=== PATIENT | female | born 1990 | race Caucasian/White ===

== ENCOUNTER 2016-08-04 10:51 | Emergency (ER) | payer OTHER ==
[~2016-08-04 10:51] MED LIST: /ALBU4TAB INH; ABIL10TA PO; ABIL15TA2 PO; ABIL1TAB5 PO; ACET50TA PO; ADV250INH INH; ALEV220T26 PO; ATOM40CA PO; BENGGEL3 EX; COLA50CA3 PO; EXCETAB80 PO; GLUC1INJ2 IM; GLUC1VL IM; GLUC4CHW PO; IBUP600T26 PO; INSUDET SC; INSUH10VL INJ; INSUH10VL SC; INSUH10VL SQ; INSUHUMDS SC; INSULADS SC; INSULANT SC; KEPP500T4 PO; LEVO500T PO; MACR100C3 PO; MINI1CAP PO; MOBI15TA PO; NOVOINJ SC; NOVOLOG SC; PARO20TA2 PO; PAXI10TA2 PO; PRENTAB74 PO; TRAZO50TA PO; TRIL150T PO; TYLE325T5 PO; VENTAER INH; VITA200016 PO; [UNRECOGNIZED DRUG - OTHER] SQ; lodine PO
[2016-08-04] MEDS ORDERED: methylPREDNISolone INJ 125 MG/2 ML VIAL (J2930) As Ordered ONE (11:30)
[2016-08-04] MEDS ORDERED: FAMOTIDINE/NS 20 MG/50 ML BAG (S0028) As Ordered ONE (11:30)
[2016-08-04] MEDS ORDERED: diphenhydrAMINE INJ 50MG/ML VIAL (J1200) As Ordered ONE (11:30)
--- NOTE | 2016-08-04 11:49 | REP ---
Chest x-ray: Two views. History: Shortness of breath. Comparison study: March 05, 2015. Findings: The lungs are well inflated and free of infiltrate. The pleural angles are sharp. The heart size is normal. Pulmonary vasculature is not increased. No significant bony abnormality is seen. EKG monitoring electrodes are seen. Impression: Negative chest x-ray. Signed by Peter Knight MD 08/04/2016 03:04 P
[2016-08-04 12:07] LABS: BASO % 0.5 % (0.0-1.0); EOS # 0.3 K/mm3 (0.0-0.50); EOS % 4.1 % (0.0-3.0); LARGE UNSTAINED CELL # 0.1 K/mm3 (0.0-0.4); LARGE UNSTAINED CELL % 1.6 % (0.0-4.0); LYMPH # 2.7 K/mm3 (1.5-6.5); LYMPH % 34.8 % (24.0-44.0); MEAN CORPUSCULAR HEMOGLOBIN 26.2 pg (27.0-33.0); MEAN CORPUSCULAR HGB CONC 31.6 g/dl (32.0-36.5); MEAN CORPUSCULAR VOLUME 83.2 fl (80.0-96.0); MONO # 0.3 K/mm3 (0.0-0.8); MONO % 3.5 % (0.0-5.0); NEUTROPHILS # 4.3 K/mm3 (1.8-7.7); NEUTROPHILS % 55.5 % (36.0-66.0); PLATELET COUNT, AUTOMATED 390 k/mm3 (150-450); RED CELL DISTRIBUTION WIDTH 13.1 % (11.5-14.5); WHITE BLOOD COUNT 7.7 K/mm3 (4.0-10.0)
[2016-08-04 12:14] LABS: ANION GAP 8 MEQ/L (8-16); BLOOD UREA NITROGEN 11 MG/DL (7-18); CARBON DIOXIDE LEVEL 26 MEQ/L (21-32); CHLORIDE LEVEL 106 MEQ/L (98-107); GLOMERULAR FILTRATION RATE > 60.0 (>60); GLUCOSE, FASTING 225 MG/DL (70-105); SODIUM LEVEL 140 MEQ/L (136-145)
--- NOTE | 2016-08-04 13:19 | EDDOCDS ---
Physician Documentation [facility] Name: Dami Salinas Age: 26 yrs Sex: Female : 1990 Arrival Date: 08/04/2016 Time: 10:51 Bed 1 Private MD: Disposition: 08/04/16 13:03 Discharged to Home/Self Care. Impression: Allergic urticaria. - Condition is Stable. - Discharge Instructions: Allergies, Hives. - Medication Reconciliation, Local Pharmacy Hours form. - Follow up: Private Physician; When: 1 - 2 days; Reason: Recheck today's complaints. - Problem is new. - Symptoms have improved. - Notes: You were seen in the ED for hives after eating a strawberry concerning for allergic reaction. Bloodwork and Chest Xray showed no other acute findings. You were treated and imrpoved with medications. You may continue Benadryl every 6 hours as needed for rash or itching. Call your primary doctor to arrange to be seen in the office for recheck. Return to the ED for any return of trouble breathing, swelling of the lips, tongue or throat, trouble swallowing or any other concerns. Historical: - Allergies: Adhesives; PENICILLINS; Positive latex allergy; - Home Meds: 1. Novolog 100 unit/mL Sub-Q soln via insulin pump 2. Lamictal 25 mg oral tab 2 times per day 3. Breo Ellipta 100-25 mcg/dose inhalation dsdv 1 puff once daily 4. Abilify 15 mg Oral tab 1 tab once daily 5. Prozac 30 mg Oral once daily 6. prazosin 1 mg Oral cap daily 7. trazodone 100 mg Oral tab nightly - PMHx: Asthma; Diabetes - IDDM: uncontrolled; Epilepsy; - PSHx: none; - Social history: Smoking status: Patient uses tobacco products, heavy tobacco smoker. No barriers to communication noted, The patient speaks fluent Portuguese, Speaks appropriately for age. - Family history: Not pertinent. - : The pt / caregiver states he / she is not on anticoagulants. Home medication list is obtained from the patient. - Exposure Risk Screening:: None identified. Vital Signs: 08/04 10:54 BP 162 / 86 RA Sitting (auto/reg); Pulse 91; Resp 30; Temp 97.4(O); Pulse Ox 96% on jrd R/A; Weight 117.93 kg / 259.99 lbs (R); Height 5 ft. 3 in. (160.02 cm); Pain 0/10; 11:50 Pulse 66 MON; Pulse Ox 100% ; cjh 11:51 BP 125 / 80 (auto/); cjh 11:59 Pulse 66 MON; Pulse Ox 100% ; cjh 12:00 BP 118 / 78 (auto/); cjh 12:08 Pulse 64 MON; Pulse Ox 100% ; cjh 12:08 BP 114 / 70 (auto/); cjh 12:22 Pulse 65 MON; Pulse Ox 98% ; cjh 12:23 BP 108 / 66 (auto/); cjh 12:37 Pulse 64 MON; Pulse Ox 100% ; cjh 12:38 BP 109 / 68 (auto/); cjh 12:52 Pulse 58 MON; Pulse Ox 98% ; cjh 12:53 BP 107 / 65 (auto/); cjh 13:08 Pulse 61 MON; Pulse Ox 98% ; cjh 13:08 BP 106 / 69 (auto/); cjh 13:15 BP 106 / 69; Pulse 62; Resp 16; Temp 97.9; Pulse Ox 99% ; Pain 0/10; cjh 10:54 Body Mass Index 46.06 (117.93 kg, 160.02 cm) jrd MDM: 11:15 IV Saline Lock ordered. br1 11:15 Insurance Specialist/Pulse Ox/q 30 min VS ordered. br1 11:16 Solu-MEDROL 125 mg IVP once ordered. br1 11:16 diphenhydrAMINE 50 mg IVP once ordered. br1 11:16 Famotidine 40 mg IVP once ordered. br1 11:17 Chest, 2 View (pa\E\lat) Ordered. EDMS 11:17 CBC with Diff Ordered. EDMS 11:17 BMP Ordered. EDMS 12:25 Financial registration complete. lg 12:59 CBC with Diff Reviewed. br1 12:59 BMP Reviewed. br1 12:59 Chest, 2 View (pa\E\lat) Reviewed. br1 Administered Medications: 11:52 Drug: Solu-MEDROL 125 mg [Solu-Medrol 500 mg intravenous solution (125 mg)] Route: IVP; [facility] Site: left antecubital; 11:52 Drug: diphenhydrAMINE 50 mg [diphenhydramine 50 mg/mL injection solution (1 mL)] Route: [facility] IVP; Site: left antecubital; 11:52 Drug: Famotidine 40 mg [famotidine 10 mg/mL intravenous solution (4 mL)] Route: IVP; [facility] Site: left antecubital; Signatures: Dispatcher [employer] Mal Knowles Reg Reg lg Barney, Michael B, RN RN mlb1 Ronak Sun MD MD br1 Rosario Bello RN RN [facility] MTDD
--- NOTE | 2016-08-04 13:19 | EDDOCDS ---
Nurse's Notes [facility] Name: Dami Salinas Age: 26 yrs Sex: Female : 1990 Arrival Date: 08/04/2016 Time: 10:51 Bed 1 Private MD: Diagnosis: Allergic urticaria Presentation: 08/04 10:56 Presenting complaint: Patient states: Sudden onset of SOB after eating strawberries. mlb1 Onset: The symptoms/episode began/occurred just prior to arrival. This patient has not experienced a previous allergic reaction. Anaphylaxis evaluation, the patient reports or I have noted the following symptoms which indicate a significant risk of anaphylaxis: lump in the throat which may suggest laryngeal edema shortness of breath. Anaphylaxis evaluation, the patient reports or I have noted the following symptoms which indicate a significant risk of anaphylaxis: urticaria. Adult Sepsis Screening: The patient does not have new or worsening altered mentation. Patient's respiratory rate is less than 22. Systolic blood pressure is greater than 100. Adult Sepsis Screening: Patient has a qSOFA score of 0- Negative Sepsis Screen. Suicide/Homicide risk assessment- the patient denies having any suicidal and/or homicidal ideations and does not present with any other emotional, behavioral or mental health complaints. Status: Patient is not a customer service associate or dependent. Transition of care: patient was not received from another setting of care. 10:56 Acuity: ISH Level 2 mlb1 10:56 Method Of Arrival: Walkin/Carried/Asstd mlb1 Triage Assessment: 11:02 General: Appears in no apparent distress, Behavior is anxious, cooperative. Pain: mlb1 Denies pain. HIV screening NA for this visit Offered previously. Respiratory: Airway is patent Respiratory effort is even, labored, Reports shortness of breath. Historical: - Allergies: Adhesives; PENICILLINS; Positive latex allergy; - Home Meds: 1. Novolog 100 unit/mL Sub-Q soln via insulin pump 2. Lamictal 25 mg oral tab 2 times per day 3. Breo Ellipta 100-25 mcg/dose inhalation dsdv 1 puff once daily 4. Abilify 15 mg Oral tab 1 tab once daily 5. Prozac 30 mg Oral once daily 6. prazosin 1 mg Oral cap daily 7. trazodone 100 mg Oral tab nightly - PMHx: Asthma; Diabetes - IDDM: uncontrolled; Epilepsy; - PSHx: none; - Social history: Smoking status: Patient uses tobacco products, heavy tobacco smoker. No barriers to communication noted, The patient speaks fluent Icelandic, Speaks appropriately for age. - Family history: Not pertinent. - : The pt / caregiver states he / she is not on anticoagulants. Home medication list is obtained from the patient. - Exposure Risk Screening:: None identified. Screenin:52 Screening information is obtained from the patient. Fall risk: No risks identified. cj Assistance ADL's: requires no assistance with activities of daily living. Abuse/DV Screen: The patient / caregiver reports he/she is: not in a situation that causes fear, pain or injury. Nutritional screening: No deficits noted. Advance Directives: There is no active DNR order. home support is adequate. Assessment: 11:52 General: Appears in no apparent distress, comfortable, Behavior is cooperative. Pain: cjh Denies pain. Neurological: Level of Consciousness is awake, alert, Oriented to person, place, time. Respiratory: Airway is patent Respiratory effort is even, unlabored, Respiratory pattern is regular, symmetrical, Breath sounds are clear bilaterally. Derm: Skin is pink, warm & dry. Rash noted that is red. Musculoskeletal: Range of motion intact in all extremities. 12:57 General: Appears in no apparent distress, comfortable, Behavior is appropriate for age, cjh cooperative, awaiting dispo, states feeling much better, watching tv on phone with male visitor at bedside, will continue to monitor. 13:15 General: Appears in no apparent distress, comfortable, Behavior is appropriate for age, cjh cooperative, reviewed discharge instructions, encouraged and answered questions, declines further needs. Vital Signs: 10:54 BP 162 / 86 RA Sitting (auto/reg); Pulse 91; Resp 30; Temp 97.4(O); Pulse Ox 96% on jrd R/A; Weight 117.93 kg (R); Height 5 ft. 3 in. (160.02 cm); Pain 0/10; 11:50 Pulse 66 MON; Pulse Ox 100% ; cjh 11:51 BP 125 / 80 (auto/); cjh 11:59 Pulse 66 MON; Pulse Ox 100% ; [facility] 12:00 BP 118 / 78 (auto/); [facility] 12:08 Pulse 64 MON; Pulse Ox 100% ; cjh 12:08 BP 114 / 70 (auto/); cjh 12:22 Pulse 65 MON; Pulse Ox 98% ; cjh 12:23 BP 108 / 66 (auto/); cjh 12:37 Pulse 64 MON; Pulse Ox 100% ; cjh 12:38 BP 109 / 68 (auto/); cjh 12:52 Pulse 58 MON; Pulse Ox 98% ; cjh 12:53 BP 107 / 65 (auto/); cjh 13:08 Pulse 61 MON; Pulse Ox 98% ; cjh 13:08 BP 106 / 69 (auto/); cjh 13:15 BP 106 / 69; Pulse 62; Resp 16; Temp 97.9; Pulse Ox 99% ; Pain 0/10; cjh 10:54 Body Mass Index 46.06 (117.93 kg, 160.02 cm) [facility] Vitals: 10:54 Log In Time: August 04, 2016 at 10:48. [facility] ED Course: 10:53 Patient visited by Cassius Colon PCA. jrd 10:53 Patient moved to Waiting jrd 10:56 Patient visited by Cassius Colon PCA. jrd 10:56 Patient visited by Ruperto Nuñez, RN. mlb1 10:56 Patient moved to 1 mlb1 10:57 Triage Initiated mlb1 11:03 Patient visited by Ruperto Nuñez, RN. mlb1 11:10 Ronak Sun MD is Attending Physician. br1 11:14 Patient visited by Ronak Sun MD. br1 11:52 The patient / caregiver is instructed regarding the plan of care and ED course. [facility] 11:52 No procedures done that require assistance. [facility] 11:54 Patient visited by Julita Mae PCA. rs6 11:54 Pt greeted and oriented to ED. Patient advised of names of staff involved in care, rs6 location of call melendez, wait times and NPO status. Accompanied by Significant Other, Patient has correct armband on for positive identification. Placed in gown. Bed in low position. Call light in reach. Side rails up X 1. service writer on. Pulse ox on. NIBP on. 11:55 Inserted saline lock: 20 gauge in left antecubital area The patient tolerated the [facility] procedure well. 12:09 Chest, 2 View (pa\E\lat) Returned. EDMS 12:48 Patient visited by Rosario Bello RN. [facility] 13:01 Patient visited by Ronak Sun MD. br1 13:15 Discontinued lock intact, bleeding controlled, pressure dressing applied, No [facility] redness/swelling at site. Administered Medications: 11:52 Drug: Solu-MEDROL 125 mg [Solu-Medrol 500 mg intravenous solution (125 mg)] Route: IVP; [facility] Site: left antecubital; 11:52 Drug: diphenhydrAMINE 50 mg [diphenhydramine 50 mg/mL injection solution (1 mL)] Route: [facility] IVP; Site: left antecubital; 11:52 Drug: Famotidine 40 mg [famotidine 10 mg/mL intravenous solution (4 mL)] Route: IVP; [facility] Site: left antecubital; Order Results: Lab Order: CBC with Diff; SPEC'M 08/04/16 11:42 Test: WHITE BLOOD COUNT; Value: 7.7; Range: 4.0-10.0; Units: K/mm3; Status: F Test: RED BLOOD COUNT; Value: 4.79; Range: 4.00-5.40; Units: M/mm3; Status: F Test: HEMOGLOBIN; Value: 12.6; Range: 12.0-16.0; Units: g/dl; Status: F Test: HEMATOCRIT; Value: 39.8; Range: 36.0-47.0; Units: %; Status: F Test: MEAN CORPUSCULAR VOLUME; Value: 83.2; Range: 80.0-96.0; Units: fl; Status: F Test: MEAN CORPUSCULAR HEMOGLOBIN; Value: 26.2; Range: 27.0-33.0; Abnormal: Below low normal; Units: pg; Status: F Test: MEAN CORPUSCULAR HGB CONC; Value: 31.6; Range: 32.0-36.5; Abnormal: Below low normal; Units: g/dl; Status: F Test: RED CELL DISTRIBUTION WIDTH; Value: 13.1; Range: 11.5-14.5; Units: %; Status: F Test: PLATELET COUNT, AUTOMATED; Value: 390; Range: 150-450; Units: k/mm3; Status: F Test: NEUTROPHILS %; Value: 55.5; Range: 36.0-66.0; Units: %; Status: F Test: LYMPH %; Value: 34.8; Range: 24.0-44.0; Units: %; Status: F Test: MONO %; Value: 3.5; Range: 0.0-5.0; Units: %; Status: F Test: EOS %; Value: 4.1; Range: 0.0-3.0; Abnormal: Above high normal; Units: %; Status: F Test: BASO %; Value: 0.5; Range: 0.0-1.0; Units: %; Status: F Test: LARGE UNSTAINED CELL %; Value: 1.6; Range: 0.0-4.0; Units: %; Status: F Test: NEUTROPHILS #; Value: 4.3; Range: 1.8-7.7; Units: K/mm3; Status: F Test: LYMPH #; Value: 2.7; Range: 1.5-6.5; Units: K/mm3; Status: F Test: MONO #; Value: 0.3; Range: 0.0-0.8; Units: K/mm3; Status: F Test: EOS #; Value: 0.3; Range: 0.0-0.50; Units: K/mm3; Status: F Test: BASO #; Value: 0.0; Range: 0.0-0.2; Units: K/mm3; Status: F Test: LARGE UNSTAINED CELL #; Value: 0.1; Range: 0.0-0.4; Units: K/mm3; Status: F Lab Order: [facility]; [facility] 08/04/16 11:42 Test: GLUCOSE, FASTING; Value: 225; Range: 70-105; Abnormal: Above high normal; Units: MG/DL; Status: F Test: BLOOD UREA NITROGEN; Value: 11; Range: 7-18; Units: MG/DL; Status: F Test: CREATININE FOR GFR; Value: 0.70; Range: 0.55-1.02; Units: MG/DL; Status: F Test: GLOMERULAR FILTRATION RATE; Value: > 60.0; Range: >60; Status: F Test: SODIUM LEVEL; Value: 140; Range: 136-145; Units: MEQ/L; Status: F Test: POTASSIUM SERUM; Value: 4.0; Range: 3.5-5.1; Units: MEQ/L; Status: F Test: CHLORIDE LEVEL; Value: 106; Range: 98-107; Units: MEQ/L; Status: F Test: CARBON DIOXIDE LEVEL; Value: 26; Range: 21-32; Units: MEQ/L; Status: F Test: ANION GAP; Value: 8; Range: 8-16; Units: MEQ/L; Status: F Test: CALCIUM LEVEL; Value: 9.0; Range: 8.5-10.1; Units: MG/DL; Status: F Test Note: ; Units are mL/min/1.73 m2 Chronic Kidney Disease Staging per NKF: Stage I & II GFR >=60 Normal to Mildly Decreased Stage III GFR 30-59 Moderately Decreased Stage IV GFR 15-29 Severely Decreased Stage V GFR <15 Very Little GFR Left ESRD GFR <15 on TREATMENT MANAGER Radiology Order: Chest, 2 View (pa\E\lat) Test: Chest, 2 View (pa\E\lat) REASON FOR EXAMINATION: Shortness of Breath; Chest x-ray: Two views.; ; History: Shortness of breath.; ; Comparison study: March 05, 2015.; ; Findings: The lungs are well inflated and free of infiltrate. The pleural; angles are sharp. The heart size is normal. Pulmonary vasculature is not; increased. No significant bony abnormality is seen. EKG monitoring electrodes; are seen.; ; Impression:; ; Negative chest x-ray.; ; ; ; ; Unreviewed; Outcome: 13:03 Discharge ordered by Provider. br1 13:15 Discharge Assessment: Patient awake, alert and oriented x 3. No cognitive and/or [facility] functional deficits noted. Patient verbalized understanding of disposition instructions. patient administered narcotics - no. The following High Risk Discharge criteria are identified: None. Discharged to home ambulatory, with significant other. Condition: good Condition: stable Condition: improved. Discharge instructions given to patient, Instructed on discharge instructions, follow up and referral plans. medication usage, Demonstrated understanding of instructions, medications, Pt was receptive of discharge instructions/ teaching. No special radiology studies were completed. Property :Personal belongings accompany Pt. 13:18 Patient left the ED. [facility] Signatures: Dispatcher [facility] HospitalRuperto Deshpande RN RN mlb1 Ronak Sun MD MD br1 Rosario Bello,RN RN cjh Cassius Colon, PERSONAL INJURY LITIGATION PARALEGAL PERSONAL INJURY LITIGATION PARALEGAL jrd Julita Mae, PERSONAL INJURY LITIGATION PARALEGAL PERSONAL INJURY LITIGATION PARALEGAL rs6 Corrections: (The following items were deleted from the chart) 11:55 11:52 No IV's were initiated during this patient's visit chiara guadarrama MTDD
--- NOTE | 2016-08-06 14:19 | EDDOCDS ---
Physician Documentation [facility] Name: Dami Salinas Age: 26 yrs Sex: Female : 1990 Arrival Date: 08/04/2016 Time: 10:51 Bed 1 Private MD: Disposition: 08/04/16 13:03 Discharged to Home/Self Care. Impression: Allergic urticaria. - Condition is Stable. - Discharge Instructions: Allergies, Hives. - Medication Reconciliation, Local Pharmacy Hours form. - Follow up: Private Physician; When: 1 - 2 days; Reason: Recheck today's complaints. - Problem is new. - Symptoms have improved. - Notes: You were seen in the ED for hives after eating a strawberry concerning for allergic reaction. Bloodwork and Chest Xray showed no other acute findings. You were treated and imrpoved with medications. You may continue Benadryl every 6 hours as needed for rash or itching. Call your primary doctor to arrange to be seen in the office for recheck. Return to the ED for any return of trouble breathing, swelling of the lips, tongue or throat, trouble swallowing or any other concerns. Historical: - Allergies: Adhesives; PENICILLINS; Positive latex allergy; - Home Meds: 1. Novolog 100 unit/mL Sub-Q soln via insulin pump 2. Lamictal 25 mg oral tab 2 times per day 3. Breo Ellipta 100-25 mcg/dose inhalation dsdv 1 puff once daily 4. Abilify 15 mg Oral tab 1 tab once daily 5. Prozac 30 mg Oral once daily 6. prazosin 1 mg Oral cap daily 7. trazodone 100 mg Oral tab nightly - PMHx: Asthma; Diabetes - IDDM: uncontrolled; Epilepsy; - PSHx: none; - Social history: Smoking status: Patient uses tobacco products, heavy tobacco smoker. No barriers to communication noted, The patient speaks fluent Italian, Speaks appropriately for age. - Family history: Not pertinent. - : The pt / caregiver states he / she is not on anticoagulants. Home medication list is obtained from the patient. - Exposure Risk Screening:: None identified. Vital Signs: 08/04 10:54 BP 162 / 86 RA Sitting (auto/reg); Pulse 91; Resp 30; Temp 97.4(O); Pulse Ox 96% on jrd R/A; Weight 117.93 kg / 259.99 lbs (R); Height 5 ft. 3 in. (160.02 cm); Pain 0/10; 11:50 Pulse 66 MON; Pulse Ox 100% ; cjh 11:51 BP 125 / 80 (auto/); cjh 11:59 Pulse 66 MON; Pulse Ox 100% ; cjh 12:00 BP 118 / 78 (auto/); cjh 12:08 Pulse 64 MON; Pulse Ox 100% ; cjh 12:08 BP 114 / 70 (auto/); cjh 12:22 Pulse 65 MON; Pulse Ox 98% ; cjh 12:23 BP 108 / 66 (auto/); cjh 12:37 Pulse 64 MON; Pulse Ox 100% ; cjh 12:38 BP 109 / 68 (auto/); cjh 12:52 Pulse 58 MON; Pulse Ox 98% ; cjh 12:53 BP 107 / 65 (auto/); cjh 13:08 Pulse 61 MON; Pulse Ox 98% ; cjh 13:08 BP 106 / 69 (auto/); cjh 13:15 BP 106 / 69; Pulse 62; Resp 16; Temp 97.9; Pulse Ox 99% ; Pain 0/10; cjh 10:54 Body Mass Index 46.06 (117.93 kg, 160.02 cm) jrd MDM: 11:15 IV Saline Lock ordered. br1 11:15 Project Accountant/Pulse Ox/q 30 min VS ordered. br1 11:16 Solu-MEDROL 125 mg IVP once ordered. br1 11:16 diphenhydrAMINE 50 mg IVP once ordered. br1 11:16 Famotidine 40 mg IVP once ordered. br1 11:17 Chest, 2 View (pa\E\lat) Ordered. EDMS 11:17 CBC with Diff Ordered. EDMS 11:17 BMP Ordered. EDMS 12:25 Financial registration complete. lg 12:59 CBC with Diff Reviewed. br1 12:59 BMP Reviewed. br1 12:59 Chest, 2 View (pa\E\lat) Reviewed. br1 13:29 COUNT INCLUDES THE [facility] Payment Agreement was scanned into Nitch and attached to record. lg 08/05 09:33 T-Sheet-- Draft Copy was scanned into N[employer] and attached to record. gb Administered Medications: 02/08 11:52 Drug: Solu-MEDROL 125 mg [Solu-Medrol 500 mg intravenous solution (125 mg)] Route: IVP; [facility] Site: left antecubital; 11:52 Drug: diphenhydrAMINE 50 mg [diphenhydramine 50 mg/mL injection solution (1 mL)] Route: [facility] IVP; Site: left antecubital; 11:52 Drug: Famotidine 40 mg [famotidine 10 mg/mL intravenous solution (4 mL)] Route: IVP; [facility] Site: left antecubital; Signatures: Dispatcher [employer] EDMS Valeria Cisneros, Reg Reg gb Mal Ledbetter, Reg Reg lg Ruperto Nuñez RN RN mlb1 Ronak Sun MD MD br1 Rosario Bello RN RN [facility] The chart was reviewed and I authenticate all verbal orders and agree with the evaluation and treatment provided.Attachments: 13:29 COUNT INCLUDES THE [facility] Payment Agreement lg 08/05 09:33 T-Sheet-- Draft Copy Chart Complete MTDD
--- NOTE | 2016-08-06 14:19 | EDDOCDS ---
Physician Documentation [facility] Name: Dami Salinas Age: 26 yrs Sex: Female : 1990 Arrival Date: 08/04/2016 Time: 10:51 Bed 1 Private MD: Disposition: 08/04/16 13:03 Discharged to Home/Self Care. Impression: Allergic urticaria. - Condition is Stable. - Discharge Instructions: Allergies, Hives. - Medication Reconciliation, Local Pharmacy Hours form. - Follow up: Private Physician; When: 1 - 2 days; Reason: Recheck today's complaints. - Problem is new. - Symptoms have improved. - Notes: You were seen in the ED for hives after eating a strawberry concerning for allergic reaction. Bloodwork and Chest Xray showed no other acute findings. You were treated and imrpoved with medications. You may continue Benadryl every 6 hours as needed for rash or itching. Call your primary doctor to arrange to be seen in the office for recheck. Return to the ED for any return of trouble breathing, swelling of the lips, tongue or throat, trouble swallowing or any other concerns. Historical: - Allergies: Adhesives; PENICILLINS; Positive latex allergy; - Home Meds: 1. Novolog 100 unit/mL Sub-Q soln via insulin pump 2. Lamictal 25 mg oral tab 2 times per day 3. Breo Ellipta 100-25 mcg/dose inhalation dsdv 1 puff once daily 4. Abilify 15 mg Oral tab 1 tab once daily 5. Prozac 30 mg Oral once daily 6. prazosin 1 mg Oral cap daily 7. trazodone 100 mg Oral tab nightly - PMHx: Asthma; Diabetes - IDDM: uncontrolled; Epilepsy; - PSHx: none; - Social history: Smoking status: Patient uses tobacco products, heavy tobacco smoker. No barriers to communication noted, The patient speaks fluent Slovak, Speaks appropriately for age. - Family history: Not pertinent. - : The pt / caregiver states he / she is not on anticoagulants. Home medication list is obtained from the patient. - Exposure Risk Screening:: None identified. Vital Signs: 08/04 10:54 BP 162 / 86 RA Sitting (auto/reg); Pulse 91; Resp 30; Temp 97.4(O); Pulse Ox 96% on jrd R/A; Weight 117.93 kg / 259.99 lbs (R); Height 5 ft. 3 in. (160.02 cm); Pain 0/10; 11:50 Pulse 66 MON; Pulse Ox 100% ; cjh 11:51 BP 125 / 80 (auto/); cjh 11:59 Pulse 66 MON; Pulse Ox 100% ; cjh 12:00 BP 118 / 78 (auto/); cjh 12:08 Pulse 64 MON; Pulse Ox 100% ; cjh 12:08 BP 114 / 70 (auto/); cjh 12:22 Pulse 65 MON; Pulse Ox 98% ; cjh 12:23 BP 108 / 66 (auto/); cjh 12:37 Pulse 64 MON; Pulse Ox 100% ; cjh 12:38 BP 109 / 68 (auto/); cjh 12:52 Pulse 58 MON; Pulse Ox 98% ; cjh 12:53 BP 107 / 65 (auto/); cjh 13:08 Pulse 61 MON; Pulse Ox 98% ; cjh 13:08 BP 106 / 69 (auto/); cjh 13:15 BP 106 / 69; Pulse 62; Resp 16; Temp 97.9; Pulse Ox 99% ; Pain 0/10; cjh 10:54 Body Mass Index 46.06 (117.93 kg, 160.02 cm) jrd MDM: 11:15 IV Saline Lock ordered. br1 11:15 Machining Technician/Pulse Ox/q 30 min VS ordered. br1 11:16 Solu-MEDROL 125 mg IVP once ordered. br1 11:16 diphenhydrAMINE 50 mg IVP once ordered. br1 11:16 Famotidine 40 mg IVP once ordered. br1 11:17 Chest, 2 View (pa\E\lat) Ordered. EDMS 11:17 CBC with Diff Ordered. EDMS 11:17 BMP Ordered. EDMS 12:25 Financial registration complete. lg 12:59 CBC with Diff Reviewed. br1 12:59 BMP Reviewed. br1 12:59 Chest, 2 View (pa\E\lat) Reviewed. br1 13:29 [facility] Payment Agreement was scanned into Lagiar and attached to record. lg 08/05 09:33 T-Sheet-- Draft Copy was scanned into Lagiar and attached to record. gb Administered Medications: 02/08 11:52 Drug: Solu-MEDROL 125 mg [Solu-Medrol 500 mg intravenous solution (125 mg)] Route: IVP; [facility] Site: left antecubital; 11:52 Drug: diphenhydrAMINE 50 mg [diphenhydramine 50 mg/mL injection solution (1 mL)] Route: [facility] IVP; Site: left antecubital; 11:52 Drug: Famotidine 40 mg [famotidine 10 mg/mL intravenous solution (4 mL)] Route: IVP; [facility] Site: left antecubital; Signatures: Dispatcher MedHost EDMS Valeria Cisneros, Reg Reg gb Mal Ledbetter, Reg Reg lg Ruperto Nuñez RN RN mlb1 Ronak Sun MD MD br1 Rosario Bello RN RN [facility] The chart was reviewed and I authenticate all verbal orders and agree with the evaluation and treatment provided.Attachments: 13:29 [facility] Payment Agreement lg 08/05 09:33 T-Sheet-- Draft Copy Chart Complete MTDD
--- NOTE | 2016-08-06 14:19 | EDDOCDS ---
Nurse's Notes [facility] Name: Dami Salinas Age: 26 yrs Sex: Female : 1990 Arrival Date: 08/04/2016 Time: 10:51 Bed 1 Private MD: Diagnosis: Allergic urticaria Presentation: 08/04 10:56 Presenting complaint: Patient states: Sudden onset of SOB after eating strawberries. mlb1 Onset: The symptoms/episode began/occurred just prior to arrival. This patient has not experienced a previous allergic reaction. Anaphylaxis evaluation, the patient reports or I have noted the following symptoms which indicate a significant risk of anaphylaxis: lump in the throat which may suggest laryngeal edema shortness of breath. Anaphylaxis evaluation, the patient reports or I have noted the following symptoms which indicate a significant risk of anaphylaxis: urticaria. Adult Sepsis Screening: The patient does not have new or worsening altered mentation. Patient's respiratory rate is less than 22. Systolic blood pressure is greater than 100. Adult Sepsis Screening: Patient has a qSOFA score of 0- Negative Sepsis Screen. Suicide/Homicide risk assessment- the patient denies having any suicidal and/or homicidal ideations and does not present with any other emotional, behavioral or mental health complaints. Status: Patient is not a maintenance services dispatcher or dependent. Transition of care: patient was not received from another setting of care. 10:56 Acuity: ISH Level 2 mlb1 10:56 Method Of Arrival: Walkin/Carried/Asstd mlb1 Triage Assessment: 11:02 General: Appears in no apparent distress, Behavior is anxious, cooperative. Pain: mlb1 Denies pain. HIV screening NA for this visit Offered previously. Respiratory: Airway is patent Respiratory effort is even, labored, Reports shortness of breath. Historical: - Allergies: Adhesives; PENICILLINS; Positive latex allergy; - Home Meds: 1. Novolog 100 unit/mL Sub-Q soln via insulin pump 2. Lamictal 25 mg oral tab 2 times per day 3. Breo Ellipta 100-25 mcg/dose inhalation dsdv 1 puff once daily 4. Abilify 15 mg Oral tab 1 tab once daily 5. Prozac 30 mg Oral once daily 6. prazosin 1 mg Oral cap daily 7. trazodone 100 mg Oral tab nightly - PMHx: Asthma; Diabetes - IDDM: uncontrolled; Epilepsy; - PSHx: none; - Social history: Smoking status: Patient uses tobacco products, heavy tobacco smoker. No barriers to communication noted, The patient speaks fluent Romansh, Speaks appropriately for age. - Family history: Not pertinent. - : The pt / caregiver states he / she is not on anticoagulants. Home medication list is obtained from the patient. - Exposure Risk Screening:: None identified. Screenin:52 Screening information is obtained from the patient. Fall risk: No risks identified. cj Assistance ADL's: requires no assistance with activities of daily living. Abuse/DV Screen: The patient / caregiver reports he/she is: not in a situation that causes fear, pain or injury. Nutritional screening: No deficits noted. Advance Directives: There is no active DNR order. home support is adequate. Assessment: 11:52 General: Appears in no apparent distress, comfortable, Behavior is cooperative. Pain: cjh Denies pain. Neurological: Level of Consciousness is awake, alert, Oriented to person, place, time. Respiratory: Airway is patent Respiratory effort is even, unlabored, Respiratory pattern is regular, symmetrical, Breath sounds are clear bilaterally. Derm: Skin is pink, warm & dry. Rash noted that is red. Musculoskeletal: Range of motion intact in all extremities. 12:57 General: Appears in no apparent distress, comfortable, Behavior is appropriate for age, cjh cooperative, awaiting dispo, states feeling much better, watching tv on phone with male visitor at bedside, will continue to monitor. 13:15 General: Appears in no apparent distress, comfortable, Behavior is appropriate for age, cjh cooperative, reviewed discharge instructions, encouraged and answered questions, declines further needs. Vital Signs: 10:54 BP 162 / 86 RA Sitting (auto/reg); Pulse 91; Resp 30; Temp 97.4(O); Pulse Ox 96% on jrd R/A; Weight 117.93 kg (R); Height 5 ft. 3 in. (160.02 cm); Pain 0/10; 11:50 Pulse 66 MON; Pulse Ox 100% ; cjh 11:51 BP 125 / 80 (auto/); cjh 11:59 Pulse 66 MON; Pulse Ox 100% ; [facility] 12:00 BP 118 / 78 (auto/); [facility] 12:08 Pulse 64 MON; Pulse Ox 100% ; cjh 12:08 BP 114 / 70 (auto/); cjh 12:22 Pulse 65 MON; Pulse Ox 98% ; cjh 12:23 BP 108 / 66 (auto/); cjh 12:37 Pulse 64 MON; Pulse Ox 100% ; cjh 12:38 BP 109 / 68 (auto/); cjh 12:52 Pulse 58 MON; Pulse Ox 98% ; cjh 12:53 BP 107 / 65 (auto/); cjh 13:08 Pulse 61 MON; Pulse Ox 98% ; cjh 13:08 BP 106 / 69 (auto/); cjh 13:15 BP 106 / 69; Pulse 62; Resp 16; Temp 97.9; Pulse Ox 99% ; Pain 0/10; cjh 10:54 Body Mass Index 46.06 (117.93 kg, 160.02 cm) [facility] Vitals: 10:54 Log In Time: August 04, 2016 at 10:48. [facility] ED Course: 10:53 Patient visited by Cassius Colon PCA. jrd 10:53 Patient moved to Waiting jrd 10:56 Patient visited by Cassius Colon PCA. jrd 10:56 Patient visited by Ruperto Nuñez, RN. mlb1 10:56 Patient moved to 1 mlb1 10:57 Triage Initiated mlb1 11:03 Patient visited by Ruperto Nuñez, RN. mlb1 11:10 Ronak Sun MD is Attending Physician. br1 11:14 Patient visited by Ronak Sun MD. br1 11:52 The patient / caregiver is instructed regarding the plan of care and ED course. [facility] 11:52 No procedures done that require assistance. [facility] 11:54 Patient visited by Julita Mae PCA. rs6 11:54 Pt greeted and oriented to ED. Patient advised of names of staff involved in care, rs6 location of call melendez, wait times and NPO status. Accompanied by Significant Other, Patient has correct armband on for positive identification. Placed in gown. Bed in low position. Call light in reach. Side rails up X 1. traffic monitor specialist on. Pulse ox on. NIBP on. 11:55 Inserted saline lock: 20 gauge in left antecubital area The patient tolerated the [facility] procedure well. 12:09 Chest, 2 View (pa\E\lat) Returned. EDMS 12:48 Patient visited by Rosario Bello RN. [facility] 13:01 Patient visited by Ronak Sun MD. br1 13:15 Discontinued lock intact, bleeding controlled, pressure dressing applied, No [facility] redness/swelling at site. 13:29 [facility] [place] Agreement was scanned into Zoe Majeste and attached to record. lg 15:32 Chest, 2 View (pa\E\lat) Returned. EDMS 08/05 09:33 T-Sheet-- Draft Copy was scanned into Zoe [employer]este and attached to record. gb Administered Medications: 08/04 11:52 Drug: Solu-MEDROL 125 mg [Solu-Medrol 500 mg intravenous solution (125 mg)] Route: IVP; [facility] Site: left antecubital; 11:52 Drug: diphenhydrAMINE 50 mg [diphenhydramine 50 mg/mL injection solution (1 mL)] Route: [facility] IVP; Site: left antecubital; 11:52 Drug: Famotidine 40 mg [famotidine 10 mg/mL intravenous solution (4 mL)] Route: IVP; [facility] Site: left antecubital; Order Results: Lab Order: CBC with Diff; SPEC'M 08/04/16 11:42 Test: WHITE BLOOD COUNT; Value: 7.7; Range: 4.0-10.0; Units: K/mm3; Status: F Test: RED BLOOD COUNT; Value: 4.79; Range: 4.00-5.40; Units: M/mm3; Status: F Test: HEMOGLOBIN; Value: 12.6; Range: 12.0-16.0; Units: g/dl; Status: F Test: HEMATOCRIT; Value: 39.8; Range: 36.0-47.0; Units: %; Status: F Test: MEAN CORPUSCULAR VOLUME; Value: 83.2; Range: 80.0-96.0; Units: fl; Status: F Test: MEAN CORPUSCULAR HEMOGLOBIN; Value: 26.2; Range: 27.0-33.0; Abnormal: Below low normal; Units: pg; Status: F Test: MEAN CORPUSCULAR HGB CONC; Value: 31.6; Range: 32.0-36.5; Abnormal: Below low normal; Units: g/dl; Status: F Test: RED CELL DISTRIBUTION WIDTH; Value: 13.1; Range: 11.5-14.5; Units: %; Status: F Test: PLATELET COUNT, AUTOMATED; Value: 390; Range: 150-450; Units: k/mm3; Status: F Test: NEUTROPHILS %; Value: 55.5; Range: 36.0-66.0; Units: %; Status: F Test: LYMPH %; Value: 34.8; Range: 24.0-44.0; Units: %; Status: F Test: MONO %; Value: 3.5; Range: 0.0-5.0; Units: %; Status: F Test: EOS %; Value: 4.1; Range: 0.0-3.0; Abnormal: Above high normal; Units: %; Status: F Test: BASO %; Value: 0.5; Range: 0.0-1.0; Units: %; Status: F Test: LARGE UNSTAINED CELL %; Value: 1.6; Range: 0.0-4.0; Units: %; Status: F Test: NEUTROPHILS #; Value: 4.3; Range: 1.8-7.7; Units: K/mm3; Status: F Test: LYMPH #; Value: 2.7; Range: 1.5-6.5; Units: K/mm3; Status: F Test: MONO #; Value: 0.3; Range: 0.0-0.8; Units: K/mm3; Status: F Test: EOS #; Value: 0.3; Range: 0.0-0.50; Units: K/mm3; Status: F Test: BASO #; Value: 0.0; Range: 0.0-0.2; Units: K/mm3; Status: F Test: LARGE UNSTAINED CELL #; Value: 0.1; Range: 0.0-0.4; Units: K/mm3; Status: F Lab Order: [facility]; SPEC'M 08/04/16 11:42 Test: GLUCOSE, FASTING; Value: 225; Range: 70-105; Abnormal: Above high normal; Units: MG/DL; Status: F Test: BLOOD UREA NITROGEN; Value: 11; Range: 7-18; Units: MG/DL; Status: F Test: CREATININE FOR GFR; Value: 0.70; Range: 0.55-1.02; Units: MG/DL; Status: F Test: GLOMERULAR FILTRATION RATE; Value: > 60.0; Range: >60; Status: F Test: SODIUM LEVEL; Value: 140; Range: 136-145; Units: MEQ/L; Status: F Test: POTASSIUM SERUM; Value: 4.0; Range: 3.5-5.1; Units: MEQ/L; Status: F Test: CHLORIDE LEVEL; Value: 106; Range: 98-107; Units: MEQ/L; Status: F Test: CARBON DIOXIDE LEVEL; Value: 26; Range: 21-32; Units: MEQ/L; Status: F Test: ANION GAP; Value: 8; Range: 8-16; Units: MEQ/L; Status: F Test: CALCIUM LEVEL; Value: 9.0; Range: 8.5-10.1; Units: MG/DL; Status: F Test Note: ; Units are mL/min/1.73 m2 Chronic Kidney Disease Staging per NKF: Stage I & II GFR >=60 Normal to Mildly Decreased Stage III GFR 30-59 Moderately Decreased Stage IV GFR 15-29 Severely Decreased Stage V GFR <15 Very Little GFR Left ESRD GFR <15 on SUBSTATION OPERATOR APPRENTICE Radiology Order: Chest, 2 View (pa\E\lat) Test: Chest, 2 View (pa\E\lat) REASON FOR EXAMINATION: Shortness of Breath; Chest x-ray: Two views.; ; History: Shortness of breath.; ; Comparison study: March 05, 2015.; ; Findings: The lungs are well inflated and free of infiltrate. The pleural; angles are sharp. The heart size is normal. Pulmonary vasculature is not; increased. No significant bony abnormality is seen. EKG monitoring electrodes; are seen.; ; Impression:; ; Negative chest x-ray.; ; ; Signed by; Peter Knight MD 08/04/2016 03:04 P; Outcome: 13:03 Discharge ordered by Provider. br1 13:15 Discharge Assessment: Patient awake, alert and oriented x 3. No cognitive and/or cjh functional deficits noted. Patient verbalized understanding of disposition instructions. patient administered narcotics - no. The following High Risk Discharge criteria are identified: None. Discharged to home ambulatory, with significant other. Condition: good Condition: stable Condition: improved. Discharge instructions given to patient, Instructed on discharge instructions, follow up and referral plans. medication usage, Demonstrated understanding of instructions, medications, Pt was receptive of discharge instructions/ teaching. No special radiology studies were completed. Property :Personal belongings accompany Pt. 13:18 Patient left the ED. [facility] Signatures: Dispatcher MedHost EDMS OrlandoValeria jolly, Reg Reg gb TwilaMal jackson, Reg Reg lg Ruperto Nuñez RN RN mlb1 Ronak Sun MD MD br1 Rosario Bello RN RN [facility] Cassius Colon, OPERATIONS SUPERVISOR 2ND SHIFT OPERATIONS SUPERVISOR 2ND SHIFT jrd Julita Mae, OPERATIONS SUPERVISOR 2ND SHIFT OPERATIONS SUPERVISOR 2ND SHIFT rs6 Corrections: (The following items were deleted from the chart) 11:55 11:52 No IV's were initiated during this patient's visit [facility] Chart Complete MTDD
== END 2016-08-04 13:18 | disposition home or self-care (01) ==
LOC: M ED 10:51
DX: L50.0 Allergic urticaria (principal); J45.909 Unspecified asthma, uncomplicated; E11.9 Type 2 diabetes mellitus without complications; G40.909 Epilepsy, unspecified, not intractable, without status epilepticus; F17.210 Nicotine dependence, cigarettes, uncomplicated; Z88.0 Allergy status to penicillin; Z91.040 Latex allergy status; Z91.048 Other nonmedicinal substance allergy status; Z79.899 Other long term (current) drug therapy; Z79.4 Long term (current) use of insulin; Z79.51 Long term (current) use of inhaled steroids
CPT/HCPCS: 36415; 71020; 80048; 85025; 93041; 96374; 96375; 99284; J1200; J2930

== ENCOUNTER 2016-08-17 13:33 | Emergency (ER) | payer OTHER ==
[2016-08-17 14:12] LABS: RENAL EPITHELIAL CELLS 1 /HPF
[2016-08-17 15:17] LABS: CONTROL LINE UCG INT CTR LINE PRESENT
[2016-08-17] MEDS ORDERED: ONDANSETRON 4 MG ORAL DISINTEGRATING TAB (S0181) As Ordered ONE (15:24)
--- NOTE | 2016-08-17 15:41 | EDDOCDS ---
Nurse's Notes [facility] Name: Dami Salinas Age: 26 yrs Sex: Female : 1990 Arrival Date: 08/17/2016 Time: 13:33 Bed TR8 Private MD: NO PRIMARY PHYSICIAN, . Diagnosis: Nausea with vomiting, unspecified;Urinary tract infection, site not specified Presentation: 08/17 13:45 Presenting complaint: Patient states: she has been nauseated for a couple of weeks - kcs also has had painful urination for a couple of days. Vomited las night. Adult Sepsis Screening: The patient does not have new or worsening altered mentation. Patient's respiratory rate is less than 22. Systolic blood pressure is greater than 100. Patient has a qSOFA score of 0- Negative Sepsis Screen. Suicide/Homicide risk assessment- the patient denies having any suicidal and/or homicidal ideations and does not present with any other emotional, behavioral or mental health complaints. Status: Patient is not a home restoration service supervisor or dependent. Transition of care: patient was not received from another setting of care. 13:45 Acuity: ISH Level 4 kcs 13:45 Method Of Arrival: Walkin/Carried/Asstd kcs Triage Assessment: 13:50 General: Appears comfortable, obese, well developed, well nourished, well groomed, kcs Behavior is cooperative, pleasant. Pain: Denies pain. HIV screening NA for this visit Offered previously. Neurological: Level of Consciousness is awake, alert. Respiratory: Airway is patent Respiratory effort is even, unlabored, Respiratory pattern is regular, symmetrical. : Reports burning with urination urgency urinary frequency. Derm: Skin is intact, is healthy with good turgor, Skin is dry, Skin is normal. 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 Abilify 15 mg Oral tab 1 tab once daily 2. Breo Ellipta 100-25 mcg/dose inhalation dsdv 1 puff once daily 3. Lamictal 25 mg Oral tab 2 times per day 4. Novolog 100 unit/mL Sub-Q soln via insulin pump 5. prazosin 1 mg Oral cap nightly 6. Prozac 30 mg Oral once daily 7. trazodone 100 mg Oral tab nightly - PMHx: Asthma; Diabetes - IDDM: uncontrolled; Epilepsy; Anxiety; Depression; - PSHx: Adenoidectomy; Tonsillectomy; culposcopy; ectopic ; Exploratory lap; - Social history: Smoking status: Patient uses tobacco products, light tobacco smoker. No barriers to communication noted, The patient speaks fluent German. - Family history: Not pertinent. - : The pt / caregiver states he / she is not on anticoagulants. Home medication list is obtained from the patient, SparCode import data. - Exposure Risk Screening:: None identified. Screenin:33 Screening information is obtained from the patient. Fall risk: No risks identified. ms18 Assistance ADL's: requires no assistance with activities of daily living. Abuse/DV Screen: The patient / caregiver reports he/she is: not in a situation that causes fear, pain or injury. Nutritional screening: No deficits noted. Advance Directives: There is no living will. home support is adequate. Assessment: 15:33 General: Appears in no apparent distress, comfortable, obese, Behavior is appropriate ms18 for age, cooperative. Pain: Denies pain. Neurological: Level of Consciousness is awake, alert, obeys commands, Oriented to person, place, time. Respiratory: No deficits noted. : Reports burning with urination. Derm: Skin is pink, warm & dry. normal. Vital Signs: 13:36 BP 120 / 77; Pulse 116; Resp 18 S; Temp 97.2(O); Pulse Ox 98% on R/A; Weight 99.79 kg gr2 (M); Height 5 ft. 3 in. (160.02 cm) (M); Pain 3/10; 15:33 BP 133 / 81; Pulse 98; Resp 18; Temp 98; Pulse Ox 99% ; Pain 0/10; ms18 13:36 Body Mass Index 38.97 (99.79 kg, 160.02 cm) gr2 Vitals: 13:36 Log In Time: August 17, 2016 at 13:36. gr2 ED Course: 13:35 Patient visited by Santos Bautista. gr2 13:35 NO PRIMARY PHYSICIAN, . is Private Physician. gr2 13:35 Patient moved to Waiting gr2 13:36 Patient visited by Santos Bautista. gr2 13:36 Patient moved to Pre RCE gr2 13:47 Triage Initiated kcs 14:48 Patient moved to Triage 1 ms18 14:54 [facility]- In Lab Sent. ms18 14:57 Patient visited by Maureen Tyler RN. ms18 14:59 Nicky Gill PA-C is PHCP. dt4 14:59 hCar Russo MD is Attending Physician. dt4 14:59 Patient visited by Nicky Gill PA-C. dt4 15:20 [facility] is Referral Physician. dt4 15:31 Patient moved to TR8 ms18 15:33 The patient / caregiver is instructed regarding the plan of care and ED course. ms18 Accompanied by Significant Other, Patient has correct armband on for positive identification. Property sent home with patient. :Personal belongings accompany Pt. 15:33 No IV's were initiated during this patient's visit. No procedures done that require ms18 assistance. 15:38 [facility] Payment Agreement was scanned into S[employer] and attached to record. jp5 Administered Medications: 15:31 Drug: Ondansetron ODT 4 mg [ondansetron 4 mg disintegrating tablet (1 tabs)] Route: PO; ms18 Order Results: Lab Order: UA; SPEC'M 08/17/16 13:56 Test: APPEARANCE, URINE; Value: HAZY; Range: CLEAR; Status: F Test: COLOR, URINE; Value: YELLOW; Range: YELLOW; Status: F Test: PH,URINE; Value: 5.0; Range: 5.0-9.0; Units: UNITS; Status: F Test: SPECIFIC GRAVITY URINE AUTO; Value: 1.025; Range: 1.002-1.035; Status: F Test: PROTEIN, URINE AUTO; Value: NEGATIVE; Range: NEGATIVE; Units: mg/dL; Status: F Test: GLUCOSE, URINE (UA) AUTO; Value: NEGATIVE; Range: NEGATIVE; Units: mg/dL; Status: F Test: KETONE, URINE AUTO; Value: NEGATIVE; Range: NEGATIVE; Units: mg/dL; Status: F Test: UROBILINOGEN, URINE AUTO; Value: 0.2; Range: 0.0-2.0; Units: mg/dL; Status: F Test: BILIRUBIN, URINE AUTO; Value: NEGATIVE; Range: NEGATIVE; Status: F Test: NITRITE, URINE AUTO; Value: NEGATIVE; Range: NEGATIVE; Status: F Test: LEUKOCYTE ESTERASE, URINE AUTO; Value: NEGATIVE; Range: NEGATIVE; Status: F Test: BLOOD, URINE BLOOD; Value: NEGATIVE; Range: NEGATIVE; Status: F Test: WBC, URINE AUTO; Value: 5; Range: 0-3; Abnormal: Above high normal; Units: /HPF; Status: F Test: RBC, URINE AUTO; Value: 2; Range: 0-3; Units: /HPF; Status: F Test: BACTERIA, URINE AUTO; Value: NEGATIVE; Range: NEGATIVE; Status: F Test: SQUAMOUS EPITHELIAL CELL UR AU; Value: 5; Range: 0-6; Units: /HPF; Status: F Test: TRANSITIONAL EPITHELIAL AUTO; Value: 1; Range: NONE; Units: /HPF; Status: F Test: RENAL EPITHELIAL CELLS; Value: 1; Range: NONE; Units: /HPF; Status: F Test: MUCUS, URINE; Value: SMALL; Range: NEGATIVE; Status: F Test: HYALINE CAST, URINE AUTO; Value: 1; Range: 0-1; Units: /LPF; Status: F Lab Order: [facility]- In Lab; SPEC'M 08/17/16 13:55 Test: URINE PREG TEST; Value: NEGATIVE; Range: NEGATIVE; Status: F Outcome: 15:21 Discharge ordered by Provider. dt4 15:33 Discharge Assessment: Patient awake, alert and oriented x 3. No cognitive and/or ms18 functional deficits noted. Patient verbalized understanding of disposition instructions. patient administered narcotics - no. The following High Risk Discharge criteria are identified: None. Discharged to home ambulatory, with significant other. Condition: good Condition: stable Condition: improved. Discharge instructions given to patient, Instructed on discharge instructions, follow up and referral plans. medication usage, Demonstrated understanding of instructions, medications, Pt was receptive of discharge instructions/ teaching. Prescriptions given X 2. No special radiology studies were completed. 15:40 Patient left the ED. ms18 Signatures: Nilda Gonzáles RN RN [facility] Santos Bautista gr2 Nicky Gill, PA-C PA-C dt4 Maureen Tyler RN RN ms18 Ashlee Hi jp5 Corrections: (The following items were deleted from the chart) 13:50 13:50 Home medication list is obtained from the patient, kcs kcs MTDD
--- NOTE | 2016-08-17 15:41 | EDDOCDS ---
Physician Documentation [facility] Name: Dami Salinas Age: 26 yrs Sex: Female : 1990 Arrival Date: 08/17/2016 Time: 13:33 Bed TR8 Private MD: NO PRIMARY PHYSICIAN, . Disposition: 08/17/16 15:21 Discharged to Home/Self Care. Impression: Nausea with vomiting, unspecified, Urinary tract infection, site not specified. - Condition is Stable. - Discharge Instructions: Nausea and Vomiting, Urinary Tract Infection. - Prescriptions for Macrobid 100 mg Oral Capsule - take 100 milligrams by ORAL route every 12 hours for 7 days; 14 capsule. ZOFRAN ODT 4 mg - dissolve 1 tablet by ORAL route 4 times per day As needed do not chew, do not swallow whole; 10 tablet. - Medication Reconciliation, Local Pharmacy Hours form. - Follow up: Emergency Department; When: As needed; Reason: Worsening of conditions. Follow [facility]: [facility]; When: Call to arrange an appointment; Reason: Wound/Symptom Recheck, Recheck today's complaints, Continuance of care, To establish care. - Problem is new. - Symptoms are unchanged. Historical: - Allergies: Adhesivesburns her skin; PENICILLINS (Unknown); Positive latex allergyburns skin; strawberriesburns skin and a lump in her throat; - Home Meds: 1. Abilify 15 mg Oral tab 1 tab once daily 2. Breo Ellipta 100-25 mcg/dose inhalation dsdv 1 puff once daily 3. Lamictal 25 mg Oral tab 2 times per day 4. Novolog 100 unit/mL Sub-Q soln via insulin pump 5. prazosin 1 mg Oral cap nightly 6. Prozac 30 mg Oral once daily 7. trazodone 100 mg Oral tab nightly - PMHx: Asthma; Diabetes - IDDM: uncontrolled; Epilepsy; Anxiety; Depression; - PSHx: Adenoidectomy; Tonsillectomy; culposcopy; ectopic ; Exploratory lap; - Social history: Smoking status: Patient uses tobacco products, light tobacco smoker. No barriers to communication noted, The patient speaks fluent Lao. - Family history: Not pertinent. - : The pt / caregiver states he / she is not on anticoagulants. Home medication list is obtained from the patient, [employer] import data. - Exposure Risk Screening:: None identified. 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 3 in. (160.02 cm) (M); Pain 3/10; 15:33 BP 133 / 81; Pulse 98; Resp 18; Temp 98; Pulse Ox 99% ; Pain 0/10; ms18 13:36 Body Mass Index 38.97 (99.79 kg, 160.02 cm) gr2 MDM: 13:45 UA Ordered. EDMS 13:45 Urine Culture Ordered. EDMS 14:30 UCG- In Lab Ordered. EDMS 15:20 Ondansetron ODT Oral Disintegrating Tablet 4 mg PO once ordered. dt4 15:38 [facility] [place] was scanned into [employer] and attached to record. jp5 15:38 Financial registration complete. jp5 Administered Medications: 15:31 Drug: Ondansetron ODT 4 mg [ondansetron 4 mg disintegrating tablet (1 tabs)] Route: PO; ms18 Signatures: Dispatcher [employer] EDNilda Martinez RN RN kcs Tschudi, Diane, PA-C PA-C dt4 Maureen Tyler RN RN ms18 Ashlee Hi jp5 The chart was reviewed and I authenticate all verbal orders and agree with the evaluation and treatment provided.Corrections: (The following items were deleted from the chart) 13:50 13:50 Home medication list is obtained from the patient, adriana wright 14:29 13:43 UCG by Nursing ordered. dt4 dt4 Attachments: 15:38 [facility] [place] jp5 MTDD
--- NOTE | 2016-08-19 16:41 | EDDOCDS ---
Physician Documentation [facility] Name: Dami Salinas Age: 26 yrs Sex: Female : 1990 Arrival Date: 08/17/2016 Time: 13:33 Bed TR8 Private MD: NO PRIMARY PHYSICIAN, . Disposition: 08/17/16 15:21 Discharged to Home/Self Care. Impression: Nausea with vomiting, unspecified, Urinary tract infection, site not specified. - Condition is Stable. - Discharge Instructions: Nausea and Vomiting, Urinary Tract Infection. - Prescriptions for Macrobid 100 mg Oral Capsule - take 100 milligrams by ORAL route every 12 hours for 7 days; 14 capsule. ZOFRAN ODT 4 mg - dissolve 1 tablet by ORAL route 4 times per day As needed do not chew, do not swallow whole; 10 tablet. - Medication Reconciliation, Local Pharmacy Hours form. - Follow up: Emergency Department; When: As needed; Reason: Worsening of conditions. Follow up: [facility]; When: Call to arrange an appointment; Reason: Wound/Symptom Recheck, Recheck today's complaints, Continuance of care, To establish care. - Problem is new. - Symptoms are unchanged. Historical: - Allergies: Adhesivesburns her skin; PENICILLINS (Unknown); Positive latex allergyburns skin; strawberriesburns skin and a lump in her throat; - Home Meds: 1. Abilify 15 mg Oral tab 1 tab once daily 2. Breo Ellipta 100-25 mcg/dose inhalation dsdv 1 puff once daily 3. Lamictal 25 mg Oral tab 2 times per day 4. Novolog 100 unit/mL Sub-Q soln via insulin pump 5. prazosin 1 mg Oral cap nightly 6. Prozac 30 mg Oral once daily 7. trazodone 100 mg Oral tab nightly - PMHx: Asthma; Diabetes - IDDM: uncontrolled; Epilepsy; Anxiety; Depression; - PSHx: Adenoidectomy; Tonsillectomy; culposcopy; ectopic ; Exploratory lap; - Social history: Smoking status: Patient uses tobacco products, light tobacco smoker. No barriers to communication noted, The patient speaks fluent Greenlandic. - Family history: Not pertinent. - : The pt / caregiver states he / she is not on anticoagulants. Home medication list is obtained from the patient, [employer] import data. - Exposure Risk Screening:: None identified. 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 3 in. (160.02 cm) (M); Pain 3/10; 15:33 BP 133 / 81; Pulse 98; Resp 18; Temp 98; Pulse Ox 99% ; Pain 0/10; ms18 13:36 Body Mass Index 38.97 (99.79 kg, 160.02 cm) gr2 MDM: 13:45 UA Ordered. EDMS 13:45 Urine Culture Ordered. EDMS 14:30 UCG- In Lab Ordered. EDMS 15:20 Ondansetron ODT Oral Disintegrating Tablet 4 mg PO once ordered. dt4 15:38 [place] [place] was scanned into [employer] and attached to record. jp5 15:38 Financial registration complete. jp5 08/18 10:39 T-Sheet-- Draft Copy was scanned into [employer] and attached to record. gb 08/19 14:06 Lab / Xray Callback was scanned into [employer] and attached to record. deg Administered Medications: 08/17 15:31 Drug: Ondansetron ODT 4 mg [ondansetron 4 mg disintegrating tablet (1 tabs)] Route: PO; ms18 Signatures: Dispatcher [employer] EDNilda Martinez RN Viviana Almaguer, Vice President Diversity Unit deg Valeria Cisneros, Reg Reg gb Nicky Gill PA-C PA-C dt4 Maureen Tyler RN RN ms18 Ashlee Hi jp5 The chart was reviewed and I authenticate all verbal orders and agree with the evaluation and treatment provided.Corrections: (The following items were deleted from the chart) 13:50 13:50 Home medication list is obtained from the patient, adriana wright 14:29 13:43 UCG by Nursing ordered. dt4 dt4 Attachments: 15:38 [facility] [place] Agreement jp5 08/18 10:39 T-Sheet-- Draft Copy gb Chart Complete MTDD
--- NOTE | 2016-08-19 16:41 | EDDOCDS ---
Nurse's Notes [facility] Name: Dami Salinas Age: 26 yrs Sex: Female : 1990 Arrival Date: 08/17/2016 Time: 13:33 Bed TR8 Private MD: NO PRIMARY PHYSICIAN, . Diagnosis: Nausea with vomiting, unspecified;Urinary tract infection, site not specified Presentation: 08/17 13:45 Presenting complaint: Patient states: she has been nauseated for a couple of weeks - kcs also has had painful urination for a couple of days. Vomited las night. Adult Sepsis Screening: The patient does not have new or worsening altered mentation. Patient's respiratory rate is less than 22. Systolic blood pressure is greater than 100. Patient has a qSOFA score of 0- Negative Sepsis Screen. Suicide/Homicide risk assessment- the patient denies having any suicidal and/or homicidal ideations and does not present with any other emotional, behavioral or mental health complaints. 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 Transition of care: patient was not received from another setting of care. 13:45 Acuity: ISH Level 4 kcs 13:45 Method Of Arrival: Walkin/Carried/Asstd kcs Triage Assessment: 13:50 General: Appears comfortable, obese, well developed, well nourished, well groomed, kcs Behavior is cooperative, pleasant. Pain: Denies pain. HIV screening NA for this visit Offered previously. Neurological: Level of Consciousness is awake, alert. Respiratory: Airway is patent Respiratory effort is even, unlabored, Respiratory pattern is regular, symmetrical. : Reports burning with urination urgency urinary frequency. Derm: Skin is intact, is healthy with good turgor, Skin is dry, Skin is normal. 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 Abilify 15 mg Oral tab 1 tab once daily 2. Breo Ellipta 100-25 mcg/dose inhalation dsdv 1 puff once daily 3. Lamictal 25 mg Oral tab 2 times per day 4. Novolog 100 unit/mL Sub-Q soln via insulin pump 5. prazosin 1 mg Oral cap nightly 6. Prozac 30 mg Oral once daily 7. trazodone 100 mg Oral tab nightly - PMHx: Asthma; Diabetes - IDDM: uncontrolled; Epilepsy; Anxiety; Depression; - PSHx: Adenoidectomy; Tonsillectomy; culposcopy; ectopic ; Exploratory lap; - Social history: Smoking status: Patient uses tobacco products, light tobacco smoker. No barriers to communication noted, The patient speaks fluent Spanish. - Family history: Not pertinent. - : The pt / caregiver states he / she is not on anticoagulants. Home medication list is obtained from the patient, [employer] import data. - Exposure Risk Screening:: None identified. Screenin:33 Screening information is obtained from the patient. Fall risk: No risks identified. ms18 Assistance ADL's: requires no assistance with activities of daily living. Abuse/DV Screen: The patient / caregiver reports he/she is: not in a situation that causes fear, pain or injury. Nutritional screening: No deficits noted. Advance Directives: There is no living will. home support is adequate. Assessment: 15:33 General: Appears in no apparent distress, comfortable, obese, Behavior is appropriate ms18 for age, cooperative. Pain: Denies pain. Neurological: Level of Consciousness is awake, alert, obeys commands, Oriented to person, place, time. Respiratory: No deficits noted. : Reports burning with urination. Derm: Skin is pink, warm & dry. normal. Vital Signs: 13:36 BP 120 / 77; Pulse 116; Resp 18 S; Temp 97.2(O); Pulse Ox 98% on R/A; Weight 99.79 kg gr2 (M); Height 5 ft. 3 in. (160.02 cm) (M); Pain 3/10; 15:33 BP 133 / 81; Pulse 98; Resp 18; Temp 98; Pulse Ox 99% ; Pain 0/10; ms18 13:36 Body Mass Index 38.97 (99.79 kg, 160.02 cm) gr2 Vitals: 13:36 Log In Time: August 17, 2016 at 13:36. gr2 ED Course: 13:35 Patient visited by Santos Bautista. gr2 13:35 NO PRIMARY PHYSICIAN, . is Private Physician. gr2 13:35 Patient moved to Waiting gr2 13:36 Patient visited by Santos Bautista. gr2 13:36 Patient moved to Pre RCE gr2 13:47 Triage Initiated kcs 14:48 Patient moved to Triage 1 ms18 14:54 UCG- In Lab Sent. ms18 14:57 Patient visited by Maureen Tyler RN. ms18 14:59 Nicky Gill PA-C is PHCP. dt4 14:59 Char Russo MD is Attending Physician. dt4 14:59 Patient visited by Nicky Gill PA-C. dt4 15:20 [facility] is Referral Physician. dt4 15:31 Patient moved to TR8 ms18 15:33 The patient / caregiver is instructed regarding the plan of care and ED course. ms18 Accompanied by Significant Other, Patient has correct armband on for positive identification. Property sent home with patient. :Personal belongings accompany Pt. 15:33 No IV's were initiated during this patient's visit. No procedures done that require ms18 assistance. 15:38 [facility] [place] Agreement was scanned into [employer] and attached to record. jp5 08/18 10:39 T-Sheet-- Draft Copy was scanned into [employer] and attached to record. gb 08/19 14:06 Lab / Xray Callback was scanned into [employer] and attached to record. deg Administered Medications: 08/17 15:31 Drug: Ondansetron ODT 4 mg [ondansetron 4 mg disintegrating tablet (1 tabs)] Route: PO; ms18 Order Results: Lab Order: UA; SPEC'M 08/17/16 13:56 Test: APPEARANCE, URINE; Value: HAZY; Range: CLEAR; Status: F Test: COLOR, URINE; Value: YELLOW; Range: YELLOW; Status: F Test: PH,URINE; Value: 5.0; Range: 5.0-9.0; Units: UNITS; Status: F Test: SPECIFIC GRAVITY URINE AUTO; Value: 1.025; Range: 1.002-1.035; Status: F Test: PROTEIN, URINE AUTO; Value: NEGATIVE; Range: NEGATIVE; Units: mg/dL; Status: F Test: GLUCOSE, URINE (UA) AUTO; Value: NEGATIVE; Range: NEGATIVE; Units: mg/dL; Status: F Test: KETONE, URINE AUTO; Value: NEGATIVE; Range: NEGATIVE; Units: mg/dL; Status: F Test: UROBILINOGEN, URINE AUTO; Value: 0.2; Range: 0.0-2.0; Units: mg/dL; Status: F Test: BILIRUBIN, URINE AUTO; Value: NEGATIVE; Range: NEGATIVE; Status: F Test: NITRITE, URINE AUTO; Value: NEGATIVE; Range: NEGATIVE; Status: F Test: LEUKOCYTE ESTERASE, URINE AUTO; Value: NEGATIVE; Range: NEGATIVE; Status: F Test: BLOOD, URINE BLOOD; Value: NEGATIVE; Range: NEGATIVE; Status: F Test: WBC, URINE AUTO; Value: 5; Range: 0-3; Abnormal: Above high normal; Units: /HPF; Status: F Test: RBC, URINE AUTO; Value: 2; Range: 0-3; Units: /HPF; Status: F Test: BACTERIA, URINE AUTO; Value: NEGATIVE; Range: NEGATIVE; Status: F Test: SQUAMOUS EPITHELIAL CELL UR AU; Value: 5; Range: 0-6; Units: /HPF; Status: F Test: TRANSITIONAL EPITHELIAL AUTO; Value: 1; Range: NONE; Units: /HPF; Status: F Test: RENAL EPITHELIAL CELLS; Value: 1; Range: NONE; Units: /HPF; Status: F Test: MUCUS, URINE; Value: SMALL; Range: NEGATIVE; Status: F Test: HYALINE CAST, URINE AUTO; Value: 1; Range: 0-1; Units: /LPF; Status: F Lab Order: Urine Culture; SPEC'M 08/17/16 13:56 Test: URINE CULTURE; Value: <EXTERNAL COMMENT eCWMed> FULL REPORT IN LAB NOTES (eCW and Medent).; Status: F Test: URINE CULTURE; Value: ORGANISM 1: ENTEROBACTER CLOACAE COMPLEX; Status: F Test: URINE CULTURE; Value: ENTEROBACTER CLOACAE COMPLEX; Status: F Test: URINE CULTURE; Value: COLONY COUNT CFU/ml >100,000; Status: F Test: URINE CULTURE; Value: GRAM NEG SENSI - VITEK 80; Status: F Test: URINE CULTURE; Value: Method: VIT2; Status: F Test: URINE CULTURE; Value: TRIMETHOPRIM/SULFAMETHOXAZOLE <=20 S; Status: F Test: URINE CULTURE; Value: GENTAMICIN <=1 S; Status: F Test: URINE CULTURE; Value: NITROFURANTOIN 64 I; Status: F Test: URINE CULTURE; Value: CEFAZOLIN >=64 R; Status: F Test: URINE CULTURE; Value: LEVOFLOXACIN <=0.12 S; Status: F Test: URINE CULTURE; Value: TOBRAMYCIN <=1 S; Status: F Test: URINE CULTURE; Value: CEFTRIAXONE <=1 S; Status: F Test: URINE CULTURE; Value: CEFTAZIDIME <=1 S; Status: F Test: URINE CULTURE; Value: PIPERACILLIN/TAZOBACTAM <=4 S; Status: F Test: URINE CULTURE; Value: AZTREONAM <=1 S; Status: F Test: URINE CULTURE; Value: ERTAPENEM <=0.5 S; Status: F Test: URINE CULTURE; Value: MEROPENEM <=0.25 S; Status: F Test: URINE CULTURE; Value: TIGECYCLINE 1 S; Status: F Test: URINE CULTURE; Value: CEFEPIME <=1 S; Status: F Lab Order: UCG- In Lab; SPEC'M 08/17/16 13:55 Test: URINE PREG TEST; Value: NEGATIVE; Range: NEGATIVE; Status: F Outcome: 15:21 Discharge ordered by Provider. dt4 15:33 Discharge Assessment: Patient awake, alert and oriented x 3. No cognitive and/or ms18 functional deficits noted. Patient verbalized understanding of disposition instructions. patient administered narcotics - no. The following High Risk Discharge criteria are identified: None. Discharged to home ambulatory, with significant other. Condition: good Condition: stable Condition: improved. Discharge instructions given to patient, Instructed on discharge instructions, follow up and referral plans. medication usage, Demonstrated understanding of instructions, medications, Pt was receptive of discharge instructions/ teaching. Prescriptions given X 2. No special radiology studies were completed. 15:40 Patient left the ED. ms18 08/19 14:03 Lab/X-ray follow up: Urine culture results reviewed with Niurka Dykes NP and Rx to be kcs changed to Bactrim DS 1 po BID X 7 days #14 - no refills. Patient contacted and requests Rx be called to [facility]. Signatures: Nilda Gonzáles RN RN kcs Viviana Wasserman, Director Of Recruiting Unit deg Valeria Cisneros, Reg Reg Santos Patel gr2 TscNicky salcedo PA-C PABessy dt4 Maureen Tyler,RN RN ms18 Ashlee Hi jp5 Corrections: (The following items were deleted from the chart) 08/17 13:50 13:50 Home medication list is obtained from the patient, adriana kcs Chart Complete MTDD
--- NOTE | 2016-08-19 16:41 | EDDOCDS ---
Physician Documentation [facility] Name: Dami Salinas Age: 26 yrs Sex: Female : 1990 Arrival Date: 08/17/2016 Time: 13:33 Bed TR8 Private MD: NO PRIMARY PHYSICIAN, . Disposition: 08/17/16 15:21 Discharged to Home/Self Care. Impression: Nausea with vomiting, unspecified, Urinary tract infection, site not specified. - Condition is Stable. - Discharge Instructions: Nausea and Vomiting, Urinary Tract Infection. - Prescriptions for Macrobid 100 mg Oral Capsule - take 100 milligrams by ORAL route every 12 hours for 7 days; 14 capsule. ZOFRAN ODT 4 mg - dissolve 1 tablet by ORAL route 4 times per day As needed do not chew, do not swallow whole; 10 tablet. - Medication Reconciliation, Local Pharmacy Hours form. - Follow up: Emergency Department; When: As needed; Reason: Worsening of conditions. Follow [facility]: [facility]; When: Call to arrange an appointment; Reason: Wound/Symptom Recheck, Recheck today's complaints, Continuance of care, To establish care. - Problem is new. - Symptoms are unchanged. Historical: - Allergies: Adhesivesburns her skin; PENICILLINS (Unknown); Positive latex allergyburns skin; strawberriesburns skin and a lump in her throat; - Home Meds: 1. Abilify 15 mg Oral tab 1 tab once daily 2. Breo Ellipta 100-25 mcg/dose inhalation dsdv 1 puff once daily 3. Lamictal 25 mg Oral tab 2 times per day 4. Novolog 100 unit/mL Sub-Q soln via insulin pump 5. prazosin 1 mg Oral cap nightly 6. Prozac 30 mg Oral once daily 7. trazodone 100 mg Oral tab nightly - PMHx: Asthma; Diabetes - IDDM: uncontrolled; Epilepsy; Anxiety; Depression; - PSHx: Adenoidectomy; Tonsillectomy; culposcopy; ectopic ; Exploratory lap; - Social history: Smoking status: Patient uses tobacco products, light tobacco smoker. No barriers to communication noted, The patient speaks fluent Frisian. - Family history: Not pertinent. - : The pt / caregiver states he / she is not on anticoagulants. Home medication list is obtained from the patient, [employer] import data. - Exposure Risk Screening:: None identified. 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 3 in. (160.02 cm) (M); Pain 3/10; 15:33 BP 133 / 81; Pulse 98; Resp 18; Temp 98; Pulse Ox 99% ; Pain 0/10; ms18 13:36 Body Mass Index 38.97 (99.79 kg, 160.02 cm) gr2 MDM: 13:45 UA Ordered. EDMS 13:45 Urine Culture Ordered. EDMS 14:30 UCG- In Lab Ordered. EDMS 15:20 Ondansetron ODT Oral Disintegrating Tablet 4 mg PO once ordered. dt4 15:38 [facility] [place] Agreement was scanned into [employer] and attached to record. jp5 15:38 Financial registration complete. jp5 08/18 10:39 T-Sheet-- Draft Copy was scanned into [employer] and attached to record. gb 08/19 14:06 Lab / Xray Callback was scanned into [employer] and attached to record. deg Administered Medications: 08/17 15:31 Drug: Ondansetron ODT 4 mg [ondansetron 4 mg disintegrating tablet (1 tabs)] Route: PO; ms18 Signatures: Dispatcher [employer] EDNilda Martinez RN Viviana Almaguer, Front Desk Specialist Unit deg Valeria Cisneros, Reg Reg gb Nicky Gill PA-C PA-C dt4 Maureen Tyler RN RN ms18 Ashlee Hi jp5 The chart was reviewed and I authenticate all verbal orders and agree with the evaluation and treatment provided.Corrections: (The following items were deleted from the chart) 13:50 13:50 Home medication list is obtained from the patient, adriana wright 14:29 13:43 UCG by Nursing ordered. dt4 dt4 Attachments: 15:38 [facility] [place] Agreement jp5 08/18 10:39 T-Sheet-- Draft Copy gb Chart Complete MTDD
== END 2016-08-17 15:40 | disposition home or self-care (01) ==
LOC: M ED 13:33
DX: N39.0 Urinary tract infection, site not specified (principal); R11.2 Nausea with vomiting, unspecified; J45.909 Unspecified asthma, uncomplicated; E10.9 Type 1 diabetes mellitus without complications; G40.909 Epilepsy, unspecified, not intractable, without status epilepticus; F41.9 Anxiety disorder, unspecified; F32.9 Major depressive disorder, single episode, unspecified; Z72.0 Tobacco use; Z79.4 Long term (current) use of insulin; Z79.899 Other long term (current) drug therapy; Z88.0 Allergy status to penicillin; Z91.040 Latex allergy status; Z91.018 Allergy to other foods; Z91.09 Other allergy status, other than to drugs and biological substances

== ENCOUNTER 2016-08-25 21:59 | Inpatient (IN) | payer OTHER ==
[~2016-08-25] VITALS: Ht 160 cm; Wt 99.6 kg
[2016-08-25] MEDS ORDERED: PRAZ1CAP (22:23)
[2016-08-25] MEDS ORDERED: ARIP1TAB3 OR (22:23)
[2016-08-25] MEDS ORDERED: TRAZ100T4 OR (22:23)
[2016-08-25] MEDS ORDERED: PARO15TA (22:23)
[2016-08-26] MEDS ORDERED: ONDANSETRON 4MG/2ML VIAL (J2405) IV ONE ×2 (01:45→04:00)
[2016-08-26] MEDS ORDERED: NS 1,000 ML IV ONE ×2 (01:45→04:45)
[2016-08-26 03:21] LABS: BASO # 0.1 K/mm3 (0.0-0.2); BASO % 0.4 % (0.0-1.0); EOS % 0.1 % (0.0-3.0); LARGE UNSTAINED CELL # 0.1 K/mm3 (0.0-0.4); LARGE UNSTAINED CELL % 0.8 % (0.0-4.0); LYMPH % 6.7 % (24.0-44.0); MEAN CORPUSCULAR HEMOGLOBIN 26.7 pg (27.0-33.0); MEAN CORPUSCULAR HGB CONC 30.6 g/dl (32.0-36.5); MEAN CORPUSCULAR VOLUME 87.5 fl (80.0-96.0); MONO # 0.4 K/mm3 (0.0-0.8); MONO % 2.4 % (0.0-5.0); NEUTROPHILS # 13.2 K/mm3 (1.8-7.7); NEUTROPHILS % 89.7 % (36.0-66.0); PLATELET COUNT, AUTOMATED 381 k/mm3 (150-450); RED CELL DISTRIBUTION WIDTH 13.1 % (11.5-14.5); WHITE BLOOD COUNT 14.7 K/mm3 (4.0-10.0)
[2016-08-26 03:25] LABS: CONTROL LINE HCG INT CTR LINE PRESENT
[2016-08-26 03:32] LABS: ALBUMIN 4.7 GM/DL (3.2-5.2); ALBUMIN/GLOBULIN RATIO 0.94 (1.00-1.93); ALKALINE PHOSPHATASE 180 U/L (45-117); ALT/SGPT 25 U/L (12-78); ANION GAP 24 MEQ/L (8-16); AST/SGOT 15 U/L (15-37); BILIRUBIN,DIRECT 0.2 MG/DL (0.0-0.2); BILIRUBIN,TOTAL 1.1 MG/DL (0.2-1.0); BLOOD UREA NITROGEN 29 MG/DL (7-18); CALCIUM LEVEL 10.2 MG/DL (8.5-10.1); CARBON DIOXIDE LEVEL 12 MEQ/L (21-32); CHLORIDE LEVEL 93 MEQ/L (98-107); CREATININE FOR GFR 1.27 MG/DL (0.55-1.02); GLOMERULAR FILTRATION RATE 54.6 (>60); SODIUM LEVEL 129 MEQ/L (136-145); TOTAL PROTEIN 9.7 GM/DL (6.4-8.2)
[2016-08-26 03:33] LABS: GLUCOSE, FASTING 578 MG/DL (70-105); POTASSIUM SERUM 5.6 MEQ/L (3.5-5.1)
[2016-08-26] MEDS ORDERED: HumuLIN R (REGULAR) INSULIN (NovoLIN R) **100U/ML** PER UNIT IV ONE (03:45)
[2016-08-26] MEDS ORDERED: INSULIN HUMAN REGULAR 100 UNITS in NS 99 ML IV SCH ×3 (04:00→05:17)
[2016-08-26 04:32] LABS: ABG BASE EXCESS -18.1 (-2.0-2.0); ABG PARTIAL PRESSURE CO2 21.1 mmHg (35.0-45.0); ABG PARTIAL PRESSURE O2 109.8 mmHg (75.0-100.0); ABG STANDARD HCO3 11.3 MEQ/L (22.0-26.0); ABG TOTAL CO2 8.6 MEQ/L (22.0-29.0)
[2016-08-26 04:32] LABS: OSMOLALITY SERUM 328 MOSM/KG (275-295)
[2016-08-26 04:35] LABS: ABG pH (ARTERIAL) 7.194 UNITS (7.350-7.450)
[2016-08-26] MEDS ORDERED: INSULIN IV RATE CHANGE DOCUMENTATION ML/HR XX SCH (04:45)
[2016-08-26] MEDS ORDERED: PRAZ1CAP PO (04:56)
[2016-08-26] MEDS ORDERED: TRAZ100T4 PO (04:56)
[2016-08-26] MEDS ORDERED: PARO30TA70 PO (04:56)
[2016-08-26] MEDS ORDERED: ARIP15TAB PO (04:56)
[2016-08-26] MEDS ORDERED: NS 1,000 ML IV SCH (05:17)
[2016-08-26] MEDS ORDERED: HumuLIN R (REGULAR) INSULIN (NovoLIN R) **100U/ML** PER UNIT As Ordered ONE (05:30)
--- NOTE | 2016-08-26 05:48 | HPE ---
DATE OF ADMISSION: 08/26/2016 PRIMARY CARE PROVIDER: None. REASON FOR ADMISSION: Diabetic ketoacidosis (DKA). HISTORY OF PRESENT ILLNESS: Patient is a 26-year-old female with frequent admissions for diabetic ketoacidosis presented to the emergency room today with 1 day of vomiting and nausea. She stated she may be . In the emergency room, test was done and it was found to be positive. She was also found to be in diabetic ketoacidosis with a blood sugar of 578 and anion gap of 24. Hospitalist was called for admission. Patient was admitted to intensive care unit (ICU) under hospitalist service. REVIEW OF SYSTEMS: Patient complains of nausea, vomiting. Denies any other symptoms. 12-point review of systems was obtained. All of which was negative except for those mentioned above. PAST MEDICAL HISTORY: Significant for diabetes, depression, insomnia. PAST SURGICAL HISTORY: Significant for tonsillectomy, adenoidectomy, ectopic . SOCIAL HISTORY: Patient denies alcohol use but admits to smoking about four cigarettes a day. Lives at home with a couple of friends. FAMILY HISTORY: Noncontributory. HOME MEDICATIONS: Include: - insulin sliding scale - paroxetine 30 mg daily - terazosin 1 mg by mouth at bedtime - trazodone 100 mg by mouth at bedtime - aripiprazole 50 mg by mouth daily ALLERGIES: Patient is allergic to PENICILLIN, STRAWBERRY, LATEX and TAPE. PHYSICAL FINDINGS: Temperature on admission 97.5, pulse 123, respiratory rate 20, blood pressure is 142/84, pulse oximetry 99% on room air. HEENT: Pupils equal, round, react to light and accommodation. Neck: Supple. No jugular venous distention (JVD). Lungs: Clear bilaterally. Cardiac: Regular rate and rhythm. No murmurs appreciated. Extremities: No clubbing, cyanosis or edema. LABORATORY FINDINGS: WBC is 14.7, hemoglobin 15.3, hematocrit 50, platelet count 381. Sodium 129, potassium 5.6, chloride 93, anion gap 20, BUN 29, creatinine 1.27, fasting glucose 578. Osmolality 328, hCG qualitative was positive. Lipase 59. ASSESSMENT AND PLAN: 1. Diabetic ketoacidosis. We will continue insulin drip. We will continue intravenous (IV) fluids. We will admit the patient to ICU. We will monitor basic metabolic panel (BMP) every 4 hours. We will may keep patient nothing by mouth for now until anion gap is closed. 2. Positives hCG. Patient stated her last period was 07/16/2016. She states it was an intended . 3. History of depression. We will hold patient's psychiatric medications at this time. 4. Deep venous thrombosis (DVT) prophylaxis. Thromboembolism deterrents (TEDs) and sequentials while in bed. Patient will be seen by Dr. Goins in the morning.
[2016-08-26] MEDS: INSULIN IV RATE CHANGE DOCUMENTATION ML/HR XX SCH ×2 (06:24→19:24)
[2016-08-26 06:40] VITALS: BP 130/82
[2016-08-26 07:56] LABS: ANION GAP 20 MEQ/L (8-16); BLOOD UREA NITROGEN 24 MG/DL (7-18); CALCIUM LEVEL 8.5 MG/DL (8.5-10.1); CARBON DIOXIDE LEVEL 10 MEQ/L (21-32); CHLORIDE LEVEL 112 MEQ/L (98-107); GLOMERULAR FILTRATION RATE > 60.0 (>60); GLUCOSE, FASTING 202 MG/DL (70-105); MAGNESIUM LEVEL 1.7 MG/DL (1.8-2.4); PHOSPHORUS LEVEL 3.2 MG/DL (2.5-4.9); POTASSIUM SERUM 4.5 MEQ/L (3.5-5.1); SODIUM LEVEL 142 MEQ/L (136-145)
[2016-08-26 08:00] VITALS: BP 108/59
[2016-08-26] MEDS ORDERED: THIAMINE HCL 200 MG/2 ML VIAL (J3411) IM ONE (08:00)
[2016-08-26] MEDS ORDERED: MAG SULF 1GM/100ML (MAG RUN) 1 GM in APPROPRIATE DILUENT 1 EA IV ONE (08:00)
[2016-08-26] MEDS: MULTIVITAMINS/MINERALS THERAP 1 TAB PO SCH (08:37)
[2016-08-26] MEDS ORDERED: KCL 10MEQ IN D5/0.45NS 1000ML 1,000 ML IV SCH (09:00)
[2016-08-26] MEDS ORDERED: FOLIC ACID 1 MG in NS 50 ML IV ONE (10:00)
[2016-08-26] MEDS ORDERED: FOLIC ACID 1 MG TAB PO ONE (11:00)
[2016-08-26 12:00] VITALS: BP 127/77
--- NOTE | 2016-08-26 12:17 | REP ---
FIRST TRIMESTER ULTRASOUND: Real-time sonographic evaluation of the pelvis performed utilizing transabdominal and endovaginal technique. The uterus measures 7.5 x 3.6 x 4.8 cm. Endometrial thickness 12 mm. There is no evidence of endometrial fluid collection or gestational sac. Right ovary measures 1.8 x 1.3 x 1.9 cm and left ovary 3.2 x 2.8 x 3.0 cm. Complex cystic structure of the left ovary measures 2.0 x 1.5 x 1.4 cm. There is no other evidence of adnexal mass. There is trace free fluid. There is no evidence of ovarian torsion, with blood flow seen in each ovary, RI of the right ovary 0.33 and left ovary 0.52. IMPRESSION: No evidence of intrauterine gestation. No suspicious adnexal mass. Trace free fluid. Findings could represent very early intrauterine , missed AB or ectopic . Suggest followup measurement of serial quantitative beta HCG values. Followup ultrasound may be obtained as clinically necessary. Signed by Fracisco Ghotra MD 08/26/2016 03:55 P
[2016-08-26 12:31] LABS: ANION GAP 15 MEQ/L (8-16); BLOOD UREA NITROGEN 20 MG/DL (7-18); CALCIUM LEVEL 8.7 MG/DL (8.5-10.1); CARBON DIOXIDE LEVEL 13 MEQ/L (21-32); CHLORIDE LEVEL 111 MEQ/L (98-107); CREATININE FOR GFR 0.89 MG/DL (0.55-1.02); GLOMERULAR FILTRATION RATE > 60.0 (>60); GLUCOSE, FASTING 262 MG/DL (70-105); MAGNESIUM LEVEL 2.3 MG/DL (1.8-2.4); PHOSPHORUS LEVEL 2.3 MG/DL (2.5-4.9); SODIUM LEVEL 139 MEQ/L (136-145)
[2016-08-26 12:34] LABS: POTASSIUM SERUM 5.4 MEQ/L (3.5-5.1)
[2016-08-26] MEDS ORDERED: D5W/0.45% SODIUM CHLORIDE 1,000 ML IV SCH (14:00)
[2016-08-26 14:01] LABS: HCG, SERUM QUANTITATIVE 19 MIU/ML
[2016-08-26 16:00] VITALS: BP 139/72
[2016-08-26 16:49] LABS: ANION GAP 12 MEQ/L (8-16); BLOOD UREA NITROGEN 14 MG/DL (7-18); CALCIUM LEVEL 8.6 MG/DL (8.5-10.1); CARBON DIOXIDE LEVEL 17 MEQ/L (21-32); CHLORIDE LEVEL 109 MEQ/L (98-107); CREATININE FOR GFR 0.71 MG/DL (0.55-1.02); GLOMERULAR FILTRATION RATE > 60.0 (>60); GLUCOSE, FASTING 224 MG/DL (70-105); MAGNESIUM LEVEL 2.1 MG/DL (1.8-2.4); PHOSPHORUS LEVEL 1.6 MG/DL (2.5-4.9); POTASSIUM SERUM 4.2 MEQ/L (3.5-5.1); SODIUM LEVEL 138 MEQ/L (136-145)
[2016-08-26] MEDS ORDERED: HumaLOG INSULIN (NovoLOG) PER UNIT SC SCH (19:45)
[2016-08-26 20:00] VITALS: BP 123/74
[2016-08-26 20:00] LABS: ANION GAP 8 MEQ/L (8-16); BLOOD UREA NITROGEN 13 MG/DL (7-18); CALCIUM LEVEL 8.4 MG/DL (8.5-10.1); CARBON DIOXIDE LEVEL 21 MEQ/L (21-32); CHLORIDE LEVEL 108 MEQ/L (98-107); GLOMERULAR FILTRATION RATE > 60.0 (>60); GLUCOSE, FASTING 189 MG/DL (70-105); MAGNESIUM LEVEL 1.9 MG/DL (1.8-2.4); PHOSPHORUS LEVEL 1.4 MG/DL (2.5-4.9); POTASSIUM SERUM 3.7 MEQ/L (3.5-5.1); SODIUM LEVEL 137 MEQ/L (136-145)
[2016-08-26] MEDS: NS 1,000 ML IV SCH (20:02)
--- NOTE | 2016-08-26 20:34 | IPNPDOC ---
Subjective Date Seen The patient was seen on 08/26/16. Subjective Chief Complaint/HPI The patient is a 26-year-old female admitted with a reason for visit of DKA. Events since last encounter no acute events overnight, reportede thirst, n/v/abd pain resolved. Denied f/c/ abd pain Objective Physical Examination General Exam: Positive: Alert, Cooperative, No Acute Distress Eye Exam: Positive: PERRLA ENT Exam: Positive: Atraumatic, Mucous membr. moist/pink Neck Exam: Positive: Supple Chest Exam: Positive: Clear to auscultation, Normal air movement, Negative: Rales, Rhonchi, Wheezing Heart Exam: Positive: Normal S1, Normal S2, Rate Normal, Regular Rhythm, Tachycardic Telemetry: Positive: Sinus, Tachycardia Abdomen Exam: Positive: Normal bowel sounds, Soft, Negative: Tenderness Extremity Exam: Negative: Clubbing, Cyanosis, Edema Assessment /Plan Problems (1) Diabetic ketoacidosis Status: Acute Problem Text: IVF as ordered f/u BMP, mag, phos, Beta hydroxybutyrate bridge to insulin pump FS Q1hr change to ACHS when stable diet advanced to consistent carb A1C ddx poor compliance, , gastroenteritis, infection f/u wbc, cultures ua, (2) Status: Acute Problem Text: HCG + US neg , possible earlier, vs missed , ectopic less likely given symptoms of pain resolved f/u OB recs, f/u Quantitative HCG h/o stillbirth and ectopic , h/o smoking, psych meds, poor compliance, DKA, questionable ETOH, patient changes story quiet often d/w with patient that this is a high risk , risk of miscarriage or congenital defect very high OB Dr Marks consulted vitamins, hold psych meds counseling provided (3) Smoking Status: Acute Problem Text: counseling providered, see above (4) Depression Status: Chronic Problem Text: given possible of , hold all med psych consulted, awaiting call back Plan/VTE VTE Prophylaxis Ordered?: Yes (heparin SQ) Disposition psych and OB recs, clinical improvement VS, I&O, 24H, Fishbone Vital Signs/I&O Vital Signs Date Time Temp Pulse Resp B/P Pulse Ox O2 Delivery O2 Flow Rate FiO2 08/26/16 16:00 98.8 85 20 139/72 98 08/26/16 12:00 Room Air Laboratory Data 24H LABS Laboratory Tests 2 08/26/16 01:51: Aspartate Amino Transf (AST/SGOT) 15, Alanine Aminotransferase (ALT/SGPT) 25, Alkaline Phosphatase 180H, Total Bilirubin 1.1H, Direct Bilirubin 0.2, Albumin 4.7, Albumin/Globulin Ratio 0.94L, Anion Gap 24H, White Blood Count 14.7H, Red Blood Count 5.72H, Hemoglobin 15.3, Hematocrit 50.0H, Mean Corpuscular Volume 87.5, Mean Corpuscular Hemoglobin 26.7L, Mean Corpuscular Hemoglobin Concent 30.6L, Red Cell Distribution Width 13.1, Platelet Count 381, Neutrophils (%) ( Auto) 89.7H, Lymphocytes (%) (Auto) 6.7L, Monocytes (%) (Auto) 2.4, Eosinophils (%) (Auto) 0.1, Basophils (%) (Auto) 0.4, Neutrophils # (Auto) 13.2H, Lymphocytes # (Auto) 1.0L, Monocytes # (Auto) 0.4, Eosinophils # (Auto) 0.0, Basophils # (Auto) 0.1, Calcium Level 10.2H, Glomerular Filtration Rate 54.6L, Human Chorionic Gonadotropin, Qual POSITIVEA, Large Unclassified Cells # 0.1, Large Unclassified Cells % 0.8, Lipase 59L, Osmolality 328H, Total Protein 9.7H 08/26/16 04:17: Arterial Blood pH 7.194*L, Arterial Blood Partial Pressure CO2 21.1L, Arterial Blood Partial Pressure O2 109.8H, Arterial Blood Total CO2 8.6L, Arterial Blood HCO3 8.0L, Arterial Blood Base Excess -18.1L, Arterial Blood Oxygen Saturation 97.7, Blood Gas Bicarbonate Standard 11.3L 08/26/16 05:20: Bedside Glucose (Misc Panel) 363H 08/26/16 06:22: Bedside Glucose (Misc Panel) 259H 08/26/16 07:03: Bedside Glucose (Misc Panel) 218H 08/26/16 07:07: Anion Gap 20H, B-Hydroxybutyrate > 46.00H, Blood Urea Nitrogen 24H, Creatinine 0.90, Sodium Level 142#, Potassium Level 4.5, Chloride Level 112H, Carbon Dioxide Level 10L, Calcium Level 8.5#, Glomerular Filtration Rate > 60.0, Human Chorionic Gonadotropin, Quant 19, Magnesium Level 1.7L, Phosphorus Level 3.2 08/26/16 07:09: Estimated Mean Plasma Glucose 237H, Hemoglobin A1c 9.9H 08/26/16 09:05: Bedside Glucose (Misc Panel) 171H 08/26/16 10:26: Bedside Glucose (Misc Panel) 216H 08/26/16 11:17: Urine Appearance HAZY, Urine Color YELLOW, Urine pH 5.0, Urine Specific [place] 1.018, Urine Protein NEGATIVE, Urine Glucose (UA) 3+H, Urine Ketones 2+H, Urine Urobilinogen 0.2, Urine Bilirubin NEGATIVE, Urine Leukocyte Esterase NEGATIVE, Urine Bacteria (Auto) NEGATIVE, Urine Blood NEGATIVE, Urine Hyaline Casts (Auto ) 0, Urine Mucus (Auto) SMALL, Urine Nitrite NEGATIVE, Urine RBC (Auto) 2, Urine Sperm (Auto) , Urine Squamous Epithelial Cells 6, Urine WBC (Auto) 2 08/26/16 11:27: Bedside Glucose (Misc Panel) 228H 08/26/16 11:45: Anion Gap 15, B-Hydroxybutyrate 34.14H, Blood Urea Nitrogen 20H, Creatinine 0.89 , Sodium Level 139, Potassium Level 5.4H, Chloride Level 111H, Carbon Dioxide Level 13L, Calcium Level 8.7, Glomerular Filtration Rate > 60.0, Magnesium Level 2.3, Phosphorus Level 2.3#L 08/26/16 13:18: Bedside Glucose (Misc Panel) 273H 08/26/16 14:10: Bedside Glucose (Misc Panel) 252H 08/26/16 15:13: Bedside Glucose (Misc Panel) 217H 08/26/16 15:55: Anion Gap 12, B-Hydroxybutyrate 5.22H, Blood Urea Nitrogen 14, Creatinine 0.71, Sodium Level 138, Potassium Level 4.2#, Chloride Level 109H, Carbon Dioxide Level 17L, Calcium Level 8.6, Glomerular Filtration Rate > 60.0, Magnesium Level 2.1, Phosphorus Level 1.6#L 08/26/16 16:05: Bedside Glucose (Misc Panel) 232H 08/26/16 17:11: Bedside Glucose (Misc Panel) 226H 08/26/16 19:16: Anion Gap 8, B-Hydroxybutyrate 7.16H, Blood Urea Nitrogen 13, Creatinine 0.70, Sodium Level 137, Potassium Level 3.7, Chloride Level 108H, Carbon Dioxide Level 21, Calcium Level 8.4L, Glomerular Filtration Rate > 60.0, Magnesium Level 1.9, Phosphorus Level 1.4L 08/26/16 19:22: Bedside Glucose (Misc Panel) 184H 08/26/16 20:04: Bedside Glucose (Misc Panel) 203H CBC/BMP Laboratory Tests 08/26/16 01:51 Red Blood Count 5.72 H, Mean Corpuscular Volume 87.5, Mean Corpuscular Hemoglobin 26.7 L, Mean Corpuscular Hemoglobin Concent 30.6 L, Red Cell Distribution Width 13.1, Neutrophils (%) (Auto) 89.7 H, Lymphocytes (%) (Auto) 6.7 L, Monocytes (%) (Auto) 2.4, Eosinophils (%) (Auto) 0.1, Basophils (%) (Auto ) 0.4, Neutrophils # (Auto) 13.2 H, Lymphocytes # (Auto) 1.0 L, Monocytes # ( Auto) 0.4, Eosinophils # (Auto) 0.0, Basophils # (Auto) 0.1 08/26/16 07:07 Calcium Level 8.5 # 08/26/16 11:45 Calcium Level 8.7 08/26/16 15:55 Calcium Level 8.6 08/26/16 19:16 Calcium Level 8.4 L Microbiology Microbiology 08/26/16 Blood Culture, Received Pending 08/26/16 Blood Culture, Received Pending 08/26/16 Urine Culture, Received Pending CROW OLMEDO MD Aug 26, 2016 20:34
[2016-08-26] MEDS: HEPARIN SOD (PORCINE) 5000 UNITS/ML VIAL SQ SCH (21:00)
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
[2016-08-26 23:16] LABS: BLOOD UREA NITROGEN 14 MG/DL (7-18); CREATININE FOR GFR 0.56 MG/DL (0.55-1.02); GLOMERULAR FILTRATION RATE > 60.0 (>60); GLUCOSE, FASTING 289 MG/DL (70-105)
[2016-08-26 23:17] LABS: ANION GAP 14 MEQ/L (8-16); CARBON DIOXIDE LEVEL 16 MEQ/L (21-32); CHLORIDE LEVEL 106 MEQ/L (98-107); MAGNESIUM LEVEL 1.8 MG/DL (1.8-2.4); PHOSPHORUS LEVEL 1.8 MG/DL (2.5-4.9); POTASSIUM SERUM 4.3 MEQ/L (3.5-5.1); SODIUM LEVEL 136 MEQ/L (136-145)
[2016-08-27] VITALS: BP 137/61
[2016-08-27 05:00] VITALS: BP 125/73
[2016-08-27 05:00] LABS: MEAN CORPUSCULAR HEMOGLOBIN 26.6 pg (27.0-33.0); MEAN CORPUSCULAR HGB CONC 31.3 g/dl (32.0-36.5); MEAN CORPUSCULAR VOLUME 84.8 fl (80.0-96.0); RED CELL DISTRIBUTION WIDTH 13.5 % (11.5-14.5); WHITE BLOOD COUNT 15.6 K/mm3 (4.0-10.0)
[2016-08-27 05:22] LABS: ANION GAP 17 MEQ/L (8-16); BLOOD UREA NITROGEN 12 MG/DL (7-18); CALCIUM LEVEL 8.1 MG/DL (8.5-10.1); CARBON DIOXIDE LEVEL 12 MEQ/L (21-32); CHLORIDE LEVEL 107 MEQ/L (98-107); CREATININE FOR GFR 0.65 MG/DL (0.55-1.02); GLOMERULAR FILTRATION RATE > 60.0 (>60); GLUCOSE, FASTING 381 MG/DL (70-105); HCG, SERUM QUANTITATIVE 30 MIU/ML; MAGNESIUM LEVEL 1.9 MG/DL (1.8-2.4); PHOSPHORUS LEVEL 1.8 MG/DL (2.5-4.9); POTASSIUM SERUM 4.5 MEQ/L (3.5-5.1); SODIUM LEVEL 136 MEQ/L (136-145)
[2016-08-27] MEDS ORDERED: INSULIN HUMAN REGULAR 100 UNITS in NS 99 ML IV SCH ×2 (06:22→06:26)
[2016-08-27] MEDS ORDERED: INSULIN IV RATE CHANGE DOCUMENTATION ML/HR XX SCH (06:30)
[2016-08-27] MEDS: NS 1,000 ML IV SCH ×4 (07:00→20:56)
[2016-08-27 07:54] LABS: ANION GAP 17 MEQ/L (8-16); BLOOD UREA NITROGEN 12 MG/DL (7-18); CALCIUM LEVEL 7.9 MG/DL (8.5-10.1); CARBON DIOXIDE LEVEL 10 MEQ/L (21-32); CHLORIDE LEVEL 108 MEQ/L (98-107); CREATININE FOR GFR 0.67 MG/DL (0.55-1.02); GLOMERULAR FILTRATION RATE > 60.0 (>60); GLUCOSE, FASTING 359 MG/DL (70-105); MAGNESIUM LEVEL 1.9 MG/DL (1.8-2.4); PHOSPHORUS LEVEL 1.3 MG/DL (2.5-4.9); POTASSIUM SERUM 4.2 MEQ/L (3.5-5.1); SODIUM LEVEL 135 MEQ/L (136-145)
[2016-08-27 08:00] VITALS: BP 145/70
[2016-08-27] MEDS: HEPARIN SOD (PORCINE) 5000 UNITS/ML VIAL SQ SCH ×2 (08:03→20:37)
[2016-08-27] MEDS: MULTIVITAMINS/MINERALS THERAP 1 TAB PO SCH (08:03)
[2016-08-27] MEDS: THIAMINE 100 MG TAB PO SCH (08:04)
[2016-08-27] MEDS: FOLIC ACID 1 MG TAB PO SCH (08:04)
[2016-08-27] MEDS ORDERED: GLUCAGON FOR INJ 1 MG VIAL (J1610) SC PRN (08:15)
[2016-08-27] MEDS ORDERED: DEXTROSE 50% 50 ML SYRINGE IV PRN (08:15)
[2016-08-27] MEDS ORDERED: GLUCOSE 4 GM CHEW TABLET PO PRN (08:15)
[2016-08-27] MEDS: INSULIN IV RATE CHANGE DOCUMENTATION ML/HR XX SCH ×4 (09:02→17:13)
[2016-08-27] MEDS ORDERED: HumaLOG INSULIN (NovoLOG) PER UNIT SC SCH ×3 (12:00→21:00)
[2016-08-27 12:21] LABS: ANION GAP 13 MEQ/L (8-16); BLOOD UREA NITROGEN 12 MG/DL (7-18); CALCIUM LEVEL 8.2 MG/DL (8.5-10.1); CARBON DIOXIDE LEVEL 15 MEQ/L (21-32); CHLORIDE LEVEL 112 MEQ/L (98-107); CREATININE FOR GFR 0.64 MG/DL (0.55-1.02); GLOMERULAR FILTRATION RATE > 60.0 (>60); GLUCOSE, FASTING 326 MG/DL (70-105); MAGNESIUM LEVEL 1.9 MG/DL (1.8-2.4); POTASSIUM SERUM 4.2 MEQ/L (3.5-5.1); SODIUM LEVEL 140 MEQ/L (136-145)
[2016-08-27 12:49] LABS: PHOSPHORUS LEVEL 0.9 MG/DL (2.5-4.9)
[2016-08-27 13:00] VITALS: BP 130/72
[2016-08-27 16:00] VITALS: BP 132/73
[2016-08-27] MEDS ORDERED: SODIUM CHLORIDE 0.9% INJ 10 ML SYR IV PRN (16:00)
[2016-08-27 16:15] LABS: ANION GAP 9 MEQ/L (8-16); BLOOD UREA NITROGEN 13 MG/DL (7-18); CALCIUM LEVEL 7.9 MG/DL (8.5-10.1); CARBON DIOXIDE LEVEL 19 MEQ/L (21-32); CHLORIDE LEVEL 114 MEQ/L (98-107); CREATININE FOR GFR 0.49 MG/DL (0.55-1.02); GLOMERULAR FILTRATION RATE > 60.0 (>60); GLUCOSE, FASTING 211 MG/DL (70-105); MAGNESIUM LEVEL 1.8 MG/DL (1.8-2.4); PHOSPHORUS LEVEL 1.1 MG/DL (2.5-4.9); SODIUM LEVEL 142 MEQ/L (136-145)
--- NOTE | 2016-08-27 17:08 | REP ---
Procedure: PICC line insertion with Sheri The procedure was performed under the direct supervision of Dr. Knight. The risks and benefits of the procedure were explained to the patient and informed consent was obtained. The right basilic vein was localized using ultrasound guidance. The skin was prepped and draped in a sterile fashion. 2% lidocaine was used as a local anesthetic. Using ultrasound guidance the basilic vein was cannulated and a 0.018 guidewire was inserted and advanced to the SVC using fluoroscopic guidance. The needle was removed and a 5.5 [place] dilator and peel-away sheath was inserted over the guide wire. A 5.5 [place] dual lumen catheter was cut to length of 41 cm. The dilator was removed and the catheter was inserted over the guide wire with the tip ending in the SVC. The peel-away sheath was removed and the catheter was flushed with heparinized saline as per Hospital protocol. The catheter was affixed to the skin and a sterile dressing was applied. The the patient tolerated the procedure well and there were no immediate complications. No recordable fluoroscopy time was used for this procedure. Reviewed by JOSELINE Bernard 08/27/2016 03:01 PSigned by Peter Knight MD 08/27/2016 05:00 P
--- NOTE | 2016-08-27 17:28 | IPNPDOC ---
Subjective Date Seen The patient was seen on 08/27/16. Subjective Chief Complaint/HPI The patient is a 26-year-old female admitted with a reason for visit of DKA. Events since last encounter Patient became ketotic overnight, in DKA. check insulin pump site, plastic needle bent, no insulin injected. Denied n/v / abd pain/f/c. reported hungry Objective Physical Examination General Exam: Positive: Alert, Cooperative, No Acute Distress Eye Exam: Positive: PERRLA ENT Exam: Positive: Atraumatic, Mucous membr. moist/pink Neck Exam: Positive: Supple Chest Exam: Positive: Clear to auscultation, Normal air movement, Negative: Rales, Rhonchi, Wheezing Heart Exam: Positive: Normal S1, Normal S2, Rate Normal, Regular Rhythm, Tachycardic Telemetry: Positive: Sinus, Tachycardia Abdomen Exam: Positive: Normal bowel sounds, Soft, Negative: Tenderness Extremity Exam: Negative: Clubbing, Cyanosis, Edema Assessment /Plan Problems (1) Diabetic ketoacidosis Status: Acute Problem Text: verified bend needle likley the cause IVF as ordered f/u BMP, mag, phos, Beta hydroxybutyrate bridge to insulin pump agin FS Q2hr overnight change to ACHS when stable diet advanced to consistent carb A1C ddx poor compliance, poor needle placement overnight, gastroenteritis, infection f/u wbc, cultures ,ua neg (2) Status: Acute Problem Text: HCG + US neg , possible earlier, vs missed , ectopic less likely given symptoms of pain resolved f/u OB recs, f/u Quantitative HCG h/o stillbirth and ectopic , h/o smoking, psych meds, poor compliance, DKA, questionable ETOH, patient changes story quiet often d/w with patient that this is a high risk , risk of miscarriage or congenital defect very high OB Dr Mraks consulted vitamins, hold psych meds counseling provided (3) Smoking Status: Acute Problem Text: counseling providered, see above (4) Depression Status: Chronic Problem Text: given possible of , hold all med psych consulted, awaiting call back Plan/VTE VTE Prophylaxis Ordered?: Yes (heparin SQ) Disposition pending clinical improvment VS, I&O, 24H, Fishbone Vital Signs/I&O Vital Signs Date Time Temp Pulse Resp B/P Pulse Ox O2 Delivery O2 Flow Rate FiO2 08/27/16 16:00 98.1 98 16 132/73 100 Room Air I&O- Last 24 Hours up to 6 AM 08/27/16 06:00 Intake Total 3754 ml Output Total 2650 ml Balance 1104 ml Laboratory Data 24H LABS Laboratory Tests 2 08/26/16 19:16: Anion Gap 8, B-Hydroxybutyrate 7.16H, Blood Urea Nitrogen 13, Creatinine 0.70, Sodium Level 137, Potassium Level 3.7, Chloride Level 108H, Carbon Dioxide Level 21, Calcium Level 8.4L, Glomerular Filtration Rate > 60.0, Magnesium Level 1.9, Phosphorus Level 1.4L 08/26/16 19:22: Bedside Glucose (Misc Panel) 184H 08/26/16 20:04: Bedside Glucose (Misc Panel) 203H 08/26/16 21:00: Bedside Glucose (Misc Panel) 234H 08/26/16 22:27: Bedside Glucose (Misc Panel) 268H 08/26/16 22:39: Anion Gap 14, B-Hydroxybutyrate 43.31H, Blood Urea Nitrogen 14, Creatinine 0.56 , Sodium Level 136, Potassium Level 4.3, Chloride Level 106, Carbon Dioxide Level 16L, Calcium Level 8.0L, Glomerular Filtration Rate > 60.0, Magnesium Level 1.8, Phosphorus Level 1.8#L 08/27/16 04:39: Anion Gap 17H, B-Hydroxybutyrate > 46.00H, Blood Urea Nitrogen 12, Creatinine 0.65, Sodium Level 136, Potassium Level 4.5, Chloride Level 107, Carbon Dioxide Level 12L, Calcium Level 8.1L, Glomerular Filtration Rate > 60.0, Magnesium Level 1.9, Phosphorus Level 1.8L, Human Chorionic Gonadotropin, Quant 30 08/27/16 06:52: Bedside Glucose (Misc Panel) 345H 08/27/16 07:27: Anion Gap 17H, B-Hydroxybutyrate > 46.00H, C-Reactive Protein, Quantitative 3.31H, Blood Urea Nitrogen 12, Creatinine 0.67, Sodium Level 135L, Potassium Level 4.2, Chloride Level 108H, Carbon Dioxide Level 10L, Calcium Level 7.9L, Glomerular Filtration Rate > 60.0, Magnesium Level 1.9, Phosphorus Level 1.3#L 08/27/16 08:09: Bedside Glucose (Misc Panel) 308H 08/27/16 08:58: Bedside Glucose (Misc Panel) 256H 08/27/16 10:06: Bedside Glucose (Misc Panel) 322H 08/27/16 11:00: Bedside Glucose (Misc Panel) 296H 08/27/16 11:29: Anion Gap 13, B-Hydroxybutyrate 24.22H, Blood Urea Nitrogen 12, Creatinine 0.64 , Sodium Level 140, Potassium Level 4.2, Chloride Level 112H, Carbon Dioxide Level 15L, Calcium Level 8.2L, Glomerular Filtration Rate > 60.0, Magnesium Level 1.9, Phosphorus Level 0.9#L 08/27/16 13:01: Bedside Glucose (Misc Panel) 241H 08/27/16 14:10: Bedside Glucose (Misc Panel) 278H 08/27/16 15:09: Bedside Glucose (Misc Panel) 216H 08/27/16 15:39: Anion Gap 9, B-Hydroxybutyrate 8.99H, Blood Urea Nitrogen 13, Creatinine 0.49L, Sodium Level 142, Potassium Level 4.0, Chloride Level 114H, Carbon Dioxide Level 19L, Calcium Level 7.9L, Glomerular Filtration Rate > 60.0, Magnesium Level 1.8, Phosphorus Level 1.1#L 08/27/16 16:08: Bedside Glucose (Misc Panel) 216H 08/27/16 16:56: Bedside Glucose (Misc Panel) 177H CBC/BMP Laboratory Tests 08/26/16 19:16 Calcium Level 8.4 L 08/26/16 22:39 Calcium Level 8.0 L 08/27/16 04:39 Calcium Level 8.1 L, Red Blood Count 4.30, Mean Corpuscular Volume 84.8, Mean Corpuscular Hemoglobin 26.6 L, Mean Corpuscular Hemoglobin Concent 31.3 L, Red Cell Distribution Width 13.5 08/27/16 07:27 Calcium Level 7.9 L 08/27/16 11:29 Calcium Level 8.2 L 08/27/16 15:39 Calcium Level 7.9 L Microbiology Microbiology 08/26/16 Blood Culture - Preliminary, Resulted No growth after 24 hours . All specim... 08/26/16 Blood Culture - Preliminary, Resulted No growth after 24 hours . All specim... 08/26/16 Urine Culture - Final, Complete CROW OLMEDO MD Aug 27, 2016 17:28
[2016-08-27] MEDS ORDERED: SODIUM CHLORIDE 0.9% INJ 10 ML SYR IV SCH (18:00)
[2016-08-27] MEDS ORDERED: SODIUM PHOSPHATE INJ 20 MMOL in D5W 250 ML IV ONE (19:30)
[2016-08-27 20:00] VITALS: BP 105/55
[2016-08-27 20:42] LABS: ANION GAP 11 MEQ/L (8-16); BLOOD UREA NITROGEN 12 MG/DL (7-18); CALCIUM LEVEL 7.8 MG/DL (8.5-10.1); CARBON DIOXIDE LEVEL 18 MEQ/L (21-32); CHLORIDE LEVEL 112 MEQ/L (98-107); CREATININE FOR GFR 0.42 MG/DL (0.55-1.02); GLOMERULAR FILTRATION RATE > 60.0 (>60); GLUCOSE, FASTING 260 MG/DL (70-105); MAGNESIUM LEVEL 1.8 MG/DL (1.8-2.4); PHOSPHORUS LEVEL 1.6 MG/DL (2.5-4.9); SODIUM LEVEL 141 MEQ/L (136-145)
[2016-08-28] VITALS: BP 132/71
[2016-08-28] MEDS: NS 1,000 ML IV SCH ×2 (00:06→06:14)
[2016-08-28 00:58] LABS: ANION GAP 9 MEQ/L (8-16); BLOOD UREA NITROGEN 10 MG/DL (7-18); CALCIUM LEVEL 7.7 MG/DL (8.5-10.1); CARBON DIOXIDE LEVEL 21 MEQ/L (21-32); CHLORIDE LEVEL 112 MEQ/L (98-107); CREATININE FOR GFR 0.35 MG/DL (0.55-1.02); GLOMERULAR FILTRATION RATE > 60.0 (>60); GLUCOSE, FASTING 62 MG/DL (70-105); MAGNESIUM LEVEL 1.5 MG/DL (1.8-2.4); POTASSIUM SERUM 3.2 MEQ/L (3.5-5.1); SODIUM LEVEL 142 MEQ/L (136-145)
[2016-08-28] MEDS ORDERED: POTASSIUM CHLORIDE 10 MEQ SR TABLET PO ONE ×2 (01:15→07:45)
[2016-08-28] MEDS ORDERED: MAG SULF 1GM/100ML (MAG RUN) 1 GM in APPROPRIATE DILUENT 1 EA IV ONE (01:15)
[2016-08-28 04:00] VITALS: BP 104/57
[2016-08-28 04:39] LABS: ANION GAP 8 MEQ/L (8-16); BLOOD UREA NITROGEN 7 MG/DL (7-18); CALCIUM LEVEL 7.5 MG/DL (8.5-10.1); CARBON DIOXIDE LEVEL 22 MEQ/L (21-32); CHLORIDE LEVEL 112 MEQ/L (98-107); CREATININE FOR GFR 0.28 MG/DL (0.55-1.02); GLOMERULAR FILTRATION RATE > 60.0 (>60); GLUCOSE, FASTING 118 MG/DL (70-105); POTASSIUM SERUM 3.6 MEQ/L (3.5-5.1); SODIUM LEVEL 142 MEQ/L (136-145)
[2016-08-28] MEDS ORDERED: SODIUM CHLORIDE 0.9% INJ 10 ML SYR IV PRN (05:00)
[2016-08-28] MEDS ORDERED: SODIUM CHLORIDE 0.9% INJ 10 ML SYR IV SCH (06:00)
[2016-08-28 06:26] LABS: MEAN CORPUSCULAR HEMOGLOBIN 27.4 pg (27.0-33.0); MEAN CORPUSCULAR HGB CONC 33.3 g/dl (32.0-36.5); MEAN CORPUSCULAR VOLUME 82.2 fl (80.0-96.0); WHITE BLOOD COUNT 10.7 K/mm3 (4.0-10.0)
[2016-08-28 08:00] VITALS: BP 129/67
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
[2016-08-28] MEDS: HEPARIN SOD (PORCINE) 5000 UNITS/ML VIAL SQ SCH (09:00)
[2016-08-28] MEDS ORDERED: TRAZ100T4 PO (09:11)
[2016-08-28] MEDS ORDERED: PRENTAB7 PO (09:11)
[2016-08-28] MEDS: THIAMINE 100 MG TAB PO SCH (09:13)
[2016-08-28] MEDS: FOLIC ACID 1 MG TAB PO SCH (09:13)
[2016-08-28] MEDS: MULTIVITAMINS/MINERALS THERAP 1 TAB PO SCH (09:13)
[2016-08-28 11:32] LABS: ANION GAP 7 MEQ/L (8-16); BLOOD UREA NITROGEN 7 MG/DL (7-18); CALCIUM LEVEL 7.8 MG/DL (8.5-10.1); CARBON DIOXIDE LEVEL 23 MEQ/L (21-32); CHLORIDE LEVEL 112 MEQ/L (98-107); CREATININE FOR GFR 0.39 MG/DL (0.55-1.02); GLOMERULAR FILTRATION RATE > 60.0 (>60); GLUCOSE, FASTING 194 MG/DL (70-105); MAGNESIUM LEVEL 1.9 MG/DL (1.8-2.4); POTASSIUM SERUM 4.1 MEQ/L (3.5-5.1); SODIUM LEVEL 142 MEQ/L (136-145)
[2016-08-28 11:45] VITALS: BP 139/84
[2016-08-28 11:47] LABS: PHOSPHORUS LEVEL 1.1 MG/DL (2.5-4.9)
--- NOTE | 2016-08-30 10:34 | DSES ---
DATE OF ADMISSION: 08/26/2016 DATE OF DISCHARGE: 08/28/2016 PRIMARY CARE PROVIDER: Amy Mcclellan NP CONSULTANTS: 1. Dr. Igor Matt for obstetrics/gynecology (ROTO ROOTER OPERATOR). 2. Dr. Gerardo Piña for psychiatry. FINAL DIAGNOSES: 1. Diabetic ketoacidosis (DKA). 2. New . 3. Smoking. 4. Depression. 5. History of stillbirth and ectopic . HISTORY OF PRESENT ILLNESS: This is a 26-year-old female patient with underlying medical history of type 1 diabetes on insulin pump, depression, insomnia, posttraumatic stress disorder, presented to the emergency room with 1 day of nausea and vomiting and stated that she may be . In the emergency room, test was done and was positive, patient also found to be in diabetic ketoacidosis. Subsequently, patient was admitted to intensive care unit (ICU). HOSPITAL COURSE: Patient was admitted to the ICU, placed on insulin drip, intravenous (IV) fluids, aggressive hydration. Given patient was , all patient's psychiatric medications were held. First trimester ultrasound was done, unable to detect fetus. ROTO ROOTER OPERATOR consultation was placed. hCG was done, in the range of first week of , subsequently hCG was trended with persistent increasing numbers. Patient's nausea and vomiting improved and resolved as well as abdominal pain resolved with treatment of DKA, and attempt was to bridge the patient back to insulin pump. First attempt failed and after detailed examination of patient's site, it was noticed that the needle was bent and was never inserted into the subcutaneous tissue. Subsequently, new supplier for insulin pump was obtained and new site was established and patient was re-bridged again to insulin pump and subsequently anion gap remaining to be closed, electrolytes remaining to be stable, IV fluids were stopped, patient tolerating oral, in no acute distress, ready for discharge. Case was discussed with Dr. Matt and Dr. Denson. Patient is to followup with ROTO ROOTER OPERATOR next week within 7 days and also groover and striper operator as well as patient's own psychiatrist. Given that patient is , case was discussed with psychiatrist, Dr. Piña, and it was determined that patient's Paxil 30 mg by mouth daily is probably safe and trazodone dose needs to be reduced to about 50 mg by mouth and only take as needed and vitamins were offered to the patient. Smoking cessation counseling was provided. Given patient's history, counseling was provided to the patient that patient needs tight glycemic control and the will be very high risk and high risk of potentially losing the baby given that patient was smoking up until hospital admission with questionable alcohol use and was on psychiatric medication with unknown effect to the fetus. Patient understands the risks that she has been involved in and is willing to continue medical care as outpatient to preserve her fetus. Subsequently, patient was discharged today for further followup and treatment as outpatient. VITAL SIGNS: Temperature 98, pulse 94, respirations 18, blood pressure 139/84, pulse oximetry 98% on room air. LABORATORY DATA: WBC 10.7, hemoglobin and hematocrit 10.2/30.7, platelets 295. Chemistry: Sodium 142, potassium 4.1, chloride 112, bicarbonate 23, BUN 7, creatinine 0.39. hCG 55 on the day of discharge. DISCHARGE MEDICATIONS: - vitamin one tablet by mouth daily - insulin via pump NovoLog - Paxil 30 mg by mouth daily - trazodone reduced to 50 mg by mouth nightly, take as needed DISCHARGE INSTRUCTIONS: Patient is instructed to followup with primary care provider in 7 days, road mechanic in 7 days, and to repeat ultrasound to evaluate if able to detect fetus, and also to followup with patient's groover and striper operator for improved glycemic control. Return to the hospital if symptoms worsen. Encourage oral hydration.
== END 2016-08-28 14:25 | disposition home or self-care (01) | DRG 566 ==
LOC: EDBD 21:59 → M ED 23:43 → M ED INP 08-26 04:48 → M ICU 08-26 06:15 → OBSVTOIN 08-26 10:59 → M MSPAV 08-28 11:36
PROVIDERS: ADMIT Internal Medicine; ATTEND Hospitalist
PROC: 02HV33Z Insertion of Infusion Device into Superior Vena Cava, Percutaneous Approach (ICD-10-PCS; principal; 2016-08-27)
DX: O24.011 Pre-existing type 1 diabetes mellitus, in pregnancy, first trimester (principal); E10.10 Type 1 diabetes mellitus with ketoacidosis without coma; F33.9 Major depressive disorder, recurrent, unspecified; O99.351 Diseases of the nervous system complicating pregnancy, first trimester; O99.341 Other mental disorders complicating pregnancy, first trimester; F43.10 Post-traumatic stress disorder, unspecified; F90.8 Attention-deficit hyperactivity disorder, other type; G47.00 Insomnia, unspecified; O99.331 Smoking (tobacco) complicating pregnancy, first trimester; F17.210 Nicotine dependence, cigarettes, uncomplicated; Z79.899 Other long term (current) drug therapy; Z79.4 Long term (current) use of insulin; Z87.59 Personal history of other complications of pregnancy, childbirth and the puerperium; Z88.0 Allergy status to penicillin; Z91.040 Latex allergy status; Z91.018 Allergy to other foods; Z91.048 Other nonmedicinal substance allergy status; Z3A.01 Less than 8 weeks gestation of pregnancy; Z91.19 Patient's noncompliance with other medical treatment and regimen; Z96.41 Presence of insulin pump (external) (internal)

== ENCOUNTER → 2016-09-02 | Outpatient (CLI) | payer OTHER ==
[~2016-09-02] MED LIST changes: +ARIP15TAB PO; +ARIP1TAB3 OR; +PARO15TA; +PARO30TA70 PO; +PRAZ1CAP; +PRAZ1CAP PO; +PRENTAB7 PO; +TRAZ100T4 OR; +TRAZ100T4 PO
== END ==
LOC: M LAB 14:09
PROVIDERS: ATTEND Specialist
DX: O24.911 Unspecified diabetes mellitus in pregnancy, first trimester (principal); Z36 Encounter for antenatal screening of mother; Z3A.00 Weeks of gestation of pregnancy not specified

== ENCOUNTER → 2016-09-11 | Emergency (ER) | payer OTHER ==
[~2016-09-11] VITALS: Ht 162.6 cm; Wt 97.5 kg
[2016-09-11 20:57] VITALS: BP 114/66
== END | disposition home or self-care (01) ==
LOC: EDUNIT# 19:28 → EDBD 19:36 → M ED 20:27
DX: M25.551 Pain in right hip (principal); M25.552 Pain in left hip

== ENCOUNTER → 2016-09-27 | Outpatient (CLI) | payer MEDICAID, OTHER ==
[~2016-09-27] MED LIST changes: -PARO20TA2 PO; +PARO20TA3 PO
[2016-09-27 12:53] LABS: BASO % 0.4 % (0.0-1.0); EOS # 0.2 K/mm3 (0.0-0.50); EOS % 2.1 % (0.0-3.0); LARGE UNSTAINED CELL # 0.1 K/mm3 (0.0-0.4); LARGE UNSTAINED CELL % 1.5 % (0.0-4.0); LYMPH # 2.8 K/mm3 (1.5-6.5); LYMPH % 31.1 % (24.0-44.0); MEAN CORPUSCULAR HEMOGLOBIN 27.5 pg (27.0-33.0); MEAN CORPUSCULAR HGB CONC 32.8 g/dl (32.0-36.5); MEAN CORPUSCULAR VOLUME 83.8 fl (80.0-96.0); MONO # 0.5 K/mm3 (0.0-0.8); MONO % 5.5 % (0.0-5.0); NEUTROPHILS # 5.1 K/mm3 (1.8-7.7); NEUTROPHILS % 59.4 % (36.0-66.0); PLATELET COUNT, AUTOMATED 361 k/mm3 (150-450); RED CELL DISTRIBUTION WIDTH 13.3 % (11.5-14.5); WHITE BLOOD COUNT 8.6 K/mm3 (4.0-10.0)
[2016-09-27 13:31] LABS: HBsAg Prenatal NEGATIVE (NEGATIVE)
== END ==
LOC: M LAB 11:32
PROVIDERS: ATTEND Specialist
DX: Z34.81 Encounter for supervision of other normal pregnancy, first trimester (principal); Z36 Encounter for antenatal screening of mother; Z3A.00 Weeks of gestation of pregnancy not specified

== ENCOUNTER 2016-10-03 19:04 | Emergency (ER) | payer MEDICAID, OTHER ==
[~2016-10-03] VITALS: Ht 160 cm; Wt 99.3 kg
[2016-10-03 21:04] VITALS: BP 126/81
[2016-10-03] MEDS ORDERED: ACETAMINOPHEN 325 MG TAB PO ONE (21:15)
== END 2016-10-03 22:10 | disposition home or self-care (01) ==
LOC: EDBD 19:04 → M ED 20:41
DX: O24.011 Pre-existing type 1 diabetes mellitus, in pregnancy, first trimester (principal); E10.649 Type 1 diabetes mellitus with hypoglycemia without coma; O99.351 Diseases of the nervous system complicating pregnancy, first trimester; R56.9 Unspecified convulsions; Z3A.08 8 weeks gestation of pregnancy

== ENCOUNTER 2016-10-07 16:52 | Emergency (ER) | payer OTHER ==
[~2016-10-07] VITALS: Ht 160 cm; Wt 99.3 kg
[2016-10-07 17:45] LABS: BASO % 0.3 % (0.0-1.0); EOS # 0.3 K/mm3 (0.0-0.50); EOS % 2.3 % (0.0-3.0); LARGE UNSTAINED CELL # 0.2 K/mm3 (0.0-0.4); LARGE UNSTAINED CELL % 1.7 % (0.0-4.0); LYMPH # 2.3 K/mm3 (1.5-6.5); LYMPH % 19.1 % (24.0-44.0); MEAN CORPUSCULAR HEMOGLOBIN 27.8 pg (27.0-33.0); MEAN CORPUSCULAR HGB CONC 33.5 g/dl (32.0-36.5); MEAN CORPUSCULAR VOLUME 82.8 fl (80.0-96.0); MONO # 0.4 K/mm3 (0.0-0.8); MONO % 3.8 % (0.0-5.0); NEUTROPHILS # 8.1 K/mm3 (1.8-7.7); NEUTROPHILS % 72.7 % (36.0-66.0); PLATELET COUNT, AUTOMATED 321 k/mm3 (150-450); RED CELL DISTRIBUTION WIDTH 13.3 % (11.5-14.5); WHITE BLOOD COUNT 11.2 K/mm3 (4.0-10.0)
[2016-10-07] MEDS ORDERED: METOCLOPRAMIDE INJ 10MG/2ML VIAL (J2765) IV ONE (18:00)
[2016-10-07] MEDS ORDERED: NS 1,000 ML IV ONE (18:00)
[2016-10-07] MEDS ORDERED: diphenhydrAMINE INJ 50MG/ML VIAL (J1200) IV ONE (18:00)
[2016-10-07 18:06] LABS: ANION GAP 7 MEQ/L (8-16); BLOOD UREA NITROGEN 9 MG/DL (7-18); CALCIUM LEVEL 8.9 MG/DL (8.5-10.1); CARBON DIOXIDE LEVEL 27 MEQ/L (21-32); CHLORIDE LEVEL 106 MEQ/L (98-107); CREATININE FOR GFR 0.46 MG/DL (0.55-1.02); GLOMERULAR FILTRATION RATE > 60.0 (>60); GLUCOSE, FASTING 54 MG/DL (70-105); POTASSIUM SERUM 3.8 MEQ/L (3.5-5.1); SODIUM LEVEL 140 MEQ/L (136-145)
[2016-10-07 21:37] VITALS: BP 130/76
== END 2016-10-07 21:38 | disposition home or self-care (01) ==
LOC: EDBD 16:52 → M ED 17:56
DX: O24.011 Pre-existing type 1 diabetes mellitus, in pregnancy, first trimester (principal); E10.649 Type 1 diabetes mellitus with hypoglycemia without coma; E10.40 Type 1 diabetes mellitus with diabetic neuropathy, unspecified; O99.341 Other mental disorders complicating pregnancy, first trimester; F90.9 Attention-deficit hyperactivity disorder, unspecified type; O99.331 Smoking (tobacco) complicating pregnancy, first trimester; F17.200 Nicotine dependence, unspecified, uncomplicated; Z3A.09 9 weeks gestation of pregnancy
CPT/HCPCS: 80048; 83036; 85025; 96374; 96375; 99282; J1200; J2765

== ENCOUNTER 2016-10-11 20:37 | Emergency (ER) | payer OTHER ==
[~2016-10-11] VITALS: Ht 160 cm; Wt 99.3 kg
[2016-10-11 21:53] LABS: ANION GAP 10 MEQ/L (8-16); BLOOD UREA NITROGEN 9 MG/DL (7-18); CALCIUM LEVEL 7.9 MG/DL (8.5-10.1); CARBON DIOXIDE LEVEL 24 MEQ/L (21-32); CHLORIDE LEVEL 107 MEQ/L (98-107); CREATININE FOR GFR 0.47 MG/DL (0.55-1.02); GLOMERULAR FILTRATION RATE > 60.0 (>60); GLUCOSE, FASTING 201 MG/DL (70-105); HCG, SERUM QUANTITATIVE 32059 MIU/ML; SODIUM LEVEL 141 MEQ/L (136-145)
[2016-10-11] MEDS ORDERED: ACETAMINOPHEN 325 MG TAB PO ONE (22:45)
[2016-10-11 23:52] VITALS: BP 120/82
[2016-10-12] MEDS ORDERED: PRENTAB13 PO (23:45)
== END 2016-10-11 23:54 | disposition home or self-care (01) ==
LOC: EDBD 20:37 → EDSEX 20:37 → M ED 20:56
DX: E16.2 Hypoglycemia, unspecified (principal); F17.200 Nicotine dependence, unspecified, uncomplicated; Z79.4 Long term (current) use of insulin; Z91.040 Latex allergy status; Z88.0 Allergy status to penicillin; Z91.018 Allergy to other foods; Z91.048 Other nonmedicinal substance allergy status

== ENCOUNTER 2016-10-12 22:55 | Inpatient (IN) | payer OTHER ==
[~2016-10-12] VITALS: Ht 160 cm; Wt 94.2 kg
[2016-10-12] MEDS ORDERED: PRENTAB13 PO (23:45)
[2016-10-13] MEDS ORDERED: GLUCAGON FOR INJ 1 MG VIAL (J1610) SC PRN (01:00)
[2016-10-13] MEDS ORDERED: GLUCOSE 4 GM CHEW TABLET PO PRN (01:00)
[2016-10-13] MEDS ORDERED: DEXTROSE 50% 50 ML SYRINGE IV PRN (01:00)
--- NOTE | 2016-10-13 01:23 | HPEPDOC ---
General Date of Admission 10/13/16 Other Providers PCP: Amy Mcclellan NP Attending Physician: VITA JOSHUA MD Chief Complaint The patient is a 26-year-old female admitted with a reason for visit of diabetic crisis. Source: Patient History of Present Illness 26-year-old female with past medical history of insulin-dependent diabetes mellitus on insulin pump, depression, insomnia, pseudoseizures, and is currently 8 weeks with a history of ectopic presents to the ER with a chief complaint of hypoglycemia. The patient has been seen here in the ER 4 times over the last 10 days with similar events. Of note, the patient does follow up with Dr. Garcia of endocrinology who manages the patient's insulin pump therapy. The patient states that she has been taking 0.5 units per hour of insulin at night, and one half units of insulin per hour during the day. In addition, the patient notes that she has an insulin to carb ratio of 1 unit per 10 g of carbohydrates. However, the patient states that she has been making adjustments with her hand driller with this as she has had multiple episodes of hypoglycemia. At this time, the patient states that her blood sugar was noted to be 26 at home and EMS was called for further evaluation. The patient denies any episodes of fevers, chills, cough, chest pain, shortness of breath, palpitations, or any abdominal pain, nausea, vomiting, or diarrhea. As for the patient's , she states that she follows with Dr. Matt of [facility] and was most recently seen 2 weeks ago, at which time she had an obstetric ultrasound, which she states was noted to be reassuring. She does state that she has a follow-up appointment scheduled for later today and . The patient will be admitted under the service of Dr. Joshua for episodes of hypoglycemia on insulin pump and for further evaluation and management of the same. Home Medications Scheduled Insulin Aspart (Novolog) 100 U/Ml Inj 1 DOSE SC ASDIRECTED (Reported) PER SLIDING SCALE VIA INSULIN PUMP Multivitamins/ ( 28-0.8 mg) 1 Tab Tab 1 TAB PO DAILY (Reported ) Allergies Coded Allergies: Penicillins (Verified Allergy, Intermediate, HIVES, 10/11/16) [place] (Verified Allergy, Intermediate, hives, 10/11/16) Latex (Verified Allergy, Mild, RASH, 10/11/16) TAPE (Unverified Allergy, Unknown, 10/11/16) Past Medical History Medical History As noted in HPI. Surgical History 1. Tonsillectomy and adenoidectomy. 2. 04/24/2015 laparoscopic right salpingostomy for an ectopic . Family History Significant Family History: No pertinent family hx Social History * Smoker: former Smoker (quit smoking since she was diagnosed as in the first week of August) Alcohol: Denies Drugs: denies Review of Symptoms Other systems 10 point review of systems negative unless otherwise specified in HPI. Physical Examination General Exam: Positive: Alert, Cooperative, No Acute Distress ENT Exam: Positive: Atraumatic, Mucous membr. moist/pink Neck Exam: Negative: JVD Chest Exam: Positive: Clear to auscultation, Normal air movement Heart Exam: Positive: Normal S1, Normal S2, Rate Normal Telemetry: Positive: Sinus Abdomen Exam: Positive: Other (consistent with 8 weeks of gestation.), Soft, Negative: Tenderness Extremity Exam: Negative: Swelling, Tenderness Psych Exam: Positive: Oriented x 3 Vital Signs Vital Signs Date Time Temp Pulse Resp B/P Pulse Ox O2 Delivery O2 Flow Rate FiO2 10/13/16 00:24 97.4 84 20 120/72 99 Room Air Laboratory Data Labs 24H Laboratory Tests 2 10/13/16 00:20: Bedside Glucose (Misc Panel) 235H Plan / VTE VTE Prophylaxis Ordered?: Yes Plan Plan Episodes of Hypoglycemia We will ask the patient to hold off on using her insulin pump at this time as she has had 4 episodes of hypoglycemia over the last 10 days This is managed by Dr. Garcia of endocrinology from the [place], [place] area-a call was placed to him in the ER, however this was not immediately returned Initial blood sugar noted to be 26, Status post intramuscular glucagon by EMS- repeat blood sugar here noted to be 235 We will continue the patient on subcutaneous insulin at this time via sliding scale The patient is unsure of how much subcutaneous insulin she was taking in the past prior to her pump one year ago-her pharmacy will need to be called in the morning during business hours for better understanding of her previous insulin regimen if she is to be transitioned to subcutaneous insulin Hypoglycemia protocol We will continue to monitor the patient of 8 weeks gestation Patient follows with Dr. Matt of [facility], and apparently had a scheduled appointment as an outpatient for later today According to the patient she did have an obstetric ultrasound 2 weeks ago which showed normal progression of I did discuss with the patient about the increased risk of her given her history of ectopic , and multiple episodes of hypoglycemia-and she verbalizes understanding of this Continue multivitamins Consider [facility] consultation in the a.m. History of depression Currently stable, with no suicidal or homicidal ideations Patient was taken off all medications since being told that she was History of Pseudoseizures Patient states that she has not had another event over the last year plus She states that she was followed by a neurologist in [facility], whose name that she cannot remember at this time, and she was taken off all of her antiepileptic drugs over a year ago History of tobacco use Patient states that she has stopped smoking since she found out she was in the first week of August. DVT prophylaxis-TEDs The patient will be admitted under the service of Dr. Joshua, who will begin to follow the patient on 10/13/2016 at 7 AM. KAITLYN CASTELLANO MD Oct 13, 2016 01:23
[2016-10-13] MEDS: HumaLOG INSULIN (NovoLOG) PER UNIT SC SCH ×5 (01:35→20:52)
[2016-10-13 01:40] LABS: BASO % 0.1 % (0.0-1.0); EOS # 0.1 K/mm3 (0.0-0.50); EOS % 0.4 % (0.0-3.0); LARGE UNSTAINED CELL # 0.1 K/mm3 (0.0-0.4); LARGE UNSTAINED CELL % 0.7 % (0.0-4.0); LYMPH # 1.6 K/mm3 (1.5-6.5); LYMPH % 9.2 % (24.0-44.0); MEAN CORPUSCULAR HEMOGLOBIN 26.8 pg (27.0-33.0); MEAN CORPUSCULAR HGB CONC 31.8 g/dl (32.0-36.5); MEAN CORPUSCULAR VOLUME 84.4 fl (80.0-96.0); MONO # 0.3 K/mm3 (0.0-0.8); MONO % 1.9 % (0.0-5.0); NEUTROPHILS # 14.7 K/mm3 (1.8-7.7); NEUTROPHILS % 87.6 % (36.0-66.0); PLATELET COUNT, AUTOMATED 368 k/mm3 (150-450); RED CELL DISTRIBUTION WIDTH 13.2 % (11.5-14.5); WHITE BLOOD COUNT 16.8 K/mm3 (4.0-10.0)
[2016-10-13] MEDS ORDERED: NS 1,000 ML IV SCH (02:00)
[2016-10-13 02:07] LABS: ANION GAP 10 MEQ/L (8-16); BLOOD UREA NITROGEN 14 MG/DL (7-18); CALCIUM LEVEL 9.1 MG/DL (8.5-10.1); CARBON DIOXIDE LEVEL 20 MEQ/L (21-32); CHLORIDE LEVEL 105 MEQ/L (98-107); CREATININE FOR GFR 0.58 MG/DL (0.55-1.02); GLOMERULAR FILTRATION RATE > 60.0 (>60); POTASSIUM SERUM 4.6 MEQ/L (3.5-5.1); SODIUM LEVEL 135 MEQ/L (136-145)
[2016-10-13 02:15] LABS: GLUCOSE, FASTING 411 MG/DL (70-105)
[2016-10-13 02:26] VITALS: BP 125/80
[2016-10-13] MEDS ORDERED: HumaLOG INSULIN (NovoLOG) PER UNIT SC ONE (02:45)
[2016-10-13 04:00] VITALS: BP 129/77
[2016-10-13 05:32] LABS: ANION GAP 11 MEQ/L (8-16); BLOOD UREA NITROGEN 13 MG/DL (7-18); CARBON DIOXIDE LEVEL 19 MEQ/L (21-32); CHLORIDE LEVEL 106 MEQ/L (98-107); CREATININE FOR GFR 0.51 MG/DL (0.55-1.02); GLOMERULAR FILTRATION RATE > 60.0 (>60); GLUCOSE, FASTING 259 MG/DL (70-105); POTASSIUM SERUM 3.9 MEQ/L (3.5-5.1); SODIUM LEVEL 136 MEQ/L (136-145)
[2016-10-13 08:00] VITALS: BP 133/74
[2016-10-13] MEDS: PRENATAL VITAMIN TAB PO SCH (08:29)
[2016-10-13] MEDS ORDERED: LEVEMIR (INSULIN DETEMIR) 1 UNITS/0.01ML SC SCH (09:00)
[2016-10-13 16:00] VITALS: BP 123/69
[2016-10-13 20:00] VITALS: BP 112/55
[2016-10-13] MEDS: LEVEMIR (INSULIN DETEMIR) 1 UNITS/0.01ML SC SCH (20:52)
[2016-10-14 04:15] VITALS: BP 140/67
[2016-10-14 07:06] LABS: MEAN CORPUSCULAR HEMOGLOBIN 27.4 pg (27.0-33.0); MEAN CORPUSCULAR HGB CONC 32.8 g/dl (32.0-36.5); MEAN CORPUSCULAR VOLUME 83.5 fl (80.0-96.0); RED CELL DISTRIBUTION WIDTH 13.3 % (11.5-14.5); WHITE BLOOD COUNT 12.4 K/mm3 (4.0-10.0)
[2016-10-14 07:17] LABS: ANION GAP 9 MEQ/L (8-16); BLOOD UREA NITROGEN 11 MG/DL (7-18); CALCIUM LEVEL 8.4 MG/DL (8.5-10.1); CARBON DIOXIDE LEVEL 21 MEQ/L (21-32); CHLORIDE LEVEL 104 MEQ/L (98-107); CREATININE FOR GFR 0.57 MG/DL (0.55-1.02); GLOMERULAR FILTRATION RATE > 60.0 (>60); GLUCOSE, FASTING 377 MG/DL (70-105); MAGNESIUM LEVEL 1.7 MG/DL (1.8-2.4); SODIUM LEVEL 134 MEQ/L (136-145)
[2016-10-14 08:00] VITALS: BP 114/69
[2016-10-14] MEDS: PRENATAL VITAMIN TAB PO SCH (08:18)
[2016-10-14] MEDS: LEVEMIR (INSULIN DETEMIR) 1 UNITS/0.01ML SC SCH (08:19)
[2016-10-14] MEDS: HumaLOG INSULIN (NovoLOG) PER UNIT SC SCH ×4 (08:19→21:24)
[2016-10-14] MEDS ORDERED: diphenhydrAMINE 25 MG CAP PO PRN (11:15)
--- NOTE | 2016-10-14 11:24 | IPNPDOC ---
Subjective Date Seen The patient was seen on 10/14/16. Subjective Chief Complaint/HPI The patient is a 26-year-old female admitted with a reason for visit of Diabetes Mellitus W/ Hypoglycemia. Events since last encounter No further hypoglycemia . Now sugars uncontrolled. spoke with [employer] job service specialist. Objective Physical Examination General Exam: Positive: Alert, Cooperative, No Acute Distress ENT Exam: Positive: Atraumatic, Mucous membr. moist/pink Neck Exam: Negative: JVD Chest Exam: Positive: Clear to auscultation, Normal air movement Heart Exam: Positive: Normal S1, Normal S2, Rate Normal Telemetry: Positive: Sinus Abdomen Exam: Positive: Other (consistent with 8 weeks of gestation.), Soft, Negative: Tenderness Extremity Exam: Negative: Swelling, Tenderness Psych Exam: Positive: Oriented x 3 Assessment /Plan Problems (1) Diabetes mellitus with hypoglycemia Status: Acute Problem Text: Type 1 DM on insulin pump using novolog insulin admitted for hypoglycemia of 26 when partner could not wake her up and checked her FS. has been on insulin pump for 1 1/2 year and sugar has been better controlled however since getting she has been having frequent hypoglycemic episodes. The week prior to admission patient had hypoglycemia every day . Spoke with her job service specialist at [facility] Dr DOMINGO at [phone]. As per him patient non compliant with appointments the FS monitoring. And he said it would be safer to dc her with s/c insulin for now instead of restarting her insulin pump. SHe needs to follow with him on discharge for her insulin pump dosage to be readjusted before restarting it will increase levemir insulin dosage. (2) Status: Acute Problem Text: [address] Matt. will See if they can follow her as inpatient. Plan/VTE VTE Prophylaxis Ordered?: Yes VS, I&O, 24H, Fishbone Vital Signs/I&O Vital Signs Date Time Temp Pulse Resp B/P Pulse Ox O2 Delivery O2 Flow Rate FiO2 10/14/16 08:00 99.2 91 18 114/69 96 Room Air I&O- Last 24 Hours up to 6 AM 10/14/16 06:00 Intake Total 2140 ml Output Total 700 ml Balance 1440 ml Laboratory Data 24H LABS Laboratory Tests 2 10/13/16 11:35: Bedside Glucose (Misc Panel) 288H 10/13/16 17:29: Bedside Glucose (Misc Panel) 286H 10/13/16 20:30: Bedside Glucose (Misc Panel) 335H 10/14/16 06:48: Anion Gap 9, Blood Urea Nitrogen 11, Creatinine 0.57, Sodium Level 134L, Potassium Level 4.0, Chloride Level 104, Carbon Dioxide Level 21, Calcium Level 8.4L, Glomerular Filtration Rate > 60.0, Magnesium Level 1.7L CBC/BMP Laboratory Tests 10/14/16 06:48 Calcium Level 8.4 L, Red Blood Count 4.04, Mean Corpuscular Volume 83.5, Mean Corpuscular Hemoglobin 27.4, Mean Corpuscular Hemoglobin Concent 32.8, Red Cell Distribution Width 13.3 VITA ZABALA MD Oct 14, 2016 11:24
[2016-10-14] MEDS ORDERED: diphenhydrAMINE 25 MG CAP PO ONE (13:45)
[2016-10-14 16:00] VITALS: BP 149/74
[2016-10-14 20:00] VITALS: BP 118/69
[2016-10-14] MEDS ORDERED: LEVEMIR (INSULIN DETEMIR) 1 UNITS/0.01ML SC SCH (21:00)
[2016-10-15 03:00] VITALS: BP 114/79
[2016-10-15 07:41] LABS: MEAN CORPUSCULAR HEMOGLOBIN 27.6 pg (27.0-33.0); MEAN CORPUSCULAR HGB CONC 33.3 g/dl (32.0-36.5); RED CELL DISTRIBUTION WIDTH 13.3 % (11.5-14.5); WHITE BLOOD COUNT 11.1 K/mm3 (4.0-10.0)
[2016-10-15 08:00] VITALS: BP 105/56
[2016-10-15 08:03] LABS: ANION GAP 8 MEQ/L (8-16); BLOOD UREA NITROGEN 12 MG/DL (7-18); CALCIUM LEVEL 8.8 MG/DL (8.5-10.1); CARBON DIOXIDE LEVEL 26 MEQ/L (21-32); CHLORIDE LEVEL 101 MEQ/L (98-107); CREATININE FOR GFR 0.59 MG/DL (0.55-1.02); GLOMERULAR FILTRATION RATE > 60.0 (>60); GLUCOSE, FASTING 387 MG/DL (70-105); POTASSIUM SERUM 3.8 MEQ/L (3.5-5.1); SODIUM LEVEL 135 MEQ/L (136-145)
[2016-10-15] MEDS: PRENATAL VITAMIN TAB PO SCH (08:17)
[2016-10-15] MEDS: HumaLOG INSULIN (NovoLOG) PER UNIT SC SCH ×4 (08:17→21:00)
[2016-10-15] MEDS ORDERED: LEVEMIR (INSULIN DETEMIR) 1 UNITS/0.01ML SC SCH ×4 (09:00→21:00)
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
--- NOTE | 2016-10-15 11:55 | IPNPDOC ---
Subjective Date Seen The patient was seen on 10/15/16. Subjective Chief Complaint/HPI The patient is a 26-year-old female admitted with a reason for visit of Diabetes Mellitus W/ Hypoglycemia. Events since last encounter no new complaints. sugars remain poorly controlled. Objective Physical Examination General Exam: Positive: Alert, Cooperative, No Acute Distress ENT Exam: Positive: Atraumatic, Mucous membr. moist/pink Neck Exam: Negative: JVD Chest Exam: Positive: Clear to auscultation, Normal air movement Heart Exam: Positive: Normal S1, Normal S2, Rate Normal Telemetry: Positive: Sinus Abdomen Exam: Positive: Other (consistent with 8 weeks of gestation.), Soft, Negative: Tenderness Extremity Exam: Negative: Swelling, Tenderness Psych Exam: Positive: Oriented x 3 Assessment /Plan Problems (1) Diabetes mellitus with hypoglycemia Status: Acute Problem Text: Type 1 DM on insulin pump using novolog insulin admitted for hypoglycemia of 26 when partner could not wake her up and checked her FS. has been on insulin pump for 1 1/2 year and sugar has been better controlled however since getting she has been having frequent hypoglycemic episodes. The week prior to admission patient had hypoglycemia every day . Spoke with her service tech at [facility] Dr DOMINGO at [phone]. As per him patient non compliant with appointments the FS monitoring. And he said it would be safer to dc her with s/c insulin for now instead of restarting her insulin pump. She needs to follow with him on discharge for her insulin pump dosage to be readjusted before restarting it will increase levemir insulin dosage. (2) Status: Acute Problem Text: [address] Matt. will be evaluated today. Plan/VTE VTE Prophylaxis Ordered?: Yes VS, I&O, 24H, Fishbone Vital Signs/I&O Vital Signs Date Time Temp Pulse Resp B/P Pulse Ox O2 Delivery O2 Flow Rate FiO2 10/15/16 08:00 98.1 60 14 105/56 97 Room Air I&O- Last 24 Hours up to 6 AM 10/15/16 06:00 Intake Total 2400 ml Output Total 2800 ml Balance -400 ml Laboratory Data 24H LABS Laboratory Tests 2 10/14/16 16:53: Bedside Glucose (Misc Panel) 246H 10/14/16 21:01: Bedside Glucose (Misc Panel) 369H 10/15/16 03:01: Bedside Glucose (Misc Panel) 208H 10/15/16 07:09: Anion Gap 8, Blood Urea Nitrogen 12, Creatinine 0.59, Sodium Level 135L, Potassium Level 3.8, Chloride Level 101, Carbon Dioxide Level 26, Calcium Level 8.8, Glomerular Filtration Rate > 60.0 CBC/BMP Laboratory Tests 10/15/16 07:09 Calcium Level 8.8, Red Blood Count 4.10, Mean Corpuscular Volume 83.0, Mean Corpuscular Hemoglobin 27.6, Mean Corpuscular Hemoglobin Concent 33.3, Red Cell Distribution Width 13.3 VITA ZABALA MD Oct 15, 2016 11:55
[2016-10-15 16:00] VITALS: BP 112/58
[2016-10-15 20:00] VITALS: BP 122/68
[2016-10-16] VITALS: BP 122/69
[2016-10-16 06:21] LABS: MEAN CORPUSCULAR HEMOGLOBIN 27.1 pg (27.0-33.0); RED CELL DISTRIBUTION WIDTH 13.7 % (11.5-14.5); WHITE BLOOD COUNT 12.1 K/mm3 (4.0-10.0)
[2016-10-16 06:45] LABS: ANION GAP 7 MEQ/L (8-16); BLOOD UREA NITROGEN 12 MG/DL (7-18); CALCIUM LEVEL 8.9 MG/DL (8.5-10.1); CARBON DIOXIDE LEVEL 26 MEQ/L (21-32); CHLORIDE LEVEL 107 MEQ/L (98-107); CREATININE FOR GFR 0.34 MG/DL (0.55-1.02); GLOMERULAR FILTRATION RATE > 60.0 (>60); GLUCOSE, FASTING 42 MG/DL (70-105); POTASSIUM SERUM 3.6 MEQ/L (3.5-5.1); SODIUM LEVEL 140 MEQ/L (136-145)
[2016-10-16 08:00] VITALS: BP 129/57
[2016-10-16] MEDS: HumaLOG INSULIN (NovoLOG) PER UNIT SC SCH ×2 (08:00→12:00)
[2016-10-16] MEDS ORDERED: LEVEMIR (INSULIN DETEMIR) 1 UNITS/0.01ML SC SCH ×2 (09:00→21:00)
--- NOTE | 2016-10-16 11:26 | IPNPDOC ---
Subjective Date Seen The patient was seen on 10/16/16. Subjective Chief Complaint/HPI The patient is a 26-year-old female admitted with a reason for visit of Diabetes Mellitus W/ Hypoglycemia. Events since last encounter patient had hypoglycemia at 7 am today, FS was 39. Did not have any symptoms ate crackers, peanut butter and apple juice. BS after 3 hours 213 did not have any breakfast, Slept all day and night yesterday though did have breakfast lunch and dinner yerterday , last meal yesterday was at 7 pm , does not have any routine in eating or sleeping. Gets irritated when woken up. Objective Physical Examination General Exam: Positive: Alert, Cooperative, No Acute Distress ENT Exam: Positive: Atraumatic, Mucous membr. moist/pink Neck Exam: Negative: JVD Chest Exam: Positive: Clear to auscultation, Normal air movement Heart Exam: Positive: Normal S1, Normal S2, Rate Normal Telemetry: Positive: Sinus Abdomen Exam: Positive: Other (consistent with 8 weeks of gestation.), Soft, Negative: Tenderness Extremity Exam: Negative: Swelling, Tenderness Psych Exam: Positive: Oriented x 3 Assessment /Plan Problems (1) Diabetes mellitus with hypoglycemia Status: Acute Problem Text: Type 1 DM on insulin pump using novolog insulin admitted for hypoglycemia of 26 when partner could not wake her up and checked her FS. has been on insulin pump for 1 1/2 year and sugar has been better controlled however since getting she has been having frequent hypoglycemic episodes. The week prior to admission patient had hypoglycemia every day . Spoke with her records management assistant at [facility] Dr DOMINGO at [phone]. As per him patient non compliant with appointments the FS monitoring. And he said it would be safer to dc her with s/c insulin for now instead of restarting her insulin pump. She needs to follow with him on discharge for her insulin pump dosage to be readjusted before restarting it Had hypoglycemia this am . Will reduce levemir dosage. Patient says will not be able to follow up with her records management assistant at [facility] as her insurance will not pay for her cab fare. will consult PFS. (2) Status: Acute Problem Text: [address] Matt. will be evaluated today. Plan/VTE VTE Prophylaxis Ordered?: Yes VS, I&O, 24H, Fishbone Vital Signs/I&O Vital Signs Date Time Temp Pulse Resp B/P Pulse Ox O2 Delivery O2 Flow Rate FiO2 10/16/16 08:00 97.6 89 16 129/57 96 Room Air I&O- Last 24 Hours up to 6 AM 10/16/16 05:59 Intake Total 2640 ml Output Total 2300 ml Balance 340 ml Laboratory Data 24H LABS Laboratory Tests 2 10/15/16 11:53: Bedside Glucose (Misc Panel) 237H 10/15/16 18:16: Bedside Glucose (Misc Panel) 276H 10/15/16 21:11: Bedside Glucose (Misc Panel) 194H 10/16/16 05:59: Anion Gap 7L, Blood Urea Nitrogen 12, Creatinine 0.34L, Sodium Level 140, Potassium Level 3.6, Chloride Level 107, Carbon Dioxide Level 26, Calcium Level 8.9, Glomerular Filtration Rate > 60.0 10/16/16 07:30: Bedside Glucose (Misc Panel) 39*L 10/16/16 08:01: Bedside Glucose (Misc Panel) 103 10/16/16 10:00: Bedside Glucose (Misc Panel) 216H CBC/BMP Laboratory Tests 10/16/16 05:59 Calcium Level 8.9, Red Blood Count 4.29, Mean Corpuscular Volume 82.0, Mean Corpuscular Hemoglobin 27.1, Mean Corpuscular Hemoglobin Concent 33.0, Red Cell Distribution Width 13.7 VITA ZABALA MD Oct 16, 2016 11:26
[2016-10-16 16:00] VITALS: BP 116/64
[2016-10-16] MEDS: PRENATAL VITAMIN TAB PO SCH (16:56)
[2016-10-16] MEDS: HumaLOG INSULIN (NovoLOG) PER UNIT SC PRN (18:14)
[2016-10-16] MEDS ORDERED: LEVEMIR (INSULIN DETEMIR) 1 UNITS/0.01ML SC ONE (18:30)
[2016-10-16 20:00] VITALS: BP 124/76
[2016-10-17] VITALS: BP 110/62
[2016-10-17] MEDS: HumaLOG INSULIN (NovoLOG) PER UNIT SC PRN ×2 (02:42→17:50)
[2016-10-17 06:30] LABS: MEAN CORPUSCULAR HEMOGLOBIN 28.5 pg (27.0-33.0); MEAN CORPUSCULAR HGB CONC 34.2 g/dl (32.0-36.5); MEAN CORPUSCULAR VOLUME 83.3 fl (80.0-96.0); RED CELL DISTRIBUTION WIDTH 13.5 % (11.5-14.5); WHITE BLOOD COUNT 11.5 K/mm3 (4.0-10.0)
[2016-10-17 06:50] LABS: ANION GAP 8 MEQ/L (8-16); BLOOD UREA NITROGEN 13 MG/DL (7-18); CALCIUM LEVEL 8.6 MG/DL (8.5-10.1); CARBON DIOXIDE LEVEL 24 MEQ/L (21-32); CHLORIDE LEVEL 107 MEQ/L (98-107); CREATININE FOR GFR 0.47 MG/DL (0.55-1.02); GLOMERULAR FILTRATION RATE > 60.0 (>60); GLUCOSE, FASTING 265 MG/DL (70-105); POTASSIUM SERUM 3.9 MEQ/L (3.5-5.1); SODIUM LEVEL 139 MEQ/L (136-145)
[2016-10-17 08:00] VITALS: BP 117/57
[2016-10-17] MEDS ORDERED: LEVEMIR (INSULIN DETEMIR) 1 UNITS/0.01ML SC ONE (08:45)
--- NOTE | 2016-10-17 09:34 | IPNPDOC ---
Subjective Date Seen The patient was seen on 10/17/16. Subjective Chief Complaint/HPI The patient is a 26-year-old female admitted with a reason for visit of Diabetes Mellitus W/ Hypoglycemia. Events since last encounter patient is not at all disciplined regarding her eating times and sleeping times. Yesterday she slept all day and took her first meal at 6 pm and then snacks through out night. She says that she is an insomniac and can never sleep at night and eats her meals at night . Before she used to be on trazodone that used to keep the sleep wake cycles more regularized. Today she went to sleep at 6 am and said will probably wake up for a lete lunch if she can , otherwise will have dinner. Did not have any hypoglycemia today. Objective Physical Examination General Exam: Positive: Alert, Cooperative, No Acute Distress ENT Exam: Positive: Atraumatic, Mucous membr. moist/pink Neck Exam: Negative: JVD Chest Exam: Positive: Clear to auscultation, Normal air movement Heart Exam: Positive: Normal S1, Normal S2, Rate Normal Telemetry: Positive: Sinus Abdomen Exam: Positive: Other (consistent with 8 weeks of gestation.), Soft, Negative: Tenderness Extremity Exam: Negative: Swelling, Tenderness Psych Exam: Positive: Oriented x 3 Assessment /Plan Problems (1) Diabetes mellitus with hypoglycemia Status: Acute Problem Text: Type 1 DM on insulin pump using novolog insulin admitted for hypoglycemia of 27 when partner could not wake her up and checked her FS. has been on insulin pump for 1 1/2 year and sugar has been better controlled however since getting she has been having frequent hypoglycemic episodes. The week prior to admission patient had hypoglycemia every day . Spoke with her senior sales administrator at [place] Dr DOMINGO at [phone]. As per him patient non compliant with appointments the FS monitoring. And he said it would be safer to dc her with s/c insulin for now instead of restarting her insulin pump. She needs to follow with him on discharge for her insulin pump dosage to be readjusted before restarting it Had hypoglycemia this am . Will give 8 units of levemir in am as she is not going to have breakfast and possibly no lunch and give 25 units with dinner which is going to be her major meal. Patient says will not be able to follow up with her senior sales administrator at [place] as her insurance will not pay for her cab fare. will consult PFS. (2) Status: Acute Problem Text: [address] Matt. (3) Insomnia Status: Chronic Plan/VTE VTE Prophylaxis Ordered?: Yes VS, I&O, 24H, Fishbone Vital Signs/I&O Vital Signs Date Time Temp Pulse Resp B/P Pulse Ox O2 Delivery O2 Flow Rate FiO2 10/17/16 08:00 100.2 95 18 117/57 100 Room Air I&O- Last 24 Hours up to 6 AM 10/17/16 06:00 Intake Total 2040 ml Output Total 1100 ml Balance 940 ml Laboratory Data 24H LABS Laboratory Tests 2 10/16/16 10:00: Bedside Glucose (Misc Panel) 216H 10/16/16 12:37: Bedside Glucose (Misc Panel) 186H 10/16/16 16:01: Bedside Glucose (Misc Panel) 227H 10/17/16 00:16: Bedside Glucose (Misc Panel) 235H 10/17/16 02:15: Bedside Glucose (Misc Panel) 138H 10/17/16 06:19: Anion Gap 8, Blood Urea Nitrogen 13, Creatinine 0.47L, Sodium Level 139, Potassium Level 3.9, Chloride Level 107, Carbon Dioxide Level 24, Calcium Level 8.6, Glomerular Filtration Rate > 60.0 CBC/BMP Laboratory Tests 10/17/16 06:19 Calcium Level 8.6, Red Blood Count 3.77 L, Mean Corpuscular Volume 83.3, Mean Corpuscular Hemoglobin 28.5, Mean Corpuscular Hemoglobin Concent 34.2, Red Cell Distribution Width 13.5 VITA ZABALA MD Oct 17, 2016 09:34
[2016-10-17 16:00] VITALS: BP 126/58
[2016-10-17] MEDS ORDERED: LEVEMIR (INSULIN DETEMIR) 1 UNITS/0.01ML SC SCH (17:00)
[2016-10-17] MEDS: PRENATAL VITAMIN TAB PO SCH (17:49)
[2016-10-17 20:00] VITALS: BP 109/56
[2016-10-17] MEDS: traZODone 50 MG TAB PO SCH (22:49)
[2016-10-18] VITALS: BP 98/58
[2016-10-18 07:37] LABS: MEAN CORPUSCULAR HEMOGLOBIN 27.8 pg (27.0-33.0); MEAN CORPUSCULAR VOLUME 84.2 fl (80.0-96.0); RED CELL DISTRIBUTION WIDTH 13.6 % (11.5-14.5); WHITE BLOOD COUNT 10.6 K/mm3 (4.0-10.0)
[2016-10-18 08:00] VITALS: BP 112/62
[2016-10-18 08:00] LABS: ANION GAP 9 MEQ/L (8-16); BLOOD UREA NITROGEN 12 MG/DL (7-18); CALCIUM LEVEL 8.3 MG/DL (8.5-10.1); CARBON DIOXIDE LEVEL 23 MEQ/L (21-32); CHLORIDE LEVEL 105 MEQ/L (98-107); CREATININE FOR GFR 0.42 MG/DL (0.55-1.02); GLOMERULAR FILTRATION RATE > 60.0 (>60); GLUCOSE, FASTING 216 MG/DL (70-105); SODIUM LEVEL 137 MEQ/L (136-145)
[2016-10-18] MEDS: PRENATAL VITAMIN TAB PO SCH (08:32)
[2016-10-18] MEDS: HumaLOG INSULIN (NovoLOG) PER UNIT SC PRN ×2 (08:33→12:41)
[2016-10-18] MEDS: LEVEMIR (INSULIN DETEMIR) 1 UNITS/0.01ML SC SCH (09:51)
--- NOTE | 2016-10-18 13:03 | IPNPDOC ---
Subjective Date Seen The patient was seen on 10/18/16. Subjective Chief Complaint/HPI The patient is a 26-year-old female admitted with a reason for visit of Diabetes Mellitus W/ Hypoglycemia. Events since last encounter no new events. Objective Physical Examination General Exam: Positive: Alert, Cooperative, No Acute Distress ENT Exam: Positive: Atraumatic, Mucous membr. moist/pink Neck Exam: Negative: JVD Chest Exam: Positive: Clear to auscultation, Normal air movement Heart Exam: Positive: Normal S1, Normal S2, Rate Normal Telemetry: Positive: Sinus Abdomen Exam: Positive: Other (consistent with 8 weeks of gestation.), Soft, Negative: Tenderness Extremity Exam: Negative: Swelling, Tenderness Psych Exam: Positive: Oriented x 3 Assessment /Plan Problems (1) Diabetes mellitus with hypoglycemia Status: Acute Problem Text: Type 1 DM on insulin pump using novolog insulin admitted for hypoglycemia of 26 when partner could not wake her up and checked her FS. has been on insulin pump for 1 1/2 year and sugar has been better controlled however since getting she has been having frequent hypoglycemic episodes. The week prior to admission patient had hypoglycemia every day . Spoke with her edge grinder at [place] Dr DOMINGO at [phone]. As per him patient non compliant with appointments the FS monitoring. And he said it would be safer to dc her with s/c insulin for now instead of restarting her insulin pump. She needs to follow with him on discharge for her insulin pump dosage to be readjusted before restarting it Had hypoglycemia this am . Will give 8 units of levemir in am as she is not going to have breakfast and possibly no lunch and give 25 units with dinner which is going to be her major meal. Patient says will not be able to follow up with her edge grinder at [place] as her insurance will not pay for her cab fare. will consult PFS. (2) Status: Acute Problem Text: [address] Matt. (3) Insomnia Status: Chronic Plan/VTE VTE Prophylaxis Ordered?: Yes VS, I&O, 24H, Fishbone Vital Signs/I&O Vital Signs Date Time Temp Pulse Resp B/P Pulse Ox O2 Delivery O2 Flow Rate FiO2 10/18/16 08:00 98.6 85 18 112/62 97 Room Air I&O- Last 24 Hours up to 6 AM 10/18/16 05:59 Intake Total 2280 ml Output Total 1775 ml Balance 505 ml Laboratory Data 24H LABS Laboratory Tests 2 10/17/16 13:32: Bedside Glucose (Misc Panel) 179H 10/17/16 17:42: Bedside Glucose (Misc Panel) 183H 10/17/16 22:31: Bedside Glucose (Misc Panel) 265H 10/18/16 02:47: Bedside Glucose (Misc Panel) 347H 10/18/16 07:02: Anion Gap 9, Blood Urea Nitrogen 12, Creatinine 0.42L, Sodium Level 137, Potassium Level 4.0, Chloride Level 105, Carbon Dioxide Level 23, Calcium Level 8.3L, Glomerular Filtration Rate > 60.0 10/18/16 12:31: Bedside Glucose (Misc Panel) 320H CBC/BMP Laboratory Tests 10/18/16 07:02 Calcium Level 8.3 L, Red Blood Count 3.91 L, Mean Corpuscular Volume 84.2, Mean Corpuscular Hemoglobin 27.8, Mean Corpuscular Hemoglobin Concent 33.0, Red Cell Distribution Width 13.6 VITA ZABALA MD Oct 18, 2016 13:03
[2016-10-18 16:00] VITALS: BP 124/64
[2016-10-18] MEDS ORDERED: LEVEMIR (INSULIN DETEMIR) 1 UNITS/0.01ML SC SCH (17:00)
[2016-10-18 20:00] VITALS: BP 105/54
[2016-10-18] MEDS: traZODone 50 MG TAB PO SCH (20:52)
[2016-10-18] MEDS ORDERED: LEVEMIR (INSULIN DETEMIR) 1 UNITS/0.01ML SC ONE (22:00)
[2016-10-19 01:00] VITALS: BP 98/57
[2016-10-19 06:59] LABS: MEAN CORPUSCULAR HEMOGLOBIN 28.1 pg (27.0-33.0); MEAN CORPUSCULAR HGB CONC 33.7 g/dl (32.0-36.5); MEAN CORPUSCULAR VOLUME 83.3 fl (80.0-96.0); RED CELL DISTRIBUTION WIDTH 13.5 % (11.5-14.5); WHITE BLOOD COUNT 10.1 K/mm3 (4.0-10.0)
[2016-10-19 07:06] LABS: ANION GAP 8 MEQ/L (8-16); BLOOD UREA NITROGEN 9 MG/DL (7-18); CALCIUM LEVEL 8.6 MG/DL (8.5-10.1); CARBON DIOXIDE LEVEL 24 MEQ/L (21-32); CHLORIDE LEVEL 103 MEQ/L (98-107); CREATININE FOR GFR 0.55 MG/DL (0.55-1.02); GLOMERULAR FILTRATION RATE > 60.0 (>60); GLUCOSE, FASTING 323 MG/DL (70-105); POTASSIUM SERUM 3.7 MEQ/L (3.5-5.1); SODIUM LEVEL 135 MEQ/L (136-145)
[2016-10-19 08:45] VITALS: BP 103/55
[2016-10-19] MEDS: LEVEMIR (INSULIN DETEMIR) 1 UNITS/0.01ML SC SCH (08:59)
[2016-10-19] MEDS: PRENATAL VITAMIN TAB PO SCH (09:00)
[2016-10-19] MEDS: HumaLOG INSULIN (NovoLOG) PER UNIT SC PRN (09:00)
[2016-10-19] MEDS ORDERED: ACETAMINOPHEN 325 MG TAB PO PRN (14:45)
--- NOTE | 2016-10-19 15:05 | IPNPDOC ---
Subjective Date Seen The patient was seen on 10/19/16. Subjective Chief Complaint/HPI The patient is a 26-year-old female admitted with a reason for visit of Diabetes Mellitus W/ Hypoglycemia. Events since last encounter pt seen and examined, appears to be upset and frustrated, she states she is angry that she is off of her psych meds and that she needs to f/u with endo but won't have a ride, overnight pt has a low grade temp 100.4 will confirm all elevated temps with core temps Constitutional: Reports: Fever, Night Sweats ENT: Reports: Head Aches Skin: Denies: Breakdown, Lesions, Rash Cardiovascular: Denies: Chest Pain, Lt Headedness, Orthopnea, Palpitations, Paroxysmal Noc. Dyspnea Genitourinary: Denies: Dysuria, Frequency, Incontinence, Retention Objective Physical Examination General Exam: Positive: Alert, Cooperative, No Acute Distress ENT Exam: Positive: Atraumatic, Mucous membr. moist/pink Neck Exam: Negative: JVD Chest Exam: Positive: Clear to auscultation, Normal air movement Heart Exam: Positive: Normal S1, Normal S2, Rate Normal Telemetry: Positive: Sinus Abdomen Exam: Positive: Other (consistent with 8 weeks of gestation.), Soft, Negative: Tenderness Extremity Exam: Negative: Swelling, Tenderness Psych Exam: Positive: Oriented x 3 Assessment /Plan Problems (1) Depression Status: Chronic Response to Treatment: Uncontrolled Problem Text: * pt is currently not on medication * Dr Mart has agreed to see pt in consultation (2) Diabetes mellitus with hypoglycemia Status: Acute Problem Text: * Type 1 DM on insulin pump using novolog insulin admitted for hypoglycemia of 26 when partner could not wake her up and checked her FS. has been on insulin pump for 1 1/2 year and sugar has been better controlled however since getting she has been having frequent hypoglycemic episodes. The week prior to admission patient had hypoglycemia every day . Spoke with her encapsulator at [place] Dr DOMINGO at [phone]. As per him patient non compliant with appointments the FS monitoring. And he said it would be safer to dc her with s/ c insulin for now instead of restarting her insulin pump. She needs to follow with him on discharge for her insulin pump dosage to be readjusted before restarting it * Patient says will not be able to follow up with her encapsulator at [place] as her insurance will not pay for her cab fare. will consult PFS. * pt is very noncompliant and will have a difficult time going to her appointment * at this time no safe discharge plan is in place yet (3) Status: Acute Problem Text: [address] Matt. spoke with Dr Denson today who saw pt he agrees that we don't yet have a safe discharge plan for pt, she has poor social situation when added to her noncompliance and mental health issues it becomes a difficult situation and a difficult discharge (4) Insomnia Status: Chronic Plan/VTE VTE Prophylaxis Ordered?: Yes VS, I&O, 24H, Fishbone Vital Signs/I&O Vital Signs Date Time Temp Pulse Resp B/P Pulse Ox O2 Delivery O2 Flow Rate FiO2 10/19/16 12:30 18 10/19/16 08:45 99.5 88 103/55 96 Room Air I&O- Last 24 Hours up to 6 AM 10/19/16 05:59 Intake Total 1800 ml Output Total 2400 ml Balance -600 ml Laboratory Data 24H LABS Laboratory Tests 2 10/18/16 16:32: Bedside Glucose (Misc Panel) 54L 10/18/16 17:09: Bedside Glucose (Misc Panel) 116H 10/18/16 20:51: Bedside Glucose (Misc Panel) 117H 10/19/16 03:01: Bedside Glucose (Misc Panel) 255H 10/19/16 06:39: Anion Gap 8, Blood Urea Nitrogen 9, Creatinine 0.55, Sodium Level 135L, Potassium Level 3.7, Chloride Level 103, Carbon Dioxide Level 24, Calcium Level 8.6, Glomerular Filtration Rate > 60.0 10/19/16 12:15: Bedside Glucose (Misc Panel) 126H CBC/BMP Laboratory Tests 10/19/16 06:39 Calcium Level 8.6, Red Blood Count 4.08, Mean Corpuscular Volume 83.3, Mean Corpuscular Hemoglobin 28.1, Mean Corpuscular Hemoglobin Concent 33.7, Red Cell Distribution Width 13.5 NICOLÁS MORRISON DO Oct 19, 2016 15:04
[2016-10-19] MEDS: HumaLOG INSULIN (NovoLOG) PER UNIT SC SCH ×2 (17:30→22:02)
[2016-10-19 18:00] VITALS: BP 118/60
[2016-10-19 20:00] VITALS: BP 132/90
[2016-10-19] MEDS: traZODone 50 MG TAB PO SCH (22:01)
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
[2016-10-20 03:45] VITALS: BP 107/61
[2016-10-20 07:13] LABS: MEAN CORPUSCULAR HEMOGLOBIN 27.7 pg (27.0-33.0); MEAN CORPUSCULAR HGB CONC 33.2 g/dl (32.0-36.5); MEAN CORPUSCULAR VOLUME 83.3 fl (80.0-96.0); RED CELL DISTRIBUTION WIDTH 13.4 % (11.5-14.5); WHITE BLOOD COUNT 10.9 K/mm3 (4.0-10.0)
[2016-10-20 07:35] LABS: ALKALINE PHOSPHATASE 58 U/L (45-117); ALT/SGPT 13 U/L (12-78); ANION GAP 7 MEQ/L (8-16); AST/SGOT 7 U/L (15-37); BILIRUBIN,TOTAL 0.2 MG/DL (0.2-1.0); BLOOD UREA NITROGEN 13 MG/DL (7-18); CALCIUM LEVEL 8.6 MG/DL (8.5-10.1); CARBON DIOXIDE LEVEL 27 MEQ/L (21-32); CHLORIDE LEVEL 107 MEQ/L (98-107); CREATININE FOR GFR 0.41 MG/DL (0.55-1.02); GLOMERULAR FILTRATION RATE > 60.0 (>60); GLUCOSE, FASTING 77 MG/DL (70-105); POTASSIUM SERUM 3.8 MEQ/L (3.5-5.1); SODIUM LEVEL 141 MEQ/L (136-145)
[2016-10-20 08:30] VITALS: BP 130/71
[2016-10-20] MEDS: LEVEMIR (INSULIN DETEMIR) 1 UNITS/0.01ML SC SCH (08:32)
[2016-10-20] MEDS: HumaLOG INSULIN (NovoLOG) PER UNIT SC SCH ×4 (08:32→21:31)
[2016-10-20] MEDS: PRENATAL VITAMIN TAB PO SCH (08:50)
[2016-10-20] MEDS: FLUoxetine 10 MG CAP PO SCH (08:50)
[2016-10-20 14:00] VITALS: BP 135/61
--- NOTE | 2016-10-20 16:02 | IPNPDOC ---
Subjective Date Seen The patient was seen on 10/20/16. Subjective Chief Complaint/HPI The patient is a 26-year-old female admitted with a reason for visit of Diabetes Mellitus W/ Hypoglycemia. Events since last encounter pt seen and examined,was covering her head under the cover, no overnight events Objective Physical Examination General Exam: Positive: Alert, Cooperative, No Acute Distress ENT Exam: Positive: Atraumatic, Mucous membr. moist/pink Neck Exam: Negative: JVD Chest Exam: Positive: Clear to auscultation, Normal air movement Heart Exam: Positive: Rate Normal, Normal S1, Normal S2 Telemetry: Positive: Sinus Abdomen Exam: Positive: Soft, Other (consistent with 8 weeks of gestation.), Negative: Tenderness Extremity Exam: Negative: Tenderness, Swelling Psych Exam: Positive: Oriented x 3 Assessment /Plan Problems (1) Depression Status: Chronic Response to Treatment: Uncontrolled Problem Text: * pt was seen by psych * she will be discharged to in psych once bed is available (2) Diabetes mellitus with hypoglycemia Status: Acute Problem Text: * Type 1 DM on insulin pump using novolog insulin admitted for hypoglycemia of when partner could not wake her up and checked her FS. has been on insulin pump for 1 1/2 year and sugar has been better controlled however since getting she has been having frequent hypoglycemic episodes. The week prior to admission patient had hypoglycemia every day . Spoke with her roguer at [place] Dr DOMINGO at [phone]. As per him patient non compliant with appointments the FS monitoring. And he said it would be safer to dc her with s/ c insulin for now instead of restarting her insulin pump. She needs to follow with him on discharge for her insulin pump dosage to be readjusted before restarting it * Patient says will not be able to follow up with her roguer at [place] as her insurance will not pay for her cab fare. will consult PFS. * pt is very noncompliant and will have a difficult time going to her appointment * will discharge to inpatient mental health unit (3) Status: Acute Problem Text: [address] Matt. (4) Insomnia Status: Chronic Plan/VTE VTE Prophylaxis Ordered?: Yes VS, I&O, 24H, Fishbone Vital Signs/I&O Vital Signs Date Time Temp Pulse Resp B/P (MAP) Pulse Ox O2 Delivery O2 Flow Rate FiO2 10/20/16 14:00 98.7 82 17 135/61 (85) 96 Room Air I&O- Last 24 Hours up to 6 AM 10/20/16 05:59 Intake Total 1680 ml Output Total 2650 ml Balance -970 ml Laboratory Data 24H LABS Laboratory Tests 2 10/19/16 17:58: Bedside Glucose (Misc Panel) 75 10/19/16 21:53: Bedside Glucose (Misc Panel) 407H 10/20/16 06:58: Anion Gap 7L, Glomerular Filtration Rate > 60.0, Blood Urea Nitrogen 13, Creatinine 0.41L, Sodium Level 141, Potassium Level 3.8, Chloride Level 107, Carbon Dioxide Level 27, Calcium Level 8.6, Aspartate Amino Transf (AST/SGOT) 7L , Alanine Aminotransferase (ALT/SGPT) 13, Alkaline Phosphatase 58, Total Bilirubin 0.2, Total Protein 6.0L, Albumin 3.0L, Albumin/Globulin Ratio 1.00 CBC/BMP Laboratory Tests 10/20/16 06:58 Red Blood Count 4.07, Mean Corpuscular Volume 83.3, Mean Corpuscular Hemoglobin 27.7, Mean Corpuscular Hemoglobin Concent 33.2, Red Cell Distribution Width 13.4 , Calcium Level 8.6, Aspartate Amino Transf (AST/SGOT) 7 L, Alanine Aminotransferase (ALT/SGPT) 13, Alkaline Phosphatase 58, Total Bilirubin 0.2, Total Protein 6.0 L, Albumin 3.0 L NICOLÁS MORRISON DO Oct 20, 2016 16:02
[2016-10-20] MEDS: traZODone 50 MG TAB PO SCH (21:31)
[2016-10-20 22:00] VITALS: BP 112/58
[2016-10-21 06:00] VITALS: BP 105/57
[2016-10-21] MEDS: LEVEMIR (INSULIN DETEMIR) 1 UNITS/0.01ML SC SCH (06:19)
[2016-10-21 06:37] LABS: MEAN CORPUSCULAR HEMOGLOBIN 27.5 pg (27.0-33.0); MEAN CORPUSCULAR HGB CONC 32.8 g/dl (32.0-36.5); RED CELL DISTRIBUTION WIDTH 13.2 % (11.5-14.5); WHITE BLOOD COUNT 11.5 K/mm3 (4.0-10.0)
[2016-10-21 06:54] LABS: ALBUMIN/GLOBULIN RATIO 0.77 (1.00-1.93); ALKALINE PHOSPHATASE 63 U/L (45-117); ALT/SGPT 15 U/L (12-78); ANION GAP 11 MEQ/L (8-16); AST/SGOT 9 U/L (15-37); BILIRUBIN,TOTAL 0.4 MG/DL (0.2-1.0); BLOOD UREA NITROGEN 14 MG/DL (7-18); CALCIUM LEVEL 9.1 MG/DL (8.5-10.1); CARBON DIOXIDE LEVEL 24 MEQ/L (21-32); CHLORIDE LEVEL 101 MEQ/L (98-107); CREATININE FOR GFR 0.64 MG/DL (0.55-1.02); GLUCOSE, FASTING 380 MG/DL (70-105); POTASSIUM SERUM 4.2 MEQ/L (3.5-5.1); SODIUM LEVEL 136 MEQ/L (136-145); TOTAL PROTEIN 6.9 GM/DL (6.4-8.2)
[2016-10-21 06:58] LABS: GLOMERULAR FILTRATION RATE > 60.0 (>60)
[2016-10-21] MEDS: PRENATAL VITAMIN TAB PO SCH (08:32)
[2016-10-21] MEDS: FLUoxetine 10 MG CAP PO SCH (08:33)
[2016-10-21] MEDS: HumaLOG INSULIN (NovoLOG) PER UNIT SC SCH ×4 (08:51→20:20)
[2016-10-21] MEDS ORDERED: FLUO20CA9 PO (11:49)
[2016-10-21] MEDS ORDERED: TRAZO50TA PO (11:49)
[2016-10-21] MEDS ORDERED: FLUO10CA9 PO (11:49)
[2016-10-21] MEDS ORDERED: INSUDET SC ×2 (11:49)
[2016-10-21 14:00] VITALS: BP 139/73
[2016-10-21] MEDS ORDERED: ONDANSETRON 4 MG ORAL DISINTEGRATING TAB (S0181) PO PRN (16:30)
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
[2016-10-21] MEDS: METOCLOPRAMIDE 10 MG TAB PO SCH (18:29)
[2016-10-21] MEDS: traZODone 50 MG TAB PO SCH (20:51)
[2016-10-21] MEDS ORDERED: LEVEMIR (INSULIN DETEMIR) 1 UNITS/0.01ML SC SCH (21:00)
[2016-10-21 22:00] VITALS: BP 136/81
[2016-10-22] MEDS: METOCLOPRAMIDE 10 MG TAB PO SCH ×3 (00:49→13:31)
[2016-10-22] MEDS: LEVEMIR (INSULIN DETEMIR) 1 UNITS/0.01ML SC SCH (06:29)
[2016-10-22 07:02] LABS: MEAN CORPUSCULAR HEMOGLOBIN 28.5 pg (27.0-33.0); MEAN CORPUSCULAR HGB CONC 34.1 g/dl (32.0-36.5); MEAN CORPUSCULAR VOLUME 83.5 fl (80.0-96.0); RED CELL DISTRIBUTION WIDTH 13.4 % (11.5-14.5); WHITE BLOOD COUNT 11.4 K/mm3 (4.0-10.0)
[2016-10-22 07:11] LABS: ALBUMIN 3.1 GM/DL (3.2-5.2); ALKALINE PHOSPHATASE 69 U/L (45-117); ALT/SGPT 12 U/L (12-78); ANION GAP 10 MEQ/L (8-16); AST/SGOT 7 U/L (15-37); BILIRUBIN,TOTAL 0.5 MG/DL (0.2-1.0); BLOOD UREA NITROGEN 10 MG/DL (7-18); CALCIUM LEVEL 8.7 MG/DL (8.5-10.1); CARBON DIOXIDE LEVEL 23 MEQ/L (21-32); CHLORIDE LEVEL 100 MEQ/L (98-107); CREATININE FOR GFR 0.53 MG/DL (0.55-1.02); GLOMERULAR FILTRATION RATE > 60.0 (>60); GLUCOSE, FASTING 320 MG/DL (70-105); POTASSIUM SERUM 4.5 MEQ/L (3.5-5.1); SODIUM LEVEL 133 MEQ/L (136-145); TOTAL PROTEIN 6.2 GM/DL (6.4-8.2)
[2016-10-22] MEDS: FLUoxetine 10 MG CAP PO SCH (08:05)
[2016-10-22] MEDS: PRENATAL VITAMIN TAB PO SCH (08:05)
[2016-10-22] MEDS: HumaLOG INSULIN (NovoLOG) PER UNIT SC SCH ×2 (08:06→13:00)
[2016-10-22] MEDS ORDERED: METO10TA2 PO (13:00)
[2016-10-22 14:00] VITALS: BP 116/64
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
[2016-10-23] MEDS ORDERED: FLUoxetine 20 MG CAP PO SCH (09:00)
== END 2016-10-22 16:41 | DRG 566 ==
LOC: EDBD 22:55 → M ED 23:38 → M ED INP 10-13 01:15 → M ICU 10-13 02:01 → M PED 10-14 04:04 → M MSPAV 10-20 11:42
PROVIDERS: ADMIT Internal Medicine Nephrology; ATTEND Internal Medicine
DX: O24.011 Pre-existing type 1 diabetes mellitus, in pregnancy, first trimester (principal); F33.2 Major depressive disorder, recurrent severe without psychotic features; E10.649 Type 1 diabetes mellitus with hypoglycemia without coma; Z3A.11 11 weeks gestation of pregnancy; G47.00 Insomnia, unspecified; O09.11 Supervision of pregnancy with history of ectopic pregnancy, first trimester; O09.71 Supervision of high risk pregnancy due to social problems, first trimester; O99.341 Other mental disorders complicating pregnancy, first trimester; O99.351 Diseases of the nervous system complicating pregnancy, first trimester; Z79.899 Other long term (current) drug therapy; Z88.0 Allergy status to penicillin; Z91.040 Latex allergy status; Z91.018 Allergy to other foods; Z91.09 Other allergy status, other than to drugs and biological substances; Z87.891 Personal history of nicotine dependence; Z79.4 Long term (current) use of insulin; Z96.41 Presence of insulin pump (external) (internal); Z91.11 Patient's noncompliance with dietary regimen; Z87.59 Personal history of other complications of pregnancy, childbirth and the puerperium

== ENCOUNTER 2016-10-22 16:46 | Inpatient (IN) | payer OTHER ==
[~2016-10-22] VITALS: Ht 160 cm; Wt 97.9 kg
[~2016-10-22 16:46] MED LIST changes: +FLUO10CA9 PO; +FLUO20CA9 PO; +METO10TA2 PO; +PRENTAB13 PO
[2016-10-22 17:05] VITALS: BP 134/70
[2016-10-22] MEDS ORDERED: METOCLOPRAMIDE 10 MG TAB PO PRN (18:00)
[2016-10-22] MEDS ORDERED: GLUCAGON FOR INJ 1 MG VIAL (J1610) SC PRN (18:30)
[2016-10-22] MEDS ORDERED: GLUCOSE 4 GM CHEW TABLET PO PRN (18:30)
[2016-10-22] MEDS ORDERED: MOM 30ML SUSPENSION UDC PO PRN (19:00)
[2016-10-22] MEDS ORDERED: MAALOX 30 ML SUSP *UDC PO PRN (19:00)
[2016-10-22] MEDS: LEVEMIR (INSULIN DETEMIR) 1 UNITS/0.01ML SC SCH (20:33)
[2016-10-22] MEDS: HumaLOG INSULIN (NovoLOG) PER UNIT SC SCH (20:34)
[2016-10-22] MEDS: traZODone 50 MG TAB PO PRN (20:54)
[2016-10-22] MEDS: diphenhydrAMINE 25 MG CAP PO PRN (20:54)
[2016-10-23] MEDS: ACETAMINOPHEN 325 MG TAB PO PRN (06:09)
[2016-10-23 06:55] VITALS: BP 126/58
[2016-10-23] MEDS: LEVEMIR (INSULIN DETEMIR) 1 UNITS/0.01ML SC SCH ×2 (07:00→21:42)
[2016-10-23] MEDS: LIDOCAINE 5% (LIDODERM) PATCH TD SCH (09:00)
[2016-10-23] MEDS ORDERED: FLUoxetine 10 MG CAP PO SCH (09:00)
[2016-10-23] MEDS: FLUoxetine 20 MG CAP PO SCH (09:52)
[2016-10-23] MEDS: PRENATAL VITAMIN TAB PO SCH (09:52)
[2016-10-23] MEDS: HumaLOG INSULIN (NovoLOG) PER UNIT SC SCH ×4 (10:11→21:42)
[2016-10-23 18:00] VITALS: BP 108/56
[2016-10-23] MEDS: **NOTE PATIENT COMMENT** MISC XX SCH (21:00)
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
[2016-10-23] MEDS: diphenhydrAMINE 25 MG CAP PO PRN (22:29)
[2016-10-23] MEDS: traZODone 50 MG TAB PO PRN (22:29)
[2016-10-24] MEDS: ACETAMINOPHEN 325 MG TAB PO PRN (06:52)
[2016-10-24] MEDS: LEVEMIR (INSULIN DETEMIR) 1 UNITS/0.01ML SC SCH ×2 (06:55→20:49)
[2016-10-24] MEDS: HumaLOG INSULIN (NovoLOG) PER UNIT SC SCH ×4 (06:56→20:48)
[2016-10-24 07:00] VITALS: BP 145/96
[2016-10-24] MEDS: PRENATAL VITAMIN TAB PO SCH (07:52)
[2016-10-24] MEDS: LIDOCAINE 5% (LIDODERM) PATCH TD SCH (07:52)
[2016-10-24] MEDS: FLUoxetine 20 MG CAP PO SCH (07:52)
[2016-10-24] MEDS ORDERED: ACETAMINOPHEN TAB 650MG DOSE (2X325MG) PO PRN (08:45)
[2016-10-24 18:00] VITALS: BP 119/67
--- NOTE | 2016-10-24 19:12 | IPN ---
DATE: 10/24/2016 Dami Salinas's main concern was her migraines and that we needed to increase her Tylenol. She continues to explain that she was cooperative with her nurse ortho, but she also fired some. She states that she has been compliant with her insulin and diabetic treatment despite previous notes. The patient's mood is good and affect is bright. MENTAL STATUS EXAMINATION: Speech is normal. No disturbance of thought process. No loose associations. No abnormal or psychotic thoughts. Judgment and insight are hard to determine at this time. Fully oriented in three spheres. Recent and remote memory intact. No difficulties with attention and concentration. No difficulties of language. Full fund of knowledge. Mood is good. Affect is bright. Dr. Mart states that she has had fluctuating moods, irritability, depressed mood, suicidal thoughts, poor judgment and no supports. IMPRESSION: 1. Mood disorder, not otherwise specified .
[2016-10-24] MEDS: **NOTE PATIENT COMMENT** MISC XX SCH (20:26)
[2016-10-24] MEDS: traZODone 50 MG TAB PO PRN (21:17)
[2016-10-24] MEDS: diphenhydrAMINE 25 MG CAP PO PRN (21:17)
[2016-10-25 06:04] VITALS: BP 128/58
[2016-10-25] MEDS: HumaLOG INSULIN (NovoLOG) PER UNIT SC SCH ×4 (06:29→21:00)
[2016-10-25] MEDS: LEVEMIR (INSULIN DETEMIR) 1 UNITS/0.01ML SC SCH ×2 (06:29→21:58)
--- NOTE | 2016-10-25 08:20 | HPE ---
DATE OF ADMISSION: 10/22/2016 HISTORY OF PRESENT ILLNESS: Please refer to psychiatric history and evaluation for further details on this admission. This examination and history is intended for medical issues, which may need treatment, followup or consultation on this 26-year-old female who was transferred from the intensive care unit (ICU) after having been treated for hypoglycemia. She had been seen in the emergency room four times over the last 10 days with hypoglycemia. She has insulin dependent diabetes. She has been on an insulin pump. She has been making changes with Dr. Garcia of endocrinology in [place], who manages the patient's insulin pump therapy and has been having multiple episodes of hypoglycemia. The patient is 11 weeks . She has been stabilized and has not been placed back on the pump. She is on Levemir and also short acting coverage. She has a history of past major depression, posttraumatic stress disorder (PTSD), attention deficit. Admission was for suicidal ideation and the recommendation after psychiatric consultation was the patient be assessed and treated for depression and suicidal ideation. SOCIAL HISTORY: She is currently . She was seeing a gentleman who is the father of her current . She is currently living alone, she states. She does not drink alcohol. She does not smoke cigarettes, she quit as soon as she was diagnosed in the first week of August, she states. PAST MEDICAL HISTORY: Insulin-dependent diabetes, on a pump. History of depression, history of insomnia, history of pseudoseizures, and currently 11 weeks . PAST SURGICAL HISTORY: Tonsillectomy, adenoidectomy, laparoscopic for a right salpingostomy for an ectopic on 04/24/2015. FAMILY HISTORY: Noncontributory. REVIEW OF SYSTEMS: 10-systems review was done. The patient had no specific complaints. PHYSICAL EXAMINATION: GENERAL: 26-year-old cooperative female in no acute distress. Height 63 inches, weight 97.9 kg, Body Mass Index (BMI) 38.2. VITAL SIGNS: Blood pressure 119/67, pulse 84, respirations 16, temperature 98.2. The patient is alert and oriented times three. HEENT: Pupils are equal and reactive to light. Extraocular muscles intact. Sclerae clear. Conjunctivae normal. No facial asymmetry. Pharynx, gums and tongue pink and moist. Tongue is midline. NECK: Supple without lymphadenopathy. No thyromegaly. No goiter. Carotids are 2+ without bruit. CHEST: Clear to auscultation without wheeze or retraction. HEART: Regular. ABDOMEN: Soft, nontender. No masses. No bruits. No organomegaly. Bowel sounds positive. GENITOURINARY/RECTAL: Not done. EXTREMITIES: Equal strength, full range of motion. No clubbing, cyanosis, and edema. Negative microfilament test to feet bilaterally. Peripheral pulses equal and palpable bilaterally. SKIN: Warm and dry. IMPRESSION/PLAN: 1. Psychiatric plan per psychiatry. 2. History of insulin-dependent diabetes. Continue Levemir 15 units subcutaneously daily and Humalog insulin sliding scale before food and nightly. Continue diabetic education. Consistent carbohydrate diet. Continue followup with Dr. Matt, her public health. Continue followup with endocrinology as an outpatient.
[2016-10-25] MEDS: PRENATAL VITAMIN TAB PO SCH (09:36)
[2016-10-25] MEDS: FLUoxetine 20 MG CAP PO SCH (09:36)
[2016-10-25] MEDS: LIDOCAINE 5% (LIDODERM) PATCH TD SCH (09:37)
--- NOTE | 2016-10-25 14:39 | IPNPDOC ---
[facility] Progress Note Progress Note DATE OF SERVICE: 10/25/16 HISTORY: Patient is 26-year-old ten-week female who was admitted over the weekend after transfer from ICU post hypoglycemic episode, prior to which patient had been seen in the emergency room 4 times over the preceding 10 days for similar events. 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 Patient was recently taken off insulin pump due to difficulty following recommendations made by high school assistant football coach. 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 Director Of Finance met with patient today to assess treatment progress on inpatient unit. At outset of appointment patient demands to be discharged to home stating, "you need to discharge me to home today ongoing to lose everything, I will lose my home and I'm so that means he will be making a woman homeless and this will be your fault." Patient is agitated, begins yelling and global technical writer, is unable to de-escalate during interaction. Patient endorses both suicidal and homicidal ideation noting, "I think about not being here but I have a plan and I think about hurting other people when they annoy me when they try to control my life." Patient rates current anxiety level as 8/10, depression 9/10, and informs global technical writer "the only reason I feel that way is because I'm not being discharged." Patient indicates she has restarted Prozac, also takes trazodone and Benadryl. Patient describes Prozac as "I've taken it in the past, it helps a little but it's not very effective but that's what my OB wants me to take." Patient is aware OB has approved trazodone use as low-dose, indicates she sleeps approximately 8 hours per night and experiences regular nightmares.. Patient denies medication side effects and denies physical pain or discomfort. Patient indicates she has a top cager, notes she has not met top cager due to failing to attend initial appointment but has had contact by phone, declines to permit contact with pillowcase sewer noting, "I don't like other people stick in their nose and my business." Per EMR, trazodone has been approved for sleep by patient's OB, Dr. Matt. VITAL SIGNS: See below. NEW TEST RESULTS: Insulin-dependent Diabetes mellitus, recently on insulin pump which was discontinued due to nonadherence. Patient reports history of tonsillectomy, adenoidectomy, laparoscopic surgery for an ectopic . Patient has history of pseudoseizures, is currently 11 weeks Labs on admission indicate low sodium low, carbon dioxide, AST, total protein, albumin, low Hgb/HCT and low creatinine, elevated hemoglobin A1c, WBCs and glucose. UDS negative HCG positive EKG pending CURRENT MEDICATIONS: See below. MENTAL STATUS EXAMINATION: Patient is a 26-year old female, who is angry and irritable, agitated and loud at times, exhibits psychomotor agitation, makes intermittent eye contact, appears disheveled and dressed in hospital clothing, and relates with steady gait, appears stated age Speech: Is pressured and rapid, loud volume at times, coherent and spontaneous. Language skills are intact Thought processes including: Rational, logical, goal-directed Thought content: Rational, logical, no paranoia noted Abstract reasoning, and computation: Requires further evaluation Description of associations: Appear intact Description of abnormal or psychotic thoughts: Patient is evasive regarding suicidal and homicidal ideation, denies auditory or visual hallucinations, does not appear to be responding to internal stimuli, does not appear to be endorsing bizarre paranoid ideation, and denies preoccupation with violence or obsessions Judgment: Poor Insight: Poor Orientation: A and O 3 Recent and remote memory: Appear intact Attention span and concentration: Appears limited Language: Fair Fund of knowledge: Adequate Mood: "I was fine, but normally annoyed that I will be discharged today." Patient appears anxious, depressed, mood appears labile Affect: Blunted, congruent with mood DIAGNOSES: Bipolar disorder, rule out's MDD, rule out schizophrenia, rule out ADHD, rule out PTSD. Patient reports history of pseudoseizures. Rule out psychiatric disorder due to other medical condition, rule out personality disorder. ASSESSMENT: Patient appears to be slowly adjusting to unit, isolates to room at times, is observed to be visible and social on the unit at other times, is attending most groups. Patient is irritable and agitated at time of interaction with global technical writer today, is demanding to be discharged, indicates she has "no idea" why she has been visited to the inpatient psychiatric unit. Patient states her CREDIT DIRECTOR has approved Prozac, trazodone and Benadryl for use during , denies medication side effects and indicates medication regimen is partially effective. Patient denies symptoms of mood lability and aggression. Patient denies current suicidal or homicidal ideation and verbalizes awareness of how to access supportive services on the unit if needed. Will monitor patient's response to medication restart and will monitor for medication side effects. Will also evaluate patient's safety, resolution of suicidal ideation, and discharge readiness. At time of discharge patient indicates she plans to discharge back to her home in [place] and participate in outpatient psychotherapy and medication. Patient indicates she has a pillowcase sewer with whom she has never met, states she is resistant to having pillowcase sewer involved in her treatment. MANAGEMENT PLAN: Continue Prozac 20 mg po q am, continue trazodone 50 mg hs PRN insomnia Maintain safety precautions Patient to attend groups and participate in unit programming to develop coping strategies Engage patient in discharge planning process and arrange meeting with command to evaluate safe discharge planning when appropriate Patient to follow up with CREDIT DIRECTOR and PCM upon discharge TIME SPENT: 35 minutes. Vital Signs Vital Signs Date Time Temp Pulse Resp B/P (MAP) Pulse Ox O2 Delivery O2 Flow Rate FiO2 10/25/16 06:04 98.1 81 18 128/58 (81) Room Air Laboratory Data 24H Labs Laboratory Tests 2 10/24/16 16:54: Bedside Glucose (Misc Panel) 206H 10/24/16 20:28: Bedside Glucose (Misc Panel) 292H 10/25/16 06:10: Bedside Glucose (Misc Panel) 164H 10/25/16 11:54: Bedside Glucose (Misc Panel) 225H Current Medications Current Medications Acetaminophen (Tylenol Tab) 325 mg Q6HP PRN PO HEADACHE or DISCOMFORT Last administered on 10/24/16 06:52; Start 10/22/16 at 18:00; Stop 10/24/16 at 08:40 ; Status DC Acetaminophen (Tylenol Tab) 650 mg Q6HP PRN PO HEADACHE or DISCOMFORT Last administered on 10/24/16 09:36; Start 10/24/16 at 08:45; Stop 11/23/16 at 08:44 Al Hydrox/Mg Hydrox/Simethicone (Mylanta) 30 ml Q6HP PRN PO INDIGESTION; Start 10/22/16 at 19:00; Stop 11/21/16 at 18:59 Diphenhydramine HCl (Benadryl) 25 mg Q6HP PRN PO INSOMNIA Last administered on 10/24/16 21:17; Start 10/22/16 at 18:00; Stop 11/21/16 at 17:59 Fluoxetine HCl (PROzac) 10 mg DAILY PO ; Start 10/23/16 at 09:00; Stop 11/22/16 at 08:59; Status UNV Fluoxetine HCl (PROzac) 20 mg DAILY PO Last administered on 10/25/16 09:36; Start 10/23/16 at 09:00; Stop 11/22/16 at 08:59 Glucagon (Glucagon) 1 mg ASDIRECTED PRN SC SEE LABEL COMMENTS; Start 10/22/16 at 18:30; Stop 11/21/16 at 18:29 Glucose (Glucose) 16 GM ASDIRECTED PRN PO SEE LABEL COMMENTS; Start 10/22/16 at 18:30; Stop 11/21/16 at 18:29 Insulin Detemir (Levemir Insulin) 15 units DAILY@0700 SC Last administered on 06:29; Start 10/23/16 at 07:00; Stop 11/22/16 at 06:59 Insulin Detemir (Levemir Insulin) 15 units QHS SC Last administered on 20:49; Start 10/22/16 at 21:00; Stop 11/21/16 at 20:59 Insulin Human Lispro (HumaLOG INSULIN) See Protocol Table AC SC Last administered on 10/25/16 11:57; Start 10/23/16 at 07:30; Stop 11/22/16 at 07:29 Insulin Human Lispro (HumaLOG INSULIN) See Protocol Table QHS SC Last administered on 10/24/16 20:48; Start 10/22/16 at 21:00; Stop 11/21/16 at 20:59 Lidocaine (Lidoderm Patch) 1 patch DAILY TD Last administered on 10/25/16 09:37 ; Start 10/23/16 at 09:00; Stop 11/22/16 at 08:59 Magnesium Hydroxide (Milk Of Magnesia) 30 ml DAILYPRN PRN PO CONSTIPATION; Start 10/22/16 at 19:00; Stop 11/21/16 at 18:59 Metoclopramide HCl (Reglan) 10 mg Q6HP PRN PO NAUSEA OR VOMITING Last administered on 10/22/16 20:31; Start 10/22/16 at 18:00; Stop 11/21/16 at 17:59 Non-Formulary Medication ( See Comment Field Below ) REMOVE LIDODERM PATCH DAILY@21 XX Last administered on 10/24/16 20:26; Start 10/23/16 at 21:00; Stop 11/22/16 at 20:59 Prenat Multivit/ [place]/Iron/Folic Ac ( Rx) 1 tab DAILY PO Last administered on 10/25/16 09:36; Start 10/23/16 at 09:00; Stop 11/22/16 at 08:59 Trazodone HCl (Desyrel) 50 mg QHSP PRN PO INSOMNIA Last administered on 21:17; Start 10/22/16 at 18:00; Stop 11/21/16 at 17:59 Allergies Coded Allergies: Penicillins (Verified Allergy, Intermediate, HIVES, 10/11/16) [place] (Verified Allergy, Intermediate, hives, 10/11/16) Latex (Verified Allergy, Mild, RASH, 10/11/16) TAPE (Unverified Allergy, Unknown, 10/11/16) Viviana Alvarez October 25, 2016 14:39
[2016-10-25 18:00] VITALS: BP 137/72
[2016-10-25] MEDS: **NOTE PATIENT COMMENT** MISC XX SCH (21:00)
[2016-10-25] MEDS: traZODone 50 MG TAB PO PRN (21:56)
[2016-10-25] MEDS: diphenhydrAMINE 25 MG CAP PO PRN (21:56)
--- NOTE | 2016-10-25 23:00 | ECGEPIP ---
Stationary ECG Study [facility] Test Date: 2016-10-25 Pat Name: BEBETO BANKS Department: Room: [place] [address] Gender: F Kiln Stacker: CASEY : 1990 Requested By: Viviana Alvarez Order Number: [id number] Reading MD: Jaime Dillard Measurements Intervals [place] Rate: 80 P: 33 MN: 126 QRS: 67 QRSD: 81 T: 31 QT: 370 QTc: 429 Interpretive Statements SINUS RHYTHM LAST TRACING ON 09/08/2015 AT 13:29:07, NO SIGNIFICANT CHANGES Electronically Signed On 10-25-2016 23:00:21 EDT by Jaime Dillard
[2016-10-26 06:05] VITALS: BP 111/57
[2016-10-26] MEDS: HumaLOG INSULIN (NovoLOG) PER UNIT SC SCH ×4 (06:31→21:00)
[2016-10-26] MEDS: LEVEMIR (INSULIN DETEMIR) 1 UNITS/0.01ML SC SCH ×2 (07:22→20:58)
[2016-10-26] MEDS: LIDOCAINE 5% (LIDODERM) PATCH TD SCH (09:00)
[2016-10-26] MEDS: FLUoxetine 20 MG CAP PO SCH (09:54)
[2016-10-26] MEDS: PRENATAL VITAMIN TAB PO SCH (09:54)
--- NOTE | 2016-10-26 15:40 | IPNPDOC ---
[facility] Progress Note Progress Note DATE OF SERVICE: 10/26/16 HISTORY: Patient is 26-year-old ten-week female who was admitted over the weekend after transfer from ICU post hypoglycemic episode, prior to which patient had been seen in the emergency room 4 times over the preceding 10 days for similar events. 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 Patient was recently taken off insulin pump due to difficulty following recommendations made by telephone clerk telegraph office. 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 Route Sales Associate met with patient today to assess treatment progress on inpatient unit. Patient is noticeably calmer today, generally pleasant and cooperative, reports reduction in symptoms of anxiety and depression, today rating anxiety as 5/10, depression 2/10, denies suicidal and homicidal ideation, denies auditory or visual hallucinations, denies urge to engage in self-injurious behavior. Patient makes no request for discharge, nor does she comments on concerns related to losing housing, has consistently declined assistance from staff and communicating with [facility] and [facility]. Patient states she feels Prozac is helping to improve her mood and reduce symptoms of anxiety, today denies irritability, agitation, and mood lability. Patient continues to take trazodone and Benadryl for sleep with good effect reported. Patient denies medication side effects. Patient's OB, per EMR, has approved use of aforementioned medications during . Patient continues to decline having supervisor filter assembly contacted and continues to state she does not feel she needs case management services, does not like providers involved in her personal affairs. Patient denies physical pain or discomfort related to and presents with no signs of acute distress at time of interaction. Message left for Dr. Matt ([phone]) on 10/26/16 requesting confirmation and approval of current medication regimen during patient's and continuation on outpatient basis; verification received from Dr. Matt's nurse that medication regimen is acceptable for continuation after discharge. VITAL SIGNS: See below. NEW TEST RESULTS: Insulin-dependent Diabetes mellitus, recently on insulin pump which was discontinued due to nonadherence. Patient reports history of tonsillectomy, adenoidectomy, laparoscopic surgery for an ectopic . Patient has history of pseudoseizures, is currently 11 weeks Labs on admission indicate low sodium low, carbon dioxide, AST, total protein, albumin, low Hgb/HCT and low creatinine, elevated hemoglobin A1c, WBCs and glucose. UDS negative HCG positive, patient is approximately 11 weeks 10/25/16 EKG SINUS RHYTHM CURRENT MEDICATIONS: See below. MENTAL STATUS EXAMINATION: Patient is a 26-year old female, who today pleasant and cooperative, exhibits considerably less psychomotor activity, makes improved eye contact, appears less disheveled and is dressed in hospital clothing, and relates with steady gait, appears stated age Speech: Is less pressured and less rapid, of normal volume, coherent and spontaneous. Language skills are intact Thought processes including: Rational, logical, goal-directed Thought content: Rational, logical, no paranoia noted Abstract reasoning, and computation: Requires further evaluation Description of associations: Appear intact Description of abnormal or psychotic thoughts: Patient denies suicidal and homicidal ideation, denies auditory or visual hallucinations, does not appear to be responding to internal stimuli, does not appear to be endorsing bizarre paranoid ideation, and denies preoccupation with violence or obsessions Judgment: Poor Insight: Poor Orientation: A and O 3 Recent and remote memory: Appear intact Attention span and concentration: Appears limited Language: Fair Fund of knowledge: Adequate Mood: "I feel better today, the medication is helping, I'm less irritable." Patient appears less anxious, less depressed, mood appears less labile Affect: Constricted, brightens at times, congruent with mood DIAGNOSES: Bipolar disorder, rule out's MDD, rule out schizophrenia, rule out ADHD, rule out PTSD. Patient reports history of pseudoseizures. Rule out psychiatric disorder due to other medical condition, rule out personality disorder. ASSESSMENT: Patient appears to be adjusting to unit, is less isolative, more visible on unit, and has been attending groups. Patient reiterates her HULL BUILDER has approved Prozac, trazodone and Benadryl for use during , states Paxil generally works better, but understands why HULL BUILDER wants her to take Prozac during . Patient denies medication side effects and indicates medication regimen is helpful. Patient denies suicidal or homicidal ideation and verbalizes awareness of how to access supportive services on the unit if needed. Will continue to monitor patient's response to medication restart and will monitor for medication side effects. Will also evaluate patient's safety, resolution of suicidal ideation, and discharge readiness. When ready for discharge patient indicates she plans to discharge back to her home in [place] and participate in outpatient psychotherapy and medication. Patient indicates she has a case management social worker with whom she has never met, remains resistant to having case management social worker involved in her treatment. MANAGEMENT PLAN: Continue Prozac 20 mg po q am, continue trazodone 50 mg hs PRN insomnia, Benadryl 25 mg po q 6 hrs PRN insomnia Maintain safety precautions Patient to attend groups and participate in unit programming to develop coping strategies Engage patient in discharge planning process and arrange meeting with command to evaluate safe discharge planning when appropriate Patient to follow up with HULL BUILDER and PCM upon discharge TIME SPENT: 35 minutes. Vital Signs Vital Signs Date Time Temp Pulse Resp B/P (MAP) Pulse Ox O2 Delivery O2 Flow Rate FiO2 10/26/16 06:05 97.4 78 16 111/57 (75) Room Air Laboratory Data 24H Labs Laboratory Tests 2 10/25/16 17:04: Bedside Glucose (Misc Panel) 104 10/25/16 21:49: Bedside Glucose (Misc Panel) 317H 10/26/16 06:21: Bedside Glucose (Misc Panel) 81 10/26/16 11:51: Bedside Glucose (Misc Panel) 232H Current Medications Current Medications Acetaminophen (Tylenol Tab) 325 mg Q6HP PRN PO HEADACHE or DISCOMFORT Last administered on 10/24/16 06:52; Start 10/22/16 at 18:00; Stop 10/24/16 at 08:40 ; Status DC Acetaminophen (Tylenol Tab) 650 mg Q6HP PRN PO HEADACHE or DISCOMFORT Last administered on 10/24/16 09:36; Start 10/24/16 at 08:45; Stop 11/23/16 at 08:44 Al Hydrox/Mg Hydrox/Simethicone (Mylanta) 30 ml Q6HP PRN PO INDIGESTION; Start 10/22/16 at 19:00; Stop 11/21/16 at 18:59 Diphenhydramine HCl (Benadryl) 25 mg Q6HP PRN PO INSOMNIA Last administered on 10/25/16 21:56; Start 10/22/16 at 18:00; Stop 11/21/16 at 17:59 Fluoxetine HCl (PROzac) 10 mg DAILY PO ; Start 10/23/16 at 09:00; Stop 11/22/16 at 08:59; Status UNV Fluoxetine HCl (PROzac) 20 mg DAILY PO Last administered on 10/26/16 09:54; Start 10/23/16 at 09:00; Stop 11/22/16 at 08:59 Glucagon (Glucagon) 1 mg ASDIRECTED PRN SC SEE LABEL COMMENTS; Start 10/22/16 at 18:30; Stop 11/21/16 at 18:29 Glucose (Glucose) 16 GM ASDIRECTED PRN PO SEE LABEL COMMENTS; Start 10/22/16 at 18:30; Stop 11/21/16 at 18:29 Insulin Detemir (Levemir Insulin) 15 units DAILY@0700 SC Last administered on 07:22; Start 10/23/16 at 07:00; Stop 11/22/16 at 06:59 Insulin Detemir (Levemir Insulin) 15 units QHS SC Last administered on 21:58; Start 10/22/16 at 21:00; Stop 11/21/16 at 20:59 Insulin Human Lispro (HumaLOG INSULIN) See Protocol Table AC SC Last administered on 10/26/16 11:52; Start 10/23/16 at 07:30; Stop 11/22/16 at 07:29 Insulin Human Lispro (HumaLOG INSULIN) See Protocol Table QHS SC Last administered on 10/25/16 21:00; Start 10/22/16 at 21:00; Stop 11/21/16 at 20:59 Lidocaine (Lidoderm Patch) 1 patch DAILY TD Last administered on 10/25/16 09:37 ; Start 10/23/16 at 09:00; Stop 11/22/16 at 08:59 Magnesium Hydroxide (Milk Of Magnesia) 30 ml DAILYPRN PRN PO CONSTIPATION; Start 10/22/16 at 19:00; Stop 11/21/16 at 18:59 Metoclopramide HCl (Reglan) 10 mg Q6HP PRN PO NAUSEA OR VOMITING Last administered on 10/22/16 20:31; Start 10/22/16 at 18:00; Stop 11/21/16 at 17:59 Non-Formulary Medication ( See Comment Field Below ) REMOVE LIDODERM PATCH DAILY@21 XX Last administered on 10/25/16 21:00; Start 10/23/16 at 21:00; Stop 11/22/16 at 20:59 Prenat Multivit/ Service Rig Operator/Iron/Folic Ac ( Rx) 1 tab DAILY PO Last administered on 10/26/16 09:54; Start 10/23/16 at 09:00; Stop 11/22/16 at 08:59 Trazodone HCl (Desyrel) 50 mg QHSP PRN PO INSOMNIA Last administered on 21:56; Start 10/22/16 at 18:00; Stop 11/21/16 at 17:59 Allergies Coded Allergies: Penicillins (Verified Allergy, Intermediate, HIVES, 10/11/16) [place] (Verified Allergy, Intermediate, hives, 10/11/16) Latex (Verified Allergy, Mild, RASH, 10/11/16) TAPE (Unverified Allergy, Unknown, 10/11/16) Viviana Alvarez October 26, 2016 15:40
[2016-10-26 18:00] VITALS: BP 113/80
[2016-10-26] MEDS: **NOTE PATIENT COMMENT** MISC XX SCH (21:00)
[2016-10-26] MEDS: diphenhydrAMINE 25 MG CAP PO PRN (21:56)
[2016-10-26] MEDS: traZODone 50 MG TAB PO PRN (21:56)
[2016-10-27 06:13] VITALS: BP 110/59
[2016-10-27] MEDS: HumaLOG INSULIN (NovoLOG) PER UNIT SC SCH ×4 (07:28→21:29)
[2016-10-27] MEDS: LIDOCAINE 5% (LIDODERM) PATCH TD SCH (08:19)
[2016-10-27] MEDS: PRENATAL VITAMIN TAB PO SCH (08:22)
[2016-10-27] MEDS: FLUoxetine 20 MG CAP PO SCH (08:22)
[2016-10-27] MEDS: LEVEMIR (INSULIN DETEMIR) 1 UNITS/0.01ML SC SCH ×2 (08:22→21:31)
--- NOTE | 2016-10-27 11:05 | IPNPDOC ---
[facility] Progress Note Progress Note DATE OF SERVICE: 10/27/16 HISTORY: Patient is 26-year-old ten-week female who was admitted over the weekend after transfer from ICU post hypoglycemic episode, prior to which patient had been seen in the emergency room 4 times over the preceding 10 days for similar events. 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 Per EMR, patient has a notable history of prior psychiatric admissions and is currently approximately 10 weeks . Patient was recently taken off insulin pump due to difficulty following recommendations made by clerk stenographer. 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 Aquatic Instructor met with patient today to assess treatment progress on inpatient unit. Patient informs telegraphic typewriter mechanic that her brother brought her eviction notice found at her apartment today, is requesting to be discharged, continues to refuse to allow communication with case management or family other than brother. Patient also continues to decline assistance from social science teacher in communicating to [facility] [place] and [facility] that she is in hospital and needs housing assistance. Patient reports improvement to symptoms of anxiety and depression though appears more depressed and anxious, denies suicidal and homicidal ideation, denies audiovisual hallucinations, and denies urge to engage in self-injurious behavior. Patient is notably irritable and demanding today, informs telegraphic typewriter mechanic she does not want case management involved due to, "it's nobody's business what I do with my life," denies needing assistance with managing diabetes, treatment, or . Patient is superficial in her interactions with telegraphic typewriter mechanic and minimizes symptoms which led to her admission into the ICU and then transferred to psychiatric unit. Patient states she feels Prozac is helping to improve her mood and reduce symptoms of anxiety, continues to take trazodone and Benadryl for sleep with good effect reported. Patient denies medication side effects. Patient denies physical pain or discomfort related to and presents with no signs of acute distress at time of interaction. 10/26/16 telegraphic typewriter mechanic spoke with nurse, Karine, from Dr. Matt's office ([phone]) to confirm Dr. Matt's approval of current medication regimen during patient' s and continuation on outpatient basis; verification received from Dr. Matt's nurse that medication regimen is acceptable for continuation after discharge. VITAL SIGNS: See below. NEW TEST RESULTS: glucose 288 MEDICAL/SURGICAL HISTORY: Insulin-dependent Diabetes mellitus, recently on insulin pump which was discontinued due to nonadherence. Patient reports history of tonsillectomy, adenoidectomy, laparoscopic surgery for an ectopic 04/24/15. Patient has history of pseudoseizures, is currently 11 weeks Labs on admission indicate low sodium low, carbon dioxide, AST, total protein, albumin, low Hgb/HCT and low creatinine, elevated hemoglobin A1c, WBCs and glucose. UDS negative HCG positive, patient is approximately 11 weeks 10/25/16 EKG SINUS RHYTHM CURRENT MEDICATIONS: See below. MENTAL STATUS EXAMINATION: Patient is a 26-year old female, who is irritable today due to wanting to discharge, makes limited eye contact, appears disheveled, dressed in hospital clothing, ambulates with steady gait, appears stated age Speech: Is less pressured and less rapid, of normal volume, coherent and spontaneous. Language skills are intact Thought processes including: Rational, logical, goal-directed Thought content: Rational, logical, no paranoia noted Abstract reasoning, and computation: Adequate Description of associations: Appear intact Description of abnormal or psychotic thoughts: Patient denies suicidal and homicidal ideation, denies auditory or visual hallucinations, does not appear to be responding to internal stimuli, does not appear to be endorsing bizarre paranoid ideation, and denies preoccupation with violence or obsessions Judgment: Poor Insight: Poor Orientation: A and O 3 Recent and remote memory: Appear intact Attention span and concentration: Appears limited Language: Fair Fund of knowledge: Adequate Mood: "I feel better and I want to be discharged now." Patient is irritable regarding desire to discharge, appears more anxious and depressed today, mood appears generally stable Affect: Constricted, congruent with mood DIAGNOSES: Bipolar disorder, rule out's MDD, rule out schizophrenia, rule out ADHD, rule out PTSD. Patient reports history of pseudoseizures. Rule out psychiatric disorder due to other medical condition, rule out personality disorder. ASSESSMENT: Patient appears to be adjusting to unit, per EMR is less isolative, remains more visible on unit, and has been attending groups. Patient reiterates her HTML DEVELOPER has approved Prozac, trazodone and Benadryl for use during , notes medications are helpful and she denies medication side effects. Patient denies suicidal or homicidal ideation and verbalizes awareness of how to access supportive services on the unit if needed. Will continue to monitor patient's response to medication restart and will monitor for medication side effects. Will also evaluate patient's safety, resolution of suicidal ideation, and discharge readiness. When ready for discharge patient indicates she plans to discharge back to her home in [place] and participate in outpatient psychotherapy and medication. Patient reiterates she has a advocate/child support case officer whom she has never met, continues to refuse to sign an BACILIO for communication with child support case officer, also refuses to allow communication with family members other than brother. MANAGEMENT PLAN: Continue Prozac 20 mg po q am, continue trazodone 50 mg hs PRN insomnia, Benadryl 25 mg po q 6 hrs PRN insomnia Maintain safety precautions Patient to attend groups and participate in unit programming to develop coping strategies Engage patient in discharge planning process and arrange meeting with command to evaluate safe discharge planning when appropriate Patient to follow up with HTML DEVELOPER and PCM upon discharge TIME SPENT: 35 minutes. Vital Signs Vital Signs Date Time Temp Pulse Resp B/P (MAP) Pulse Ox O2 Delivery O2 Flow Rate FiO2 10/27/16 06:13 98.3 82 18 110/59 (76) Room Air Laboratory Data 24H Labs Laboratory Tests 2 10/26/16 11:51: Bedside Glucose (Misc Panel) 232H 10/26/16 16:57: Bedside Glucose (Misc Panel) 172H 10/26/16 20:53: Bedside Glucose (Misc Panel) 200H 10/27/16 07:05: Bedside Glucose (Misc Panel) 50L 10/27/16 08:02: Bedside Glucose (Misc Panel) 208H Current Medications Current Medications Acetaminophen (Tylenol Tab) 325 mg Q6HP PRN PO HEADACHE or DISCOMFORT Last administered on 10/24/16 06:52; Start 10/22/16 at 18:00; Stop 10/24/16 at 08:40 ; Status DC Acetaminophen (Tylenol Tab) 650 mg Q6HP PRN PO HEADACHE or DISCOMFORT Last administered on 10/24/16 09:36; Start 10/24/16 at 08:45; Stop 11/23/16 at 08:44 Al Hydrox/Mg Hydrox/Simethicone (Mylanta) 30 ml Q6HP PRN PO INDIGESTION; Start 10/22/16 at 19:00; Stop 11/21/16 at 18:59 Diphenhydramine HCl (Benadryl) 25 mg Q6HP PRN PO INSOMNIA Last administered on 10/25/16 21:56; Start 10/22/16 at 18:00; Stop 10/26/16 at 15:44; Status DC Diphenhydramine HCl (Benadryl) 25 mg QHSP PRN PO INSOMNIA Last administered on 10/26/16 21:56; Start 10/26/16 at 21:00; Stop 11/21/16 at 17:59 Fluoxetine HCl (PROzac) 10 mg DAILY PO ; Start 10/23/16 at 09:00; Stop 11/22/16 at 08:59; Status UNV Fluoxetine HCl (PROzac) 20 mg DAILY PO Last administered on 10/27/16 08:22; Start 10/23/16 at 09:00; Stop 11/22/16 at 08:59 Glucagon (Glucagon) 1 mg ASDIRECTED PRN SC SEE LABEL COMMENTS; Start 10/22/16 at 18:30; Stop 11/21/16 at 18:29 Glucose (Glucose) 16 GM ASDIRECTED PRN PO SEE LABEL COMMENTS; Start 10/22/16 at 18:30; Stop 11/21/16 at 18:29 Insulin Detemir (Levemir Insulin) 15 units DAILY@0700 SC Last administered on 08:22; Start 10/23/16 at 07:00; Stop 11/22/16 at 06:59 Insulin Detemir (Levemir Insulin) 15 units QHS SC Last administered on 20:58; Start 10/22/16 at 21:00; Stop 11/21/16 at 20:59 Insulin Human Lispro (HumaLOG INSULIN) See Protocol Table AC SC Last administered on 10/26/16 16:59; Start 10/23/16 at 07:30; Stop 11/22/16 at 07:29 Insulin Human Lispro (HumaLOG INSULIN) See Protocol Table QHS SC Last administered on 10/25/16 21:00; Start 10/22/16 at 21:00; Stop 11/21/16 at 20:59 Lidocaine (Lidoderm Patch) 1 patch DAILY TD Last administered on 10/25/16 09:37 ; Start 10/23/16 at 09:00; Stop 11/22/16 at 08:59 Magnesium Hydroxide (Milk Of Magnesia) 30 ml DAILYPRN PRN PO CONSTIPATION; Start 10/22/16 at 19:00; Stop 11/21/16 at 18:59 Metoclopramide HCl (Reglan) 10 mg Q6HP PRN PO NAUSEA OR VOMITING Last administered on 10/22/16 20:31; Start 10/22/16 at 18:00; Stop 11/21/16 at 17:59 Non-Formulary Medication ( See Comment Field Below ) REMOVE LIDODERM PATCH DAILY@21 XX Last administered on 10/25/16 21:00; Start 10/23/16 at 21:00; Stop 11/22/16 at 20:59 Prenat Multivit/ [place]/Iron/Folic Ac ( Rx) 1 tab DAILY PO Last administered on 10/27/16 08:22; Start 10/23/16 at 09:00; Stop 11/22/16 at 08:59 Trazodone HCl (Desyrel) 50 mg QHSP PRN PO INSOMNIA Last administered on 21:56; Start 10/22/16 at 18:00; Stop 11/21/16 at 17:59 Allergies Coded Allergies: Penicillins (Verified Allergy, Intermediate, HIVES, 10/11/16) [place] (Verified Allergy, Intermediate, hives, 10/11/16) Latex (Verified Allergy, Mild, RASH, 10/11/16) TAPE (Unverified Allergy, Unknown, 10/11/16) Viviana Alvarez October 27, 2016 11:05
[2016-10-27 18:00] VITALS: BP 131/76
[2016-10-27] MEDS: **NOTE PATIENT COMMENT** MISC XX SCH (21:00)
[2016-10-27] MEDS: traZODone 50 MG TAB PO PRN (21:30)
[2016-10-27] MEDS: diphenhydrAMINE 25 MG CAP PO PRN (21:30)
[2016-10-28 06:31] VITALS: BP 118/57
[2016-10-28] MEDS: HumaLOG INSULIN (NovoLOG) PER UNIT SC SCH ×4 (06:58→21:01)
[2016-10-28] MEDS: LEVEMIR (INSULIN DETEMIR) 1 UNITS/0.01ML SC SCH ×2 (07:03→21:00)
[2016-10-28] MEDS: LIDOCAINE 5% (LIDODERM) PATCH TD SCH (09:00)
--- NOTE | 2016-10-28 09:06 | IPNPDOC ---
[facility] Progress Note Progress Note DATE OF SERVICE: 10/28/16 HISTORY: Patient is 26-year-old ten-week female who was admitted over the weekend after transfer from ICU post hypoglycemic episode, prior to which patient had been seen in the emergency room 4 times over the preceding 10 days for similar events. 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 Per EMR, patient has a notable history of prior psychiatric admissions and is currently approximately 10 weeks . Patient was recently taken off insulin pump due to difficulty following recommendations made by component engineer. 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 Piece Work Inspector met with patient today to assess treatment progress on inpatient unit. Patient remains somewhat irritable today, is requesting to be discharged, indicates she is willing to allow communication with brother and neighbors, continues to decline to sign an BACILIO for case management. Patient also continues to decline assistance from social service liaison in communicating to [facility] and [facility] that she is in hospital and needs housing assistance. Patient reports improvement to symptoms of anxiety and depression though appears more depressed and anxious, denies suicidal and homicidal ideation, denies audiovisual hallucinations, and denies urge to engage in self-injurious behavior. Patient reiterates today that she does not want case management involved due to "nobody' s business and I'm afraid that and try to take my baby away from me." Patient informs junior copywriter she intends to follow-up with endocrinology, RELIGIOUS EDUCATION TEACHER, PCM, psychiatry, and is enrolling in parenting classes. Patient is less superficial today in her interactions with junior copywriter and engages in less minimizing of symptoms which led to her admission into the ICU and then transferred to psychiatric unit. Patient states she feels Prozac is helping to improve her mood and reduce symptoms of anxiety, continues to take trazodone and Benadryl for sleep with good effect reported, denies medication side effects. Patient denies physical pain or discomfort related to and presents with no signs of acute distress at time of interaction. 10/26/16 junior copywriter spoke with nurse, Karine, from Dr. Matt's office ([phone]) to confirm Dr. Matt's approval of current medication regimen during patient' s and continuation on outpatient basis; verification received from Dr. Matt's nurse that medication regimen is acceptable for continuation after discharge. VITAL SIGNS: See below. NEW TEST RESULTS: glucose 288 MEDICAL/SURGICAL HISTORY: Insulin-dependent Diabetes mellitus, recently on insulin pump which was discontinued due to nonadherence. Patient reports history of tonsillectomy, adenoidectomy, laparoscopic surgery for an ectopic 04/24/15. Patient has history of pseudoseizures, is currently 11 weeks Labs on admission indicate low sodium low, carbon dioxide, AST, total protein, albumin, low Hgb/HCT and low creatinine, elevated hemoglobin A1c, WBCs and glucose. UDS negative HCG positive, patient is approximately 11 weeks 10/25/16 EKG SINUS RHYTHM CURRENT MEDICATIONS: See below. MENTAL STATUS EXAMINATION: Patient is a 26-year old female, who is less irritable today, is irritable only as related to desire to be discharged, makes improved eye contact, appears less disheveled, is dressed in hospital clothing, ambulates with steady gait, appears stated age Speech: Is less pressured and less rapid, of normal volume, coherent and spontaneous. Language skills are intact Thought processes including: Rational, logical, goal-directed Thought content: Rational, logical, no paranoia noted Abstract reasoning, and computation: Adequate Description of associations: Appear intact Description of abnormal or psychotic thoughts: Patient denies suicidal and homicidal ideation, denies auditory or visual hallucinations, does not appear to be responding to internal stimuli, does not appear to be endorsing bizarre paranoid ideation, and denies preoccupation with violence or obsessions Judgment: Limited, some improvement noted Insight: Limited, some improvement noted Orientation: A and O 3 Recent and remote memory: Appear intact Attention span and concentration: Appears limited Language: Adequate Fund of knowledge: Adequate Mood: "I feel better and I feel like I can take care of my baby and all the stuff I have going on for could be discharged to home to take care of things." Patient denies anxiety and depression, mood appears generally stable Affect: Constricted, brightens at times, congruent with mood DIAGNOSES: Bipolar disorder, rule out's MDD, rule out schizophrenia, rule out ADHD, rule out PTSD. Patient reports history of pseudoseizures. Rule out psychiatric disorder due to other medical condition, rule out personality disorder. ASSESSMENT: Patient appears to be adjusting to unit, is visible at times, sleeps in room at other times, has been attending groups, is cooperative his staff, has not presented with behavioral management challenges. Patient is aware her RELIGIOUS EDUCATION TEACHER has approved Prozac, trazodone and Benadryl for use during , notes medications are helpful and she denies medication side effects. Patient denies suicidal or homicidal ideation and verbalizes awareness of how to access supportive services on the unit if needed. Will continue to monitor patient's response to medication restart and will monitor for medication side effects. Will also evaluate patient's safety and discharge readiness. Due to patient's refusal to sign an BACILIO to communicate with case management, clinical consultation was sought sought with recommendation made for CPS referral, medication with [facility], and family meeting with patient's brother to ensure coordination of care and the patient has support system in place after discharge. He has indicated she will follow-up with component engineer, PCM, RELIGIOUS EDUCATION TEACHER, has enrolled in parenting classes, and will reinitiate contact with [facility] advocate on her own. When ready for discharge patient indicates she plans to return to her home in [place] and participate in outpatient psychotherapy and medication. Patient reiterates she has a advocate/shoe parts caser whom she has never met, continues to refuse to sign an BACILIO for communication with shoe parts caser, also refuses to allow communication with family members other than brother. MANAGEMENT PLAN: Continue Prozac 20 mg po q am, continue trazodone 50 mg hs PRN insomnia, Benadryl 25 mg po hs PRN insomnia Maintain safety precautions Patient to attend groups and participate in unit programming to develop coping strategies Engage patient in discharge planning process and arrange meeting with command to evaluate safe discharge planning when appropriate Patient to follow up with RELIGIOUS EDUCATION TEACHER and PCM upon discharge TIME SPENT: 35 minutes. Vital Signs Vital Signs Date Time Temp Pulse Resp B/P (MAP) Pulse Ox O2 Delivery O2 Flow Rate FiO2 10/28/16 06:31 99.6 81 18 118/57 (77) 10/27/16 06:13 Room Air Laboratory Data 24H Labs Laboratory Tests 2 10/27/16 11:45: Bedside Glucose (Misc Panel) 288H 10/27/16 17:07: Bedside Glucose (Misc Panel) 66L 10/27/16 21:26: Bedside Glucose (Misc Panel) 413H 10/28/16 06:12: Bedside Glucose (Misc Panel) 58L 10/28/16 06:55: Bedside Glucose (Misc Panel) 80 Current Medications Current Medications Acetaminophen (Tylenol Tab) 325 mg Q6HP PRN PO HEADACHE or DISCOMFORT Last administered on 10/24/16 06:52; Start 10/22/16 at 18:00; Stop 10/24/16 at 08:40 ; Status DC Acetaminophen (Tylenol Tab) 650 mg Q6HP PRN PO HEADACHE or DISCOMFORT Last administered on 10/24/16 09:36; Start 10/24/16 at 08:45; Stop 11/23/16 at 08:44 Al Hydrox/Mg Hydrox/Simethicone (Mylanta) 30 ml Q6HP PRN PO INDIGESTION; Start 10/22/16 at 19:00; Stop 11/21/16 at 18:59 Diphenhydramine HCl (Benadryl) 25 mg Q6HP PRN PO INSOMNIA Last administered on 10/25/16 21:56; Start 10/22/16 at 18:00; Stop 10/26/16 at 15:44; Status DC Diphenhydramine HCl (Benadryl) 25 mg QHSP PRN PO INSOMNIA Last administered on 10/27/16 21:30; Start 10/26/16 at 21:00; Stop 11/21/16 at 17:59 Fluoxetine HCl (PROzac) 10 mg DAILY PO ; Start 10/23/16 at 09:00; Stop 11/22/16 at 08:59; Status UNV Fluoxetine HCl (PROzac) 20 mg DAILY PO Last administered on 10/27/16 08:22; Start 10/23/16 at 09:00; Stop 11/22/16 at 08:59 Glucagon (Glucagon) 1 mg ASDIRECTED PRN SC SEE LABEL COMMENTS; Start 10/22/16 at 18:30; Stop 11/21/16 at 18:29 Glucose (Glucose) 16 GM ASDIRECTED PRN PO SEE LABEL COMMENTS; Start 10/22/16 at 18:30; Stop 11/21/16 at 18:29 Insulin Detemir (Levemir Insulin) 15 units DAILY@0700 SC Last administered on 07:03; Start 10/23/16 at 07:00; Stop 11/22/16 at 06:59 Insulin Detemir (Levemir Insulin) 15 units QHS SC Last administered on 21:31; Start 10/22/16 at 21:00; Stop 11/21/16 at 20:59 Insulin Human Lispro (HumaLOG INSULIN) See Protocol Table AC SC Last administered on 10/27/16 11:46; Start 10/23/16 at 07:30; Stop 11/22/16 at 07:29 Insulin Human Lispro (HumaLOG INSULIN) See Protocol Table QHS SC Last administered on 10/27/16 21:29; Start 10/22/16 at 21:00; Stop 11/21/16 at 20:59 Lidocaine (Lidoderm Patch) 1 patch DAILY TD Last administered on 10/25/16 09:37 ; Start 10/23/16 at 09:00; Stop 11/22/16 at 08:59 Magnesium Hydroxide (Milk Of Magnesia) 30 ml DAILYPRN PRN PO CONSTIPATION; Start 10/22/16 at 19:00; Stop 11/21/16 at 18:59 Metoclopramide HCl (Reglan) 10 mg Q6HP PRN PO NAUSEA OR VOMITING Last administered on 10/22/16 20:31; Start 10/22/16 at 18:00; Stop 11/21/16 at 17:59 Non-Formulary Medication ( See Comment Field Below ) REMOVE LIDODERM PATCH DAILY@21 XX Last administered on 10/25/16 21:00; Start 10/23/16 at 21:00; Stop 11/22/16 at 20:59 Prenat Multivit/ [place]/Iron/Folic Ac ( Rx) 1 tab DAILY PO Last administered on 10/27/16 08:22; Start 10/23/16 at 09:00; Stop 11/22/16 at 08:59 Trazodone HCl (Desyrel) 50 mg QHSP PRN PO INSOMNIA Last administered on 21:30; Start 10/22/16 at 18:00; Stop 11/21/16 at 17:59 Allergies Coded Allergies: Penicillins (Verified Allergy, Intermediate, HIVES, 10/11/16) [place] (Verified Allergy, Intermediate, hives, 10/11/16) Latex (Verified Allergy, Mild, RASH, 10/11/16) TAPE (Unverified Allergy, Unknown, 10/11/16) Viviana Alvarez October 28, 2016 09:06
[2016-10-28] MEDS: FLUoxetine 20 MG CAP PO SCH (09:49)
[2016-10-28] MEDS: PRENATAL VITAMIN TAB PO SCH (09:50)
[2016-10-28 18:00] VITALS: BP 135/89
[2016-10-28] MEDS: **NOTE PATIENT COMMENT** MISC XX SCH (21:00)
[2016-10-28] MEDS: diphenhydrAMINE 25 MG CAP PO PRN (21:51)
[2016-10-28] MEDS: traZODone 50 MG TAB PO PRN (21:51)
[2016-10-29 06:39] VITALS: BP 104/55
[2016-10-29] MEDS: LEVEMIR (INSULIN DETEMIR) 1 UNITS/0.01ML SC SCH (06:48)
[2016-10-29] MEDS: LIDOCAINE 5% (LIDODERM) PATCH TD SCH (09:00)
[2016-10-29] MEDS: FLUoxetine 20 MG CAP PO SCH (09:36)
[2016-10-29] MEDS: PRENATAL VITAMIN TAB PO SCH (09:36)
[2016-10-29] MEDS: HumaLOG INSULIN (NovoLOG) PER UNIT SC SCH ×2 (09:39→12:03)
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
[2016-10-29] MEDS ORDERED: TRAZO50TA PO (13:21)
[2016-10-29] MEDS ORDERED: DIPH25CA PO (13:21)
[2016-10-29] MEDS ORDERED: FLUO20CA9 PO (13:21)
== END 2016-10-29 13:40 | disposition home or self-care (01) | DRG 566 ==
LOC: M PSY 16:46
PROVIDERS: ADMIT Psychiatry & Neurology Child & Adolescent Psychiatry; ATTEND Psychiatry & Neurology Psychiatry
DX: O99.341 Other mental disorders complicating pregnancy, first trimester (principal); O24.311 Unspecified pre-existing diabetes mellitus in pregnancy, first trimester; E11.65 Type 2 diabetes mellitus with hyperglycemia; F32.9 Major depressive disorder, single episode, unspecified; F43.10 Post-traumatic stress disorder, unspecified; F60.9 Personality disorder, unspecified; F90.9 Attention-deficit hyperactivity disorder, unspecified type; Z3A.11 11 weeks gestation of pregnancy; Z79.4 Long term (current) use of insulin; Z79.899 Other long term (current) drug therapy; Z88.0 Allergy status to penicillin; Z91.048 Other nonmedicinal substance allergy status; Z91.018 Allergy to other foods; Z91.040 Latex allergy status; Z91.14 Patient's other noncompliance with medication regimen

== ENCOUNTER → 2016-11-30 | Outpatient (CLI) | payer OTHER ==
[~2016-11-30] MED LIST changes: +DIPH25CA PO; +PYRI200T5 PO
== END ==
LOC: M SMT 13:56
PROVIDERS: ATTEND Obstetrics & Gynecology
DX: Z36 Encounter for antenatal screening of mother (principal); Z3A.00 Weeks of gestation of pregnancy not specified

== ENCOUNTER 2016-12-07 13:26 | Emergency (ER) | payer OTHER ==
[~2016-12-07] VITALS: Ht 160 cm; Wt 94.4 kg
[~2016-12-07 13:26] MED LIST changes: -PYRI200T5 PO
[2016-12-07] MEDS ORDERED: NS 1,000 ML IV ONE (14:45)
[2016-12-07] MEDS ORDERED: ACETAMINOPHEN 325 MG TAB PO ONE (14:45)
[2016-12-07 15:43] LABS: BASO % 0.2 % (0.0-1.0); EOS # 0.1 K/mm3 (0.0-0.50); EOS % 0.8 % (0.0-3.0); LARGE UNSTAINED CELL # 0.2 K/mm3 (0.0-0.4); LYMPH # 2.1 K/mm3 (1.5-6.5); MEAN CORPUSCULAR HEMOGLOBIN 28.6 pg (27.0-33.0); MEAN CORPUSCULAR HGB CONC 33.8 g/dl (32.0-36.5); MEAN CORPUSCULAR VOLUME 84.5 fl (80.0-96.0); MONO # 0.5 K/mm3 (0.0-0.8); MONO % 3.1 % (0.0-5.0); NEUTROPHILS # 12.3 K/mm3 (1.8-7.7); NEUTROPHILS % 80.9 % (36.0-66.0); PLATELET COUNT, AUTOMATED 320 k/mm3 (150-450); RED CELL DISTRIBUTION WIDTH 13.3 % (11.5-14.5); WHITE BLOOD COUNT 15.2 K/mm3 (4.0-10.0)
[2016-12-07 15:51] LABS: ANION GAP 9 MEQ/L (8-16); BLOOD UREA NITROGEN 9 MG/DL (7-18); CALCIUM LEVEL 9.1 MG/DL (8.5-10.1); CARBON DIOXIDE LEVEL 24 MEQ/L (21-32); CHLORIDE LEVEL 106 MEQ/L (98-107); CREATININE FOR GFR 0.43 MG/DL (0.55-1.02); GLOMERULAR FILTRATION RATE > 60.0 (>60); GLUCOSE, FASTING 98 MG/DL (70-105); POTASSIUM SERUM 3.4 MEQ/L (3.5-5.1); SODIUM LEVEL 139 MEQ/L (136-145)
--- NOTE | 2016-12-07 17:08 | REP ---
RENAL ULTRASOUND: Real-time sonographic evaluation of the kidneys performed. The kidneys are normal in size and echotexture, the right kidney measuring 11.3 x 6.0 x 5.0 cm and the left kidney 12.0 x 5.3 x 5.0 cm. There is no hydronephrosis bilaterally. There is no nephrolithiasis identified. The patient reportedly is 18 weeks . Fetus is identified and the heart rate is 150 beats per minute. Urinary bladder is empty. IMPRESSION: No hydronephrosis or nephrolithiasis identified. Signed by Fracisco Ghotra MD 12/08/2016 07:41 P
[2016-12-07 18:01] VITALS: BP 143/76
[2016-12-07] MEDS ORDERED: MACR100C3 PO (18:12)
[2016-12-07] MEDS ORDERED: PYRI200T5 PO (18:12)
== END 2016-12-07 18:38 | disposition home or self-care (01) ==
LOC: M ED 14:49
DX: O23.42 Unspecified infection of urinary tract in pregnancy, second trimester (principal); R10.9 Unspecified abdominal pain; O24.312 Unspecified pre-existing diabetes mellitus in pregnancy, second trimester; O99.212 Obesity complicating pregnancy, second trimester; O99.342 Other mental disorders complicating pregnancy, second trimester; F41.9 Anxiety disorder, unspecified; F32.9 Major depressive disorder, single episode, unspecified; F90.9 Attention-deficit hyperactivity disorder, unspecified type; O99.352 Diseases of the nervous system complicating pregnancy, second trimester; G40.909 Epilepsy, unspecified, not intractable, without status epilepticus; O09.12 Supervision of pregnancy with history of ectopic pregnancy, second trimester; Z79.4 Long term (current) use of insulin; Z79.899 Other long term (current) drug therapy; Z88.0 Allergy status to penicillin; Z91.040 Latex allergy status; Z91.018 Allergy to other foods; Z91.09 Other allergy status, other than to drugs and biological substances; Z3A.17 17 weeks gestation of pregnancy

== ENCOUNTER 2017-01-07 13:35 | Emergency (ER) | payer OTHER ==
[~2017-01-07] VITALS: Ht 160 cm; Wt 99.4 kg
[~2017-01-07 13:35] MED LIST changes: +ABIL10TA9 PO; -ABIL15TA2 PO; +ABIL1TAB12 PO; -ABIL1TAB5 PO; +FLUO20CA19 PO; -FLUO20CA9 PO; +MACR100C43 PO; +PARO30TA3 PO; -PARO30TA70 PO; -PRENTAB13 PO; +PRENTAB20 PO; +PYRI1TAB5 PO; +TRAZ-136 OR; +TRAZ-136 PO; -TRAZ100T4 OR; -TRAZ100T4 PO
[2017-01-07] MEDS ORDERED: FAMOTIDINE 20 MG TAB PO ONE (13:45)
[2017-01-07] MEDS ORDERED: diphenhydrAMINE 25 MG CAP PO ONE (13:45)
[2017-01-07] MEDS ORDERED: EPIP0.3I2 IJ (15:06)
[2017-01-07 17:35] VITALS: BP 131/72
== END 2017-01-07 18:15 | disposition home or self-care (01) ==
LOC: EDBD 13:35 → M ED 13:55
DX: O9A.212 Injury, poisoning and certain other consequences of external causes complicating pregnancy, second trimester (principal); R06.02 Shortness of breath; R22.0 Localized swelling, mass and lump, head; O99.712 Diseases of the skin and subcutaneous tissue complicating pregnancy, second trimester; L50.9 Urticaria, unspecified; T63.441A Toxic effect of venom of bees, accidental (unintentional), initial encounter; X58.XXXA Exposure to other specified factors, initial encounter; Y92.838 Other recreation area as the place of occurrence of the external cause; Y93.89 Activity, other specified; Y99.8 Other external cause status; O24.112 Pre-existing type 2 diabetes mellitus, in pregnancy, second trimester; O99.512 Diseases of the respiratory system complicating pregnancy, second trimester; J45.909 Unspecified asthma, uncomplicated; O99.352 Diseases of the nervous system complicating pregnancy, second trimester; G40.909 Epilepsy, unspecified, not intractable, without status epilepticus; Z3A.22 22 weeks gestation of pregnancy

== ENCOUNTER 2017-01-08 18:37 | Emergency (ER) | payer OTHER ==
[~2017-01-08] VITALS: Ht 160 cm; Wt 94.5 kg
[~2017-01-08 18:37] MED LIST changes: +EPIP0.3I2 IJ
[2017-01-08 19:29] LABS: BASO % 0.2 % (0.0-1.0); EOS # 0.2 K/mm3 (0.0-0.50); EOS % 1.7 % (0.0-3.0); LARGE UNSTAINED CELL # 0.2 K/mm3 (0.0-0.4); LARGE UNSTAINED CELL % 1.6 % (0.0-4.0); LYMPH # 1.9 K/mm3 (1.5-6.5); MEAN CORPUSCULAR HEMOGLOBIN 29.1 pg (27.0-33.0); MEAN CORPUSCULAR HGB CONC 34.1 g/dl (32.0-36.5); MEAN CORPUSCULAR VOLUME 85.4 fl (80.0-96.0); MONO # 0.4 K/mm3 (0.0-0.8); MONO % 4.1 % (0.0-5.0); NEUTROPHILS # 7.4 K/mm3 (1.8-7.7); NEUTROPHILS % 73.5 % (36.0-66.0); PLATELET COUNT, AUTOMATED 328 k/mm3 (150-450); RED CELL DISTRIBUTION WIDTH 13.2 % (11.5-14.5)
[2017-01-08] MEDS: diphenhydrAMINE INJ 50MG/ML VIAL (J1200) IV STA (19:35)
[2017-01-08] MEDS: METOCLOPRAMIDE INJ 10MG/2ML VIAL (J2765) IV ONE (19:36)
[2017-01-08 19:42] LABS: ANION GAP 7 MEQ/L (8-16); BLOOD UREA NITROGEN 7 MG/DL (7-18); CALCIUM LEVEL 9.1 MG/DL (8.5-10.1); CARBON DIOXIDE LEVEL 22 MEQ/L (21-32); CHLORIDE LEVEL 105 MEQ/L (98-107); CREATININE FOR GFR 0.44 MG/DL (0.55-1.02); GLOMERULAR FILTRATION RATE > 60.0 (>60); GLUCOSE, FASTING 204 MG/DL (70-105); POTASSIUM SERUM 3.3 MEQ/L (3.5-5.1); SODIUM LEVEL 134 MEQ/L (136-145)
[2017-01-08] MEDS: NS 1,000 ML IV ONE (20:25)
[2017-01-08 22:27] VITALS: BP 109/55
== END 2017-01-08 22:35 | disposition home or self-care (01) ==
LOC: M ED 18:37
DX: G43.909 Migraine, unspecified, not intractable, without status migrainosus (principal); E11.9 Type 2 diabetes mellitus without complications; J45.909 Unspecified asthma, uncomplicated; F90.9 Attention-deficit hyperactivity disorder, unspecified type; F41.9 Anxiety disorder, unspecified; F32.9 Major depressive disorder, single episode, unspecified; G40.909 Epilepsy, unspecified, not intractable, without status epilepticus; Z87.891 Personal history of nicotine dependence; Z96.41 Presence of insulin pump (external) (internal); Z79.899 Other long term (current) drug therapy; Z88.0 Allergy status to penicillin; Z91.040 Latex allergy status; Z91.030 Bee allergy status; Z91.018 Allergy to other foods; Z91.09 Other allergy status, other than to drugs and biological substances

== ENCOUNTER 2017-01-24 15:47 | Emergency (ER) | payer OTHER ==
[~2017-01-24] VITALS: Ht 160 cm; Wt 92.5 kg
[2017-01-24] MEDS ORDERED: ACETAMINOPHEN 325 MG TAB PO ONE (17:30)
[2017-01-24 18:21] VITALS: BP 144/72
--- NOTE | 2017-01-24 18:35 | REP ---
Right elbow series complete: 01/24/2017: No comparison study. Clinical history: Trauma. Findings: Three views are obtained. There is no soft tissue swelling over the olecranon nor elbow joint effusion. The radial head and capitellum align normally on all three views, there is no distal humeral fracture. Epicondyles showed no avulsion or abnormal soft-tissue calcification. Olecranon without fracture or focal lesion. Impression: 1. No visible fracture, joint effusion or other acute finding about the elbow. Signed by Esvin Cole MD 01/24/2017 09:27 P
== END 2017-01-24 18:37 | disposition home or self-care (01) ==
LOC: M ED 15:47
DX: S53.401A Unspecified sprain of right elbow, initial encounter (principal); W10.9XXA Fall (on) (from) unspecified stairs and steps, initial encounter; Y92.019 Unspecified place in single-family (private) house as the place of occurrence of the external cause; Y93.89 Activity, other specified; Y99.8 Other external cause status; G43.909 Migraine, unspecified, not intractable, without status migrainosus; J45.909 Unspecified asthma, uncomplicated; E11.9 Type 2 diabetes mellitus without complications; F32.9 Major depressive disorder, single episode, unspecified; Z79.4 Long term (current) use of insulin; Z79.899 Other long term (current) drug therapy; Z88.0 Allergy status to penicillin; Z91.040 Latex allergy status; Z91.030 Bee allergy status; Z91.018 Allergy to other foods; Z91.09 Other allergy status, other than to drugs and biological substances

== ENCOUNTER 2017-01-29 21:07 | Outpatient (CLI) | payer OTHER ==
[~2017-01-29] VITALS: Ht 160 cm; Wt 92.0 kg
[2017-01-29 21:19] VITALS: BP 128/77
[2017-01-29] MEDS ORDERED: HumuLIN R (REGULAR) INSULIN (NovoLIN R) **100U/ML** PER UNIT SC STA ×2 (21:38→23:12)
[2017-01-29] MEDS ORDERED: SODIUM CHLORIDE 0.9% 1000 ML IV ONE (21:45)
[2017-01-29] MEDS ORDERED: NS 1,000 ML IV SCH (22:00)
[2017-01-29 22:18] LABS: MEAN CORPUSCULAR HEMOGLOBIN 29.2 pg (27.0-33.0); MEAN CORPUSCULAR HGB CONC 31.9 g/dl (32.0-36.5); MEAN CORPUSCULAR VOLUME 91.4 fl (80.0-96.0); RED CELL DISTRIBUTION WIDTH 12.7 % (11.5-14.5); WHITE BLOOD COUNT 13.5 K/mm3 (4.0-10.0)
[2017-01-29 22:40] LABS: ALBUMIN/GLOBULIN RATIO 0.77 (1.00-1.93); ALKALINE PHOSPHATASE 113 U/L (45-117); ALT/SGPT 15 U/L (12-78); ANION GAP 21 MEQ/L (8-16); AST/SGOT 12 U/L (15-37); BILIRUBIN,TOTAL 0.6 MG/DL (0.2-1.0); BLOOD UREA NITROGEN 8 MG/DL (7-18); CALCIUM LEVEL 8.9 MG/DL (8.5-10.1); CARBON DIOXIDE LEVEL 9 MEQ/L (21-32); CHLORIDE LEVEL 106 MEQ/L (98-107); CREATININE FOR GFR 0.56 MG/DL (0.55-1.02); GLOMERULAR FILTRATION RATE > 60.0 (>60); GLUCOSE, FASTING 323 MG/DL (70-105); POTASSIUM SERUM 4.3 MEQ/L (3.5-5.1); SODIUM LEVEL 136 MEQ/L (136-145); TOTAL PROTEIN 6.9 GM/DL (6.4-8.2)
[2017-01-29] MEDS ORDERED: D5W/0.9% SODIUM CHLORIDE 1,000 ML IV SCH (23:14)
[2017-01-30 02:16] VITALS: BP 111/64
[2017-01-30] MEDS ORDERED: HumuLIN R (REGULAR) INSULIN (NovoLIN R) **100U/ML** PER UNIT SC STA ×2 (05:16→06:37)
[2017-01-30] MEDS: NS 1,000 ML IV SCH ×2 (06:47→09:02)
[2017-01-30 06:51] VITALS: BP 115/56
[2017-01-30] MEDS ORDERED: HumuLIN N INSULIN (NovoLIN N) PER UNIT SC ONE (08:00)
[2017-01-30 08:28] LABS: MEAN CORPUSCULAR HGB CONC 33.1 g/dl (32.0-36.5); MEAN CORPUSCULAR VOLUME 87.7 fl (80.0-96.0); RED CELL DISTRIBUTION WIDTH 12.8 % (11.5-14.5); WHITE BLOOD COUNT 10.3 K/mm3 (4.0-10.0)
[2017-01-30 08:48] LABS: ALBUMIN 2.6 GM/DL (3.2-5.2); ALBUMIN/GLOBULIN RATIO 0.74 (1.00-1.93); ALKALINE PHOSPHATASE 96 U/L (45-117); ALT/SGPT 13 U/L (12-78); ANION GAP 14 MEQ/L (8-16); AST/SGOT 8 U/L (15-37); BILIRUBIN,TOTAL 0.5 MG/DL (0.2-1.0); BLOOD UREA NITROGEN 8 MG/DL (7-18); CALCIUM LEVEL 8.8 MG/DL (8.5-10.1); CARBON DIOXIDE LEVEL 13 MEQ/L (21-32); CHLORIDE LEVEL 109 MEQ/L (98-107); CREATININE FOR GFR 0.58 MG/DL (0.55-1.02); GLOMERULAR FILTRATION RATE > 60.0 (>60); GLUCOSE, FASTING 330 MG/DL (70-105); POTASSIUM SERUM 4.4 MEQ/L (3.5-5.1); SODIUM LEVEL 136 MEQ/L (136-145); TOTAL PROTEIN 6.1 GM/DL (6.4-8.2)
[2017-01-30] MEDS ORDERED: PRENATAL VITAMINS CHEWABLE TABLET PO SCH (09:00)
[2017-01-30] MEDS ORDERED: HumuLIN R (REGULAR) INSULIN (NovoLIN R) **100U/ML** PER UNIT IV STA (10:30)
[2017-01-30] MEDS ORDERED: DEXTROSE 50% 50 ML SYRINGE IV PRN (10:45)
[2017-01-30] MEDS ORDERED: GLUCOSE 4 GM CHEW TABLET PO PRN (10:45)
[2017-01-30] MEDS ORDERED: GLUCAGON FOR INJ 1 MG VIAL (J1610) SC PRN (10:45)
[2017-01-30] MEDS ORDERED: KCL 20MEQ in NS 1000ML 1,000 ML IV SCH (11:30)
[2017-01-30] MEDS ORDERED: HumaLOG INSULIN (NovoLOG) PER UNIT SC SCH ×2 (12:00→21:00)
[2017-01-30 13:28] LABS: ANION GAP 13 MEQ/L (8-16); BLOOD UREA NITROGEN 11 MG/DL (7-18); CALCIUM LEVEL 8.8 MG/DL (8.5-10.1); CARBON DIOXIDE LEVEL 16 MEQ/L (21-32); CHLORIDE LEVEL 111 MEQ/L (98-107); CREATININE FOR GFR 0.55 MG/DL (0.55-1.02); GLOMERULAR FILTRATION RATE > 60.0 (>60); GLUCOSE, FASTING 220 MG/DL (70-105); MAGNESIUM LEVEL 1.7 MG/DL (1.8-2.4); SODIUM LEVEL 140 MEQ/L (136-145)
[2017-01-30] MEDS ORDERED: HumaLOG INSULIN (NovoLOG) PER UNIT XX ONE (14:30)
[2017-01-30 17:00] LABS: ANION GAP 12 MEQ/L (8-16); BLOOD UREA NITROGEN 11 MG/DL (7-18); CALCIUM LEVEL 8.8 MG/DL (8.5-10.1); CARBON DIOXIDE LEVEL 15 MEQ/L (21-32); CHLORIDE LEVEL 112 MEQ/L (98-107); GLOMERULAR FILTRATION RATE > 60.0 (>60); GLUCOSE, FASTING 188 MG/DL (70-105); MAGNESIUM LEVEL 1.6 MG/DL (1.8-2.4); SODIUM LEVEL 139 MEQ/L (136-145)
[2017-01-30] MEDS ORDERED: LEVEMIR (INSULIN DETEMIR) 1 UNITS/0.01ML SC ONE (18:00)
--- NOTE | 2017-01-30 21:22 | CR ---
DATE OF CONSULTATION: 01/30/2017 REFERRING PHYSICIAN: Piotr Sandoval MD REASON FOR CONSULTATION: Hyperglycemia. HISTORY OF PRESENT ILLNESS: This is a 26-year-old female patient who is 26 weeks with underlying medical history of insulin dependent diabetes on insulin pump, depression, insomnia, history of suicidal ideation, pseudoseizures with history of ectopic presented to labor and delivery because the patient has for the last 24 hours not been able to get her insulin supplies from her former roommates and subsequently not able to give herself insulin. The patient does not have the needle or the tubes or the insulin for the pump and has been persistently hyperglycemic with nausea, abdominal discomfort, vomiting, no diarrhea. Denies any chest pain, pressure or discomfort, was initially in labor and delivery giving insulin and IV fluids with resolution of the patient's symptoms other than feeling tired. The patient denies any other symptoms. Denies any chest pain, pressure or discomfort, fevers, dysuria, hematuria. The patient at baseline is very poorly compliant. Has multiple admissions during the to the hospital for glucose control, which includes hypoglycemia, hyperglycemia, suicidal ideations and diabetic ketoacidosis (DKA). The patient currently lives with her godfather and the baby's father has left her as per the patient. ALLERGIES: BEE VENOM, LATEX, PENICILLINS, STRAWBERRY AND TAPES. PAST MEDICAL HISTORY: 1. Insulin-dependent diabetes mellitus 2. Insomnia. 3. Pseudoseizure. 4. Ectopic . 5. Suicidal ideation. 6. Obesity. 7. Poor compliance . PAST SURGICAL HISTORY: 1. Tonsillectomy. 2. Adenoidectomy. 3. Laparoscopic right salpingostomy for ectopic . FAMILY HISTORY: Unknown. SOCIAL HISTORY: The patient is a former smoker. Quit smoking since she was in August 2016. Denies alcohol. The patient currently lives with her godfather and her child's father has left her. REVIEW OF SYSTEMS: The patient initially reported some nausea, vomiting and abdominal discomfort, currently all resolved. All other review of systems is negative. HOME MEDICATIONS: - EpiPen as needed - fluoxetine 20 mg by mouth daily - insulin pump NovoLog - multivitamins one tablet by mouth daily - trazodone 50 mg by mouth at bedtime (q.h.s.) as needed VITAL SIGNS: Temperature 98, pulse 87, respirations 16, blood pressure 115/56. GENERAL: The patient is alert and oriented times there, obese, in no acute distress. HEENT: Normocephalic, atraumatic. PULMONARY: Bilateral clear to auscultation. CARDIAC: Regular rate and rhythm. Normal S1, S2. ABDOMEN: Soft, nontender. Positive bowel sounds. EXTREMITIES: No clubbing, cyanosis or edema. LABORATORY: White blood count (WBC) 10.3, hemoglobin and hematocrit 11/33.3, platelets 346. Chemistry: Sodium 136, potassium 4.4, chloride 109, bicarbonate 13, BUN 8, creatine 0.58. ASSESSMENT AND PLAN: This is a 26-year-old female patient with underlying medical history of insulin dependent diabetes on insulin pump, depression, insomnia, pseudoseizure, history of ectopic and also suicidal ideation, who is currently 26 weeks , presented with hyperglycemia due to the patient not having insulin supplied. PROBLEMS: 1. Hyperglycemia. Will place the patient on basal bolus and insulin coverage. Followup fingerstick. The patient's baseline is very poorly compliant with A1c of 9.7, which raises concern of complication due to poorly controlled diabetes. I will follow fingersticks every 2 hours for the rest of the day. Adjust insulin coverage as needed. Once the patient has diabetic supply, will switch the patient over. Followup basic metabolic panel and ketones. Continue IV fluids through the day. Followup electrolytes, supplement as needed. Consistent carbonate diet. 2. 26 weeks . Management as per OB solid waste management engineer, Dr. Sandoval. Continue vitamins and IV fluids. 3. Underlying history of depression, insomnia and pseudoseizures, as well as suicidal ideation. The patient currently denies any suicide attempts, will monitor closely. Will need to followup with psychiatry as an outpatient. Given the patient is , a lot of medications will be significantly limited at this point. Will monitor. The patient denies any suicidality. Patient Family Services (PFS) has been consulted to see if any additional services can be offered. 4. Obesity complicating care. 5. Deep vein thrombosis (DVT) prophylaxis as per dental technologist. DISPOSITION: Pending the patient getting her insulin supplies and pending better glycemic control. Primary care provider, Lilliana Morrell, direct mail coordinator, Dr. Garcia.
--- NOTE | 2017-01-31 07:42 | HPE ---
DATE OF ADMISSION: 01/29/2017 Sue is a 26-year-old female 8, para 0-1-6-0 with a history of delivery at 25 weeks of demise. She has a history of type 1 diabetic. Was on an insulin pump with poor glycemic control. She also has a history of psychiatric issues for which she has had an admission to mental [facility] for suicidal ideation. The patient has been admitted for diabetic ketoacidosis (DKA) once during this . She presented to labor and delivery with complaint on having her pump supplied. She recently moved out of her roommates room and claimed that her roommate has not really seen her insulin pump supply and insulin. She has been without insulin for 1 day. She denies any bleeding. No pain. No shortness of breath or chest pain, no dizziness. Upon evaluation in labor and delivery, her admitting fingerstick was 301. Her record reviewed. The patient has been extremely noncompliant with her sugar log and her insulin control. She is seeing an adventure guide in [place] who initiate her insulin pump. She was on basal rate of 1.7 in the morning, 0.5 at night with a sliding scale coverage. We are unaware of what her sugar logs have been. Her last hemoglobin A1c was elevated at approximately 10. She was suppose to have a repeat one on 01/27. Results could not be found. Doubtful that the patient went for the hemoglobin A1c. The rest of her OB record reviewed essentially unremarkable. PAST MEDICAL HISTORY: 1. Type 1 diabetes. 2. Chronic kidney issues. 3. 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 PAST SURGICAL HISTORY: Tonsillectomy. Laparoscopic salpingectomy for ectopic . SOCIAL HISTORY: Patient is a smoker. She denies any alcohol or drug use. REVIEW OF SYSTEMS: Unremarkable. MEDICATIONS: - Insulin pump - Prozac for psychiatric issues ALLERGIES: PENICILLIN, ADHESIVE and STRAWBERRIES. PHYSICAL EXAMINATION ON ADMISSION: HEENT: Grossly within normal limits. Her abdomen was soft, nontender, nondistended. Obese. Extremities: No clubbing, cyanosis or edema. Vaginal exam deferred. Fingerstick on admission 301. Her labs done on admission shows a white count of 13.5, hemoglobin and hematocrit 11.9 over 37.4, platelet of 364. Glucose 322, sodium of 136, potassium 4.3, chloride of 106, AST, ALT within normal limits. pO2 9, anion gap of 21. Urine shows 3+ glucose, 2+ ketone. The rest is negative. Tracing reviewed, reassuring for 25 weeks gestation. ASSESSMENT: 1. Intrauterine at 25 weeks gestation. 2. Poorly controlled type 1 diabetic now with fingerstick of 301, rule out diabetic ketoacidosis (DKA) although doubtful. 3. Multiple social issues. PLAN: The patient will be admitted to labor and delivery for observation, IV fluid hydration, insulin started for glycemic control. Attempt will be made at receiving the patient's pump and supply. Pharmacy contacted. They do not have supplies for the patient's pump specific. community services coordinator also involved to try to obtain the patient's insulin pump and supplies. In the meantime she will be controlled with regular and NPH insulin. Hospitalist consult also called to help co-manage the patient's sugars. Will continue to monitor her. Pending further complaint, plan is to discharge her hopefully with her insulin pump and she is to follow up with her adventure guide and her ADOLESCENT COUNSELOR doctors.
[2017-01-31] MEDS ORDERED: LEVEMIR (INSULIN DETEMIR) 1 UNITS/0.01ML SC SCH ×2 (18:00→21:00)
== END 2017-01-30 17:16 | disposition home or self-care (01) ==
LOC: M LDO 21:07
PROVIDERS: ATTEND Obstetrics & Gynecology
DX: O24.012 Pre-existing type 1 diabetes mellitus, in pregnancy, second trimester (principal); E10.65 Type 1 diabetes mellitus with hyperglycemia; O99.342 Other mental disorders complicating pregnancy, second trimester; F33.9 Major depressive disorder, recurrent, unspecified; F44.5 Conversion disorder with seizures or convulsions; O99.352 Diseases of the nervous system complicating pregnancy, second trimester; G47.00 Insomnia, unspecified; O99.212 Obesity complicating pregnancy, second trimester; O09.12 Supervision of pregnancy with history of ectopic pregnancy, second trimester; O99.89 Other specified diseases and conditions complicating pregnancy, childbirth and the puerperium; N18.9 Chronic kidney disease, unspecified; Z60.9 Problem related to social environment, unspecified; Z3A.25 25 weeks gestation of pregnancy; Z91.030 Bee allergy status; Z91.040 Latex allergy status; Z88.0 Allergy status to penicillin; Z91.018 Allergy to other foods; O99.712 Diseases of the skin and subcutaneous tissue complicating pregnancy, second trimester; L23.1 Allergic contact dermatitis due to adhesives; Z79.899 Other long term (current) drug therapy; Z79.4 Long term (current) use of insulin

== ENCOUNTER → 2017-02-15 | Outpatient (REF) | payer OTHER ==
[~2017-02-15] MED LIST changes: +COLA100C5 PO; +IBUP-1114 PO; +KEFL500C17 PO; +OXYC1TAB23 PO; +PRENTAB9 PO
== END ==
LOC: M LAB REF 16:55
PROVIDERS: ATTEND Obstetrics & Gynecology
DX: O24.112 Pre-existing type 2 diabetes mellitus, in pregnancy, second trimester (principal); Z36 Encounter for antenatal screening of mother; Z3A.00 Weeks of gestation of pregnancy not specified

== ENCOUNTER 2017-02-16 15:10 | Outpatient (CLI) | payer OTHER ==
[~2017-02-16] VITALS: Ht 160 cm; Wt 90.0 kg
[~2017-02-16 15:10] MED LIST changes: -COLA100C5 PO; -IBUP-1114 PO; -KEFL500C17 PO; -OXYC1TAB23 PO; -PRENTAB9 PO
[2017-02-16 15:22] VITALS: BP 115/75
[2017-02-16] MEDS ORDERED: NS 1,000 ML IV ONE (15:45)
[2017-02-16 16:36] LABS: MEAN CORPUSCULAR HEMOGLOBIN 27.9 pg (27.0-33.0); MEAN CORPUSCULAR HGB CONC 30.7 g/dl (32.0-36.5); MEAN CORPUSCULAR VOLUME 90.9 fl (80.0-96.0); RED CELL DISTRIBUTION WIDTH 12.6 % (11.5-14.5); WHITE BLOOD COUNT 12.6 K/mm3 (4.0-10.0)
[2017-02-16 17:01] LABS: INR 1.07
[2017-02-16] MEDS: NS 1,000 ML IV SCH (17:15)
[2017-02-16 17:20] LABS: ALBUMIN 3.1 GM/DL (3.2-5.2); ALKALINE PHOSPHATASE 118 U/L (45-117); ALT/SGPT 13 U/L (12-78); ANION GAP 21 MEQ/L (8-16); AST/SGOT 13 U/L (15-37); BILIRUBIN,TOTAL 0.4 MG/DL (0.2-1.0); BLOOD UREA NITROGEN 5 MG/DL (7-18); CALCIUM LEVEL 9.2 MG/DL (8.5-10.1); CARBON DIOXIDE LEVEL 7 MEQ/L (21-32); CHLORIDE LEVEL 108 MEQ/L (98-107); CREATININE FOR GFR 0.67 MG/DL (0.55-1.02); FREE T4 0.96 NG/DL (0.76-1.46); GLOMERULAR FILTRATION RATE > 60.0 (>60); GLUCOSE, FASTING 341 MG/DL (70-105); MAGNESIUM LEVEL 1.9 MG/DL (1.8-2.4); SODIUM LEVEL 136 MEQ/L (136-145); TOTAL PROTEIN 7.5 GM/DL (6.4-8.2)
[2017-02-16 17:25] LABS: POTASSIUM SERUM 5.3 MEQ/L (3.5-5.1)
[2017-02-16] MEDS: INSULIN HUMAN REGULAR 100 UNITS in NS 99 ML IV SCH ×4 (17:33→22:38)
[2017-02-16] MEDS ORDERED: PANTOPRAZOLE 20 MG TAB PO ONE (18:30)
[2017-02-16 19:48] VITALS: BP 121/84
[2017-02-16 21:41] VITALS: BP 119/70
[2017-02-16] MEDS: INSULIN IV RATE CHANGE DOCUMENTATION ML/HR XX SCH (23:37)
[2017-02-16 23:50] LABS: ANION GAP 17 MEQ/L (8-16); BLOOD UREA NITROGEN 5 MG/DL (7-18); CARBON DIOXIDE LEVEL 8 MEQ/L (21-32); CHLORIDE LEVEL 111 MEQ/L (98-107); CREATININE FOR GFR 0.62 MG/DL (0.55-1.02); GLOMERULAR FILTRATION RATE > 60.0 (>60); GLUCOSE, FASTING 159 MG/DL (70-105); POTASSIUM SERUM 4.6 MEQ/L (3.5-5.1); SODIUM LEVEL 136 MEQ/L (136-145)
[2017-02-17] MEDS: NS 1,000 ML IV SCH ×2 (00:18→10:18)
[2017-02-17] MEDS ORDERED: NS 1,000 ML IV ONE (01:00)
[2017-02-17 01:44] VITALS: BP 126/76
[2017-02-17] MEDS: INSULIN IV RATE CHANGE DOCUMENTATION ML/HR XX SCH ×3 (04:39→06:40)
[2017-02-17 07:29] LABS: ANION GAP 15 MEQ/L (8-16); BLOOD UREA NITROGEN 5 MG/DL (7-18); CARBON DIOXIDE LEVEL 9 MEQ/L (21-32); CHLORIDE LEVEL 114 MEQ/L (98-107); CREATININE FOR GFR 0.48 MG/DL (0.55-1.02); GLOMERULAR FILTRATION RATE > 60.0 (>60); GLUCOSE, FASTING 114 MG/DL (70-105); POTASSIUM SERUM 3.9 MEQ/L (3.5-5.1); SODIUM LEVEL 138 MEQ/L (136-145)
--- NOTE | 2017-02-17 09:11 | REP ---
OB ULTRASOUND: Real-time sonographic evaluation of the gravid uterus performed utilizing transabdominal technique. There is a single living intrauterine gestation. Estimated gestational age is reportedly 28 weeks with EDC 05/12/2017. Today's measurements indicate appropriate growth. BPD 67 mm = 27 weeks 0 days, 29th percentile HC 238 mm = 25 weeks 6 days, less than 5th percentile AC 229 mm = 27 weeks 2 days, 35th percentile Femur length 47 mm = 25 weeks 5 days, less than 5th percentile HC/AC ratio 1.04 within normal range. Estimated weight 952 grams, 10th percentile. heart rate 146 beats per minute. Biophysical profile score is 8 out of 8. S/D ratio in the umbilical artery is 4.64 which is above the normal range of 2.6 to 4.0. RI 0.78 is slightly above normal range of 0.59 to 0.75. S/D ratio in the middle cerebral artery is decreased at 3.41. RI 0.71. SEEN/GROSSLY UNREMARKABLE Lateral ventricles Yes Posterior fossa Yes Upper lip Yes Four-chamber heart Yes LVOT No RVOT No Stomach Yes Cord insertion Yes Three vessel cord Yes Kidneys Yes Bladder Yes Spine Yes position: Breech. Placenta: Anterior and grade 0 with no previa or abruption. Amniotic fluid: Within normal limits. Cervix could not be evaluated due to shadowing from the fetus. Signed by Fracisco Ghotra MD 02/17/2017 03:11 P
[2017-02-17] MEDS ORDERED: cefTRIAXone SOD 2 GM in D5W MINI-BAG PLUS 50 ML IV ONE (09:15)
[2017-02-17] MEDS: INSULIN HUMAN REGULAR 100 UNITS in NS 99 ML IV SCH ×4 (09:25→12:51)
[2017-02-17] MEDS ORDERED: GENTAMICIN 80 MG in APPROPRIATE DILUENT 1 EA IV ONE (10:00)
== END 2017-02-17 13:33 ==
LOC: M LDO 15:10
PROVIDERS: ATTEND Obstetrics & Gynecology
DX: O47.03 False labor before 37 completed weeks of gestation, third trimester (principal); O24.313 Unspecified pre-existing diabetes mellitus in pregnancy, third trimester; O99.280 Endocrine, nutritional and metabolic diseases complicating pregnancy, unspecified trimester; E87.6 Hypokalemia; Z79.4 Long term (current) use of insulin; Z79.899 Other long term (current) drug therapy; Z91.040 Latex allergy status; Z88.0 Allergy status to penicillin; Z91.048 Other nonmedicinal substance allergy status; Z3A.27 27 weeks gestation of pregnancy
CPT/HCPCS: 36415; 76811; 76815; 76819; 76820; 76821; 80048; 80053; 80307; 81001; 82731; 83605; 83735; 84439; 84443; 85027; 85384; 85460; 85610; 85730; 86850; 86900; 86901; 87081; 87086; 87491; 87591; 96365; 96366; J0696; J1580

== ENCOUNTER → 2017-02-21 | Outpatient (CLI) | payer OTHER ==
[~2017-02-21] MED LIST changes: +COLA100C5 PO; +IBUP-1114 PO; +KEFL500C17 PO; +OXYC1TAB23 PO; +PRENTAB9 PO
--- NOTE | 2017-02-21 22:02 | REP ---
Clinical: History of gestational diabetes for well being. Comparison: None available. Findings: Examination demonstrates a single live intrauterine in breech presentation. motion is identified by technologist. Placenta is noted anteriorly and grade I without evidence for placenta previa or abruption. Amniotic fluid volume is normal. Cervix measures 3.1 cm in length and appears closed. No evidence for nuchal cord. Gestational age by LMP 28 weeks 4 days with MEGAN 05/12/2017 . FHR equals 136 beats per minute. Biophysical profile score equals 8/8. Amniotic fluid index equals 20.1 cm (9.3 - 23.0). Impression: Single live intrauterine in breech presentation. Biophysical profile score equals 8/8. Signed by Shahid Quezada MD 02/21/2017 09:53 P
== END ==
LOC: M SMT 13:01
PROVIDERS: ATTEND Specialist
DX: O24.112 Pre-existing type 2 diabetes mellitus, in pregnancy, second trimester (principal); Z36 Encounter for antenatal screening of mother; O32.1XX0 Maternal care for breech presentation, not applicable or unspecified; Z3A.28 28 weeks gestation of pregnancy

== ENCOUNTER 2017-02-25 16:01 | Emergency (ER) | payer OTHER ==
[~2017-02-25] VITALS: Ht 160 cm; Wt 91.4 kg
[~2017-02-25 16:01] MED LIST changes: -COLA100C5 PO; -IBUP-1114 PO; -KEFL500C17 PO; -OXYC1TAB23 PO; -PRENTAB9 PO
[2017-02-25] MEDS ORDERED: KEFL500C17 PO (16:26)
[2017-02-25] MEDS ORDERED: LIDOCAINE 2% MDV 20 ML VIAL SC ONE (17:15)
[2017-02-25 18:02] VITALS: BP 134/78
== END 2017-02-25 18:08 | disposition home or self-care (01) ==
LOC: M ED 16:01
DX: O99.713 Diseases of the skin and subcutaneous tissue complicating pregnancy, third trimester (principal); L03.012 Cellulitis of left finger; O9A.213 Injury, poisoning and certain other consequences of external causes complicating pregnancy, third trimester; S61.308A Unspecified open wound of other finger with damage to nail, initial encounter; X58.XXXA Exposure to other specified factors, initial encounter; Y92.89 Other specified places as the place of occurrence of the external cause; Y93.89 Activity, other specified; Y99.8 Other external cause status; Z3A.29 29 weeks gestation of pregnancy; Z87.891 Personal history of nicotine dependence; Z91.030 Bee allergy status; Z91.040 Latex allergy status; Z91.018 Allergy to other foods; L23.1 Allergic contact dermatitis due to adhesives; Z79.4 Long term (current) use of insulin; Z79.899 Other long term (current) drug therapy

== ENCOUNTER → 2017-03-01 | Outpatient (CLI) | payer OTHER ==
[~2017-03-01] MED LIST changes: +COLA100C5 PO; +IBUP-1114 PO; +KEFL500C17 PO; +OXYC1TAB23 PO; +PRENTAB9 PO
--- NOTE | 2017-03-01 12:32 | REP ---
Clinical: Gestational diabetes. well-being. Comparison: 02/21/2017. Findings: Single live advanced gestation in breech presentation is again appreciated. motion is identified by technologist. Placenta is noted anteriorly and grade I without evidence for placenta previa or abruption. Amniotic fluid volume is normal. Cervix measures 3.4 cm in length and appears closed. No evidence for nuchal cord. Gestational age by LMP 29 weeks 5 days with MEGAN 05/12/2017 . Gestational age by current measurements 28 weeks 5 days with MEGAN 05/19/2017 . FHR equals 133 beats per minute. Estimated weight 1176 grams (9th percentile). Biophysical profile score equals 8/8. Amniotic fluid index 17.2 cm (9.1 - 23.3). Umbilical cord SD ratio equals 4.54 (2.50 - 3.50). Anatomical evaluation was not performed however a small pericardial effusion and possible ventricular wall thickening is again suggested and similar to prior examination dated 02/21/2017. Impression: 1. Single live intrauterine in breech presentation demonstrating appropriate interval growth. 2. Biophysical profile score equals 8/8. 3. Amniotic fluid volume normal. 4. Umbilical cord SD ratio mildly elevated. 5. Cannot exclude small pericardial effusion similar to prior examination. Signed by Shahid Quezada MD 03/01/2017 12:24 P
== END ==
LOC: M SMT 11:05
PROVIDERS: ATTEND Obstetrics & Gynecology
DX: O24.112 Pre-existing type 2 diabetes mellitus, in pregnancy, second trimester (principal); Z36 Encounter for antenatal screening of mother; Z3A.29 29 weeks gestation of pregnancy; O32.1XX0 Maternal care for breech presentation, not applicable or unspecified

== ENCOUNTER 2017-03-04 14:08 | Emergency (ER) | payer OTHER ==
[~2017-03-04] VITALS: Ht 160 cm; Wt 96.3 kg
[~2017-03-04 14:08] MED LIST changes: -COLA100C5 PO; -IBUP-1114 PO; -OXYC1TAB23 PO; -PRENTAB9 PO
[2017-03-04] MEDS ORDERED: ACETAMINOPHEN TAB 650MG DOSE (2X325MG) PO ONE (14:30)
[2017-03-04 14:43] LABS: ABG BASE EXCESS -1.3 (-2.0-2.0); ABG HCO3 21.6 MEQ/L (22.0-26.0); ABG PARTIAL PRESSURE CO2 30.6 mmHg (35.0-45.0); ABG PARTIAL PRESSURE O2 64.7 mmHg (75.0-100.0); ABG STANDARD HCO3 23.3 MEQ/L (22.0-26.0); ABG TOTAL CO2 22.6 MEQ/L (22.0-29.0); ABG pH (ARTERIAL) 7.467 UNITS (7.350-7.450)
[2017-03-04 14:45] LABS: BASO % 0.3 % (0.0-1.0); EOS # 0.2 K/mm3 (0.0-0.50); LARGE UNSTAINED CELL # 0.1 K/mm3 (0.0-0.4); LARGE UNSTAINED CELL % 0.8 % (0.0-4.0); LYMPH # 1.9 K/mm3 (1.5-6.5); LYMPH % 14.5 % (24.0-44.0); MEAN CORPUSCULAR HEMOGLOBIN 27.8 pg (27.0-33.0); MEAN CORPUSCULAR HGB CONC 32.7 g/dl (32.0-36.5); MEAN CORPUSCULAR VOLUME 85.2 fl (80.0-96.0); MONO # 0.4 K/mm3 (0.0-0.8); MONO % 3.2 % (0.0-5.0); NEUTROPHILS # 9.9 K/mm3 (1.8-7.7); NEUTROPHILS % 79.2 % (36.0-66.0); PLATELET COUNT, AUTOMATED 264 k/mm3 (150-450); RED CELL DISTRIBUTION WIDTH 12.7 % (11.5-14.5); WHITE BLOOD COUNT 12.5 K/mm3 (4.0-10.0)
[2017-03-04 15:06] LABS: ALBUMIN 2.2 GM/DL (3.2-5.2); ALBUMIN/GLOBULIN RATIO 0.63 (1.00-1.93); ALKALINE PHOSPHATASE 128 U/L (45-117); ALT/SGPT 18 U/L (12-78); ANION GAP 7 MEQ/L (8-16); AST/SGOT 19 U/L (15-37); BILIRUBIN,DIRECT 0.2 MG/DL (0.0-0.2); BILIRUBIN,TOTAL 0.7 MG/DL (0.2-1.0); BLOOD UREA NITROGEN 4 MG/DL (7-18); CALCIUM LEVEL 8.1 MG/DL (8.5-10.1); CARBON DIOXIDE LEVEL 25 MEQ/L (21-32); CHLORIDE LEVEL 109 MEQ/L (98-107); CREATININE FOR GFR 0.37 MG/DL (0.55-1.02); GLOMERULAR FILTRATION RATE > 60.0 (>60); GLUCOSE, FASTING 59 MG/DL (70-105); POTASSIUM SERUM 3.2 MEQ/L (3.5-5.1); SODIUM LEVEL 141 MEQ/L (136-145); TOTAL PROTEIN 5.7 GM/DL (6.4-8.2)
[2017-03-04 15:53] VITALS: BP 140/88
[2017-03-04] MEDS ORDERED: DEXTROSE 50% 50 ML SYRINGE IV STA (15:59)
[2017-03-04] MEDS ORDERED: POTASSIUM CHLORIDE 10 MEQ SR TABLET PO ONE (16:00)
[2017-03-04] MEDS ORDERED: DEXTROSE 50% 50 ML SYRINGE As Ordered ONE (16:01)
== END 2017-03-04 17:10 | disposition home or self-care (01) ==
LOC: M ED 14:08
DX: O99.513 Diseases of the respiratory system complicating pregnancy, third trimester (principal); J06.9 Acute upper respiratory infection, unspecified; O24.415 Gestational diabetes mellitus in pregnancy, controlled by oral hypoglycemic drugs; O99.343 Other mental disorders complicating pregnancy, third trimester; F33.9 Major depressive disorder, recurrent, unspecified; O09.13 Supervision of pregnancy with history of ectopic pregnancy, third trimester; Z3A.30 30 weeks gestation of pregnancy; Z91.040 Latex allergy status; O99.713 Diseases of the skin and subcutaneous tissue complicating pregnancy, third trimester; L23.1 Allergic contact dermatitis due to adhesives; Z91.018 Allergy to other foods; Z79.899 Other long term (current) drug therapy; Z79.4 Long term (current) use of insulin

== ENCOUNTER → 2017-03-07 | Outpatient (CLI) | payer OTHER ==
[~2017-03-07] MED LIST changes: +COLA100C5 PO; +IBUP-1114 PO; +OXYC1TAB23 PO; +PRENTAB9 PO
--- NOTE | 2017-03-07 13:09 | REP ---
Clinical: Diabetes mellitus for well being Comparison: 03/01/2017 . Findings: Examination demonstrates a single live intrauterine in breech presentation. motion is identified by technologist. Placenta is noted anteriorly and grade one without evidence for placenta previa or abruption. Amniotic fluid volume is normal. No evidence for nuchal cord. Gestational age by LMP 30 weeks 4 days with MEGAN 05/12/2017 . heart rate 131bpm Biophysical profile score equals 8/8. Amniotic fluid index 15.7 (8.9 - 23.6). Umbilical cord SD ratio equals 4.48 (2.50 - 3.50). Impression: Single live intrauterine in breech presentation. Biophysical profile score equals 8/8. Amniotic fluid index normal. Umbilical cord SD ratio moderately elevated. Signed by Shahid Quezada MD 03/07/2017 01:01 P
== END ==
LOC: M SMT 11:18
PROVIDERS: ATTEND Obstetrics & Gynecology
DX: O24.112 Pre-existing type 2 diabetes mellitus, in pregnancy, second trimester (principal); Z36 Encounter for antenatal screening of mother; Z3A.30 30 weeks gestation of pregnancy; O32.1XX0 Maternal care for breech presentation, not applicable or unspecified

== ENCOUNTER → 2017-03-14 | Outpatient (CLI) | payer OTHER ==
--- NOTE | 2017-03-15 07:25 | REP ---
Obstetric ultrasonography for growth, biophysical profile and umbilical artery Doppler assessment: There is a single intrauterine gestation in a breech presentation. The heart rate of 131 beats minute. The placenta is anterior. There is no placenta previa. Subjectively the amniotic fluid volume is normal. The amniotic fluid index is 16.5 as a 0.7 - 24.0). By the study today gestational age is 20 weeks 6 days with an MEGAN of 05/31/2017. Gestational age by the first ultrasound is 31 weeks 4 days and by LMP 31 weeks 4 days. weight is 1500 grams (3 pounds, 4 ounces). This is the 13th percentile for 31 weeks 4 days. biophysical profile: breathing 2 Movement 2 Tone 2 Amniotic fluid volume 2 Total 02/01 Umbilical artery Doppler assessment: SD ratio 4.52 (2.50 - 3.50). Resistive index 0.78 (0.59 dash 0.75) Diastolic flow velocity 5.8 cm/sec (normal greater than 10 cm/sec). Findings indicate there may be intrauterine growth retardation. Signed by Fracisco Mayo MD 03/14/2017 03:39 P
== END ==
LOC: M SMT 14:04
PROVIDERS: ATTEND Obstetrics & Gynecology
DX: Z36 Encounter for antenatal screening of mother (principal); Z3A.20 20 weeks gestation of pregnancy

== ENCOUNTER 2017-03-18 17:08 | Outpatient (CLI) | payer OTHER ==
[~2017-03-18] VITALS: Ht 160 cm; Wt 92.7 kg
[~2017-03-18 17:08] MED LIST changes: -COLA100C5 PO; -IBUP-1114 PO; -OXYC1TAB23 PO; -PRENTAB9 PO
[2017-03-18 18:45] LABS: RENAL EPITHELIAL CELLS 2 /HPF
[2017-03-18 18:49] LABS: MEAN CORPUSCULAR HEMOGLOBIN 28.4 pg (27.0-33.0); MEAN CORPUSCULAR HGB CONC 33.4 g/dl (32.0-36.5); MEAN CORPUSCULAR VOLUME 84.8 fl (80.0-96.0); RED CELL DISTRIBUTION WIDTH 12.8 % (11.5-14.5); WHITE BLOOD COUNT 7.5 K/mm3 (4.0-10.0)
[2017-03-18 19:16] LABS: ALBUMIN 2.1 GM/DL (3.2-5.2); ALBUMIN/GLOBULIN RATIO 0.58 (1.00-1.93); ALKALINE PHOSPHATASE 135 U/L (45-117); ALT/SGPT 15 U/L (12-78); ANION GAP 6 MEQ/L (8-16); AST/SGOT 17 U/L (15-37); BILIRUBIN,TOTAL 0.6 MG/DL (0.2-1.0); BLOOD UREA NITROGEN 7 MG/DL (7-18); CALCIUM LEVEL 8.8 MG/DL (8.5-10.1); CARBON DIOXIDE LEVEL 28 MEQ/L (21-32); CHLORIDE LEVEL 107 MEQ/L (98-107); CREATININE FOR GFR 0.44 MG/DL (0.55-1.02); GLOMERULAR FILTRATION RATE > 60.0 (>60); GLUCOSE, FASTING 107 MG/DL (70-105); POTASSIUM SERUM 4.4 MEQ/L (3.5-5.1); SODIUM LEVEL 141 MEQ/L (136-145); TOTAL PROTEIN 5.7 GM/DL (6.4-8.2)
[2017-03-18 19:47] VITALS: BP 123/85
--- NOTE | 2017-03-18 20:00 | REPUSA ---
OBSTETRICAL ULTRASOUND INDICATION: OB screening. FINDINGS: A single live intrauterine gestation was identified with a heart rate of 147 bpm. The amniotic fluid index was normal measuring 17.3 cm. The placenta was anterior, without evidence of pl acenta previa. The fetus was in a breech position. The cervix measures 2.7 cm in length and is closed . Normal movement, breathing movements and tone are noted. Systolic/diastolic ratio measures 4.45, with the resistive index of 0.70. Nuchal cord was not visualized. IMPRESSION: 1. Single live fetus based on today's measurements at 30 weeks 4 days, with estimated due date of . 2. No gross abnormality. 3. Biophysical profile measures 02/01.
== END 2017-03-18 20:30 | disposition home or self-care (01) ==
LOC: M LDO 17:08
PROVIDERS: ATTEND Advanced Practice Midwife
DX: O26.893 Other specified pregnancy related conditions, third trimester (principal); Z3A.32 32 weeks gestation of pregnancy; R10.2 Pelvic and perineal pain; O24.013 Pre-existing type 1 diabetes mellitus, in pregnancy, third trimester; Z87.59 Personal history of other complications of pregnancy, childbirth and the puerperium; Z88.0 Allergy status to penicillin; Z91.018 Allergy to other foods; Z91.048 Other nonmedicinal substance allergy status; Z91.040 Latex allergy status; Z91.030 Bee allergy status

== ENCOUNTER 2017-03-21 14:03 | Inpatient (IN) | payer OTHER ==
[~2017-03-21] VITALS: Ht 160 cm; Wt 93.8 kg
[~2017-03-21 14:03] MED LIST changes: -COLA100C5 PO; -IBUP-1114 PO; -OXYC1TAB23 PO; -PRENTAB9 PO
[2017-03-21] MEDS ORDERED: LACTATED RINGER'S 1000 ML IV STA (14:22)
[2017-03-21] MEDS ORDERED: LR 1,000 ML IV SCH (14:22)
[2017-03-21 14:30] VITALS: BP 115/80
[2017-03-21 14:51] LABS: MEAN CORPUSCULAR HEMOGLOBIN 27.2 pg (27.0-33.0); MEAN CORPUSCULAR HGB CONC 32.9 g/dl (32.0-36.5); MEAN CORPUSCULAR VOLUME 82.8 fl (80.0-96.0); RED CELL DISTRIBUTION WIDTH 12.8 % (11.5-14.5); WHITE BLOOD COUNT 10.5 10^3/uL (4.0-10.0)
[2017-03-21] MEDS ORDERED: BICITRA 30ML SOLN UDC As Ordered ONE (14:58)
[2017-03-21] MEDS ORDERED: BETAMETHASONE SOLUSPAN 6MG/ML INJ 5ML (J0702) IM SCH (15:00)
[2017-03-21] MEDS ORDERED: ceFAZolin 2 GM/D5W 50 ML IV BAG (J0690) As Ordered ONE (15:01)
[2017-03-21] MEDS ORDERED: BICITRA 30ML SOLN UDC PO ONE (15:15)
[2017-03-21] MEDS ORDERED: NALOXONE INJ 0.4 MG/1 ML VIAL (J2310) IV PRN ×2 (15:23)
[2017-03-21] MEDS ORDERED: METOCLOPRAMIDE INJ 10MG/2ML VIAL (J2765) IV PRN (15:23)
[2017-03-21] MEDS ORDERED: ONDANSETRON 4MG/2ML VIAL (J2405) IV PRN ×3 (15:23→17:00)
[2017-03-21] MEDS ORDERED: NALBUPHINE HCL 10 MG/ML AMP (J2300) IV PRN (15:23)
[2017-03-21] MEDS ORDERED: KETOROLAC 60 MG/2 ML VIAL (J1885) As Ordered ONE (15:35)
[2017-03-21] MEDS ORDERED: ONDANSETRON 4MG/2ML VIAL (J2405) As Ordered ONE (15:35)
[2017-03-21] MEDS ORDERED: OXYTOCIN INJ 10 UNITS/ML VIAL (J2590) As Ordered ONE (15:35)
[2017-03-21] MEDS ORDERED: MORPHINE PRES-FREE INJ 10 MG/10 ML VIAL (J2274) As Ordered ONE (15:35)
[2017-03-21 15:39] LABS: ALBUMIN 2.3 GM/DL (3.2-5.2); ALBUMIN/GLOBULIN RATIO 0.59 (1.00-1.93); ALKALINE PHOSPHATASE 140 U/L (45-117); ALT/SGPT 29 U/L (12-78); ANION GAP 13 MEQ/L (8-16); AST/SGOT 59 U/L (15-37); BILIRUBIN,TOTAL 0.8 MG/DL (0.2-1.0); BLOOD UREA NITROGEN 6 MG/DL (7-18); CALCIUM LEVEL 8.5 MG/DL (8.5-10.1); CARBON DIOXIDE LEVEL 19 MEQ/L (21-32); CHLORIDE LEVEL 107 MEQ/L (98-107); CREATININE FOR GFR 0.39 MG/DL (0.55-1.02); GLOMERULAR FILTRATION RATE > 60.0 (>60); GLUCOSE, FASTING 86 MG/DL (70-105); MAGNESIUM LEVEL 1.7 MG/DL (1.8-2.4); POTASSIUM SERUM 3.7 MEQ/L (3.5-5.1); SODIUM LEVEL 139 MEQ/L (136-145); TOTAL PROTEIN 6.2 GM/DL (6.4-8.2)
[2017-03-21 16:00] LABS: CORD GAS ABE V -16.7; CORD GAS HCO3 V 17.8 MEQ/L; CORD GAS O2 SAT V 69.8 %; CORD GAS PH V 6.872 UNITS; CORD GAS PO2 V 41.5 mmHg; CORD GAS SBC V 11.4 MEQ/L; CORD GAS TCO2 V 20.8 MEQ/L
[2017-03-21 16:05] LABS: CORD GAS ABE A -14.5; CORD GAS HCO3 A 21.5 MEQ/L; CORD GAS O2 SAT A 32.9 %; CORD GAS PCO2 A 137.3 mmHg; CORD GAS PO2 A 22.5 mmHg; CORD GAS SBC A 12.3 MEQ/L; CORD GAS TCO2 A 25.7 MEQ/L
[2017-03-21 16:06] LABS: CORD GAS PH A 6.813 UNITS
[2017-03-21] MEDS ORDERED: PHENYLephrine HCL 500 MCG/5 ML (100MCG/ML) SYRINGE (J2370) As Ordered ONE (16:31)
[2017-03-21] MEDS ORDERED: GLUCAGON FOR INJ 1 MG VIAL (J1610) SC PRN (16:45)
[2017-03-21] MEDS ORDERED: MEASLES,MUMPS,RUBELLA VACCINE INJ (MMR-II) (90707) SC SCH (16:45)
[2017-03-21] MEDS ORDERED: GLUCOSE 4 GM CHEW TABLET PO PRN (16:45)
[2017-03-21] MEDS ORDERED: PROMETHAZINE 25 MG TAB PO PRN (16:45)
[2017-03-21] MEDS ORDERED: DEXTROSE 50% 50 ML SYRINGE IV PRN (16:45)
[2017-03-21] MEDS ORDERED: RHOGAM 300 MCG (1500 IU) INJ (J2790) IM SCH (16:45)
[2017-03-21] MEDS ORDERED: fentaNYL 100 MCG/2 ML INJECTION (J3010) IV PRN (17:00)
[2017-03-21] MEDS: HumaLOG INSULIN (NovoLOG) PER UNIT SC SCH (17:30)
[2017-03-21 18:10] VITALS: BP 132/80
[2017-03-21] MEDS: LR 1,000 ML IV SCH (18:38)
[2017-03-21 18:40] VITALS: BP 142/80
[2017-03-21 19:40] VITALS: BP 129/81
[2017-03-21] MEDS: DOCUSATE SODIUM 100 MG CAP PO SCH (20:00)
[2017-03-21 20:40] VITALS: BP 143/79
[2017-03-21] MEDS: PERCOCET 5MG/325MG TAB PO PRN (21:25)
[2017-03-21] MEDS: KETOROLAC 30 MG/ML VIAL (J1885) IV SCH (22:44)
[2017-03-22] MEDS: LR 1,000 ML IV SCH (00:35)
[2017-03-22 02:00] VITALS: BP 130/62
[2017-03-22] MEDS: KETOROLAC 30 MG/ML VIAL (J1885) IV SCH ×3 (04:08→16:10)
[2017-03-22 05:53] VITALS: BP 137/69
[2017-03-22 06:55] LABS: MEAN CORPUSCULAR HEMOGLOBIN 27.4 pg (27.0-33.0); MEAN CORPUSCULAR VOLUME 82.9 fl (80.0-96.0); RED CELL DISTRIBUTION WIDTH 12.8 % (11.5-14.5); WHITE BLOOD COUNT 19.2 10^3/uL (4.0-10.0)
[2017-03-22] MEDS: HumaLOG INSULIN (NovoLOG) PER UNIT SC SCH ×3 (07:33→18:35)
[2017-03-22] MEDS ORDERED: OXYC1TAB23 PO (08:48)
[2017-03-22] MEDS ORDERED: INFLUENZA QUADRIVALENT PF VACCINE 0.5ML SYRINGE (90686) IM ONE (09:00)
[2017-03-22] MEDS: DOCUSATE SODIUM 100 MG CAP PO SCH ×2 (09:00→21:00)
[2017-03-22] MEDS: PRENATAL VITAMINS CHEWABLE TABLET PO SCH (09:17)
[2017-03-22] MEDS ORDERED: SLF 3 ML SYR IV PRN (09:30)
[2017-03-22 10:00] VITALS: BP 127/74
[2017-03-22] MEDS: PERCOCET 5MG/325MG TAB PO PRN ×2 (11:31→19:55)
[2017-03-22] MEDS: SLF 3 ML SYR IV SCH ×2 (13:59→22:00)
[2017-03-22 14:00] VITALS: BP 135/75
[2017-03-22 18:00] VITALS: BP 115/56
[2017-03-23] MEDS: PERCOCET 5MG/325MG TAB PO PRN ×2 (01:00→07:58)
[2017-03-23] MEDS: SLF 3 ML SYR IV SCH (06:00)
[2017-03-23 06:30] VITALS: BP 121/61
[2017-03-23] MEDS: IBUPROFEN 800 MG TAB PO SCH ×2 (07:47)
[2017-03-23] MEDS: DOCUSATE SODIUM 100 MG CAP PO SCH (07:48)
[2017-03-23] MEDS: PRENATAL VITAMINS CHEWABLE TABLET PO SCH (07:58)
[2017-03-23] MEDS ORDERED: COLA100C5 PO (08:15)
[2017-03-23] MEDS ORDERED: OXYC1TAB23 PO ×2 (08:16→08:27)
[2017-03-23] MEDS ORDERED: PRENTAB9 PO (08:16)
[2017-03-23] MEDS ORDERED: IBUP-1114 PO (08:16)
[2017-03-23] MEDS ORDERED: INFLUENZA QUADRIVALENT PF VACCINE 0.5ML SYRINGE (90686) IM ONE (11:00)
--- NOTE | 2017-03-28 14:34 | DSES ---
DATE OF ADMISSION: 03/21/2017 DATE OF DISCHARGE: 03/23/2017 DISCHARGE DIAGNOSES: 1. Poorly controlled pregestational diabetes. 2. Primary section for breech presentation, as well as nonreassuring testing. DISCHARGE CONDITION: Stable. HISTORY AND HOSPITAL COURSE: Ms. Salinas is a 26-year-old, 8, para 0, who presented at 32 weeks 4 days estimated gestational age after having antepartum testing with nonreassuring testing, 2 out of 10 biophysiology profile. The patient was being followed closely weekly secondary to growth restriction, poorly controlled pregestational diabetes. She was sent to labor and delivery, in which she had an uncomplicated section productive of a live born female , scores of 2, 5, 6. weight was 4 pounds 0 ounces. Infant was subsequently transferred to [facility] for further treatment. The patient did well postoperatively. By postoperative day #2 had met all discharge criteria and was discharged home in stable condition. Physical examination on the day of discharge: Vital signs are stable. She was afebrile. GENERAL APPEARANCE: Well appearing, no acute distress. ABDOMEN: Appropriately tender. Fundus was firm. The incision was dressed. EXTREMITIES: Negative for calf tenderness. DISCHARGE INSTRUCTIONS: She was instructed to resume her insulin pump regimen. Report severe pain, heavy vaginal bleeding, fever. Followup in 1 week for incision check. Remain on pelvic rest. DISCHARGE MEDICATIONS: - ibuprofen - Percocet
== END 2017-03-23 10:45 | disposition home or self-care (01) | DRG 540 ==
LOC: M LDI 14:03 → M OBS 18:09
PROVIDERS: ADMIT Obstetrics & Gynecology; ATTEND Obstetrics & Gynecology
PROC: 10D00Z1 Extraction of Products of Conception, Low, Open Approach (ICD-10-PCS; principal; 2017-03-21 15:33)
DX: O36.5930 Maternal care for other known or suspected poor fetal growth, third trimester, not applicable or unspecified (principal); O24.12 Pre-existing type 2 diabetes mellitus, in childbirth; E66.9 Obesity, unspecified; O99.214 Obesity complicating childbirth; Z37.0 Single live birth; Z3A.32 32 weeks gestation of pregnancy; Z96.41 Presence of insulin pump (external) (internal); E11.9 Type 2 diabetes mellitus without complications; Z79.4 Long term (current) use of insulin; F32.9 Major depressive disorder, single episode, unspecified; Z79.899 Other long term (current) drug therapy; O32.1XX0 Maternal care for breech presentation, not applicable or unspecified; Z91.19 Patient's noncompliance with other medical treatment and regimen; Z91.040 Latex allergy status; Z91.030 Bee allergy status; Z91.018 Allergy to other foods; Z91.048 Other nonmedicinal substance allergy status; Z87.891 Personal history of nicotine dependence; O36.93X0 Maternal care for fetal problem, unspecified, third trimester, not applicable or unspecified; O99.344 Other mental disorders complicating childbirth

== ENCOUNTER → 2017-03-21 | Outpatient (CLI) | payer OTHER ==
[~2017-03-21] MED LIST changes: +COLA100C5 PO; +IBUP-1114 PO; +OXYC1TAB23 PO; +PRENTAB9 PO
--- NOTE | 2017-03-21 14:20 | REP ---
OB ULTRASOUND: Real-time sonographic evaluation of the gravid uterus is performed utilizing transabdominal technique. There is a single living intrauterine gestation. Estimated gestational age is 32 weeks 4 days, EDC 05/12/2017. Today's measurements indicate appropriate growth. Biometry and Growth: BPD 77 mm = 31 weeks 0 days, 28th percentile HC 281 mm = 30 weeks 6 days, 23rd percentile AC 280 mm = 32 weeks 1 day 42nd percentile FL 56 mm = 29 weeks 3 days, less than 5th percentile HC/AC ratio 1.0 within normal range. Estimated weight 1693 grams 15th percentile. heart rate: 139 beats per minute. position: Breech Placenta: Anterior with no previa or abruption and grade 1. Amniotic fluid: Within normal limits, DORYS 17.4, within normal, range of 8.4 to 24.4. Biophysical profile score is 2/8 with 2 points only for amniotic fluid volume. No points are scored for breathing, movement or tone. Multiple Doppler interrogations were performed throughout the umbilical artery showing reversal of diastolic flow throughout the visualized umbilical artery. This indicates increased resistance of blood flow in the placenta. Signed by Fracisco Ghotra MD 03/22/2017 05:14 P
== END ==
LOC: M SMT 11:16
PROVIDERS: ATTEND Obstetrics & Gynecology
DX: O24.113 Pre-existing type 2 diabetes mellitus, in pregnancy, third trimester (principal)

== ENCOUNTER 2017-05-11 23:42 | Emergency (ER) | payer OTHER ==
[~2017-05-11] VITALS: Ht 160 cm; Wt 82.4 kg
[2017-05-11 23:42] VITALS: BP 139/82
[~2017-05-11 23:42] MED LIST changes: +COLA100C5 PO; +IBUP-1114 PO; +OXYC1TAB23 PO; +PRENTAB9 PO
[2017-05-11] MEDS ORDERED: INSUH10VL SC (23:49)
== END 2017-05-12 01:48 | disposition home or self-care (01) ==
LOC: M ED 23:42
DX: T81.31XS Disruption of external operation (surgical) wound, not elsewhere classified, sequela (principal); O94 Sequelae of complication of pregnancy, childbirth, and the puerperium; E11.9 Type 2 diabetes mellitus without complications; F17.210 Nicotine dependence, cigarettes, uncomplicated; R56.9 Unspecified convulsions; Z79.4 Long term (current) use of insulin; Z91.030 Bee allergy status; Z91.040 Latex allergy status; Z88.0 Allergy status to penicillin; L23.1 Allergic contact dermatitis due to adhesives; Z91.018 Allergy to other foods

== ENCOUNTER 2017-07-31 15:32 | Emergency (ER) | payer OTHER ==
[2017-07-31] MEDS: LIDOCAINE 2% MDV 20 ML VIAL SC (15:59)
== END 2017-07-31 16:36 | disposition home or self-care (01) ==
LOC: M ED 15:32
DX: S61.306A Unspecified open wound of right little finger with damage to nail, initial encounter (principal); X58.XXXA Exposure to other specified factors, initial encounter; Y92.89 Other specified places as the place of occurrence of the external cause; F17.210 Nicotine dependence, cigarettes, uncomplicated; Z79.4 Long term (current) use of insulin; Z91.040 Latex allergy status; Z88.0 Allergy status to penicillin; Z91.048 Other nonmedicinal substance allergy status; Z91.030 Bee allergy status
CPT/HCPCS: 96372

== ENCOUNTER 2017-08-31 21:40 | Emergency (ER) | payer OTHER ==
[2017-08-31] MEDS: IBUPROFEN 600 MG TAB PO (23:13)
== END 2017-08-31 23:14 | disposition home or self-care (01) ==
LOC: M ED 21:40
DX: S80.212A Abrasion, left knee, initial encounter (principal); W22.8XXA Striking against or struck by other objects, initial encounter; Y92.018 Other place in single-family (private) house as the place of occurrence of the external cause; E10.9 Type 1 diabetes mellitus without complications; Z79.4 Long term (current) use of insulin; Z91.018 Allergy to other foods; Z91.030 Bee allergy status; Z91.040 Latex allergy status; Z91.048 Other nonmedicinal substance allergy status; Z88.0 Allergy status to penicillin; F17.210 Nicotine dependence, cigarettes, uncomplicated
CPT/HCPCS: 73564

== ENCOUNTER 2017-09-11 21:07 | Emergency (ER) | payer OTHER ==
[2017-09-11 23:41] LABS: BASO % 0.4 % (0.0-1.0); EOS # 0.2 10^3/uL (0.0-0.50); EOS % 2.1 % (0.0-3.0); HEMATOCRIT 38.3 % (36.0-47.0); HEMOGLOBIN 12.5 g/dl (12.0-16.0); IMMATURE GRANULOCYTE % 0.2 % (0-3.0); LYMPH # 3.2 10^3/uL (1.5-6.5); LYMPH % 30.4 % (24.0-44.0); MEAN CORPUSCULAR HEMOGLOBIN 27.5 pg (27.0-33.0); MEAN CORPUSCULAR HGB CONC 32.6 g/dl (32.0-36.5); MEAN CORPUSCULAR VOLUME 84.4 fl (80.0-96.0); MONO # 0.5 10^3/uL (0.0-0.8); MONO % 4.8 % (0.0-5.0); NEUTROPHILS # 6.5 10^3/uL (1.8-7.7); NEUTROPHILS % 62.1 % (36.0-66.0); PLATELET COUNT, AUTOMATED 359 10^3/uL (150-450); RED BLOOD COUNT 4.54 10^6/uL (4.00-5.40); RED CELL DISTRIBUTION WIDTH 13.2 % (11.5-14.5); WHITE BLOOD COUNT 10.5 10^3/uL (4.0-10.0)
[2017-09-11] MEDS: METOCLOPRAMIDE INJ 10MG/2ML VIAL (J2765) IV (23:50)
[2017-09-11] MEDS: NS 1,000 ML IV (23:50)
[2017-09-11] MEDS: MORPHINE 4 MG/ML 1ML VIAL (J2270) IV (23:50)
[2017-09-11] MEDS ORDERED: GASTROGRAFIN SOLUTION 30ML (Q9963) As Ordered (23:55)
[2017-09-12 00:08] LABS: ALBUMIN 3.6 GM/DL (3.2-5.2); ALBUMIN/GLOBULIN RATIO 1.13 (1.00-1.93); ALKALINE PHOSPHATASE 96 U/L (45-117); ALT/SGPT 21 U/L (12-78); ANION GAP 8 MEQ/L (8-16); AST/SGOT 9 U/L (7-37); BILIRUBIN,TOTAL 0.4 MG/DL (0.2-1.0); BLOOD UREA NITROGEN 17 MG/DL (7-18); CALCIUM LEVEL 9.2 MG/DL (8.5-10.1); CARBON DIOXIDE LEVEL 27 MEQ/L (21-32); CHLORIDE LEVEL 107 MEQ/L (98-107); GLOMERULAR FILTRATION RATE > 60.0 (>60); GLUCOSE, FASTING 257 MG/DL (70-100); LIPASE 50 U/L (73-393); POTASSIUM SERUM 4.2 MEQ/L (3.5-5.1); SODIUM LEVEL 142 MEQ/L (136-145); TOTAL PROTEIN 6.8 GM/DL (6.4-8.2)
[2017-09-12] MEDS: GASTROGRAFIN SOLUTION 30ML PO ×2 (00:10→00:41)
== END 2017-09-12 02:56 | disposition home or self-care (01) ==
LOC: M ED 09-12 02:56
DX: R10.9 Unspecified abdominal pain (principal); K59.00 Constipation, unspecified; E10.9 Type 1 diabetes mellitus without complications; R56.9 Unspecified convulsions; F17.210 Nicotine dependence, cigarettes, uncomplicated; Z79.4 Long term (current) use of insulin; Z79.899 Other long term (current) drug therapy; Z87.19 Personal history of other diseases of the digestive system; Z91.030 Bee allergy status; Z91.040 Latex allergy status; Z88.0 Allergy status to penicillin; Z91.048 Other nonmedicinal substance allergy status; Z91.018 Allergy to other foods
CPT/HCPCS: J2270

== ENCOUNTER 2017-11-11 12:19 | Day surgery (SDC) | payer OTHER ==
[2017-11-11] MEDS: NS 1,000 ML IV (12:45)
[2017-11-11] MEDS ORDERED: PROPOFOL 200 MG/20 ML VIAL As Ordered (13:58)
[2017-11-11] MEDS ORDERED: LIDOCAINE 2% INJ 100 MG/5 ML SDV (FOR ANES.) As Ordered (13:58)
== END 2017-11-11 15:50 | disposition home or self-care (01) ==
LOC: M OPP 12:19
DX: R10.13 Epigastric pain (principal); R11.2 Nausea with vomiting, unspecified; K25.9 Gastric ulcer, unspecified as acute or chronic, without hemorrhage or perforation; K31.84 Gastroparesis; K29.70 Gastritis, unspecified, without bleeding; E10.9 Type 1 diabetes mellitus without complications; M19.90 Unspecified osteoarthritis, unspecified site; G43.909 Migraine, unspecified, not intractable, without status migrainosus; G40.909 Epilepsy, unspecified, not intractable, without status epilepticus; J45.909 Unspecified asthma, uncomplicated; G47.30 Sleep apnea, unspecified; R06.83 Snoring; N18.9 Chronic kidney disease, unspecified; F17.210 Nicotine dependence, cigarettes, uncomplicated; Z91.030 Bee allergy status; Z91.040 Latex allergy status; Z88.0 Allergy status to penicillin; Z91.048 Other nonmedicinal substance allergy status; Z91.018 Allergy to other foods; Z79.899 Other long term (current) drug therapy
CPT/HCPCS: 43239

== ENCOUNTER 2018-01-19 22:30 | Emergency (ER) | payer OTHER ==
[2018-01-19] MEDS: KETOROLAC TROMETHAMINE 10 MG TAB PO (12:55)
== END 2018-01-20 01:05 | disposition home or self-care (01) ==
LOC: M ED 22:30
DX: M25.562 Pain in left knee (principal); E10.9 Type 1 diabetes mellitus without complications; G43.909 Migraine, unspecified, not intractable, without status migrainosus; R56.9 Unspecified convulsions; J45.909 Unspecified asthma, uncomplicated; F20.9 Schizophrenia, unspecified; F41.9 Anxiety disorder, unspecified; F32.9 Major depressive disorder, single episode, unspecified; K31.84 Gastroparesis; Z79.4 Long term (current) use of insulin; Z79.899 Other long term (current) drug therapy; Z88.0 Allergy status to penicillin; Z91.89 Other specified personal risk factors, not elsewhere classified; Z91.040 Latex allergy status; Z91.030 Bee allergy status
CPT/HCPCS: 73564

== ENCOUNTER 2018-02-03 12:02 | Day surgery (SDC) | payer OTHER ==
[2018-02-03] MEDS: NS 1,000 ML IV ×2 (12:26)
[2018-02-03 12:46] LABS: BEDSIDE GLUCOSE 160 MG/DL (70-105)
[2018-02-03] MEDS ORDERED: fentaNYL 100 MCG/2 ML INJECTION (J3010) As Ordered ×2 (12:51)
[2018-02-03] MEDS ORDERED: PROPOFOL 200 MG/20 ML VIAL As Ordered ×2 (12:51)
[2018-02-03] MEDS ORDERED: LIDOCAINE 2% INJ 100 MG/5 ML SDV (FOR ANES.) As Ordered ×2 (12:51)
== END 2018-02-03 13:40 | disposition home or self-care (01) ==
LOC: M OPP 12:02
DX: Z09 Encounter for follow-up examination after completed treatment for conditions other than malignant neoplasm (principal); K25.9 Gastric ulcer, unspecified as acute or chronic, without hemorrhage or perforation; K31.89 Other diseases of stomach and duodenum; J45.909 Unspecified asthma, uncomplicated; F17.210 Nicotine dependence, cigarettes, uncomplicated; R01.1 Cardiac murmur, unspecified; M17.12 Unilateral primary osteoarthritis, left knee; G43.909 Migraine, unspecified, not intractable, without status migrainosus; G40.909 Epilepsy, unspecified, not intractable, without status epilepticus; N18.9 Chronic kidney disease, unspecified; E10.9 Type 1 diabetes mellitus without complications; Z79.4 Long term (current) use of insulin; Z79.899 Other long term (current) drug therapy; Z91.030 Bee allergy status; Z91.040 Latex allergy status; Z91.018 Allergy to other foods; Z91.048 Other nonmedicinal substance allergy status
CPT/HCPCS: 43239

== ENCOUNTER 2018-02-06 13:35 | Inpatient (IN) | payer OTHER ==
[2018-02-06 14:18] LABS: BEDSIDE GLUCOSE 589 MG/DL (70-105)
[2018-02-06] MEDS: ONDANSETRON 4MG/2ML VIAL (J2405) IV (14:37)
[2018-02-06] MEDS: ACETAMINOPHEN 325 MG TAB PO (14:38)
[2018-02-06] MEDS: NS 1,000 ML IV (14:39)
[2018-02-06 14:40] LABS: VENOUS BASE EXCESS -19.1 (-2.0-2.0); VENOUS O2 SATURATION 92.1 % (60.0-80.0); VENOUS PARTIAL PRESSURE O2 76.7 mmHg (30.0-50.0); VENOUS PH 7.112 UNITS (7.330-7.430); VENOUS STANDARD HCO3 10.8 MEQ/L; VENOUS TOTAL CO2 9.9 MEQ/L (24.0-28.0)
[2018-02-06 14:41] LABS: BASO # 0.1 10^3/uL (0.0-0.2); BASO % 0.3 % (0.0-1.0); EOS % 0.1 % (0.0-3.0); HEMATOCRIT 45.5 % (36.0-47.0); HEMOGLOBIN 14.9 g/dl (12.0-15.5); IMMATURE GRANULOCYTE % 0.5 % (0-3.0); LYMPH # 1.6 10^3/uL (1.5-6.5); LYMPH % 9.2 % (24.0-44.0); MEAN CORPUSCULAR HEMOGLOBIN 28.5 pg (27.0-33.0); MEAN CORPUSCULAR HGB CONC 32.7 g/dl (32.0-36.5); MONO # 0.4 10^3/uL (0.0-0.8); MONO % 2.1 % (0.0-5.0); NEUTROPHILS # 15.2 10^3/uL (1.8-7.7); NEUTROPHILS % 87.8 % (36.0-66.0); PLATELET COUNT, AUTOMATED 438 10^3/uL (150-450); RED BLOOD COUNT 5.23 10^6/uL (4.00-5.40); RED CELL DISTRIBUTION WIDTH 12.4 % (11.5-14.5); WHITE BLOOD COUNT 17.3 10^3/uL (4.0-10.0)
[2018-02-06 14:58] LABS: OSMOLALITY SERUM 329 MOSM/KG (275-295)
[2018-02-06 15:03] LABS: ANION GAP 25 MEQ/L (8-16); BLOOD UREA NITROGEN 20 MG/DL (7-18); CALCIUM LEVEL 9.6 MG/DL (8.5-10.1); CARBON DIOXIDE LEVEL 10 MEQ/L (21-32); CHLORIDE LEVEL 97 MEQ/L (98-107); GLOMERULAR FILTRATION RATE > 60.0 (>60); SODIUM LEVEL 132 MEQ/L (136-145)
[2018-02-06 15:09] LABS: ACETONE/KETONE > 46.00 MG/DL (<2.81); GLUCOSE, FASTING 557 MG/DL (70-100)
[2018-02-06] MEDS: HumuLIN R (REGULAR) INSULIN (NovoLIN R) **100U/ML** PER UNIT IV (15:28)
[2018-02-06 15:29] LABS: CONTROL LINE HCG INT CTR LINE PRESENT; HCG, SERUM QUALITATIVE NEGATIVE (NEGATIVE)
[2018-02-06 15:29] LABS: BEDSIDE GLUCOSE 513 MG/DL (70-105)
[2018-02-06] MEDS ORDERED: POTASSIUM CHLORIDE INJ 20 MEQ in NS 1,000 ML IV (15:30)
[2018-02-06] MEDS ORDERED: INSULIN IV RATE CHANGE DOCUMENTATION ML/HR XX (15:45)
[2018-02-06] MEDS: INSULIN HUMAN REGULAR 100 UNITS in NS 99 ML IV ×2 (15:51→17:35)
[2018-02-06 16:09] LABS: KETONE, URINE AUTO RFX 2+ mg/dL (NEGATIVE); LEUKOCYTE ESTERASE UR AUTO RFX NEGATIVE (NEGATIVE); MUCUS, URINE RFX SMALL (NEGATIVE); NITRITE, URINE AUTO RFX NEGATIVE (NEGATIVE); RBC, URINE AUTO RFX 1 /HPF (0-3); SQUAM EPITHELIAL CELL UR AURFX 0 /HPF (0-6); WBC, URINE AUTO RFX 0 /HPF (0-3)
[2018-02-06 16:21] LABS: ESTIMATED AVERAGE GLUCOSE 252 MG/DL (60-110); HEMOGLOBIN A1c 10.4 %
[2018-02-06] MEDS: KCL 20MEQ in NS 1000ML 1,000 ML IV (16:40)
[2018-02-06] MEDS: KETOROLAC 30 MG/ML VIAL (J1885) IV (16:40)
[2018-02-06] MEDS: PROMETHAZINE INJ 25 MG/ML VIAL (J2550) IV (16:40)
[2018-02-06] MEDS ORDERED: NS 1,000 ML IV (16:46)
[2018-02-06 17:08] LABS: BEDSIDE GLUCOSE 270 MG/DL (70-105)
[2018-02-06] MEDS: INSULIN IV RATE CHANGE DOCUMENTATION ML/HR XX ×2 (17:40→17:43)
[2018-02-06] MEDS: PANTOPRAZOLE 40MG INJ (PROTONIX) (C9113) IV (18:00)
[2018-02-06 18:08] LABS: BEDSIDE GLUCOSE 167 MG/DL (70-105)
[2018-02-06] MEDS: D5W/0.45% SODIUM CHLORIDE 1,000 ML IV (18:22)
[2018-02-06 19:12] LABS: BEDSIDE GLUCOSE 137 MG/DL (70-105)
[2018-02-06 19:34] LABS: ANION GAP 19 MEQ/L (8-16); BLOOD UREA NITROGEN 21 MG/DL (7-18); CALCIUM LEVEL 9.1 MG/DL (8.5-10.1); CARBON DIOXIDE LEVEL 14 MEQ/L (21-32); CHLORIDE LEVEL 109 MEQ/L (98-107); CK-MB VALUE MASS < 1.0 NG/ML (<3.6); CPK CREATINE PHOSPHOKINASE 44 U/L (26-192); CREATININE FOR GFR 1.02 MG/DL (0.55-1.30); GLOMERULAR FILTRATION RATE > 60.0 (>60); GLUCOSE, FASTING 156 MG/DL (70-100); MAGNESIUM LEVEL 1.9 MG/DL (1.8-2.4); MB/CK RELATIVE INDEX 2.27 (< OR =4); PHOSPHORUS LEVEL 3.5 MG/DL (2.5-4.9); POTASSIUM SERUM 5.1 MEQ/L (3.5-5.1); SODIUM LEVEL 142 MEQ/L (136-145); TROPONIN I < 0.02 NG/ML (< 0.10)
[2018-02-06 19:46] LABS: ACETONE/KETONE > 46.00 MG/DL (<2.81)
[2018-02-06 20:05] LABS: BEDSIDE GLUCOSE 156 MG/DL (70-105)
[2018-02-06] MEDS: KCL 10MEQ/100ML SWI (KRUN) 10 MEQ in APPROPRIATE DILUENT 1 EA IV (20:23)
[2018-02-06 21:04] LABS: BEDSIDE GLUCOSE 159 MG/DL (70-105)
[2018-02-06 22:03] LABS: BEDSIDE GLUCOSE 155 MG/DL (70-105)
[2018-02-06] MEDS: HEPARIN SOD (PORCINE) 5000 UNITS/ML VIAL SC (22:04)
[2018-02-06 22:50] LABS: BEDSIDE GLUCOSE 162 MG/DL (70-105)
[2018-02-06 23:25] LABS: ANION GAP 15 MEQ/L (8-16); BLOOD UREA NITROGEN 23 MG/DL (7-18); CALCIUM LEVEL 8.4 MG/DL (8.5-10.1); CARBON DIOXIDE LEVEL 16 MEQ/L (21-32); CHLORIDE LEVEL 110 MEQ/L (98-107); CREATININE FOR GFR 0.83 MG/DL (0.55-1.30); GLOMERULAR FILTRATION RATE > 60.0 (>60); GLUCOSE, FASTING 163 MG/DL (70-100); POTASSIUM SERUM 4.7 MEQ/L (3.5-5.1); SODIUM LEVEL 141 MEQ/L (136-145)
[2018-02-07 00:06] LABS: BEDSIDE GLUCOSE 154 MG/DL (70-105)
[2018-02-07 01:06] LABS: BEDSIDE GLUCOSE 172 MG/DL (70-105)
[2018-02-07 02:08] LABS: BEDSIDE GLUCOSE 145 MG/DL (70-105)
[2018-02-07 02:55] LABS: BEDSIDE GLUCOSE 160 MG/DL (70-105)
[2018-02-07 03:12] LABS: BASO # 0.1 10^3/uL (0.0-0.2); BASO % 0.4 % (0.0-1.0); EOS # 0.1 10^3/uL (0.0-0.50); EOS % 0.5 % (0.0-3.0); HEMATOCRIT 40.1 % (36.0-47.0); HEMOGLOBIN 12.6 g/dl (12.0-15.5); IMMATURE GRANULOCYTE % 0.3 % (0-3.0); LYMPH % 29.7 % (24.0-44.0); MEAN CORPUSCULAR HGB CONC 31.4 g/dl (32.0-36.5); MEAN CORPUSCULAR VOLUME 89.1 fl (80.0-96.0); MONO % 7.2 % (0.0-5.0); NEUTROPHILS # 8.3 10^3/uL (1.8-7.7); NEUTROPHILS % 61.9 % (36.0-66.0); PLATELET COUNT, AUTOMATED 329 10^3/uL (150-450); RED CELL DISTRIBUTION WIDTH 12.6 % (11.5-14.5); WHITE BLOOD COUNT 13.4 10^3/uL (4.0-10.0)
[2018-02-07 03:26] LABS: ANION GAP 11 MEQ/L (8-16); BLOOD UREA NITROGEN 21 MG/DL (7-18); CALCIUM LEVEL 8.5 MG/DL (8.5-10.1); CARBON DIOXIDE LEVEL 18 MEQ/L (21-32); CHLORIDE LEVEL 110 MEQ/L (98-107); CPK CREATINE PHOSPHOKINASE 48 U/L (26-192); CREATININE FOR GFR 0.78 MG/DL (0.55-1.30); GLOMERULAR FILTRATION RATE > 60.0 (>60); GLUCOSE, FASTING 169 MG/DL (70-100); SODIUM LEVEL 139 MEQ/L (136-145); TROPONIN I < 0.02 NG/ML (< 0.10)
[2018-02-07 03:27] LABS: CK-MB VALUE MASS < 1.0 NG/ML (<3.6); MB/CK RELATIVE INDEX 2.08 (< OR =4)
[2018-02-07] MEDS: INSULIN HUMAN REGULAR 100 UNITS in NS 99 ML IV (04:00)
[2018-02-07 04:06] LABS: BEDSIDE GLUCOSE 188 MG/DL (70-105)
[2018-02-07] MEDS: D5W/0.45% SODIUM CHLORIDE 1,000 ML IV ×2 (04:23→11:45)
[2018-02-07 05:04] LABS: BEDSIDE GLUCOSE 208 MG/DL (70-105)
[2018-02-07] MEDS: INSULIN IV RATE CHANGE DOCUMENTATION ML/HR XX ×5 (05:06→15:52)
[2018-02-07] MEDS: HEPARIN SOD (PORCINE) 5000 UNITS/ML VIAL SC ×4 (05:16→22:00)
[2018-02-07 06:06] LABS: BEDSIDE GLUCOSE 167 MG/DL (70-105)
[2018-02-07 07:09] LABS: BEDSIDE GLUCOSE 141 MG/DL (70-105)
[2018-02-07 07:48] LABS: BEDSIDE GLUCOSE 120 MG/DL (70-105)
[2018-02-07 08:07] LABS: ANION GAP 10 MEQ/L (8-16); BLOOD UREA NITROGEN 18 MG/DL (7-18); CALCIUM LEVEL 8.8 MG/DL (8.5-10.1); CARBON DIOXIDE LEVEL 20 MEQ/L (21-32); CHLORIDE LEVEL 112 MEQ/L (98-107); CREATININE FOR GFR 0.75 MG/DL (0.55-1.30); GLOMERULAR FILTRATION RATE > 60.0 (>60); GLUCOSE, FASTING 129 MG/DL (70-100); POTASSIUM SERUM 3.5 MEQ/L (3.5-5.1); SODIUM LEVEL 142 MEQ/L (136-145)
[2018-02-07] MEDS ORDERED: GLUCOSE 4 GM CHEW TABLET PO ×2 (09:45→17:15)
[2018-02-07] MEDS ORDERED: GLUCAGON FOR INJ 1 MG VIAL (J1610) SC ×2 (09:45→17:15)
[2018-02-07] MEDS ORDERED: DEXTROSE 50% 50 ML SYRINGE IV ×2 (09:45→17:15)
[2018-02-07] MEDS: GABAPENTIN 300 MG CAP PO ×3 (10:12→21:50)
[2018-02-07 10:18] LABS: BEDSIDE GLUCOSE 283 MG/DL (70-105)
[2018-02-07 11:25] LABS: BEDSIDE GLUCOSE 259 MG/DL (70-105)
[2018-02-07 11:28] LABS: CK-MB VALUE MASS < 1.0 NG/ML (<3.6); CPK CREATINE PHOSPHOKINASE 50 U/L (26-192); TROPONIN I < 0.02 NG/ML (< 0.10)
[2018-02-07 11:39] LABS: ACETONE/KETONE 33.97 MG/DL (<2.81); ANION GAP 14 MEQ/L (8-16); BLOOD UREA NITROGEN 16 MG/DL (7-18); CALCIUM LEVEL 8.4 MG/DL (8.5-10.1); CARBON DIOXIDE LEVEL 18 MEQ/L (21-32); CHLORIDE LEVEL 106 MEQ/L (98-107); CREATININE FOR GFR 0.63 MG/DL (0.55-1.30); GLOMERULAR FILTRATION RATE > 60.0 (>60); GLUCOSE, FASTING 253 MG/DL (70-100); MAGNESIUM LEVEL 1.5 MG/DL (1.8-2.4); PHOSPHORUS LEVEL 2.2 MG/DL (2.5-4.9); POTASSIUM SERUM 3.7 MEQ/L (3.5-5.1); SODIUM LEVEL 138 MEQ/L (136-145)
[2018-02-07 11:44] LABS: BEDSIDE GLUCOSE 224 MG/DL (70-105)
[2018-02-07] MEDS: HumaLOG INSULIN (NovoLOG) PER UNIT SC ×2 (11:46→17:30)
[2018-02-07] MEDS: NEUTRA-PHOS 1.25 GM PACKET PO ×2 (12:08→21:00)
[2018-02-07] MEDS: MAG SULF 1GM/100ML (MAG RUN) 1 GM in APPROPRIATE DILUENT 1 EA IV (12:08)
[2018-02-07 12:17] LABS: BEDSIDE GLUCOSE 189 MG/DL (70-105)
[2018-02-07 13:21] LABS: BEDSIDE GLUCOSE 123 MG/DL (70-105)
[2018-02-07 14:12] LABS: BEDSIDE GLUCOSE 175 MG/DL (70-105)
[2018-02-07 14:27] LABS: ACETONE/KETONE 1.52 MG/DL (<2.81); ANION GAP 6 MEQ/L (8-16); BLOOD UREA NITROGEN 14 MG/DL (7-18); CALCIUM LEVEL 8.4 MG/DL (8.5-10.1); CARBON DIOXIDE LEVEL 25 MEQ/L (21-32); CHLORIDE LEVEL 109 MEQ/L (98-107); CREATININE FOR GFR 0.64 MG/DL (0.55-1.30); GLOMERULAR FILTRATION RATE > 60.0 (>60); GLUCOSE, FASTING 165 MG/DL (70-100); MAGNESIUM LEVEL 2.2 MG/DL (1.8-2.4); POTASSIUM SERUM 3.3 MEQ/L (3.5-5.1); SODIUM LEVEL 140 MEQ/L (136-145)
[2018-02-07 15:52] LABS: BEDSIDE GLUCOSE 249 MG/DL (70-105)
[2018-02-07 17:23] LABS: BEDSIDE GLUCOSE 323 MG/DL (70-105)
[2018-02-07] MEDS: PANTOPRAZOLE 40MG INJ (PROTONIX) (C9113) IV (17:51)
[2018-02-07] MEDS: POTASSIUM CHLORIDE 10 MEQ SR TABLET PO (17:51)
[2018-02-07 18:23] LABS: PHOSPHORUS LEVEL 2.1 MG/DL (2.5-4.9)
[2018-02-07 18:23] LABS: ACETONE/KETONE 11.27 MG/DL (<2.81); MAGNESIUM LEVEL 1.8 MG/DL (1.8-2.4)
[2018-02-07] MEDS: KCL 20MEQ IN 0.45NS 1000ML 1,000 ML IV (18:39)
[2018-02-07 19:36] LABS: BEDSIDE GLUCOSE 217 MG/DL (70-105)
[2018-02-07] MEDS ORDERED: HumaLOG INSULIN (NovoLOG) PER UNIT SC (21:00)
[2018-02-07 21:57] LABS: BEDSIDE GLUCOSE 111 MG/DL (70-105)
[2018-02-07 22:33] LABS: ACETONE/KETONE 2.84 MG/DL (<2.81); ANION GAP 8 MEQ/L (8-16); BLOOD UREA NITROGEN 15 MG/DL (7-18); CALCIUM LEVEL 8.2 MG/DL (8.5-10.1); CARBON DIOXIDE LEVEL 20 MEQ/L (21-32); CHLORIDE LEVEL 113 MEQ/L (98-107); CREATININE FOR GFR 0.54 MG/DL (0.55-1.30); GLOMERULAR FILTRATION RATE > 60.0 (>60); GLUCOSE, FASTING 109 MG/DL (70-100); MAGNESIUM LEVEL 1.6 MG/DL (1.8-2.4); POTASSIUM SERUM 4.4 MEQ/L (3.5-5.1); SODIUM LEVEL 141 MEQ/L (136-145)
[2018-02-07] MEDS: BACLOFEN 10 MG TAB PO (22:56)
[2018-02-08 00:03] LABS: BEDSIDE GLUCOSE 67 MG/DL (70-105)
[2018-02-08] MEDS: MAGNESIUM OXIDE 400 MG TAB (MAG-OX) PO (00:13)
[2018-02-08] MEDS: SODIUM PHOSPHATE INJ 20 MMOL in D5W 250 ML IV (00:13)
[2018-02-08 01:45] LABS: BEDSIDE GLUCOSE 136 MG/DL (70-105)
[2018-02-08 04:39] LABS: BEDSIDE GLUCOSE 235 MG/DL (70-105)
[2018-02-08] MEDS: HEPARIN SOD (PORCINE) 5000 UNITS/ML VIAL SC (05:06)
[2018-02-08 05:24] LABS: BASO % 0.3 % (0.0-1.0); EOS # 0.2 10^3/uL (0.0-0.50); EOS % 1.8 % (0.0-3.0); HEMATOCRIT 32.6 % (36.0-47.0); HEMOGLOBIN 10.8 g/dl (12.0-15.5); IMMATURE GRANULOCYTE % 0.2 % (0-3.0); LYMPH # 3.6 10^3/uL (1.5-6.5); LYMPH % 41.1 % (24.0-44.0); MEAN CORPUSCULAR HEMOGLOBIN 28.3 pg (27.0-33.0); MEAN CORPUSCULAR HGB CONC 33.1 g/dl (32.0-36.5); MEAN CORPUSCULAR VOLUME 85.6 fl (80.0-96.0); MONO # 0.4 10^3/uL (0.0-0.8); MONO % 4.8 % (0.0-5.0); NEUTROPHILS # 4.5 10^3/uL (1.8-7.7); NEUTROPHILS % 51.8 % (36.0-66.0); PLATELET COUNT, AUTOMATED 265 10^3/uL (150-450); RED BLOOD COUNT 3.81 10^6/uL (4.00-5.40); RED CELL DISTRIBUTION WIDTH 12.8 % (11.5-14.5); WHITE BLOOD COUNT 8.7 10^3/uL (4.0-10.0)
[2018-02-08 05:32] LABS: ACETONE/KETONE 10.96 MG/DL (<2.81); ANION GAP 8 MEQ/L (8-16); BLOOD UREA NITROGEN 10 MG/DL (7-18); CALCIUM LEVEL 8.2 MG/DL (8.5-10.1); CARBON DIOXIDE LEVEL 24 MEQ/L (21-32); CHLORIDE LEVEL 111 MEQ/L (98-107); CREATININE FOR GFR 0.48 MG/DL (0.55-1.30); GLOMERULAR FILTRATION RATE > 60.0 (>60); GLUCOSE, FASTING 223 MG/DL (70-100); MAGNESIUM LEVEL 1.8 MG/DL (1.8-2.4); PHOSPHORUS LEVEL 3.8 MG/DL (2.5-4.9); POTASSIUM SERUM 4.4 MEQ/L (3.5-5.1); SODIUM LEVEL 143 MEQ/L (136-145)
[2018-02-08 08:19] LABS: BEDSIDE GLUCOSE 366 MG/DL (70-105)
[2018-02-08] MEDS: GABAPENTIN 300 MG CAP PO (08:19)
[2018-02-08 10:52] LABS: ANION GAP 11 MEQ/L (8-16); BLOOD UREA NITROGEN 8 MG/DL (7-18); CALCIUM LEVEL 8.2 MG/DL (8.5-10.1); CARBON DIOXIDE LEVEL 22 MEQ/L (21-32); CHLORIDE LEVEL 109 MEQ/L (98-107); GLUCOSE, FASTING 317 MG/DL (70-100); POTASSIUM SERUM 4.6 MEQ/L (3.5-5.1); SODIUM LEVEL 142 MEQ/L (136-145)
[2018-02-08 10:55] LABS: ACETONE/KETONE 1.84 MG/DL (<2.81); MAGNESIUM LEVEL 1.6 MG/DL (1.8-2.4)
[2018-02-08 10:55] LABS: PHOSPHORUS LEVEL 2.1 MG/DL (2.5-4.9)
[2018-02-08 11:10] LABS: GLOMERULAR FILTRATION RATE > 60.0 (>60)
[2018-02-08 11:17] LABS: BEDSIDE GLUCOSE 290 MG/DL (70-105)
[2018-02-08] MEDS ORDERED: MAG SULF 1GM/100ML (MAG RUN) 1 GM in APPROPRIATE DILUENT 1 EA IV (13:00)
[2018-02-08] MEDS ORDERED: SODIUM PHOSPHATE INJ 20 MMOL in D5W 250 ML IV (14:00)
== END 2018-02-08 13:22 | disposition home or self-care (01) | DRG 813 ==
LOC: M ED 13:35 → M ED INP 15:36 → M ICU 17:50
DX: T85.614A Breakdown (mechanical) of insulin pump, initial encounter (principal); E10.10 Type 1 diabetes mellitus with ketoacidosis without coma; E83.42 Hypomagnesemia; E83.39 Other disorders of phosphorus metabolism; F17.210 Nicotine dependence, cigarettes, uncomplicated; Z88.0 Allergy status to penicillin; Z91.040 Latex allergy status; Z91.048 Other nonmedicinal substance allergy status; M25.562 Pain in left knee; Z79.4 Long term (current) use of insulin; Z79.899 Other long term (current) drug therapy; T38.3X6A Underdosing of insulin and oral hypoglycemic [antidiabetic] drugs, initial encounter; Z91.128 Patient's intentional underdosing of medication regimen for other reason; Y82.8 Other medical devices associated with adverse incidents

== ENCOUNTER 2018-04-01 03:52 | Emergency (ER) | payer OTHER ==
[2018-04-01] MEDS: CORTISPORIN OTIC SOLN 10 ML BTL AD (05:15)
[2018-04-01] MEDS: CIPROFLOXACIN 500 MG TAB PO (05:18)
[2018-04-01] MEDS: NORCO, ANEXSIA 5/325MG TABLET (HYDROcodone/ACETAMINOPHEN) PO (05:29)
== END 2018-04-01 05:35 | disposition home or self-care (01) ==
LOC: M ED 03:52
DX: H60.501 Unspecified acute noninfective otitis externa, right ear (principal); G43.909 Migraine, unspecified, not intractable, without status migrainosus; R56.9 Unspecified convulsions; J45.909 Unspecified asthma, uncomplicated; F32.9 Major depressive disorder, single episode, unspecified; F17.210 Nicotine dependence, cigarettes, uncomplicated; E10.9 Type 1 diabetes mellitus without complications
CPT/HCPCS: 99283

== ENCOUNTER 2018-04-03 20:34 | Emergency (ER) | payer OTHER ==
[2018-04-03 22:12] LABS: BEDSIDE GLUCOSE 207 MG/DL (70-105)
[2018-04-06 11:19] LABS: BEDSIDE GLUCOSE 119 MG/DL (70-105)
== END 2018-04-03 23:38 | disposition home or self-care (01) ==
LOC: M ED 20:34
DX: E10.649 Type 1 diabetes mellitus with hypoglycemia without coma (principal); G43.909 Migraine, unspecified, not intractable, without status migrainosus; Z91.030 Bee allergy status; Z91.040 Latex allergy status; Z88.0 Allergy status to penicillin; Z91.048 Other nonmedicinal substance allergy status; Z91.018 Allergy to other foods; Z79.899 Other long term (current) drug therapy
CPT/HCPCS: 99284

== ENCOUNTER → 2018-07-19 | Outpatient (CLI) | payer OTHER ==
[~2018-07-19] MED LIST changes: +ADME100I; +BACIOI EXT; +BACL10TA2 PO; +CIPR-249 PO; +DICL75TA PO; +FLUTISP; +GABA-843 PO; +GABA600T4 PO; +IBUP-1022 PO; +KLON0.5T PO; +NAPR-885 PO; +PANT40TA3 PO; +REGL5TAB2 PO; +SUCR1TAB56 PO; +SUMA25TA3; +SUMA5SPR; +TIZA-208 PO; -TRAZ-136 OR; -TRAZ-136 PO; +TRAZ-163 OR; +TRAZ-163 PO; +TRAZ300T2 PO; +VITA50005
--- NOTE | 2018-07-19 14:55 | REP ---
Gastric emptying nuclear scintigraphy: History: Gastroparesis. Nausea with vomiting. Technique: 1.05 mCi of technetium-99m sulfur colloid was ingested in two scrambled eggs and 6 ounces of water and sequential anterior and posterior images are acquired for an 89-minute imaging observation period. Regions of interest are drawn around the stomach to plot gastric emptying. Scintigraphic findings: Expected T1/2 is 90 minutes. 69 % emptying is observed in this patient during the 89-minute imaging observation period, for a calculated T1/2 in this patient of 65 minutes. Impression: Normal gastric emptying. Electronically Signed by Peter Knight MD 07/19/2018 02:46 P
== END ==
LOC: M RAD 12:48
PROVIDERS: ATTEND Internal Medicine Gastroenterology
DX: K31.84 Gastroparesis (principal); R11.2 Nausea with vomiting, unspecified

== ENCOUNTER 2018-07-22 15:59 | Emergency (ER) | payer OTHER ==
[~2018-07-22] VITALS: Ht 160 cm; Wt 90.9 kg
[~2018-07-22 15:59] MED LIST changes: -ADME100I; -FLUTISP; -SUMA25TA3; -VITA50005
[2018-07-22 16:00] VITALS: BP 120/75
[2018-07-22] MEDS ORDERED: SUMA25TA3 (16:19)
[2018-07-22] MEDS ORDERED: ADME100I (16:19)
[2018-07-22] MEDS ORDERED: FLUTISP (16:19)
[2018-07-22] MEDS ORDERED: VITA50005 (16:19)
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
[2018-07-22] MEDS ORDERED: NAPROXEN 250 MG TAB PO ONE (17:15)
== END 2018-07-22 17:29 | disposition home or self-care (01) ==
LOC: M ED 15:59
DX: S80.02XA Contusion of left knee, initial encounter (principal); V49.10XA Passenger injured in collision with unspecified motor vehicles in nontraffic accident, initial encounter; Y92.410 Unspecified street and highway as the place of occurrence of the external cause; Z88.8 Allergy status to other drugs, medicaments and biological substances; Z88.0 Allergy status to penicillin; Z91.048 Other nonmedicinal substance allergy status; Z91.018 Allergy to other foods; Z91.040 Latex allergy status; G43.909 Migraine, unspecified, not intractable, without status migrainosus; R56.9 Unspecified convulsions; J45.909 Unspecified asthma, uncomplicated; R01.1 Cardiac murmur, unspecified; E10.9 Type 1 diabetes mellitus without complications; F32.9 Major depressive disorder, single episode, unspecified; F20.9 Schizophrenia, unspecified; F91.9 Conduct disorder, unspecified; Z79.899 Other long term (current) drug therapy

== ENCOUNTER 2018-09-03 14:06 | Emergency (ER) | payer OTHER ==
[~2018-09-03] VITALS: Ht 160 cm; Wt 90.9 kg
[~2018-09-03 14:06] MED LIST changes: +ADME100I; +FLUTISP; +SUMA25TA3; +VITA50005
[2018-09-03] MEDS ORDERED: PRAZ1CAP (14:19)
[2018-09-03] MEDS ORDERED: VRAY3CAP (14:19)
[2018-09-03] MEDS ORDERED: PROP10TA56 (14:19)
[2018-09-03 16:24] LABS: HEMATOCRIT 38.3 % (36.0-47.0); HEMOGLOBIN 12.6 g/dl (12.0-15.5); MEAN CORPUSCULAR HEMOGLOBIN 28.4 pg (27.0-33.0); MEAN CORPUSCULAR HGB CONC 32.9 g/dl (32.0-36.5); MEAN CORPUSCULAR VOLUME 86.3 fl (80.0-96.0); PLATELET COUNT, AUTOMATED 346 10^3/uL (150-450); RED BLOOD COUNT 4.44 10^6/uL (4.00-5.40); WHITE BLOOD COUNT 10.1 10^3/uL (4.0-10.0)
[2018-09-03 16:50] LABS: BLOOD UREA NITROGEN 8 MG/DL (7-18); CALCIUM LEVEL 8.1 MG/DL (8.5-10.1); CARBON DIOXIDE LEVEL 26 MEQ/L (21-32); CHLORIDE LEVEL 112 MEQ/L (98-107); GLOMERULAR FILTRATION RATE > 60.0 (>60); GLUCOSE, FASTING 175 MG/DL (70-100); POTASSIUM SERUM 4.4 MEQ/L (3.5-5.1); SODIUM LEVEL 143 MEQ/L (136-145)
[2018-09-03 17:13] LABS: HCG, SERUM QUALITATIVE NEGATIVE (NEGATIVE)
[2018-09-03 17:24] VITALS: BP 127/83
== END 2018-09-03 17:33 | disposition home or self-care (01) ==
LOC: M ED 14:06
DX: R11.2 Nausea with vomiting, unspecified (principal); R12 Heartburn; E10.9 Type 1 diabetes mellitus without complications; G43.909 Migraine, unspecified, not intractable, without status migrainosus; J45.909 Unspecified asthma, uncomplicated; K31.84 Gastroparesis; F32.9 Major depressive disorder, single episode, unspecified; F17.200 Nicotine dependence, unspecified, uncomplicated; Z88.0 Allergy status to penicillin; Z88.8 Allergy status to other drugs, medicaments and biological substances; Z91.040 Latex allergy status; Z91.030 Bee allergy status; Z91.018 Allergy to other foods; Z91.048 Other nonmedicinal substance allergy status; Z79.899 Other long term (current) drug therapy

== ENCOUNTER → 2018-09-13 | Outpatient (CLI) | payer OTHER ==
[~2018-09-13] MED LIST changes: +PROP10TA56; +VRAY3CAP
[2018-09-13 13:57] LABS: FREE T4 1.07 NG/DL (0.76-1.46); THYROID STIMULATING HORMONE 1.29 uIU/ML (0.358-3.740)
[2018-09-13 14:25] LABS: HEMOGLOBIN A1c 9.3 %
== END ==
LOC: M SMT 09:02
PROVIDERS: ATTEND Obstetrics & Gynecology
DX: N91.2 Amenorrhea, unspecified (principal)

== ENCOUNTER 2018-09-30 12:36 | Emergency (ER) | payer OTHER ==
[~2018-09-30] VITALS: Ht 160 cm; Wt 90.9 kg
[~2018-09-30 12:36] MED LIST changes: -/ALBU4TAB INH; -ACET50TA PO; +ALBU1TAB2 INH; -ARIP15TAB PO; +ARIP1TAB10 PO; +GLUC1VIA2 IM; -GLUC1VL IM; +HUMA75VL SQ; +MAPA500T17 PO; -TIZA-208 PO; +TIZA4TAB4 PO; +TRAZ1TAB36 PO; -[UNRECOGNIZED DRUG - OTHER] SQ
[2018-09-30] MEDS ORDERED: KLON1TAB (12:51)
[2018-09-30] MEDS ORDERED: PRAZ2CAP (12:51)
[2018-09-30] MEDS ORDERED: LAMO25TA4 (12:51)
[2018-09-30] MEDS ORDERED: DOXY100C PO (13:14)
[2018-09-30] MEDS ORDERED: NAPR-837 PO (13:14)
[2018-09-30] MEDS ORDERED: NAPROXEN 250 MG TAB PO ONE (13:15)
[2018-09-30] MEDS ORDERED: DOXYCYCLINE HYCLATE 100 MG TAB PO ONE (13:15)
[2018-09-30 13:21] VITALS: BP 146/87
== END 2018-09-30 13:25 | disposition home or self-care (01) ==
LOC: M ED 12:36
DX: H66.93 Otitis media, unspecified, bilateral (principal); E10.9 Type 1 diabetes mellitus without complications; G43.909 Migraine, unspecified, not intractable, without status migrainosus; R56.9 Unspecified convulsions; J45.909 Unspecified asthma, uncomplicated; F32.9 Major depressive disorder, single episode, unspecified; F20.9 Schizophrenia, unspecified; Z86.69 Personal history of other diseases of the nervous system and sense organs; Z79.899 Other long term (current) drug therapy; Z88.0 Allergy status to penicillin; Z88.8 Allergy status to other drugs, medicaments and biological substances; Z91.018 Allergy to other foods; Z91.030 Bee allergy status; Z91.048 Other nonmedicinal substance allergy status

== ENCOUNTER → 2018-10-18 | Outpatient (CLI) | payer OTHER ==
[~2018-10-18] MED LIST changes: +DOXY100C PO; +KLON1TAB; +LAMO25TA4; +NAPR-837 PO; +PRAZ2CAP
== END ==
LOC: M SMT 11:44
PROVIDERS: ATTEND Obstetrics & Gynecology
DX: O20.0 Threatened abortion (principal); Z3A.00 Weeks of gestation of pregnancy not specified

== ENCOUNTER → 2018-10-18 | Outpatient (REF) | payer OTHER ==
[2018-10-20 14:26] LABS: HPV HYBRID CAPTURE II Negative (Negative)
== END ==
LOC: M LAB REF 17:46
PROVIDERS: ATTEND Obstetrics & Gynecology
DX: Z11.3 Encounter for screening for infections with a predominantly sexual mode of transmission (principal)

== ENCOUNTER → 2018-10-20 | Outpatient (CLI) | payer OTHER ==
[2018-10-20 14:17] LABS: HEMATOCRIT 40.5 % (36.0-47.0); HEMOGLOBIN 13.1 g/dl (12.0-15.5); MEAN CORPUSCULAR HEMOGLOBIN 28.2 pg (27.0-33.0); MEAN CORPUSCULAR HGB CONC 32.3 g/dl (32.0-36.5); MEAN CORPUSCULAR VOLUME 87.3 fl (80.0-96.0); PLATELET COUNT, AUTOMATED 417 10^3/uL (150-450); RED BLOOD COUNT 4.64 10^6/uL (4.00-5.40)
[2018-10-20 14:24] LABS: ALT/SGPT 20 U/L (12-78); BILIRUBIN,TOTAL 1.1 MG/DL (0.2-1.0); BLOOD UREA NITROGEN 12 MG/DL (7-18); CARBON DIOXIDE LEVEL 28 MEQ/L (21-32); CHLORIDE LEVEL 106 MEQ/L (98-107); CREATININE FOR GFR 0.64 MG/DL (0.55-1.30); GLOMERULAR FILTRATION RATE > 60.0 (>60); GLUCOSE, FASTING 49 MG/DL (70-100); HCG, SERUM QUANTITATIVE 41 MIU/ML; POTASSIUM SERUM 4.7 MEQ/L (3.5-5.1); SODIUM LEVEL 141 MEQ/L (136-145); TOTAL PROTEIN 7.1 GM/DL (6.4-8.2)
== END ==
LOC: M SMT 10:13
PROVIDERS: ATTEND Obstetrics & Gynecology
DX: O20.0 Threatened abortion (principal); Z3A.00 Weeks of gestation of pregnancy not specified

== ENCOUNTER 2018-11-03 20:25 | Emergency (ER) | payer OTHER ==
[~2018-11-03] VITALS: Ht 160 cm; Wt 95.0 kg
[2018-11-03] MEDS ORDERED: CYCL10TA PO (22:10)
[2018-11-03] MEDS ORDERED: NAPR-837 PO (22:10)
[2018-11-03] MEDS ORDERED: NAPROXEN 250 MG TAB PO ONE (22:15)
[2018-11-03 22:27] VITALS: BP 119/71
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
== END 2018-11-03 22:27 | disposition home or self-care (01) ==
LOC: M ED 20:25
DX: S80.12XA Contusion of left lower leg, initial encounter (principal); V03.10XA Pedestrian on foot injured in collision with car, pick-up truck or van in traffic accident, initial encounter; Y92.410 Unspecified street and highway as the place of occurrence of the external cause; Y93.9 Activity, unspecified; Y99.9 Unspecified external cause status; E10.9 Type 1 diabetes mellitus without complications; I10 Essential (primary) hypertension; Z79.1 Long term (current) use of non-steroidal anti-inflammatories (NSAID); Z79.4 Long term (current) use of insulin; Z79.891 Long term (current) use of opiate analgesic; Z79.899 Other long term (current) drug therapy; Z88.0 Allergy status to penicillin; Z88.2 Allergy status to sulfonamides; Z88.8 Allergy status to other drugs, medicaments and biological substances; Z91.018 Allergy to other foods; Z91.030 Bee allergy status; Z91.048 Other nonmedicinal substance allergy status

== ENCOUNTER 2018-11-24 20:39 | Emergency (ER) | payer OTHER ==
[~2018-11-24] VITALS: Ht 160 cm; Wt 94.1 kg
[~2018-11-24 20:39] MED LIST changes: +CYCL10TA PO; +TRAZ1TAB10 PO; -TRAZO50TA PO
[2018-11-24] MEDS ORDERED: NS 1,000 ML IV ONE (21:15)
[2018-11-24] MEDS ORDERED: METOCLOPRAMIDE INJ 10MG/2ML VIAL (J2765) IV ONE (21:15)
[2018-11-24] MEDS ORDERED: KETOROLAC 30 MG/ML VIAL (J1885) IV ONE (21:45)
[2018-11-24] MEDS ORDERED: diphenhydrAMINE INJ 50MG/ML VIAL (J1200) IV ONE (21:45)
[2018-11-24 23:05] VITALS: BP 122/67
== END 2018-11-24 23:11 | disposition home or self-care (01) ==
LOC: M ED 20:39
DX: G43.909 Migraine, unspecified, not intractable, without status migrainosus (principal); E10.9 Type 1 diabetes mellitus without complications; Z79.4 Long term (current) use of insulin; Z79.899 Other long term (current) drug therapy; Z88.0 Allergy status to penicillin; Z88.8 Allergy status to other drugs, medicaments and biological substances; Z91.018 Allergy to other foods; Z91.030 Bee allergy status; Z91.048 Other nonmedicinal substance allergy status; Z96.41 Presence of insulin pump (external) (internal)
CPT/HCPCS: 84702; 96361; 96374; 96375; 99284; J1200; J1885; J2765

== ENCOUNTER 2018-12-31 23:29 | Emergency (ER) | payer OTHER ==
[~2018-12-31] VITALS: Ht 160 cm; Wt 90.9 kg
[~2018-12-31 23:29] MED LIST changes: -ARIP1TAB3 OR; +ARIP1TAB44 OR; -DIPH25CA PO; +DIPH25CA32 PO; -TRAZ-163 OR; -TRAZ-163 PO; +TRAZ-257 OR; +TRAZ-257 PO
[2018-12-31] MEDS ORDERED: MELO7.5T35 (23:40)
[2018-12-31] MEDS ORDERED: TRAZ1TAB14 (23:40)
[2018-12-31] MEDS ORDERED: XULA1DIS (23:40)
[2019-01-01] MEDS ORDERED: NEUR300C PO (01:12)
[2019-01-01] MEDS ORDERED: GABAPENTIN 300 MG CAP PO ONE (01:15)
[2019-01-01 01:20] VITALS: BP 120/71
[2019-03-12] MEDS ORDERED: LORA1TAB4 (09:46)
== END 2019-01-01 01:24 | disposition home or self-care (01) ==
LOC: M ED 23:29
DX: R20.2 Paresthesia of skin (principal); M79.89 Other specified soft tissue disorders; E11.9 Type 2 diabetes mellitus without complications; G43.909 Migraine, unspecified, not intractable, without status migrainosus; K31.84 Gastroparesis; Z72.0 Tobacco use; Z79.4 Long term (current) use of insulin; Z79.899 Other long term (current) drug therapy; Z88.0 Allergy status to penicillin; Z88.8 Allergy status to other drugs, medicaments and biological substances; Z91.030 Bee allergy status; Z91.018 Allergy to other foods; Z91.89 Other specified personal risk factors, not elsewhere classified

== ENCOUNTER 2019-01-06 17:30 | Emergency (ER) | payer OTHER ==
[~2019-01-06] VITALS: Ht 160 cm; Wt 90.1 kg
[~2019-01-06 17:30] MED LIST changes: +ARIP1TAB3 OR; -ARIP1TAB44 OR; +DIPH25CA PO; -DIPH25CA32 PO; +MELO7.5T35; +NEUR300C PO; +TRAZ-163 OR; +TRAZ-163 PO; -TRAZ-257 OR; -TRAZ-257 PO; +TRAZ1TAB14; +XULA1DIS
[2019-01-06] MEDS ORDERED: ALBUTEROL SULFATE 2.5 MG/0.5 ML INH NEB SOLN INH ONE (17:45)
[2019-01-06] MEDS ORDERED: dexameTHASONE 20 MG/5 ML VIAL (J1100) IV ONE (17:45)
[2019-01-06 19:45] VITALS: BP 111/63
[2019-01-06] MEDS ORDERED: EPIP0.3I2 IM (20:03)
[2019-01-06] MEDS ORDERED: PRED20TA PO (20:03)
== END 2019-01-06 20:10 | disposition home or self-care (01) ==
LOC: M ED 17:30 → EDBD 17:30 → M ED 20:10
DX: T78.40XA Allergy, unspecified, initial encounter (principal); Y92.9 Unspecified place or not applicable; Y93.89 Activity, other specified; E10.649 Type 1 diabetes mellitus with hypoglycemia without coma; Z72.0 Tobacco use; Z79.4 Long term (current) use of insulin; Z79.899 Other long term (current) drug therapy; Z88.0 Allergy status to penicillin; Z88.8 Allergy status to other drugs, medicaments and biological substances; Z91.030 Bee allergy status; Z91.018 Allergy to other foods; Z91.89 Other specified personal risk factors, not elsewhere classified
CPT/HCPCS: 93041; 94640; 94760; 96374; 99285; J1100

== ENCOUNTER → 2019-03-02 | Outpatient (CLI) | payer OTHER ==
[~2019-03-02] MED LIST changes: +ACET-908 PO; +ARIP1TAB; -ARIP1TAB3 OR; +ARIP1TAB44 OR; -DIPH25CA PO; +DIPH25CA32 PO; +EPIP0.3I2 IM; +LORA1TAB12; +PRED20TA PO
--- NOTE | 2019-03-16 02:16 | ECWPNPC ---
PATIENT NAME: BEBETO SALVADOR : 1990 GENDER: FEMALE VISIT DATE: 03/02/2019 DISCHARGE DATE: 03/02/19 1638 VISIT LOCKED DATE TIME: PHYSICIAN: OSIRIS LAWRENCE MD RESOURCE: OSIRIS LAWRENCE MD REASON FOR APPOINTMENT 1. [facility]/CHRONIC KNEE PAILEFT HISTORY OF PRESENT ILLNESS NEW PATIENT CONSULT: WHEN DID YOUR PAIN FIRST START? . BRIEFLY DESCRIBE HOW YOUR PAIN STARTED? . HOW DOES YOUR PAIN CHANGE WITH TIME? . DOES YOUR PAIN AWAKEN YOU FROM SLEEP? . HOW MANY HOURS OF SLEEP DO YOU NORMALLY GET? . ANY DIAGNOSTIC TESTING? . FACILITY WHERE TESTS WERE DONE? ____. PAIN TREATMENT TREATMENT YES CANCER HAVE YOU EVER HAD ANY TYPE OF CANCER?NO NO. 28 YEAR OLD FEMALE PATIENT WITH A HISTORY OF CHRONIC LEFT KNEE PAIN. THE PATIENT DESCRIBES THE PAIN TENDER, STABBING, SHOOTING, AND CONTINUOUS WITH A PAIN SCORE OF 8-10/10 DEPENDING ON PHYSICAL ACTIVITY. THE PATIENT STATES SHE HAS BEEN SUFFERING FROM LEFT KNEE PAIN FOR AROUND 10 YEARS, FROM RUNNING IN HIGH SCHOOL. THE PATIENT SAYS SHE HAS TRIED PHYSICAL THERAPY, HEAT AND COLD THERAPY, AND TOPICAL PAIN RELIEVERS, BUT THE PAIN STILL PERSISTS. THE PATIENT STATES THE KNEE PAIN IS AFFECTING HER ABILITY TO PERFORM HER DAILY ACTIVITIES SUCH WALKING, CLEANING, AND GROCERY SHOPPING. THE PATIENT SAYS SHE PUTS THE MAJORITY OF HER BODY WEIGHT ON HER RIGHT LEG. THE PATIENT SAYS HER ORTHOPEDIC REFERRED HER TO OUR CLINIC TO DISCUSS PAIN RELIEF OPTIONS. PATIENT DENIES UNEXPLAINABLE WEIGHT LOSS, FEVER, CHILLS, NEW CHANGES ON HER URINARY OR BOWEL CONTROL. PAIN SCREENING: PATIENT HAS A COMPLAINT OF ACUTE OR CHRONIC PAIN :YES FALL RISK SCREENING: SCREENING : NO FALLS IN THE PAST YEAR. GARCIA INVENTORY: QUESTIONNAIRE ASSESSEDTBD SCORE VALUE CALCULATED TBD CURRENT MEDICATIONS TAKING PRAZOSIN HCL 2 MG CAPSULE 1 CAPSULE AT BEDTIME ORALLY ONCE A DAY TAKING EPIPEN 2-JANETTE 0.3 MG/0.3ML SOLUTION AUTO-INJECTOR DIRECTED INJECTION ALLERGIC REACTION TO STRAWBERRIES AND BEES TAKING MAY HAVE - - EPIPEN 0.3 INTRADERMALLY NEEDED FOR ALLERGY TAKING TRAZODONE HCL 150 MG TABLET 1 TAB ORALLY ONCE A DAY TAKING IMITREX 25 MG TABLET 1 TABLET NEEDED ORALLY MAY REPEAT DOSE X1 AFTER 2HR TAKING PROPRANOLOL HCL 10 MG TABLET 1 TABLET ON AN EMPTY STOMACH ORALLY ONCE A DAY TAKING ADMELOG 100 UNIT/ML SOLUTION PER PUMP REGIMEN SUBCUTANEOUS DAILY MAX 60 UNITS TAKING BD PEN NEEDLE GARDENIA 2ND GEN 32G X 4 MM MISCELLANEOUS DIRECTED SUBCUTANEOUSLY FOUR TIMES DAILY TAKING GLUCOMETER DIRECTED DX:E11.9 DAILY TAKING BLOOD GLUCOSE TEST STRIP - STRIP DIRECTED SUBCUTANEOUSLY FOUR TIMES DAILY TAKING LANCETS - MISCELLANEOUS DX:E11.9 SUBCUTANEOUSLY FOUR TIMES DAILY TAKING ABILIFY 10 MG TABLET 1 TABLET ORALLY ONCE A DAY TAKING LAMICTAL 25 MG TABLET 2 TABLETS ORALLY ONCE A DAY TAKING ATIVAN 2 MG TABLET 1 TABLET AT BEDTIME NEEDED ORALLY ONCE A DAY NOT-TAKING FLONASE ALLERGY RELIEF 50 MCG/ACT SUSPENSION 1 SPRAY IN EACH NOSTRIL NASALLY ONCE A DAY NOT-TAKING SALINE NASAL SPRAY 0.65 % SOLUTION 2 SPRAYS IN EACH NOSTRIL NEEDED NASALLY EVERY 2 HRS NOT-TAKING GABAPENTIN 800 MG TABLET 1 TABLET ORALLY TID NOT-TAKING BACLOFEN 10 MG TABLET 2 TABLET WITH FOOD OR MILK ORALLY BID NOT-TAKING KLONOPIN 1 MG TABLET 2 TABLET ORALLY BID NOT-TAKING NAPROXEN 500 MG TABLET 1 TABLET WITH FOOD OR MILK NEEDED ORALLY EVERY 12 HRS NOT-TAKING DECADRON 4 MG TABLET 1 TABLET ORALLY ONCE A DAY MEDICATION LIST REVIEWED AND RECONCILED WITH THE PATIENT PAST MEDICAL HISTORY PTSD MIGRAINE PERSONALITY DISORDER TYPE 1 DM -2000 (11YEARS OLD) PUMP SINCE 2014 F/U WITH [facility] RHINITIS ASTHMA MILD INTERMITTENT CHRONIC MIGRAINE GASTROPARESIS NICOTINE USE DISORDER SEIZURE DISORDER ALLERGIES STRAWBERRY (DIAGNOSTIC): ANAPHYLAXIS - ALLERGY LATEX GLOVES: HIVES - ALLERGY ADHESIVE BANDAGES: HIVES - ALLERGY PCN: TOLD IN CHILDHOOD - ALLERGY ARTIFICAL CINNAMON: TONGUE GOES NUMB - ALLERGY BEE STING: ANAPHALAXIS SURGICAL HISTORY TONSILLECTOMY LAPROSCOPIC REMOVAL OF ECTOPIC FAMILY HISTORY FATHER: , MURDER MOTHER: ALIVE, MENTAL HEALTH ISSUES HX MURMUR SIBLINGS: ALIVE PATERNAL GRAND FATHER: , GASTRIC ULCER PATERNAL GRAND MOTHER: , DM TYPE 1 MATERNAL GRAND FATHER: UNKNOWN MATERNAL GRAND MOTHER: , MURMUR, MENTAL HEALTH ISSUES 1 BROTHER(S) , 1 SISTER(S) . 1 SISTER PARKINSONS. SOCIAL HISTORY GENERAL: TOBACCO USE ARE YOU A:CURRENT SMOKER ARE YOU INTERESTED IN QUITTING?NOT READY TO QUIT COUNSELED THE PATIENT ON SMOKING EFFECTS, EDUCATION TXLYBARO15/01/2019 HOW MANY CIGARETTES A DAY DO YOU SMOKE?5 OR LESS HOW SOON AFTER YOU WAKE UP DO YOU SMOKE YOUR FIRST CIGARETTE?6-30 MIN HOW OFTEN DO YOU SMOKE CIGARETTES?EVERY DAY PATIENT COUNSELED ON THE DANGERS OF TOBACCO USE AND URGED TO QUIT:07/28/2018 SMOKING CESSATION INFORMATION GIVEN07/28/2018 HIV / HEP-C SCREENING HIV TEST OFFERED TO PATIENT:YES DATE OFFERED:05/26/2018 TEST ACCEPTED:NO HEP-C TEST OFFERED TO PATIENT:YES DATE OFFERED:05/26/2018 REASON:PATIENT DECLINED TEST ACCEPTED:NO REASON:PATIENT DECLINED BROCHURE PROVIDED TO PATIENTYES HOUSING: RENTS APARTMENT. EDUCATION LEVEL OF EDUCATION:FINISHED HIGH SCHOOL DIET: REGULAR. LANGUAGE LANGUAGES SPOKEN:[place]AR[place] DOMESTIC VIOLENCE STATUS: DO YOU FEEL SAFE IN YOUR ENVIRONMENT?YES RECREATIONAL DRUG USE DRUG USE?NO EXERCISE: NO REGULAR EXERCISE. PATIENT: ____. LEARNING BARRIERS / SPECIAL NEEDS CHANGE FROM LAST VISIT?NO BARRIERS TO LEARNING?NO HEARING IMPAIRED?NO VISION IMPAIRED?YES COGNITIVELY IMPAIRED?NO :CORRECTIVE LENSES READINESS TO LEARN?YES LEARNING PREFERENCES?NO LEARNING CAPABILITIES PRESENT?YES EMOTIONAL BARRIERS?NO SPECIAL DEVICES?NO FERRY HAND NEEDED?NO PAIN CLINIC PFS, CLERGY, PUBLIC HEALTH REFERRALS CLERGY REFERRAL NEEDED?NO WAS THE PROVIDER NOTIFIED OF ANY PERTINENT INFO?NO PFS REFERRAL NEEDED?NO PUBLIC HEALTH REFERRAL NEEDED?NO LATEX QUESTIONNAIRE LATEX ALLERGY : HAVE YOU EVER DEVELOPED ANY TYPE OF REACTION AFTER HANDLING LATEX PRODUCTS SUCH RUBBER GLOVES, CONDOMS, DIAPHRAGMS, BALLOONS, SOCKS, OR UNDERWEAR?NO LATEX ALLERGY : HAVE YOU EVER DEVELOPED ANY TYPE OF REACTION DURING OR AFTER DENTAL APPOINTMENT, VAGINAL/RECTAL EXAMINATION, SURGICAL PROCEDURE, OR ANY OTHER EXPOSURE?NO DATE ASKED : 11/06/2018 LATEX RISK : HAVE YOU EVER HAD ANY DIFFICULTY BREATHING OR HIVES AFTER EATING OR HANDLING ANY FRUITS, OR VEGETABLES; SUCH KIWI, BANANAS, STONE FRUITS, OR CHESTNUTSNO LATEX RISK : DO YOU HAVE A PREVIOUS PERSONAL HISTORY OF MORE THAN NINE SURGERIES, SPINA BIFIDA, OR REPEATED CATHERIZATIONS? NO LATEX RISK : ARE YOU FREQUENTLY EXPOSED TO LATEX PRODUCTS IN YOUR OCCUPATION?NO CAFFEINE CAFFEINE USE?YES HOW OFTEN AND HOW MUCH? SODA AND ENERGY DRINKS-SHE REPORTS THAT SHE IS DEPENDENT ON THEM FAITH FAITH NO ISLAM BELIEFS THAT WOULD IMPACT HEALTH CARE. MARITAL STATUS: , 1 CHILD WHO IS DSS CUSTODY. ALCOHOL SCREENING DID YOU HAVE A DRINK CONTAINING ALCOHOL IN THE PAST YEAR?YES HOW OFTEN DID YOU HAVE SIX OR MORE DRINKS ON ONE OCCASION IN THE PAST YEAR?NEVER (0 POINTS) HOW MANY DRINKS DID YOU HAVE ON A TYPICAL DAY WHEN YOU WERE DRINKING IN THE PAST YEAR?1 OR 2 (0 POINTS) HOW OFTEN DID YOU HAVE A DRINK CONTAINING ALCOHOL IN THE PAST YEAR?MONTHLY OR LESS (1 POINT) POINTS1 INTERPRETATIONNEGATIVE OCCUPATION: UNEMPLOYEED, DISABLED (NO SSI). SEXUAL HX HAD SEX IN THE LAST 12 MONTHS (VAGINAL, ORAL, OR ANAL)?YES WITHMEN ONLY HAVE YOU EVER HAD AN STD?YES OTHER?YES HOSPITALIZATION/MAJOR DIAGNOSTIC PROCEDURE DIABITIC ISSUES PER PATIENT 02/2018 REVIEW OF SYSTEMS REVIEWED BY: PROVIDER: OSIRIS LAWRENCE MD . CONSTITUTIONAL: ANY CHANGE IN YOUR MEDICAL CONDITION? NO . CHILLS NO . FEVER NO . INFECTION: DO YOU HAVE NEW INFECTIONS? NO . DO YOU HAVE HISTORY OF MRSA? NO . MUSCULOSKELETAL: ANY NEW PATTERNS OF PAIN OR NUMBNESS? INCREASED KNEE PAIN . SYTEMIC LUPUS NO . GASTROENTEROLOGY: ANY NEW CHANGE IN BOWEL CONTROL? NO . BARRETTS ESOPHAGUS NO . CIRRHOSIS NO . HEPATITIS NO . LIVER FAILURE NO . ACID REFLUX NO . UNEXPLAINED WEIGHT LOSS NO . GENITOURINARY: ANY NEW CHANGE IN BLADDER CONTROL? NO . IS THERE A CHANCE YOU COULD BE ? NO . HEMATOLOGY/LYMPH: DO YOU TAKE ANY BLOOD THINNERS? (FOR EXAMPLE- COUMADIN, PLAVIX, AGGRENOX, PLATEL, PRADAXA, OR XARELTO) NO . WHEN WAS YOUR LAST DOSE? DATE: TIME: . LOW PLATELET COUNT NO . SICKLE CELL DISEASE NO . VON WILLIEBRANDS NO . FACTOR V LEIDEN NO . THALLASEMIA NO . ANEMIA NO . EASY BRUISING NO . NEUROLOGY: HAVE YOU FALLEN IN THE PAST 12 MONTHS? PT STATES FELL OFF BED FROM SEIZURE, DOES NOT SEE A NEUROLOGIST . ANY NEW EXTREMITY NUMBNESS OR WEAKNESS? NO . HEAD INJURY NO . DEMENTIA NO . CEREBRAL PALSY NO . MULTIPLE SCLEROSIS NO . DIZZINESS NO . HEADACHE NO . STROKES NO . VERTIGO NO . CARDIOLOGY: DO YOU HAVE A PACEMAKER OR DEFIBRILLATOR? NO . ANGINA NO . HEART ATTACK NO . HEART SURGERY NO . CONGESTIVE HEART FAILURE/FLUID OVERLOAD NO . CHEST PAIN NO . HIGH BLOOD PRESSURE NO . IRREGULAR HEART BEAT NO . RESPIRATORY: HAVE YOU BEEN SICK IN THE PAST WEEK? NO . FEVER NO . FLU LIKE SYMPTOMS? NO . CPAP NO . BYPAP NO . ASTHMA NO . EMPHYSEMA NO . CHRONIC LUNG DISEASES NO . SHORTNESS OF BREATH ON EXERTION NO . DO YOU USE ANY TYPE OF TOBACCO (SMOKE, SMOKELESS, CHEW)? NO . COUGH NO . SNORING NO . INTEGUMENTARY: DO YOU HAVE ANY RASHES OR OPEN SORES? NO . ALLERGIC/IMMUNO: ARE YOU ALLERGIC TO IV DYE? NO . ANY NEW ALLERGIES? NO . PSYCHIATRIC: DO YOU HAVE THOUGHTS OF HURTING YOURSELF OR SOMEONE ELSE? NO . ARE YOU ABUSED, NEGLECTED, OR IN AN UNSAFE ENVIRONMENT? NO . ENDOCRINOLOGY: ARE YOU DIABETIC? YES INSULIN PUMP . THYROID DISORDER NO . OTHER: DO YOU NEED ANY PRESCRIPTIONS? NO . IF YES, PLEASE LIST: ____ . ANY NEW PROBLEMS WITH YOUR MEDICATIONS? NO . WHEN DID YOU LAST EAT? ____ . WHEN DID YOU LAST DRINK? ____ . WHAT DID YOU LAST DRINK? ____ . NAME OF PERSON DRIVING YOU HOME? ____ . DO YOU HAVE ANY OTHER QUESTIONS OR CONCERNS NO . VITAL SIGNS WT 203 LBS, HT 63 IN, BMI 35.96 INDEX, BP 113/64 MM HG, HR 75 /MIN, RR 18 /MIN, TEMP 98.1 F, OXYGEN SAT % 99%, SAFE IN ENV? (Y/N) YES, NA INITIALS SC 14:35, REVIEWED BY: SHANI. EXAMINATION GENERAL EXAMINATION: PATIENT IS ALERT O X 3 AND COOPERATIVE. LUNGS CLEAR, TO AUSCULTATION. HEART: NO MURMURS OR GALLOPS; FACIAL CRANIAL NERVES ARE GROSSLY NORMAL. GOOD SYMMETRY OF FACIAL MUSCLE MOVEMENT. NORMAL VISUAL LINO. ANTALGIC WALK. PATIENT IS LIMPING ON THE LEFT LEG. LEFT LEG IS WEAKER AT EXTENSION AND FLEXION. HYPERPATHIA OVER THE LATERAL AND MEDIAL PATELLA AREAS AND THE INTERIOR ASPECT OF THE LEFT KNEE. MRI OF THE LEFT KNEE DONE ON 11/22/2017 SHOWS SOME MENISCUS TEARS AND CHONDROMALACIA. 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 SALVADOR' PAIN MANAGEMENT CASE. I DISCUSSED WITH THE PATIENT THAT WE WILL TRY A TOPICAL PRODUCT FIRST BEFORE PROCEEDING WITH OTHER INTERVENTIONS. I WILL START THE PATIENT ON VOLTAREN GEL TO AID WITH HER LEFT KNEE PAIN. I ADVISED THE PATIENT THAT SHOULD THE VOLTAREN GEL DOES NOT HELP, WE WILL TRY FLECTOR PATCHES NEXT. I WILL LIKE TO DISCUSS WITH DR. ADEN NEXT WEEK ABOUT THE PATIENT'S CURRENT KNEE BRACE THAT SHE IS SAYING IS NOT WORKING FOR HER IT IS TOO TIGHT. THE PATIENT WILL FOLLOW UP WITH THE NURSE PRACTITIONER IN 2 WEEKS. INSTRUCTIONS WERE GIVEN, QUESTIONS WERE ANSWERED, PATIENT REPORTS UNDERSTANDING AND AGREES WITH THE PLAN. I, KWAKU GAITAN, DOCUMENTED THE ABOVE INFORMATION ACTING A SCRIBE FOR DR. LAWRENCE. I HAVE REVIEWED THE ABOVE DOCUMENT, WRITTEN BY KWAKU WELDON AND I VERIFY THAT IT IS ACCURATE. DEAR MARCEL ADEN MD: THANK YOU FOR YOUR KIND REFERRAL OF BEBETO SALVADOR. IF YOU WANT TO DISCUSS HER CASE WITH ME PLEASE CALL ME AT THE PAIN CENTER AT [phone]. SINCERELY, OSIRIS LAWRENCE MD PAIN MEDICINE . OTHERS START VOLTAREN GEL, 1 %, 1 TO 2 STRIP, TRANSDERMAL NEEDED, OVER LEFT KNEE TID, 30 DAYS, 1, REFILLS 1 PREVENTIVE MEDICINE PAIN CLINIC TEACHING: MEDICATIONS VOLTAREN GEL INFORMATION GIVEN TO PT. LEANDRA GOULD. PROCEDURE CODES FA211 ESTABILISHED PATIENT [facility] CHARGE G8427 CURRENT MEDS W/DOSAGES DOCUMENTED G8730 PAIN ASSESS POS TOOL F/U PLAN DOC DISPOSITION & COMMUNICATION FOLLOW UP 2 WEEKS (REASON: W/ OPERATIONS MANAGEMENT TRAINEE) ELECTRONICALLY SIGNED BY OSIRIS LAWRENCE MD, MD ON 03/15/2019 AT 02:12 PM EDT DISCLAIMER : THIS IS A VISIT SUMMARY EXTRACTED FROM THE [employer] CHART. IT IS NOT A COPY OF THE [employer] PROGRESS NOTE. MTDD
== END ==
LOC: M PAIN 14:45
PROVIDERS: ATTEND Anesthesiology
DX: G89.29 Other chronic pain (principal); M25.562 Pain in left knee; M94.20 Chondromalacia, unspecified site; M79.2 Neuralgia and neuritis, unspecified; M17.12 Unilateral primary osteoarthritis, left knee; F43.10 Post-traumatic stress disorder, unspecified; G43.709 Chronic migraine without aura, not intractable, without status migrainosus; F60.9 Personality disorder, unspecified; E10.43 Type 1 diabetes mellitus with diabetic autonomic (poly)neuropathy; J30.9 Allergic rhinitis, unspecified; J45.20 Mild intermittent asthma, uncomplicated; K31.84 Gastroparesis; F17.210 Nicotine dependence, cigarettes, uncomplicated; G40.909 Epilepsy, unspecified, not intractable, without status epilepticus; Z79.899 Other long term (current) drug therapy; Z91.018 Allergy to other foods; Z91.040 Latex allergy status; Z88.0 Allergy status to penicillin; Z91.030 Bee allergy status; Z91.048 Other nonmedicinal substance allergy status

== ENCOUNTER 2019-03-12 09:27 | Emergency (ER) | payer OTHER ==
[~2019-03-12] VITALS: Ht 160 cm; Wt 91.2 kg
[2019-03-12 09:27] VITALS: BP 125/78
[~2019-03-12 09:27] MED LIST changes: -ACET-908 PO; -ARIP1TAB; -LORA1TAB12
[2019-03-12] MEDS ORDERED: ARIP1TAB (09:46)
[2019-03-12] MEDS ORDERED: LORA1TAB12 (09:46)
[2019-03-12] MEDS ORDERED: IBUPROFEN 800 MG TAB PO ONE (10:00)
[2019-03-12] MEDS ORDERED: ACET-908 PO (10:05)
[2019-03-12] MEDS ORDERED: IBUP-1022 PO (10:05)
== END 2019-03-12 10:31 | disposition home or self-care (01) ==
LOC: M ED 09:27
DX: S83.92XA Sprain of unspecified site of left knee, initial encounter (principal); M54.5 Low back pain; W51.XXXA Accidental striking against or bumped into by another person, initial encounter; Y92.89 Other specified places as the place of occurrence of the external cause; E10.9 Type 1 diabetes mellitus without complications; F41.9 Anxiety disorder, unspecified; F31.9 Bipolar disorder, unspecified; J45.909 Unspecified asthma, uncomplicated; G43.909 Migraine, unspecified, not intractable, without status migrainosus; R56.9 Unspecified convulsions; M19.90 Unspecified osteoarthritis, unspecified site; K31.84 Gastroparesis; F17.210 Nicotine dependence, cigarettes, uncomplicated; Z88.0 Allergy status to penicillin; Z88.8 Allergy status to other drugs, medicaments and biological substances; Z91.018 Allergy to other foods; Z91.030 Bee allergy status; Z91.048 Other nonmedicinal substance allergy status; Z79.899 Other long term (current) drug therapy

== ENCOUNTER 2019-04-17 14:45 | Emergency (ER) | payer OTHER ==
[~2019-04-17] VITALS: Ht 160 cm; Wt 81.8 kg
[2019-04-17 14:45] VITALS: BP 132/78
[~2019-04-17 14:45] MED LIST changes: +ACET-908 PO; +ARIP1TAB; +LORA1TAB12
[2019-04-17] MEDS ORDERED: DERMABOND TOPICAL SKIN ADHESIVE TOP ONE (15:45)
== END 2019-04-17 16:14 | disposition home or self-care (01) ==
LOC: M ED 14:45
DX: S61.412A Laceration without foreign body of left hand, initial encounter (principal); W26.8XXA Contact with other sharp object(s), not elsewhere classified, initial encounter; Y92.018 Other place in single-family (private) house as the place of occurrence of the external cause; E10.9 Type 1 diabetes mellitus without complications; I10 Essential (primary) hypertension; Z79.4 Long term (current) use of insulin; Z79.899 Other long term (current) drug therapy; Z88.0 Allergy status to penicillin; Z88.8 Allergy status to other drugs, medicaments and biological substances; Z91.018 Allergy to other foods; Z91.030 Bee allergy status; Z91.048 Other nonmedicinal substance allergy status; F17.210 Nicotine dependence, cigarettes, uncomplicated

== ENCOUNTER → 2019-04-20 | Outpatient (CLI) | payer OTHER ==
--- NOTE | 2019-04-24 01:35 | ECWPNPC ---
PATIENT NAME: BEBETO SALVADOR : 1990 GENDER: FEMALE VISIT DATE: 04/20/2019 DISCHARGE DATE: 04/20/19 1432 VISIT LOCKED DATE TIME: PHYSICIAN: FRANKIE PARKS RESOURCE: FRANKIE PARKS REASON FOR APPOINTMENT 1. LEFT KNEE HISTORY OF PRESENT ILLNESS HISTORY OF PRESENT ILLNESS: PAIN THE PATIENT DESCRIBES THE PAIN... 28-YEAR-OLD FEMALE IN FOR CHRONIC PAIN FOLLOW-UP. SHE RATES HER PAIN CURRENTLY AT A 9 AND DESCRIBES IT ACHING, STABBING, AND SHOOTING. SHE FURTHER STATES THE PAIN IS PRESENT ALL DAY. FALL RISK SCREENING: SCREENING :NO FALLS REPORTED IN THE LAST YEAR CURRENT MEDICATIONS TAKING EPIPEN 2-JANETTE 0.3 MG/0.3ML SOLUTION AUTO-INJECTOR DIRECTED INJECTION ALLERGIC REACTION TO STRAWBERRIES AND BEES TAKING VENTOLIN HFA 108 (90 BASE) MCG/ACT AEROSOL SOLUTION 2 PUFFS NEEDED INHALATION EVERY 6 HRS TAKING ADMELOG 100 UNIT/ML SOLUTION MAX 100UNITS/DAY SUBCUTANEOUS AC TID/HS TAKING LANCETS - MISCELLANEOUS DX:E11.9 SUBCUTANEOUSLY FOUR TIMES DAILY TAKING WHITNEY CONTOUR NEXT TEST STRIPS [address] 50 TEST STRIPS EVERY 4 HOURS NEEDED TAKING GLUCOMETER 1 DIRECTED DX:E11.9 DAILY TAKING PROPRANOLOL HCL 10 MG TABLET 1 TABLET ON AN EMPTY STOMACH ORALLY ONCE A DAY TAKING BD PEN NEEDLE GARDENIA 2ND GEN 32G X 4 MM MISCELLANEOUS DIRECTED SUBCUTANEOUSLY FOUR TIMES DAILY TAKING BLOOD GLUCOSE TEST STRIP - STRIP DIRECTED SUBCUTANEOUSLY FOUR TIMES DAILY TAKING DICLOFENAC SODIUM 75 MG TABLET DELAYED RELEASE 1 TABLET WITH FOOD OR MILK ORALLY FOR PAIN TWICE A DAY NEEDED TAKING LAMOTRIGINE 25 MG TABLET TAKE TWO TABLETS BY MOUTH @8AM ORAL TAKING ARIPIPRAZOLE 10 MG TABLET TAKE ONE TABLET BY MOUTH @8AM ORAL TAKING TRAZODONE HCL 150 MG TABLET TAKE ONE TABLET BY MOUTH @8PM ORAL TAKING NUVARING 0.12-0.015 MG/24HR RING INSERT ONE RING VAGINALLY FOR THREE WEEKS AND REMOVE FOR ONE WEEK VAGINAL TAKING PRAZOSIN HCL 2 MG CAPSULE TAKE TWO CAPSULES BY MOUTH @8PM ORAL NOT-TAKING VOLTAREN 1 % GEL DIRECTED TO L KNEE TRANSDERMAL DAILY NOT-TAKING SALINE NASAL SPRAY 0.65 % SOLUTION 2 SPRAYS IN EACH NOSTRIL NEEDED NASALLY EVERY 2 HRS NOT-TAKING VOLTAREN 1 % GEL 1 TO 2 STRIP TRANSDERMAL NEEDED OVER LEFT KNEE TID DISCONTINUED FLONASE ALLERGY RELIEF 50 MCG/ACT SUSPENSION 1 SPRAY IN EACH NOSTRIL NASALLY ONCE A DAY DISCONTINUED MAY HAVE - - EPIPEN 0.3 INTRADERMALLY NEEDED FOR ALLERGY DISCONTINUED ADMELOG 100 UNIT/ML SOLUTION PER PUMP REGIMEN SUBCUTANEOUS DAILY MAX 60 UNITS DISCONTINUED LORAZEPAM 1 MG TABLET (SCHEDULE IV DRUG) TAKE ONE TABLET BY MOUTH AT BEDTIME MAX DAILY DOSE ONE TABLET ORAL MEDICATION LIST REVIEWED AND RECONCILED WITH THE PATIENT PAST MEDICAL HISTORY PTSD MIGRAINE PERSONALITY DISORDER TYPE 1 DM -2000 (11YEARS OLD) PUMP SINCE 2014 F/U WITH [facility] RHINITIS ASTHMA MILD INTERMITTENT CHRONIC MIGRAINE GASTROPARESIS NICOTINE USE DISORDER SEIZURE DISORDER NONCOMPLIANCE -DC FROM [facility] ALLERGIES STRAWBERRY (DIAGNOSTIC): ANAPHYLAXIS - ALLERGY LATEX GLOVES: HIVES - ALLERGY ADHESIVE BANDAGES: HIVES - ALLERGY PCN: TOLD IN CHILDHOOD - ALLERGY ARTIFICAL CINNAMON: TONGUE GOES NUMB - ALLERGY BEE STING: ANAPHALAXIS SURGICAL HISTORY TONSILLECTOMY LAPROSCOPIC REMOVAL OF ECTOPIC FAMILY HISTORY FATHER: , MURDER MOTHER: ALIVE, MENTAL HEALTH ISSUES HX MURMUR SIBLINGS: ALIVE PATERNAL GRAND FATHER: , GASTRIC ULCER PATERNAL GRAND MOTHER: , DM TYPE 1 MATERNAL GRAND FATHER: UNKNOWN MATERNAL GRAND MOTHER: , MURMUR, MENTAL HEALTH ISSUES 1 BROTHER(S) , 1 SISTER(S) . 1 SISTER PARKINSONS. SOCIAL HISTORY GENERAL: TOBACCO USE ARE YOU A:CURRENT SMOKER ARE YOU INTERESTED IN QUITTING?NOT READY TO QUIT COUNSELED THE PATIENT ON SMOKING EFFECTS, EDUCATION [id number]/25/2019 HOW MANY CIGARETTES A DAY DO YOU SMOKE?5 OR LESS HOW SOON AFTER YOU WAKE UP DO YOU SMOKE YOUR FIRST CIGARETTE?6-30 MIN HOW OFTEN DO YOU SMOKE CIGARETTES?EVERY DAY PATIENT COUNSELED ON THE DANGERS OF TOBACCO USE AND URGED TO QUIT:04/06/2019 SMOKING CESSATION INFORMATION GIVEN04/06/2019 HIV / HEP-C SCREENING HIV TEST OFFERED TO PATIENT:YES DATE OFFERED:05/26/2018 TEST ACCEPTED:NO HEP-C TEST OFFERED TO PATIENT:YES DATE OFFERED:05/26/2018 REASON:PATIENT DECLINED TEST ACCEPTED:NO REASON:PATIENT DECLINED BROCHURE PROVIDED TO PATIENTYES HOUSING: RENTS APARTMENT. EDUCATION LEVEL OF EDUCATION:FINISHED HIGH SCHOOL DIET: REGULAR. LANGUAGE LANGUAGES SPOKEN:[place] DOMESTIC VIOLENCE STATUS: DO YOU FEEL SAFE IN YOUR ENVIRONMENT?YES RECREATIONAL DRUG USE DRUG USE?NO EXERCISE: NO REGULAR EXERCISE. LEARNING BARRIERS / SPECIAL NEEDS CHANGE FROM LAST VISIT?NO BARRIERS TO LEARNING?NO HEARING IMPAIRED?NO VISION IMPAIRED?YES COGNITIVELY IMPAIRED?NO :CORRECTIVE LENSES READINESS TO LEARN?YES LEARNING PREFERENCES?NO LEARNING CAPABILITIES PRESENT?YES EMOTIONAL BARRIERS?NO SPECIAL DEVICES?NO PHYSICIAN ANESTHESIOLOGIST NEEDED?NO PAIN CLINIC PFS, CLERGY, PUBLIC HEALTH REFERRALS HAS THE PATIENT BEEN EDUCATED REGARDING HIS/HER PLAN OF CARE?YES HAS THE PATIENT BEEN EDUCATED REGARDING PAIN, THE RISK FOR PAIN, THE IMPORTANCE OF EFFECTIVE PAIN MANAGEMENT, AND THE PAIN ASSESSMENT PROCESS?YES LATEX QUESTIONNAIRE LATEX ALLERGY : HAVE YOU EVER DEVELOPED ANY TYPE OF REACTION AFTER HANDLING LATEX PRODUCTS SUCH RUBBER GLOVES, CONDOMS, DIAPHRAGMS, BALLOONS, SOCKS, OR UNDERWEAR?NO LATEX ALLERGY : HAVE YOU EVER DEVELOPED ANY TYPE OF REACTION DURING OR AFTER DENTAL APPOINTMENT, VAGINAL/RECTAL EXAMINATION, SURGICAL PROCEDURE, OR ANY OTHER EXPOSURE?NO DATE ASKED : 11/06/2018 LATEX RISK : HAVE YOU EVER HAD ANY DIFFICULTY BREATHING OR HIVES AFTER EATING OR HANDLING ANY FRUITS, OR VEGETABLES; SUCH KIWI, BANANAS, STONE FRUITS, OR CHESTNUTSNO LATEX RISK : DO YOU HAVE A PREVIOUS PERSONAL HISTORY OF MORE THAN NINE SURGERIES, SPINA BIFIDA, OR REPEATED CATHERIZATIONS? NO LATEX RISK : ARE YOU FREQUENTLY EXPOSED TO LATEX PRODUCTS IN YOUR OCCUPATION?NO CAFFEINE CAFFEINE USE?YES HOW OFTEN AND HOW MUCH? SODA AND ENERGY DRINKS-SHE REPORTS THAT SHE IS DEPENDENT ON THEM ADVANCE DIRECTIVE ADVANCE DIRECTIVE DISCUSSED WITH PATIENT:YES DECLINED CHURCH CHURCH NO TENRIISM BELIEFS THAT WOULD IMPACT HEALTH CARE. MARITAL STATUS: , 1 CHILD WHO IS DSS CUSTODY. ALCOHOL SCREENING DID YOU HAVE A DRINK CONTAINING ALCOHOL IN THE PAST YEAR?YES HOW OFTEN DID YOU HAVE SIX OR MORE DRINKS ON ONE OCCASION IN THE PAST YEAR?NEVER (0 POINTS) HOW MANY DRINKS DID YOU HAVE ON A TYPICAL DAY WHEN YOU WERE DRINKING IN THE PAST YEAR?1 OR 2 (0 POINTS) HOW OFTEN DID YOU HAVE A DRINK CONTAINING ALCOHOL IN THE PAST YEAR?MONTHLY OR LESS (1 POINT) POINTS1 INTERPRETATIONNEGATIVE OCCUPATION: UNEMPLOYEED, DISABLED (NO SSI). SEXUAL HX HAD SEX IN THE LAST 12 MONTHS (VAGINAL, ORAL, OR ANAL)?YES WITHMEN ONLY HAVE YOU EVER HAD AN STD?YES OTHER?YES HOSPITALIZATION/MAJOR DIAGNOSTIC PROCEDURE DIABITIC ISSUES PER PATIENT 02/2018 REVIEW OF SYSTEMS REVIEWED BY: PROVIDER: NATALIIA AMIN-C . CONSTITUTIONAL: ANY CHANGE IN YOUR MEDICAL CONDITION? NO . CHILLS NO . FEVER NO . INFECTION: DO YOU HAVE NEW INFECTIONS? NO . DO YOU HAVE HISTORY OF MRSA? NO . MUSCULOSKELETAL: ANY NEW PATTERNS OF PAIN OR NUMBNESS? NO . GASTROENTEROLOGY: ANY NEW CHANGE IN BOWEL CONTROL? NO . GENITOURINARY: ANY NEW CHANGE IN BLADDER CONTROL? NO . IS THERE A CHANCE YOU COULD BE ? NO . HEMATOLOGY/LYMPH: DO YOU TAKE ANY BLOOD THINNERS? (FOR EXAMPLE- COUMADIN, PLAVIX, AGGRENOX, PLATEL, PRADAXA, OR XARELTO) NO . WHEN WAS YOUR LAST DOSE? DATE: TIME: . NEUROLOGY: HAVE YOU FALLEN IN THE PAST 12 MONTHS? NO . ANY NEW EXTREMITY NUMBNESS OR WEAKNESS? NO . CARDIOLOGY: DO YOU HAVE A PACEMAKER OR DEFIBRILLATOR? NO . RESPIRATORY: HAVE YOU BEEN SICK IN THE PAST WEEK? NO . FEVER NO . FLU LIKE SYMPTOMS? NO . COUGH NO . INTEGUMENTARY: DO YOU HAVE ANY RASHES OR OPEN SORES? NO . ALLERGIC/IMMUNO: ARE YOU ALLERGIC TO IV DYE? NO . ANY NEW ALLERGIES? NO . PSYCHIATRIC: DO YOU HAVE THOUGHTS OF HURTING YOURSELF OR SOMEONE ELSE? NO . ARE YOU ABUSED, NEGLECTED, OR IN AN UNSAFE ENVIRONMENT? NO . ENDOCRINOLOGY: ARE YOU DIABETIC? YES . OTHER: DO YOU NEED ANY PRESCRIPTIONS? YES, TO DISCUSS MEDS . IF YES, PLEASE LIST: ____ . ANY NEW PROBLEMS WITH YOUR MEDICATIONS? NO . WHEN DID YOU LAST EAT? ____ . WHEN DID YOU LAST DRINK? ____ . WHAT DID YOU LAST DRINK? ____ . NAME OF PERSON DRIVING YOU HOME? ____ . DO YOU HAVE ANY OTHER QUESTIONS OR CONCERNS NO . VITAL SIGNS WT 198 LBS, HT 63 IN, BMI 35.07 INDEX, BP 129/82 MM HG, HR 96 /MIN, RR 20 /MIN, TEMP 96.6 F, OXYGEN SAT % 100%, NA INITIALS SC 13:55. EXAMINATION GENERAL EXAMINATION: GENERALNO ACUTE DISTRESS, WELL NOURISHED AND HYDRATED. PSYCHAPPROPRIATE MOOD AND AFFECT . LUNGS:CLEAR TO AUSCULTATION BILATERALLY, NO WHEEZES, RHONCHI, RALES. HEART:NO MURMURS, REGULAR RATE AND RHYTHM. ASSESSMENTS ARTHRITIS OF KNEE, LEFT - M17.12 (PRIMARY) TREATMENT ARTHRITIS OF KNEE, LEFT START FLECTOR PATCH, 1.3 %, 1 PATCH TO SKIN, TRANSDERMAL, TWICE A DAY, 30 DAY(S), 60 CLINICAL NOTES: 28-YEAR-OLD FEMALE IN FOR CHRONIC PAIN OF THE LEFT KNEE. SHE STATES THE DICLOFENAC WAS INEFFECTIVE. GIVEN PRESENTING SYMPTOMS AND RESULTS OF PHYSICAL EXAMINATION RECOMMENDED FLECTOR PATCHES WITH FOLLOW-UP IN ONE MONTH TO DETERMINE EFFICACY OF TREATMENT. PATIENT HAS EXPRESSED UNDERSTANDING OF AND WAS IN AGREEMENT WITH TREATMENT PLAN. GIVEN TIME TO ASK QUESTIONS AND EXPRESS CONCERNS.. OTHERS NOTES: DICLOFENAC TRANSDERMAL PATCH MATERIAL WAS PRINTED. PROCEDURE CODES FA211 ESTABILISHED PATIENT [facility] CHARGE DISPOSITION & COMMUNICATION FOLLOW UP 4 WEEKS (REASON: NEW MEDICATION ) ELECTRONICALLY SIGNED BY BRENNAN MCKNIGHT ON 04/23/2019 AT 08:54 AM EDT DISCLAIMER : THIS IS A VISIT SUMMARY EXTRACTED FROM THE [employer] CHART. IT IS NOT A COPY OF THE [employer] PROGRESS NOTE. SIMRAN
== END ==
LOC: M PAIN 13:30
PROVIDERS: ATTEND Family Medicine
DX: M17.12 Unilateral primary osteoarthritis, left knee (principal); G89.29 Other chronic pain; Z86.59 Personal history of other mental and behavioral disorders; G43.909 Migraine, unspecified, not intractable, without status migrainosus; E10.9 Type 1 diabetes mellitus without complications; J45.20 Mild intermittent asthma, uncomplicated; G40.909 Epilepsy, unspecified, not intractable, without status epilepticus; F17.210 Nicotine dependence, cigarettes, uncomplicated; Z88.0 Allergy status to penicillin; Z91.018 Allergy to other foods; Z91.030 Bee allergy status; Z91.040 Latex allergy status; Z91.09 Other allergy status, other than to drugs and biological substances; Z79.899 Other long term (current) drug therapy

== ENCOUNTER → 2019-06-01 | Outpatient (CLI) | payer OTHER ==
--- NOTE | 2019-06-05 00:20 | ECWPNPC ---
PATIENT NAME: BEBETO SALVADOR : 1990 GENDER: FEMALE VISIT DATE: 06/01/2019 DISCHARGE DATE: 06/01/19 1351 VISIT LOCKED DATE TIME: PHYSICIAN: FRANKIE PARKS RESOURCE: FRANKIE PARKS REASON FOR APPOINTMENT 1. 4 WK NEW MED HISTORY OF PRESENT ILLNESS HISTORY OF PRESENT ILLNESS: PAIN THE PATIENT DESCRIBES THE PAIN... 29-YEAR-OLD FEMALE IN FOR CHRONIC KNEE PAIN FOLLOW-UP. AT LAST CLINIC VISIT SHE WAS STARTED ON FLECTOR PATCHES AND ADMITS TODAY THAT THESE HAVE BEEN INEFFECTIVE IN MANAGING HER PAIN. SHE RATES HER PAIN CURRENTLY AT A 9 OUT OF 10 AND DESCRIBES IT SHARP, STABBING, SORE, AND TENDER. SHE DOES ADMIT TO BEING ON NAPROXEN IN THE PAST AND FEELS THIS WAS HELPFUL. FALL RISK SCREENING: SCREENING :NO FALLS REPORTED IN THE LAST YEAR CURRENT MEDICATIONS TAKING EPIPEN 2-JANETTE 0.3 MG/0.3ML SOLUTION AUTO-INJECTOR DIRECTED INJECTION ALLERGIC REACTION TO STRAWBERRIES AND BEES TAKING VENTOLIN HFA 108 (90 BASE) MCG/ACT AEROSOL SOLUTION 2 PUFFS NEEDED INHALATION EVERY 6 HRS TAKING ADMELOG 100 UNIT/ML SOLUTION MAX 100UNITS/DAY SUBCUTANEOUS AC TID/HS, NOTES: INSULIN PUMP TAKING LANCETS - MISCELLANEOUS DX:E11.9 SUBCUTANEOUSLY FOUR TIMES DAILY TAKING WHITNEY CONTOUR NEXT TEST STRIPS [address] 50 TEST STRIPS EVERY 4 HOURS NEEDED TAKING GLUCOMETER 1 DIRECTED DX:E11.9 DAILY TAKING PROPRANOLOL HCL 10 MG TABLET 1 TABLET ON AN EMPTY STOMACH ORALLY ONCE A DAY TAKING BD PEN NEEDLE GARDENIA 2ND GEN 32G X 4 MM MISCELLANEOUS DIRECTED SUBCUTANEOUSLY FOUR TIMES DAILY TAKING BLOOD GLUCOSE TEST STRIP - STRIP DIRECTED SUBCUTANEOUSLY FOUR TIMES DAILY TAKING LAMOTRIGINE 100 MG TABLET DISINTEGRATING TAKE TWO TABLETS BY MOUTH @8AM ORALLY TAKING TRAZODONE HCL 100 MG TABLET TAKE ONE TABLET BY MOUTH @8PM ORALLY TAKING NUVARING 0.12-0.015 MG/24HR RING INSERT ONE RING VAGINALLY FOR THREE WEEKS AND REMOVE FOR ONE WEEK VAGINAL TAKING PRAZOSIN HCL 5 MG CAPSULE 1 CAPSULE AT BEDTIME ORALLY TAKING FLECTOR 1.3 % PATCH 1 PATCH TO SKIN TRANSDERMAL TWICE A DAY TAKING REMERON 15 MG TABLET 1 TABLET AT BEDTIME ORALLY ONCE A DAY TAKING STRATTERA 40 MG CAPSULE 1 CAPSULE IN THE MORNING ORALLY ONCE A DAY NOT-TAKING DICLOFENAC SODIUM 75 MG TABLET DELAYED RELEASE 1 TABLET WITH FOOD OR MILK ORALLY FOR PAIN TWICE A DAY NEEDED NOT-TAKING ARIPIPRAZOLE 9.75 MG/1.3ML SOLUTION TAKE ONE TABLET BY MOUTH @8AM INTRAMUSCULAR NOT-TAKING VOLTAREN 1 % GEL DIRECTED TO L KNEE TRANSDERMAL DAILY NOT-TAKING SALINE NASAL SPRAY 0.65 % SOLUTION 2 SPRAYS IN EACH NOSTRIL NEEDED NASALLY EVERY 2 HRS NOT-TAKING VOLTAREN 1 % GEL 1 TO 2 STRIP TRANSDERMAL NEEDED OVER LEFT KNEE TID MEDICATION LIST REVIEWED AND RECONCILED WITH THE PATIENT PAST MEDICAL HISTORY PTSD MIGRAINE PERSONALITY DISORDER TYPE 1 DM -2000 (11YEARS OLD) PUMP SINCE 2014 F/U WITH [facility] ALL[facility]GIC RHINITIS ASTHMA MILD INTERMITTENT CHRONIC MIGRAINE GASTROPARESIS NICOTINE USE DISORDER SEIZURE DISORDER NONCOMPLIANCE -DC FROM [facility] ALLERGIES STRAWBERRY (DIAGNOSTIC): ANAPHYLAXIS - ALLERGY LATEX GLOVES: HIVES - ALLERGY ADHESIVE BANDAGES: HIVES - ALLERGY PCN: TOLD IN CHILDHOOD - ALLERGY ARTIFICAL CINNAMON: TONGUE GOES NUMB - ALLERGY BEE STING: ANAPHALAXIS SURGICAL HISTORY TONSILLECTOMY LAPROSCOPIC REMOVAL OF ECTOPIC FAMILY HISTORY FATHER: , MURDER MOTHER: ALIVE, MENTAL HEALTH ISSUES HX MURMUR SIBLINGS: ALIVE PATERNAL GRAND FATHER: , GASTRIC ULCER PATERNAL GRAND MOTHER: , DM TYPE 1 MATERNAL GRAND FATHER: UNKNOWN MATERNAL GRAND MOTHER: , MURMUR, MENTAL HEALTH ISSUES 1 BROTHER(S) , 1 SISTER(S) . 1 SISTER PARKINSONS. SOCIAL HISTORY GENERAL: TOBACCO USE ARE YOU A:CURRENT SMOKER HOW OFTEN DO YOU SMOKE CIGARETTES?EVERY DAY HOW SOON AFTER YOU WAKE UP DO YOU SMOKE YOUR FIRST CIGARETTE?6-30 MIN HOW MANY CIGARETTES A DAY DO YOU SMOKE?5 OR LESS ARE YOU INTERESTED IN QUITTING?NOT READY TO QUIT PATIENT COUNSELED ON THE DANGERS OF TOBACCO USE AND URGED TO QUIT:04/06/2019 COUNSELED THE PATIENT ON SMOKING EFFECTS, EDUCATION [id number]/25/2019 SMOKING CESSATION INFORMATION GIVEN04/06/2019 HIV / HEP-C SCREENING HIV TEST OFFERED TO PATIENT:YES DATE OFFERED:05/26/2018 TEST ACCEPTED:NO HEP-C TEST OFFERED TO PATIENT:YES DATE OFFERED:05/26/2018 REASON:PATIENT DECLINED TEST ACCEPTED:NO REASON:PATIENT DECLINED BROCHURE PROVIDED TO PATIENTYES HOUSING: RENTS APARTMENT. EDUCATION LEVEL OF EDUCATION:FINISHED HIGH SCHOOL DIET: REGULAR. LANGUAGE LANGUAGES SPOKEN:SINGAPOREAN DOMESTIC VIOLENCE STATUS: DO YOU FEEL SAFE IN YOUR ENVIRONMENT?YES RECREATIONAL DRUG USE DRUG USE?NO EXERCISE: NO REGULAR EXERCISE. LEARNING BARRIERS / SPECIAL NEEDS CHANGE FROM LAST VISIT?NO BARRIERS TO LEARNING?NO HEARING IMPAIRED?NO VISION IMPAIRED?YES COGNITIVELY IMPAIRED?NO :CORRECTIVE LENSES READINESS TO LEARN?YES LEARNING PREFERENCES?NO LEARNING CAPABILITIES PRESENT?YES EMOTIONAL BARRIERS?NO SPECIAL DEVICES?NO SCROLL ASSEMBLER NEEDED?NO PAIN CLINIC PFS, CLERGY, PUBLIC HEALTH REFERRALS HAS THE PATIENT BEEN EDUCATED REGARDING HIS/HER PLAN OF CARE?YES HAS THE PATIENT BEEN EDUCATED REGARDING PAIN, THE RISK FOR PAIN, THE IMPORTANCE OF EFFECTIVE PAIN MANAGEMENT, AND THE PAIN ASSESSMENT PROCESS?YES LATEX QUESTIONNAIRE LATEX ALLERGY : HAVE YOU EVER DEVELOPED ANY TYPE OF REACTION AFTER HANDLING LATEX PRODUCTS SUCH RUBBER GLOVES, CONDOMS, DIAPHRAGMS, BALLOONS, SOCKS, OR UNDERWEAR?NO LATEX ALLERGY : HAVE YOU EVER DEVELOPED ANY TYPE OF REACTION DURING OR AFTER DENTAL APPOINTMENT, VAGINAL/RECTAL EXAMINATION, SURGICAL PROCEDURE, OR ANY OTHER EXPOSURE?NO DATE ASKED : 11/06/2018 LATEX RISK : HAVE YOU EVER HAD ANY DIFFICULTY BREATHING OR HIVES AFTER EATING OR HANDLING ANY FRUITS, OR VEGETABLES; SUCH KIWI, BANANAS, STONE FRUITS, OR CHESTNUTSNO LATEX RISK : DO YOU HAVE A PREVIOUS PERSONAL HISTORY OF MORE THAN NINE SURGERIES, SPINA BIFIDA, OR REPEATED CATHERIZATIONS? NO LATEX RISK : ARE YOU FREQUENTLY EXPOSED TO LATEX PRODUCTS IN YOUR OCCUPATION?NO CAFFEINE CAFFEINE USE?YES HOW OFTEN AND HOW MUCH? SODA AND ENERGY DRINKS-SHE REPORTS THAT SHE IS DEPENDENT ON THEM ADVANCE DIRECTIVE ADVANCE DIRECTIVE DISCUSSED WITH PATIENT:YES DECLINED SABIANISM SABIANISM NO ADVENTIST BELIEFS THAT WOULD IMPACT HEALTH CARE. MARITAL STATUS: , 1 CHILD WHO IS DSS CUSTODY. ALCOHOL SCREENING DID YOU HAVE A DRINK CONTAINING ALCOHOL IN THE PAST YEAR?YES HOW OFTEN DID YOU HAVE SIX OR MORE DRINKS ON ONE OCCASION IN THE PAST YEAR?NEVER (0 POINTS) HOW MANY DRINKS DID YOU HAVE ON A TYPICAL DAY WHEN YOU WERE DRINKING IN THE PAST YEAR?1 OR 2 (0 POINTS) HOW OFTEN DID YOU HAVE A DRINK CONTAINING ALCOHOL IN THE PAST YEAR?MONTHLY OR LESS (1 POINT) POINTS1 INTERPRETATIONNEGATIVE OCCUPATION: UNEMPLOYEED, DISABLED (NO SSI). SEXUAL HX HAD SEX IN THE LAST 12 MONTHS (VAGINAL, ORAL, OR ANAL)?YES WITHMEN ONLY HAVE YOU EVER HAD AN STD?YES OTHER?YES REVIEWED WITH PATIENT 06/01/19 1310 BV. HOSPITALIZATION/MAJOR DIAGNOSTIC PROCEDURE DIABITIC ISSUES PER PATIENT 02/2018 REVIEW OF SYSTEMS REVIEWED BY: PROVIDER: NATALIIA GERARD . CONSTITUTIONAL: ANY CHANGE IN YOUR MEDICAL CONDITION? NO . CHILLS NO . FEVER NO . INFECTION: DO YOU HAVE NEW INFECTIONS? NO . DO YOU HAVE HISTORY OF MRSA? NO . MUSCULOSKELETAL: ANY NEW PATTERNS OF PAIN OR NUMBNESS? YES, PT STATES PAIN IN LEFT KNEE HAS BEEN INCREASED OVER THE PAST FEW WEEKS AND NOW WRAPS FULLY AROUND KNEE . GASTROENTEROLOGY: ANY NEW CHANGE IN BOWEL CONTROL? NO . GENITOURINARY: ANY NEW CHANGE IN BLADDER CONTROL? NO . IS THERE A CHANCE YOU COULD BE ? NO . HEMATOLOGY/LYMPH: DO YOU TAKE ANY BLOOD THINNERS? (FOR EXAMPLE- COUMADIN, PLAVIX, AGGRENOX, PLATEL, PRADAXA, OR XARELTO) NO . WHEN WAS YOUR LAST DOSE? DATE: TIME: . NEUROLOGY: HAVE YOU FALLEN IN THE PAST 12 MONTHS? YES, PT STATES SHE HAS HAD 2 FALLS ON ICE ABOUT 2 WEEKS AGO. STATES SHE DID NOT GO TO ED, BUT HAS NOTICED INCREASING PAIN IN LEFT KNEE SINCE FALL. . ANY NEW EXTREMITY NUMBNESS OR WEAKNESS? NO . CARDIOLOGY: DO YOU HAVE A PACEMAKER OR DEFIBRILLATOR? NO . RESPIRATORY: HAVE YOU BEEN SICK IN THE PAST WEEK? NO . FEVER NO . FLU LIKE SYMPTOMS? NO . COUGH NO . INTEGUMENTARY: DO YOU HAVE ANY RASHES OR OPEN SORES? NO . ALLERGIC/IMMUNO: ARE YOU ALLERGIC TO IV DYE? NO . ANY NEW ALLERGIES? NO . PSYCHIATRIC: DO YOU HAVE THOUGHTS OF HURTING YOURSELF OR SOMEONE ELSE? NO . ARE YOU ABUSED, NEGLECTED, OR IN AN UNSAFE ENVIRONMENT? NO . ENDOCRINOLOGY: ARE YOU DIABETIC? NO . OTHER: DO YOU NEED ANY PRESCRIPTIONS? NO . IF YES, PLEASE LIST: ____ . ANY NEW PROBLEMS WITH YOUR MEDICATIONS? NO . WHEN DID YOU LAST EAT? ____ . WHEN DID YOU LAST DRINK? ____ . WHAT DID YOU LAST DRINK? ____ . NAME OF PERSON DRIVING YOU HOME? ____ . DO YOU HAVE ANY OTHER QUESTIONS OR CONCERNS NO . VITAL SIGNS WT 202.8 LBS, HT 63 IN, BMI 35.92 INDEX, BP 116/67 MM HG, HR 85 /MIN, RR 18 /MIN, TEMP 98.0 F, OXYGEN SAT % 98%, NA INITIALS AW 1308, REVIEWED BY: BV. EXAMINATION GENERAL EXAMINATION: GENERALNO ACUTE DISTRESS, WELL NOURISHED AND HYDRATED. PSYCHAPPROPRIATE MOOD AND AFFECT . LUNGS:CLEAR TO AUSCULTATION BILATERALLY, NO WHEEZES, RHONCHI, RALES. HEART:NO MURMURS, REGULAR RATE AND RHYTHM. ASSESSMENTS ARTHRITIS OF KNEE, LEFT - M17.12 (PRIMARY) TREATMENT ARTHRITIS OF KNEE, LEFT START NAPROXEN SODIUM TABLET, 550 MG, 1 TABLET WITH FOOD OR MILK NEEDED, ORALLY, EVERY 12 HRS, 30 DAYS, 60 TABLET, REFILLS 1 STOP FLECTOR PATCH, 1.3 %, 1 PATCH TO SKIN, TRANSDERMAL, TWICE A DAY STOP DICLOFENAC SODIUM TABLET DELAYED RELEASE, 75 MG, 1 TABLET WITH FOOD OR MILK, ORALLY FOR PAIN, TWICE A DAY NEEDED STOP VOLTAREN GEL, 1 %, DIRECTED TO L KNEE, TRANSDERMAL, DAILY STOP VOLTAREN GEL, 1 %, 1 TO 2 STRIP, TRANSDERMAL NEEDED, OVER LEFT KNEE TID START GABAPENTIN CAPSULE, 100 MG, 1 CAPSULE, ORALLY, BID X 3 DAYS THEN TID, 30 DAY(S), 90 CLINICAL NOTES: 29-YEAR-OLD FEMALE IN FOR CHRONIC LEFT KNEE PAIN FOLLOW-UP. GIVEN PRESENTING SYMPTOMS AND RESULTS OF PHYSICAL EXAMINATION RECOMMENDED STARTING NAPROXEN 500 MG TWICE A DAY NEEDED FOR PAIN, AND GABAPENTIN 100MG TID WITH FOLLOW-UP IN 2 MONTHS TO DETERMINE EFFICACY OF TREATMENT. PATIENT HAS EXPRESSED UNDERSTANDING OF AND WAS IN AGREEMENT WITH TREATMENT PLAN. GIVEN TIME TO ASK QUESTIONS AND EXPRESS CONCERNS. PROCEDURE CODES FA211 ESTABILISHED PATIENT [facility] CHARGE DISPOSITION & COMMUNICATION FOLLOW UP 2 MONTHS (REASON: KNEE PAIN, NEW MEDICATION) ELECTRONICALLY SIGNED BY BRENNAN MCKNIGHT ON 06/04/2019 AT 08:39 AM EST DISCLAIMER : THIS IS A VISIT SUMMARY EXTRACTED FROM THE [employer] CHART. IT IS NOT A COPY OF THE [employer] PROGRESS NOTE. MTDD
== END ==
LOC: M PAIN 13:15
PROVIDERS: ATTEND Family Medicine
DX: M17.12 Unilateral primary osteoarthritis, left knee (principal); G89.29 Other chronic pain; Z86.59 Personal history of other mental and behavioral disorders; G43.909 Migraine, unspecified, not intractable, without status migrainosus; E10.9 Type 1 diabetes mellitus without complications; J45.20 Mild intermittent asthma, uncomplicated; G40.909 Epilepsy, unspecified, not intractable, without status epilepticus; F17.210 Nicotine dependence, cigarettes, uncomplicated; Z88.0 Allergy status to penicillin; Z91.018 Allergy to other foods; Z91.030 Bee allergy status; Z91.040 Latex allergy status; Z91.09 Other allergy status, other than to drugs and biological substances; Z79.899 Other long term (current) drug therapy

== ENCOUNTER 2019-06-11 13:40 | Emergency (ER) | payer OTHER ==
[~2019-06-11] VITALS: Ht 160 cm; Wt 90.0 kg
[2019-06-11 13:41] VITALS: BP 122/80
--- NOTE | 2019-06-11 14:30 | REP ---
Four views left hand: 06/11/2019. Indication: Left hand pain following injury. Comparison: None. Findings: There is no acute fracture, subluxation or dislocation. No lytic or blastic lesions are present. Impression: No acute left hand osseous injury. Electronically Signed by Scott Elias DO 06/11/2019 02:15 P
== END 2019-06-11 14:59 | disposition home or self-care (01) ==
LOC: M ED 13:40
DX: S60.222A Contusion of left hand, initial encounter (principal); W22.09XA Striking against other stationary object, initial encounter; Y92.098 Other place in other non-institutional residence as the place of occurrence of the external cause; E10.9 Type 1 diabetes mellitus without complications; I10 Essential (primary) hypertension; R01.1 Cardiac murmur, unspecified; G43.909 Migraine, unspecified, not intractable, without status migrainosus; R56.9 Unspecified convulsions; F41.9 Anxiety disorder, unspecified; F31.9 Bipolar disorder, unspecified; F90.9 Attention-deficit hyperactivity disorder, unspecified type; J45.909 Unspecified asthma, uncomplicated; K31.84 Gastroparesis; M25.562 Pain in left knee; Z88.0 Allergy status to penicillin; Z88.8 Allergy status to other drugs, medicaments and biological substances; Z91.018 Allergy to other foods; Z91.048 Other nonmedicinal substance allergy status; Z91.040 Latex allergy status; Z79.899 Other long term (current) drug therapy

== ENCOUNTER 2019-07-22 15:07 | Emergency (ER) | payer OTHER ==
[~2019-07-22] VITALS: Ht 160 cm; Wt 91.3 kg
[~2019-07-22 15:07] MED LIST changes: -LORA1TAB12; +LORA1TAB4; -TRAZ-163 OR; -TRAZ-163 PO; +TRAZ-257 OR; +TRAZ-257 PO
[2019-07-22] MEDS ORDERED: CLON1TAB8 (15:15)
[2019-07-22] MEDS ORDERED: ATOM40CA (15:15)
[2019-07-22] MEDS ORDERED: GABA-1171 (15:15)
[2019-07-22] MEDS ORDERED: MIRT1TAB15 (15:15)
[2019-07-22] MEDS ORDERED: ABIL400I (15:15)
[2019-07-22] MEDS ORDERED: LAMI1TAB9 (15:15)
[2019-07-22] MEDS ORDERED: KETOROLAC TROMETHAMINE 10 MG TAB PO ONE (16:45)
[2019-07-22] MEDS ORDERED: ACETAMINOPHEN 325 MG TAB PO ONE (16:45)
[2019-07-22 17:04] VITALS: BP 128/80
--- NOTE | 2019-07-23 07:37 | REP ---
RIGHT ANKLE COMPLETE: 07/22/2019. CLINICAL HISTORY: Pain. FINDINGS: Four views are provided. There is a small plantar calcaneal spur on the posterior calcaneus lateral view. Subtalar joints intact. Talonavicular, calcaneocuboid joints are normal. There is a small os trigonum. Mortise joint was symmetric and preserved. No talar dome osteochondral lesion. Distal tibia and fibula without fracture or focal lesion. Visualized tarsal bones and proximal metatarsals are grossly intact. There is a small bone island in the proximal first metatarsal as a benign finding. IMPRESSION: 1. No visible or displaced fracture about the right ankle. Mortise joint preserved. Electronically Signed by Esvin Cole MD 07/23/2019 09:29 A
== END 2019-07-22 17:05 | disposition home or self-care (01) ==
LOC: M ED 15:07
DX: S93.401A Sprain of unspecified ligament of right ankle, initial encounter (principal); Y92.009 Unspecified place in unspecified non-institutional (private) residence as the place of occurrence of the external cause; Y93.E6 Activity, residential relocation; Y99.9 Unspecified external cause status; Z79.4 Long term (current) use of insulin; Z79.899 Other long term (current) drug therapy; Z88.0 Allergy status to penicillin; Z91.09 Other allergy status, other than to drugs and biological substances; Z91.018 Allergy to other foods; Z91.030 Bee allergy status; Z91.040 Latex allergy status

== ENCOUNTER 2019-07-31 15:18 | Emergency (ER) | payer OTHER ==
[~2019-07-31] VITALS: Ht 160 cm; Wt 91.4 kg
[~2019-07-31 15:18] MED LIST changes: +ABIL400I; +ATOM40CA; +CLON1TAB8; +GABA-1171; +LAMI1TAB9; +MIRT1TAB15
--- NOTE | 2019-07-31 16:01 | REP ---
Left ankle four views : There is no fracture or dislocation. Mineralization and joint spaces are normal. There are no calcifications or foreign bodies. Impression: Negative left ankle . Electronically Signed by Fracisco Mayo MD 07/31/2019 03:52 P
[2019-07-31] MEDS ORDERED: NUVAMIS2 (17:41)
[2019-07-31] MEDS ORDERED: TRAZ-252 (17:41)
[2019-07-31] MEDS ORDERED: IBUPROFEN 600 MG TAB PO ONE (18:30)
[2019-07-31 18:42] VITALS: BP 130/74
== END 2019-07-31 18:48 | disposition home or self-care (01) ==
LOC: M ED 15:18
DX: S93.402A Sprain of unspecified ligament of left ankle, initial encounter (principal); W10.8XXA Fall (on) (from) other stairs and steps, initial encounter; Y92.89 Other specified places as the place of occurrence of the external cause; E10.9 Type 1 diabetes mellitus without complications; J45.909 Unspecified asthma, uncomplicated; F41.9 Anxiety disorder, unspecified; M25.561 Pain in right knee; G89.29 Other chronic pain; F90.9 Attention-deficit hyperactivity disorder, unspecified type; F31.9 Bipolar disorder, unspecified; F20.9 Schizophrenia, unspecified; F17.210 Nicotine dependence, cigarettes, uncomplicated; Z88.0 Allergy status to penicillin; Z91.048 Other nonmedicinal substance allergy status; Z91.030 Bee allergy status; Z91.040 Latex allergy status; Z88.8 Allergy status to other drugs, medicaments and biological substances; Z91.018 Allergy to other foods; Z79.899 Other long term (current) drug therapy

== ENCOUNTER 2019-08-06 11:00 | Emergency (ER) | payer OTHER ==
[~2019-08-06] VITALS: Ht 160 cm; Wt 93.2 kg
[~2019-08-06 11:00] MED LIST changes: -FLUO20CA19 PO; +FLUO20CA22 PO; +NUVAMIS2; +TRAZ-252
--- NOTE | 2019-08-06 13:07 | REP ---
Clinical: Trauma. Technique: A three views of the sacrum and coccyx. Findings: Alignment is maintained. No obvious acute sacrococcygeal fracture or injury identified. Impression: No obvious acute injury. Electronically Signed by Shahid Quezada MD 08/06/2019 12:58 P
[2019-08-06] MEDS ORDERED: MIRT1TAB15 (13:13)
[2019-08-06] MEDS ORDERED: IBUP-1022 PO (13:28)
[2019-08-06] MEDS ORDERED: CYCL10TA PO (13:28)
[2019-08-06 13:30] VITALS: BP 124/74
== END 2019-08-06 13:38 | disposition home or self-care (01) ==
LOC: M ED 11:00
DX: S30.0XXA Contusion of lower back and pelvis, initial encounter (principal); W01.0XXA Fall on same level from slipping, tripping and stumbling without subsequent striking against object, initial encounter; Y92.89 Other specified places as the place of occurrence of the external cause; Z79.899 Other long term (current) drug therapy; Z79.4 Long term (current) use of insulin; Z79.3 Long term (current) use of hormonal contraceptives; Z88.0 Allergy status to penicillin; Z88.8 Allergy status to other drugs, medicaments and biological substances; Z91.018 Allergy to other foods; Z91.030 Bee allergy status; Z91.040 Latex allergy status; Z91.048 Other nonmedicinal substance allergy status; F17.210 Nicotine dependence, cigarettes, uncomplicated

== ENCOUNTER 2019-11-04 18:33 | Emergency (ER) | payer OTHER ==
[~2019-11-04] VITALS: Ht 160 cm; Wt 90.5 kg
[~2019-11-04 18:33] MED LIST changes: -ATOM40CA; -ATOM40CA PO; +ATOM40CA16; +ATOM40CA16 PO; +CYCL-707 PO; -CYCL10TA PO; -PARO15TA; +PARO30TA4
[2019-11-04] MEDS ORDERED: BENA25CA4 PO ×2 (18:42→20:55)
[2019-11-04] MEDS ORDERED: ESCI10TA2 (19:01)
[2019-11-04] MEDS ORDERED: NS 1,000 ML IV ONE (19:45)
[2019-11-04] MEDS ORDERED: methylPREDNISolone INJ 125 MG/2 ML VIAL (J2930) IV ONE (19:45)
[2019-11-04] MEDS ORDERED: diphenhydrAMINE 50MG/ML VIAL (J1200) IV ONE (19:45)
[2019-11-04] MEDS ORDERED: FAMOTIDINE INJ 20MG/2ML VIAL (S0028 PER 1) IVP ONE (19:45)
[2019-11-04] MEDS ORDERED: PRED20TA PO (20:55)
[2019-11-04 21:00] VITALS: BP 118/68
== END 2019-11-04 21:12 | disposition home or self-care (01) ==
LOC: M ED 18:33
DX: T78.40XA Allergy, unspecified, initial encounter (principal); E11.9 Type 2 diabetes mellitus without complications; I10 Essential (primary) hypertension; F17.210 Nicotine dependence, cigarettes, uncomplicated; Z88.0 Allergy status to penicillin; Z88.8 Allergy status to other drugs, medicaments and biological substances; Z91.030 Bee allergy status; Z91.040 Latex allergy status; Z79.899 Other long term (current) drug therapy
CPT/HCPCS: 94760; 96361; 96374; 96375; 99284; J1200; J2930

== ENCOUNTER 2019-11-11 22:10 | Emergency (ER) | payer OTHER ==
[~2019-11-11] VITALS: Ht 160 cm; Wt 92.2 kg
[~2019-11-11 22:10] MED LIST changes: -BACIOI EXT; +BENA25CA4 PO; +ESCI10TA2; +[UNRECOGNIZED DRUG - CODE] EXT
[2019-11-11 22:52] LABS: BASO % 0.1 % (0.0-1.0); HEMATOCRIT 37.4 % (36.0-47.0); HEMOGLOBIN 12.7 g/dl (12.0-15.5); LYMPH # 1.2 10^3/uL (1.5-5.0); LYMPH % 9.5 % (24.0-44.0); MEAN CORPUSCULAR HEMOGLOBIN 29.6 pg (27.0-33.0); MEAN CORPUSCULAR VOLUME 87.2 fl (80.0-96.0); MONO # 0.2 10^3/uL (0.0-0.8); MONO % 1.9 % (0.0-5.0); NEUTROPHILS # 11.3 10^3/uL (1.5-8.5); NEUTROPHILS % 88.1 % (36.0-66.0); PLATELET COUNT, AUTOMATED 319 10^3/uL (150-450); RED BLOOD COUNT 4.29 10^6/uL (4.00-5.40); VENOUS BASE EXCESS 3.9 (-2.0-2.0); VENOUS HCO3 28.7 MEQ/L (23.0-27.0); VENOUS O2 SATURATION 82.6 % (60.0-80.0); VENOUS PARTIAL PRESSURE O2 43.7 mmHg (30.0-50.0); VENOUS PH 7.433 UNITS (7.330-7.430); VENOUS STANDARD HCO3 27.6 MEQ/L; VENOUS TOTAL CO2 30.1 MEQ/L (24.0-28.0); WHITE BLOOD COUNT 12.8 10^3/uL (4.0-10.0)
[2019-11-11 23:13] LABS: HEMOGLOBIN A1c 11.1 %
[2019-11-11] MEDS ORDERED: HumuLIN R (REGULAR) INSULIN (NovoLIN R) **100U/ML** PER UNIT IV ONE (23:15)
[2019-11-11] MEDS ORDERED: NS 1,000 ML IV ONE (23:15)
[2019-11-11 23:41] LABS: ACETONE/KETONE 3.04 MG/DL (<2.81); ALBUMIN 3.5 GM/DL (3.2-5.2); ALT/SGPT 21 U/L (12-78); BILIRUBIN,TOTAL 0.5 MG/DL (0.2-1.0); BLOOD UREA NITROGEN 19 MG/DL (7-18); CALCIUM LEVEL 8.6 MG/DL (8.5-10.1); CARBON DIOXIDE LEVEL 27 MEQ/L (21-32); CHLORIDE LEVEL 100 MEQ/L (98-107); GLOMERULAR FILTRATION RATE > 60.0 (>60); GLUCOSE, FASTING 456 MG/DL (70-100); POTASSIUM SERUM 4.2 MEQ/L (3.5-5.1); SODIUM LEVEL 136 MEQ/L (136-145); TOTAL PROTEIN 6.7 GM/DL (6.4-8.2)
[2019-11-12 00:27] LABS: VENOUS BASE EXCESS 0.4 (-2.0-2.0); VENOUS HCO3 26.6 MEQ/L (23.0-27.0); VENOUS O2 SATURATION 76.5 % (60.0-80.0); VENOUS PARTIAL PRESSURE CO2 49.6 mmHg (38.0-50.0); VENOUS PARTIAL PRESSURE O2 42.1 mmHg (30.0-50.0); VENOUS PH 7.348 UNITS (7.330-7.430); VENOUS STANDARD HCO3 24.4 MEQ/L; VENOUS TOTAL CO2 28.2 MEQ/L (24.0-28.0)
[2019-11-12] MEDS ORDERED: HumuLIN R (REGULAR) INSULIN (NovoLIN R) **100U/ML** PER UNIT IV ONE (00:30)
[2019-11-12 01:45] VITALS: BP 121/67
== END 2019-11-12 01:59 | disposition home or self-care (01) ==
LOC: M ED 22:10
DX: E10.65 Type 1 diabetes mellitus with hyperglycemia (principal); R00.0 Tachycardia, unspecified; G40.909 Epilepsy, unspecified, not intractable, without status epilepticus; F41.9 Anxiety disorder, unspecified; Z86.39 Personal history of other endocrine, nutritional and metabolic disease; Z88.0 Allergy status to penicillin; Z88.8 Allergy status to other drugs, medicaments and biological substances; Z91.030 Bee allergy status; Z91.018 Allergy to other foods; Z91.040 Latex allergy status; Z91.048 Other nonmedicinal substance allergy status; Z79.899 Other long term (current) drug therapy

== ENCOUNTER 2019-12-05 18:43 | Emergency (ER) | payer OTHER ==
[~2019-12-05] VITALS: Ht 160 cm; Wt 91.3 kg
[2019-12-05] MEDS ORDERED: EPIN0.3I11 (18:55)
[2019-12-05 19:29] LABS: HEMATOCRIT 34.6 % (36.0-47.0); HEMOGLOBIN 11.2 g/dl (12.0-15.5); MEAN CORPUSCULAR HEMOGLOBIN 28.9 pg (27.0-33.0); MEAN CORPUSCULAR HGB CONC 32.4 g/dl (32.0-36.5); MEAN CORPUSCULAR VOLUME 89.4 fl (80.0-96.0); PLATELET COUNT, AUTOMATED 340 10^3/uL (150-450); RED BLOOD COUNT 3.87 10^6/uL (4.00-5.40); WHITE BLOOD COUNT 10.9 10^3/uL (4.0-10.0)
[2019-12-05] MEDS ORDERED: MORPHINE 2 MG/ML 1ML VIAL (J2270) IV ONE ×2 (20:00→22:00)
[2019-12-05 20:18] LABS: BLOOD UREA NITROGEN 10 MG/DL (7-18); CALCIUM LEVEL 8.5 MG/DL (8.5-10.1); CARBON DIOXIDE LEVEL 29 MEQ/L (21-32); CHLORIDE LEVEL 105 MEQ/L (98-107); CREATININE FOR GFR 1.09 MG/DL (0.55-1.30); GLOMERULAR FILTRATION RATE > 60.0 (>60); GLUCOSE, FASTING 373 MG/DL (70-100); POTASSIUM SERUM 4.4 MEQ/L (3.5-5.1); SODIUM LEVEL 140 MEQ/L (136-145)
[2019-12-05 20:34] LABS: C REACTIVE PROTEIN QUANTITATIV 5.62 MG/DL (0.00-0.30)
[2019-12-05 20:35] LABS: ERYTHROCYTE SEDIMENTATION RATE 46 mm/hr (0-20)
--- NOTE | 2019-12-05 21:00 | REPVR ---
PROCEDURE INFORMATION: Exam: US Abdomen Limited, Other. Exam date and time: 12/05/2019 8:51 PM Age: 29 years old Clinical indication: Mass, lump, or swelling; Llq; Additional info: Infected insulin pump site, abscess? TECHNIQUE: Imaging protocol: Real-time ultrasound of the abdomen with image documentation. Examination is focused on the region of clinical interest. COMPARISON: RENAL US 12/07/2016 3:15 PM FINDINGS: Soft tissues: Scanning in the area of interest demonstrates a a minimal vertical linear hypoechoic area perpendicular to the skin measuring 1.4 cm in depth and only a few mm wide which may reflect a localized collection of fluid or early abscess. This is not considered drainable. Subcutaneous edema about the surrounding tissues. IMPRESSION: Subcutaneous edema in the area of interest in the left lower quadrant with thin linear hypoechoic collection perpendicular to the skin measuring 1.4 cm in depth and only a few mm wide which may reflect a localized collection of tissue fluid or possibly early abscess but is not considered drainable collection. Electronically signed by: Jonah Che On 12/05/2019 21:00:01 PM
[2019-12-05] MEDS ORDERED: CLINDAMYCIN 600 MG in IV 1 EA IV ONE (21:30)
[2019-12-05] MEDS ORDERED: BACT800T5 PO (21:32)
[2019-12-05 22:20] VITALS: BP 130/77
== END 2019-12-05 22:25 | disposition home or self-care (01) ==
LOC: M ED 18:43
DX: T85.72XA Infection and inflammatory reaction due to insulin pump, initial encounter (principal); Y74.2 Prosthetic and other implants, materials and accessory general hospital and personal-use devices associated with adverse incidents; L03.311 Cellulitis of abdominal wall; E10.9 Type 1 diabetes mellitus without complications; J45.909 Unspecified asthma, uncomplicated; R51 Headache; R01.1 Cardiac murmur, unspecified; F99 Mental disorder, not otherwise specified; F17.200 Nicotine dependence, unspecified, uncomplicated; Z88.0 Allergy status to penicillin; Z88.8 Allergy status to other drugs, medicaments and biological substances; Z91.018 Allergy to other foods; Z91.030 Bee allergy status; Z91.040 Latex allergy status; Z91.048 Other nonmedicinal substance allergy status; Z79.899 Other long term (current) drug therapy
CPT/HCPCS: 76705; 80048; 83605; 85027; 85652; 86140; 87040; 87070; 87077; 87186; 96365; 96375; 96376; 99283; J2270

== ENCOUNTER 2020-01-16 23:58 | Emergency (ER) | payer OTHER ==
[~2020-01-16] VITALS: Ht 160 cm; Wt 88.2 kg
[~2020-01-16 23:58] MED LIST changes: +BACT800T5 PO; +EPIN0.3I11
[2020-01-17] MEDS ORDERED: NEOM1SUS22 OU (00:33)
[2020-01-17] MEDS ORDERED: KETO0.3S OU (00:33)
[2020-01-17] MEDS ORDERED: NEOM10OI OU (00:33)
[2020-01-17 02:52] VITALS: BP 123/81
[2020-01-17 03:21] LABS: BASO % 0.4 % (0.0-1.0); EOS # 0.3 10^3/uL (0.0-0.5); EOS % 3.2 % (0.0-3.0); HEMATOCRIT 37.6 % (36.0-47.0); HEMOGLOBIN 12.5 g/dl (12.0-15.5); LYMPH # 3.4 10^3/uL (1.5-5.0); LYMPH % 31.9 % (24.0-44.0); MEAN CORPUSCULAR HEMOGLOBIN 28.7 pg (27.0-33.0); MEAN CORPUSCULAR HGB CONC 33.2 g/dl (32.0-36.5); MEAN CORPUSCULAR VOLUME 86.2 fl (80.0-96.0); MONO # 0.5 10^3/uL (0.0-0.8); MONO % 4.6 % (0.0-5.0); NEUTROPHILS # 6.4 10^3/uL (1.5-8.5); NEUTROPHILS % 59.6 % (36.0-66.0); PLATELET COUNT, AUTOMATED 313 10^3/uL (150-450); RED BLOOD COUNT 4.36 10^6/uL (4.00-5.40); WHITE BLOOD COUNT 10.7 10^3/uL (4.0-10.0)
[2020-01-17 03:22] LABS: VENOUS BASE EXCESS -0.6 (-2.0-2.0); VENOUS HCO3 25.8 MEQ/L (23.0-27.0); VENOUS O2 SATURATION 66.5 % (60.0-80.0); VENOUS PARTIAL PRESSURE CO2 49.5 mmHg (38.0-50.0); VENOUS PARTIAL PRESSURE O2 34.2 mmHg (30.0-50.0); VENOUS PH 7.335 UNITS (7.330-7.430); VENOUS STANDARD HCO3 23.3 MEQ/L; VENOUS TOTAL CO2 27.3 MEQ/L (24.0-28.0)
[2020-01-17 03:40] LABS: HEMOGLOBIN A1c 10.4 %
[2020-01-17 04:03] LABS: ACETONE/KETONE 3.89 MG/DL (<2.81); ALBUMIN 3.7 GM/DL (3.2-5.2); ALT/SGPT 24 U/L (12-78); BILIRUBIN,DIRECT 0.2 MG/DL (0.0-0.2); BILIRUBIN,TOTAL 0.4 MG/DL (0.2-1.0); BLOOD UREA NITROGEN 15 MG/DL (7-18); CALCIUM LEVEL 8.9 MG/DL (8.5-10.1); CARBON DIOXIDE LEVEL 29 MEQ/L (21-32); CHLORIDE LEVEL 102 MEQ/L (98-107); CREATININE FOR GFR 0.74 MG/DL (0.55-1.30); GLOMERULAR FILTRATION RATE > 60.0 (>60); GLUCOSE, FASTING 392 MG/DL (70-100); LIPASE 45 U/L (73-393); POTASSIUM SERUM 4.7 MEQ/L (3.5-5.1); SODIUM LEVEL 134 MEQ/L (136-145); TOTAL PROTEIN 6.8 GM/DL (6.4-8.2)
[2020-01-17 04:37] LABS: OSMOLALITY SERUM 299 MOSM/KG (275-295)
== END 2020-01-17 03:56 | disposition left against medical advice (07) ==
LOC: M ED 23:58
DX: Z53.21 Procedure and treatment not carried out due to patient leaving prior to being seen by health care provider (principal)

== ENCOUNTER 2020-01-23 23:35 | Emergency (ER) | payer OTHER ==
[~2020-01-23 23:35] MED LIST changes: +KETO0.3S OU; +NEOM10OI OU; +NEOM1SUS22 OU; +PANT40TA29 PO; -PANT40TA3 PO
[2020-01-24] MEDS ORDERED: ONDANSETRON 4MG/2ML VIAL ONE (01:33)
[2020-03-02 12:27] LABS: APPEARANCE, URINE CLEAR (CLEAR); BACTERIA, URINE AUTO NEGATIVE (NEGATIVE); BILIRUBIN, URINE AUTO NEGATIVE (NEGATIVE); BLOOD, URINE BLOOD NEGATIVE (NEGATIVE); COLOR, URINE YELLOW (YELLOW); GLUCOSE, URINE (UA) AUTO 3+ mg/dL (NEGATIVE); KETONE, URINE AUTO NEGATIVE (NEGATIVE); LEUKOCYTE ESTERASE, URINE AUTO NEGATIVE (NEGATIVE); MUCUS, URINE SMALL (NEGATIVE); NITRITE, URINE AUTO NEGATIVE (NEGATIVE); PROTEIN, URINE AUTO NEGATIVE (NEGATIVE); RBC, URINE AUTO 1 /HPF (0-3); SPECIFIC GRAVITY URINE AUTO 1.036 (1.002-1.035); SQUAMOUS EPITHELIAL CELL UR AU 1 /HPF (0-6); UROBILINOGEN, URINE AUTO 0.2 mg/dL (0.0-2.0); WBC, URINE AUTO 1 /HPF (0-3)
[2020-03-02 12:29] LABS: INR 1.08; PARTIAL THROMBOPLASTIN TIME 31.2 SECONDS (25.0-38.4); PROTHROMBIN TIME 14.3 SECONDS (11.8-14.0)
[2020-03-02 13:41] LABS: BASO # 0.1 10^3/uL (0.0-0.2); BASO % 0.4 % (0.0-1.0); EOS # 0.2 10^3/uL (0.0-0.5); EOS % 1.8 % (0.0-3.0); HEMATOCRIT 37.9 % (36.0-47.0); HEMOGLOBIN 12.5 g/dl (12.0-15.5); LYMPH # 3.7 10^3/uL (1.5-5.0); LYMPH % 28.5 % (24.0-44.0); MEAN CORPUSCULAR HEMOGLOBIN 28.7 pg (27.0-33.0); MEAN CORPUSCULAR VOLUME 86.9 fl (80.0-96.0); MONO # 0.7 10^3/uL (0.0-0.8); MONO % 5.2 % (0.0-5.0); NEUTROPHILS # 8.3 10^3/uL (1.5-8.5); NEUTROPHILS % 63.9 % (36.0-66.0); PLATELET COUNT, AUTOMATED 359 10^3/uL (150-450); RED BLOOD COUNT 4.36 10^6/uL (4.00-5.40)
[2020-04-04 12:09] LABS: BLOOD UREA NITROGEN 14 MG/DL (7-18); CALCIUM LEVEL 9.2 MG/DL (8.5-10.1); CARBON DIOXIDE LEVEL 29 mmol/L (20-29); CHLORIDE LEVEL 101 MEQ/L (98-107); GLOMERULAR FILTRATION RATE > 60.0 (>60); GLUCOSE, FASTING 278 MG/DL (70-100); SODIUM LEVEL 134 MEQ/L (136-145)
[2020-04-04 12:10] LABS: ACETONE/KETONE 0.69 MG/DL (<2.81); ALBUMIN 3.8 GM/DL (3.2-5.2); ALT/SGPT 21 IU/L (0-32); BILIRUBIN,DIRECT 0.1 MG/DL (0.0-0.2); BILIRUBIN,TOTAL 0.5 MG/DL (0.2-1.0); HCG, SERUM QUALITATIVE NEGATIVE (NEGATIVE); LIPASE 41 U/L (73-393)
[2020-04-04 12:11] LABS: VENOUS BASE EXCESS -0.9 (-2.0-2.0); VENOUS HCO3 24.8 MEQ/L (23.0-27.0); VENOUS O2 SATURATION 65.2 % (60.0-80.0); VENOUS PARTIAL PRESSURE CO2 45.9 mmHg (38.0-50.0); VENOUS STANDARD HCO3 23.3 MEQ/L; VENOUS TOTAL CO2 26.2 MEQ/L (24.0-28.0)
== END 2020-01-24 03:30 | disposition home or self-care (01) ==
LOC: M ED 23:35
DX: E11.65 Type 2 diabetes mellitus with hyperglycemia (principal); G40.909 Epilepsy, unspecified, not intractable, without status epilepticus; J45.909 Unspecified asthma, uncomplicated; Z91.048 Other nonmedicinal substance allergy status; Z91.018 Allergy to other foods; F17.200 Nicotine dependence, unspecified, uncomplicated; Z79.2 Long term (current) use of antibiotics; Z91.030 Bee allergy status; Z91.040 Latex allergy status
CPT/HCPCS: 80048; 80076; 81001; 82010; 82803; 83690; 84703; 85025; 85610; 85730; 87086; 96374; 99284; J2405

== ENCOUNTER 2020-02-08 20:07 | Emergency (ER) | payer OTHER | END 2020-02-08 22:50 | disposition home or self-care (01) | LOC: M ED 20:07 | DX: S93.401A Sprain of unspecified ligament of right ankle, initial encounter (principal); W01.0XXA Fall on same level from slipping, tripping and stumbling without subsequent striking against object, initial encounter; Y92.018 Other place in single-family (private) house as the place of occurrence of the external cause; E11.9 Type 2 diabetes mellitus without complications; Z79.4 Long term (current) use of insulin; Z88.0 Allergy status to penicillin; Z91.018 Allergy to other foods; Z91.030 Bee allergy status; Z91.048 Other nonmedicinal substance allergy status ==

== ENCOUNTER → 2020-02-10 | Emergency (ER) | payer OTHER ==
[~2020-02-10] MED LIST changes: +ACETAMINOPHEN 500 MG TAB As Ordered ONE; +ACETAMINOPHEN 500 MG TAB ONE; +TRAM50TA2 PO
== END | disposition home or self-care (01) ==
LOC: M ED 21:22
DX: S93.401A Sprain of unspecified ligament of right ankle, initial encounter (principal); M25.571 Pain in right ankle and joints of right foot; X58.XXXA Exposure to other specified factors, initial encounter; Y92.89 Other specified places as the place of occurrence of the external cause

== ENCOUNTER 2020-03-20 22:49 | Emergency (ER) | payer OTHER ==
[~2020-03-20] VITALS: Ht 160 cm; Wt 91.8 kg
[~2020-03-20 22:49] MED LIST changes: -ACETAMINOPHEN 500 MG TAB As Ordered ONE; -ACETAMINOPHEN 500 MG TAB ONE; -TRAM50TA2 PO
[2020-03-21 01:13] LABS: BASO # 0.1 10^3/uL (0.0-0.2); BASO % 0.5 % (0.0-1.0); EOS # 0.5 10^3/uL (0.0-0.5); EOS % 3.7 % (0.0-3.0); HEMATOCRIT 38.9 % (36.0-47.0); HEMOGLOBIN 12.5 g/dl (12.0-15.5); LYMPH # 3.7 10^3/uL (1.5-5.0); LYMPH % 28.9 % (24.0-44.0); MEAN CORPUSCULAR HEMOGLOBIN 27.9 pg (27.0-33.0); MEAN CORPUSCULAR HGB CONC 32.1 g/dl (32.0-36.5); MEAN CORPUSCULAR VOLUME 86.8 fl (80.0-96.0); MONO # 0.7 10^3/uL (0.0-0.8); MONO % 5.4 % (0.0-5.0); NEUTROPHILS # 7.8 10^3/uL (1.5-8.5); NEUTROPHILS % 61.2 % (36.0-66.0); PLATELET COUNT, AUTOMATED 366 10^3/uL (150-450); RED BLOOD COUNT 4.48 10^6/uL (4.00-5.40); WHITE BLOOD COUNT 12.7 10^3/uL (4.0-10.0)
[2020-03-21 01:14] LABS: VENOUS BASE EXCESS 3.1 (-2.0-2.0); VENOUS O2 SATURATION 77.9 % (60.0-80.0); VENOUS PARTIAL PRESSURE CO2 50.1 mmHg (38.0-50.0); VENOUS PARTIAL PRESSURE O2 39.5 mmHg (30.0-50.0); VENOUS PH 7.381 UNITS (7.330-7.430); VENOUS STANDARD HCO3 26.7 MEQ/L; VENOUS TOTAL CO2 30.6 MEQ/L (24.0-28.0)
[2020-03-21] MEDS ORDERED: NS 1,000 ML IV ONE (01:15)
[2020-03-21 01:30] LABS: OSMOLALITY SERUM 307 MOSM/KG (275-295)
[2020-03-21 01:41] LABS: ACETONE/KETONE 0.78 MG/DL (<2.81); BLOOD UREA NITROGEN 22 MG/DL (7-18); CALCIUM LEVEL 9.4 MG/DL (8.5-10.1); CARBON DIOXIDE LEVEL 28 MEQ/L (21-32); CHLORIDE LEVEL 103 MEQ/L (98-107); CREATININE FOR GFR 0.73 MG/DL (0.55-1.30); GLOMERULAR FILTRATION RATE > 60.0 (>60); GLUCOSE, FASTING 240 MG/DL (70-100); POTASSIUM SERUM 4.2 MEQ/L (3.5-5.1); SODIUM LEVEL 136 MEQ/L (136-145)
[2020-03-21] MEDS ORDERED: TRAM50TA2 PO (01:56)
[2020-03-21] MEDS ORDERED: traMADol 50 MG TAB PO ONE (02:00)
[2020-03-21 03:00] VITALS: BP 107/66
== END 2020-03-21 03:16 | disposition home or self-care (01) ==
LOC: M ED 22:49
DX: E10.65 Type 1 diabetes mellitus with hyperglycemia (principal); F31.9 Bipolar disorder, unspecified; F17.210 Nicotine dependence, cigarettes, uncomplicated; Z88.0 Allergy status to penicillin; Z91.030 Bee allergy status; Z88.8 Allergy status to other drugs, medicaments and biological substances; Z91.018 Allergy to other foods; Z91.048 Other nonmedicinal substance allergy status; Z91.040 Latex allergy status; Z79.899 Other long term (current) drug therapy